=== PATIENT | male | born 1960 | race Caucasian/White ===

== ENCOUNTER → 2017-07-01 08:16 | Outpatient (CLI) | payer OTHER, SELFPAY ==
[2017-07-01 12:50] LABS: Anion Gap 8 (5-15); BUN 18 mg/dL (7-18); BUN/Creat Ratio 21.7 RATIO (10-20); Calcium,Total 8.6 mg/dL (8.5-10.1); Chloride 104 mmol/L (98-107); Cholesterol 192 mg/dL (200); Creatinine, Serum 0.83 mg/dL (0.70-1.30); EST Glomerular Filtration Rate 101 mL/min (>60); Est Glom Filt Rate - Afr Amer 123 mL/min (>60); Glucose 93 mg/dL (74-106); High Density Lipoprotein 46 mg/dL; Potassium 3.6 mmol/L (3.5-5.1); Sodium Level 139 mmol/L (136-145); Triglycerides 222 mg/dL; Very Low Density Lipoprotein 44 mg/dL (5-40)
== END ==
PROVIDERS: Family Provider Family Medicine; PCP Family Medicine; Visit Provider Family Medicine
DX: I10 Essential (primary) hypertension (principal); E78.5 Hyperlipidemia, unspecified
CPT/HCPCS: 36415; 80048; 80061

== ENCOUNTER 2017-08-02 15:15 | Observation (INO) | payer OTHER, SELFPAY ==
[2017-08-02] VITALS (11 sets, daily range): BP systolic 137–159; BP diastolic 85–104; PULSE 53–80; RESP 12–18; TEMP 36.7–36.9; O2SAT 94–98; BMI 31.8; BMI 30.9; BMI 31.0
--- NOTE | 2017-08-02 15:26 | EKG12_ITS ---
Test Reason : CP Blood Pressure : / mmHG Vent. Rate : 072 BPM Atrial Rate : 072 BPM P-R Int : 162 ms QRS Dur : 104 ms QT Int : 404 ms P-R-T Axes : 044 -23 021 degrees QTc Int : 442 ms Normal sinus rhythm Normal ECG Confirmed by ALLY WHITESIDE MD ([id number]), editor newspaper TIAGO CHANG ([id number]) on 08/04/2017 3:16:04 PM Referred By: ZAIRA Confirmed By:ALLY WHITESIDE MD
--- NOTE | 2017-08-02 15:27 | RAD_ITS ---
STUDY: X-RAY CHEST REASON FOR EXAM: Male, 57 years old. Left chest pain intermittent for one week with numbness and tingling in the left arm. TECHNIQUE: AP upright portable view. COMPARISON: None. FINDINGS: The lungs are clear and expanded. There is no demonstrated pleural abnormality. Normal size heart. Normal mediastinum and luma. Normal visualized pulmonary arteries. Normal visualized aortic arch and descending thoracic aorta. Normal visualized thoracic spine. Normal visualized ribs, clavicles, and shoulders. There is no demonstrated abnormality of the visualized soft tissue structures of the upper abdomen. RAD/Chest 1 View (Portable) IMPRESSION: Normal x-ray examination of the chest. Electronically Signed: Amos Chin MD at 15:45 EDT , Service support ,
--- NOTE | 2017-08-02 15:29 | ED.VISSUMM ---
- ER Visit Summary Date of Service: 08/02/17 Chief Complaint: Chest pain History of Present Illness: The patient is a 57 M presenting with intermittent chest pain. He states this began a week ago and has become more frequent. He has midsternal chest pain. He states yesterday it radiated to the left side of his neck. He also notes left-sided facial tingling. No weakness. No change in vision or speech. Last night he had an episode of diaphoresis. He denies nausea or vomiting. Denies shortness of breath. He is on chemotherapy for rheumatoid arthritis. Denies any recent travel or surgery. He has a history of hypertension, hypercholesterolemia. Physical Examination: Vitals are stable. Patient is afebrile. Alert no acute distress. HEENT exam is unremarkable. Neck is supple. Lungs are clear and equal bilaterally. Heart is regular rate and rhythm. Abdomen is soft nontender nondistended. Extremities are unremarkable. Skin is warm and dry. Paresthesia left lower face, remainder of neuro exam is normal Remainder of exam is unremarkable. Emergency Department Course and Treatment: Patient was given aspirin on arrival. EKG is sinus rhythm rate of 72 with no acute ischemic changes. CBC is normal except for platelets 125. Chemistries unremarkable. Troponin is negative. Chest x-ray shows no acute process. D-dimer was elevated. CTA chest shows no PE or dissection. CT head shows no acute process. Due to his intermittent chest pain and diaphoresis discussed with the hospitalist for observation. Disposition: Observation Impression: Chest pain This note was generated with [employer] dictation software. It may contain incorrect words, spelling, and punctuation that were not noted in review of the chart prior to signing ED Disposition - Plan for ED Patient: Disposition: Acute Care Hospital [facility] Chief Complaint: Chest Pain
[2017-08-02] MEDS: Aspirin 81 MG TAB.CHEW 324 MG PO (15:36)
[2017-08-02 15:49] LABS: Absolute Lymphocyte Count 1.27 X10^3/ul (0.83-4.51); Basophil# 0.03 X10^3/uL; Basophil% 0.6 % (0-1); Hematocrit 43.6 % (40-54); Lymphocyte # 1.27 X10^3/ul (4.0); Lymphocyte % 25.2 % (19-41); Mean Corp Hgb Conc 34.4 g/gl (32-36); Mean Corpuscular Hgb 30.1 pg (27.0-32.0); Mean Corpuscular Volume 87.4 fL (80-94); Mean Platelet Vol. 10.1 fl (6.2-12.0); Monocyte% 11.9 % (0-10); Neutrophil # 3.02 X10^3/uL (2.7-7.7); Neutrophil % 60.1 % (47-70); Platelet Count 125 K/mm3 (150-450); RBC Distribution Width CV 12.4 % (11.6-14.6); RBC Distribution Width SD 39.8 fl (35.1-43.9); Red Blood Count 4.99 M/mm3 (4.6-6.2)
[2017-08-02 15:50] LABS: POSITIVE COUNT NO; POSITIVE DIFFERENTIAL NO; POSITIVE MORPHOLOGY NO
[2017-08-02 15:59] LABS: Anion Gap 10 (5-15); BUN 14 mg/dL (7-18); BUN/Creat Ratio 16.3 RATIO (10-20); Calcium,Total 8.5 mg/dL (8.5-10.1); Chloride 104 mmol/L (98-107); Creatinine, Serum 0.86 mg/dL (0.70-1.30); EST Glomerular Filtration Rate 98 mL/min (>60); Est Glom Filt Rate - Afr Amer 118 mL/min (>60); Glucose 101 mg/dL (74-106); Potassium 3.6 mmol/L (3.5-5.1); Sodium Level 140 mmol/L (136-145)
[2017-08-02 16:20] LABS: D-Dimer Quantitative (DVT/PE) 2.61 FEU/ug/m (0.27-0.49)
--- NOTE | 2017-08-02 16:22 | CT_ITS ---
STUDY: CT BRAIN WITHOUT CONTRAST REASON FOR EXAM: Male, 57 years old. Left arm numbness and tingling RADIATION DOSAGE (If Supplied By Facility): CTDIvol = ( 44.99 ) mGy, DLP = ( 779.24 ) mGycm TECHNIQUE: Transaxial CT imaging of the brain was performed without administration of intravenous contrast material. Sagittal and coronal images are reformatted. Individualized dose optimization techniques were used for this CT. COMPARISON: None. FINDINGS: Normal soft tissue structures. Normal calvarium. Normal size ventricles and extra-axial spaces for the patient's age. Normal white matter tracts of the cerebral hemispheres. Normal basal ganglia and thalami. Normal brainstem. Normal cerebellum. There is no intracranial hemorrhage. There are no findings of an acute ischemic infarction. Normal visualized paranasal sinuses. CT/Brain/Head without Contrast IMPRESSION: No acute intracranial process. Electronically Signed: Scout Valdovinos DO at 17:10 EDT , Service support ,
--- NOTE | 2017-08-02 16:22 | CT_ITS ---
STUDY: CTA CHEST REASON FOR EXAM: Male, 57 years old. Left arm numbness/tingling. Elevated d-dimer. RADIATION DOSAGE (If Supplied By Facility): CTDIvol = ( 16.30 ) mGy, DLP = ( 744.63 ) mGycm TECHNIQUE: The examination was performed with the intravenous administration of 100mL ml of Isovue 370 contrast material. Post-processing of the angiographic images was performed, with multiplanar reformation and 3D reconstruction. Individualized dose optimization techniques were used for this CT. COMPARISON: None. FINDINGS: Normal enhancement of the main pulmonary artery and right and left pulmonary arteries. Normal enhancement of the bilateral peripheral pulmonary arteries. There is no demonstrated pulmonary embolism. Normal thoracic aorta and visualized great vessels. There is no demonstrated aortic dissection. Normal heart and pericardium. Normal mediastinum. Normal hilar regions. Normal visualized trachea and bronchi. There is minimal dependent atelectasis within the lower lobes. Normal chest wall structures. Normal osseous structures. The limited images of the upper abdomen demonstrate a well-circumscribed low-attenuation focus with a thin calcified septation within the spleen. CT/CTA Chest W/WO Contrast IMPRESSION: No pulmonary embolism or arterial dissection. Minimal dependent atelectasis within the lower lobes. Splenic cyst. Electronically Signed: Yolanda Thompson MD at 17:17 EDT Tel , Service support ,
--- NOTE | 2017-08-02 18:18 | NURSING ---
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
--- NOTE | 2017-08-02 18:21 | PCM.HP.STD ---
Problem List (1) Chest pain Status: Acute Qualifiers: Chest pain type: precordial pain Qualified Code(s): R07.2 - Precordial pain (2) Essential hypertension, benign Status: Chronic (3) Hyperlipidemia, mixed Status: Chronic (4) Rheumatoid arthritis Status: Chronic Qualifiers: Rheumatoid arthritis location: multiple sites Rheumatoid factor presence: unspecified presence Qualified Code(s): M06.9 - Rheumatoid arthritis, unspecified History of Present Illness Date of Admission: 08/02/17 Chief Complaint: Chest pain. Patient is a 57 years old male who presents with chest pain. He is having intermittent left mid lower chest pain that lasts for 10 to 20 seconds with sharp sensation for about 10 days. The pain is associated with some exertion, but not always. The pain is somewhat reproducible with pressure to mid lower chest that induces similar pain. He had some left sided radiation and tingling of fingers with chest pain. He also had an episode of diaphoresis during the night, but not sure if he had chest pain. He has some worsening of dyspnea with mild exertion, which is new. He has no previous cardiac problems, and has no family history of cardiac disease. He had quit smoking 15 years ago. He has hypertension and hyperlipidemia. He is on biologic DMARD infusion for rheumatoid arthritis. Past Medical History Past Medical History (Chronic Problems): Chronic Problems Essential hypertension, benign (Chronic) Hyperlipidemia, mixed (Chronic) Rheumatoid arthritis (Chronic) Allergies leflunomide [From Arava] Allergy (Verified 08/02/17 15:17) Rash Home Medications: Ambulatory Orders Medication Instructions Recorded Aspirin [Aspirin EC] 325 mg PO DAILY 08/02/17 Atorvastatin Calcium [Lipitor] 10 mg PO QHS 08/02/17 Lisinopril [Zestril] 10 mg PO DAILY 08/02/17 Ranitidine [Zantac] 150 mg PO BID 08/02/17 Surgical History: no surgical history Psychiatric History: No pertinent psych hx Lives: Spouse/ Significant Other Smoking Status: Never smoker - *Family History Maternal History Items: Cancer - Mother had pancreatic cancer. Paternal History Items: - - His father had aneurysm of brain. Review of Systems Comment: ROS: In general: Patient has been in good health, denied of any constitutional symptoms, such as weight loss, or gain, fever, chills, or night sweats. Patient denied of any profound fatigue. HEENT: Unremarkable. Patient denied of any dizziness, chronic headache, blurred vision, double vision, dry mouth, or nasal congestion. CV/respiratory: See HPI. GI: Patient denied any abdominal pain, nausea, vomiting, diarrhea, constipation, melena, or hematochezia. : Patient denied any significant urinary symptoms. Neurology: He is having some numbness of left face / angle of jaw area. There is no history of seizure as an adult. Psychological: Unremarkable. ?. Endocrine: Unremarkable. Musculoskeletal: Unremarkable. VTE Information - Inpt Only VTE Present on Admission: No VTE Mechan Device Prophylaxis: Knee High JERILYN Hose VTE Pharm Prophylaxis ordered?: Yes Patient Problems: Active and Suspected Problems Chest pain (Acute) Objective: In general, patient is a well-nourished and developed adult. HEENT: Head is atraumatic, and normocephalic. Pupils are equal, round, and reactive to light and accommodations. Neck is supple. There is no lymphadenopathy, or thyromegaly. Oral mucosa is pink, and moist. There are no lesions. TM clear. Nasal mucosa congested. Heart: Auscultation is normal with regular rhythm and rate. There is no extra heart sounds, or murmurs. S1 and S2 are present. Point of maximal impulse is not displaced. Lungs: Lungs are clear to auscultation bilaterally. There is no wheezing, or crackles. Abdomen: Abdominal wall is non-tender, and non-distended. There is no palpable mass or organomegaly. Normoactive bowel sounds are present. Extremities: There is no cyanosis or clubbing. Peripheral pulses are palpable. There is no edema. Skin: There are no any skin discoloration or lesions. Neurological: CN II - XII are intact. Sensory and motor functions are grossly normal with no obvious deficit. Cerebellar functions are within normal range. Gait was not tested - Physical Exam Vital Signs Temp Pulse Resp BP Pulse Ox 98.0 F 61 18 153/103 H 94 08/02/17 15:15 18 18:09 18 18:09 08/02/17 18:09 08/02/17 18:09 Oxygen Delivery Method Room Air Weight: 241 lb 2.971 oz Body Mass Index (BMI) 31.8 Laboratory Tests Past 24 Hrs 03/18/18 0308/02/17 15:26 15:26 15:26 WBC 5.0 RBC 4.99 Hgb 15.0 Hct 43.6 MCV 87.4 MCH 30.1 MCHC 34.4 RDW 12.4 RDW Differential 39.8 Plt Count 125 L MPV 10.1 Immature Gran % (Auto) 0.200 Neut % (Auto) 60.1 Lymph % (Auto) 25.2 Clinch % (Auto) 11.9 H Eos % (Auto) 2.0 Baso % (Auto) 0.6 Absolute Neuts (auto) 3.0 Absolute Lymphs (auto) 1.27 Total Counted Not Reportable D-Dimer Quant (PE/DVT) 2.61 H* Sodium 140 Potassium 3.6 Chloride 104 Carbon Dioxide 26.0 Anion Gap 10 BUN 14 Creatinine 0.86 Estim Creat Clear Calc 107.10 Est GFR (MDRD) Af Amer 118 Est GFR (MDRD) Non-Af 98 BUN/Creatinine Ratio 16.3 Glucose 101 Calcium 8.5 Troponin I < 0.02 Diagnostic Data Chest X-Ray 08/02/17 15:27 IMPRESSION: Normal x-ray examination of the chest. Electronically Signed: Amos Chin MD at 15:45 EDT , Service support , Brain CT 08/02/17 16:22 IMPRESSION: No acute intracranial process. Electronically Signed: Scout Valdovinos DO at 17:10 EDT , Service support , Chest CTA 08/02/17 16:22 IMPRESSION: No pulmonary embolism or arterial dissection. Minimal dependent atelectasis within the lower lobes. Splenic cyst. Electronically Signed: Yolanda Thompson MD at 17:17 EDT Tel , Service support , EKG: NSR rate 72. Normal EKG. Assessment/Plan Active and Suspected Problems Chest pain (Acute) Patient is a 57 years old male who presents with chest pain. He is having intermittent left mid lower chest pain that lasts for 10 to 20 seconds with sharp sensation for about 10 days. The pain is associated with some exertion, but not always. The pain is somewhat reproducible with pressure to mid lower chest. He had some left sided radiation and tingling of fingers with chest pain. He also had an episode of diaphoresis during the night, but not sure if he had chest pain. He has some worsening of dyspnea with mild exertion, which is new. He has no previous cardiac problems, and has no family history of cardiac disease. He had quit smoking 15 years ago. He has hypertension and hyperlipidemia. He is on biologic DMARD infusion for rheumatoid arthritis. #1 Chest pain. Somewhat atypical, however, he has enough risk factors. Trend troponin to rule out myocardial infarction. Set up stress nuclear myocardial perfusion scan for tomorrow. Continue aspirin daily along with statin. #2 Persisting left facial numbness. He has numbness at angle of jaw that is intermittent. Each symptoms probably lasts for few minutes at time. Etiology is not clear. CT of head is negative. Not consistent with TIA, however, continue neuro-check. #3 Essential hypertension. Blood pressure is elevated initially. Continue to monitor. Continue lisinopril. #4 Hyperlipidemia. Continue statin. #5 rheumatoid arthritis. He receives biologic DMARD infusion every 4 weeks, which is not due for next 2 weeks. VTE prophylaxis: Lovenox SQ. GI prophylaxis: PPI po. Patient is full code. Disposition: home in 1 to 2 days. Code Visit OBSV E&M: 56977 Initial observation care L3
--- NOTE | 2017-08-02 18:31 | HP.PCM_ITS ---
Problem List (1) Chest pain Status: Acute Qualifiers: Chest pain type: precordial pain Qualified Code(s): R07.2 - Precordial pain (2) Essential hypertension, benign Status: Chronic (3) Hyperlipidemia, mixed Status: Chronic (4) Rheumatoid arthritis Status: Chronic Qualifiers: Rheumatoid arthritis location: multiple sites Rheumatoid factor presence: unspecified presence Qualified Code(s): M06.9 - Rheumatoid arthritis, unspecified History of Present Illness Date of Admission: 08/02/17 Chief Complaint: Chest pain. Patient is a 57 years old male who presents with chest pain. He is having intermittent left mid lower chest pain that lasts for 10 to 20 seconds with sharp sensation for about 10 days. The pain is associated with some exertion, but not always. The pain is somewhat reproducible with pressure to mid lower chest that induces similar pain. He had some left sided radiation and tingling of fingers with chest pain. He also had an episode of diaphoresis during the night, but not sure if he had chest pain. He has some worsening of dyspnea with mild exertion, which is new. He has no previous cardiac problems, and has no family history of cardiac disease. He had quit smoking 15 years ago. He has hypertension and hyperlipidemia. He is on biologic DMARD infusion for rheumatoid arthritis. Past Medical History Past Medical History (Chronic Problems): Chronic Problems Essential hypertension, benign (Chronic) Hyperlipidemia, mixed (Chronic) Rheumatoid arthritis (Chronic) Allergies leflunomide [From Arava] Allergy (Verified 08/02/17 15:17) Rash Home Medications: Ambulatory Orders Medication Instructions Recorded Aspirin [Aspirin EC] 325 mg PO DAILY 08/02/17 Atorvastatin Calcium [Lipitor] 10 mg PO QHS 08/02/17 Lisinopril [Zestril] 10 mg PO DAILY 08/02/17 Ranitidine [Zantac] 150 mg PO BID 08/02/17 Surgical History: no surgical history Psychiatric History: No pertinent psych hx Lives: Spouse/ Significant Other Smoking Status: Never smoker - *Family History Maternal History Items: Cancer - Mother had pancreatic cancer. Paternal History Items: - - His father had aneurysm of brain. Review of Systems Comment: ROS: In general: Patient has been in good health, denied of any constitutional symptoms, such as weight loss, or gain, fever, chills, or night sweats. Patient denied of any profound fatigue. HEENT: Unremarkable. Patient denied of any dizziness, chronic headache, blurred vision, double vision, dry mouth, or nasal congestion. CV/respiratory: See HPI. GI: Patient denied any abdominal pain, nausea, vomiting, diarrhea, constipation, melena, or hematochezia. : Patient denied any significant urinary symptoms. Neurology: He is having some numbness of left face / angle of jaw area. There is no history of seizure as an adult. Psychological: Unremarkable. ?. Endocrine: Unremarkable. Musculoskeletal: Unremarkable. VTE Information - Inpt Only VTE Present on Admission: No VTE Mechan Device Prophylaxis: Knee High JERILYN Hose VTE Pharm Prophylaxis ordered?: Yes Patient Problems: Active and Suspected Problems Chest pain (Acute) Objective: In general, patient is a well-nourished and developed adult. HEENT: Head is atraumatic, and normocephalic. Pupils are equal, round, and reactive to light and accommodations. Neck is supple. There is no lymphadenopathy, or thyromegaly. Oral mucosa is pink, and moist. There are no lesions. TM clear. Nasal mucosa congested. Heart: Auscultation is normal with regular rhythm and rate. There is no extra heart sounds, or murmurs. S1 and S2 are present. Point of maximal impulse is not displaced. Lungs: Lungs are clear to auscultation bilaterally. There is no wheezing, or crackles. Abdomen: Abdominal wall is non-tender, and non-distended. There is no palpable mass or organomegaly. Normoactive bowel sounds are present. Extremities: There is no cyanosis or clubbing. Peripheral pulses are palpable. There is no edema. Skin: There are no any skin discoloration or lesions. Neurological: CN II - XII are intact. Sensory and motor functions are grossly normal with no obvious deficit. Cerebellar functions are within normal range. Gait was not tested - Physical Exam Vital Signs Temp Pulse Resp BP Pulse Ox 98.0 F 61 18 153/103 H 94 08/02/17 15:15 18 18:09 18 18:09 08/02/17 18:09 08/02/17 18:09 Oxygen Delivery Method Room Air Weight: 241 lb 2.971 oz Body Mass Index (BMI) 31.8 Laboratory Tests Past 24 Hrs 03/18/18 0308/02/17 15:26 15:26 15:26 WBC 5.0 RBC 4.99 Hgb 15.0 Hct 43.6 MCV 87.4 MCH 30.1 MCHC 34.4 RDW 12.4 RDW Differential 39.8 Plt Count 125 L MPV 10.1 Immature Gran % (Auto) 0.200 Neut % (Auto) 60.1 Lymph % (Auto) 25.2 Stark % (Auto) 11.9 H Eos % (Auto) 2.0 Baso % (Auto) 0.6 Absolute Neuts (auto) 3.0 Absolute Lymphs (auto) 1.27 Total Counted Not Reportable D-Dimer Quant (PE/DVT) 2.61 H* Sodium 140 Potassium 3.6 Chloride 104 Carbon Dioxide 26.0 Anion Gap 10 BUN 14 Creatinine 0.86 Estim Creat Clear Calc 107.10 Est GFR (MDRD) Af Amer 118 Est GFR (MDRD) Non-Af 98 BUN/Creatinine Ratio 16.3 Glucose 101 Calcium 8.5 Troponin I < 0.02 Diagnostic Data Chest X-Ray 08/02/17 15:27 IMPRESSION: Normal x-ray examination of the chest. Electronically Signed: Amos Chin MD at 15:45 EDT , Service support , Brain CT 08/02/17 16:22 IMPRESSION: No acute intracranial process. Electronically Signed: Scout Valdovinos DO at 17:10 EDT , Service support , Chest CTA 08/02/17 16:22 IMPRESSION: No pulmonary embolism or arterial dissection. Minimal dependent atelectasis within the lower lobes. Splenic cyst. Electronically Signed: Yolanda Thompson MD at 17:17 EDT Tel , Service support , EKG: NSR rate 72. Normal EKG. Assessment/Plan Active and Suspected Problems Chest pain (Acute) Patient is a 57 years old male who presents with chest pain. He is having intermittent left mid lower chest pain that lasts for 10 to 20 seconds with sharp sensation for about 10 days. The pain is associated with some exertion, but not always. The pain is somewhat reproducible with pressure to mid lower chest. He had some left sided radiation and tingling of fingers with chest pain. He also had an episode of diaphoresis during the night, but not sure if he had chest pain. He has some worsening of dyspnea with mild exertion , which is new. He has no previous cardiac problems, and has no family history of cardiac disease. He had quit smoking 15 years ago. He has hypertension and hyperlipidemia. He is on biologic DMARD infusion for rheumatoid arthritis. #1 Chest pain. Somewhat atypical, however, he has enough risk factors. Trend troponin to rule out myocardial infarction. Set up stress nuclear myocardial perfusion scan for tomorrow. Continue aspirin daily along with statin. #2 Persisting left facial numbness. He has numbness at angle of jaw that is intermittent. Each symptoms probably lasts for few minutes at time. Etiology is not clear. CT of head is negative. Not consistent with TIA, however, continue neuro-check. #3 Essential hypertension. Blood pressure is elevated initially. Continue to monitor. Continue lisinopril. #4 Hyperlipidemia. Continue statin. #5 rheumatoid arthritis. He receives biologic DMARD infusion every 4 weeks, which is not due for next 2 weeks. VTE prophylaxis: Lovenox SQ. GI prophylaxis: PPI po. Patient is full code. Disposition: home in 1 to 2 days. Code Visit OBSV E&M: 69090 Initial observation care L3
[2017-08-02] MEDS: Atorvastatin Calcium 10 MG Tablet PO (22:25)
[2017-08-03 03:17] VITALS: PULSE 59
[2017-08-03 03:57] VITALS: BP 134/85; PULSE 59; RESP 16; TEMP 37.3; O2SAT 96
--- NOTE | 2017-08-03 04:00 | EKG12_ITS ---
Test Reason : AM EKG Blood Pressure : / mmHG Vent. Rate : 056 BPM Atrial Rate : 056 BPM P-R Int : 166 ms QRS Dur : 100 ms QT Int : 438 ms P-R-T Axes : 048 -18 003 degrees QTc Int : 422 ms Sinus bradycardia Otherwise normal ECG When compared with ECG of 02-AUG-2017 15:21, MANUAL COMPARISON REQUIRED, DATA IS UNCONFIRMED Confirmed by JANIS JACKSON ([id number]), photography editor TIAGO CHANG ([id number]) on 08/06/2017 3:08:13 PM Referred By: DARIAN Confirmed By:JANIS JACKSON
[2017-08-03 05:18] LABS: Hematocrit 43.1 % (40-54); Hemoglobin 15.3 g/dl (13.0-16.5); Mean Corp Hgb Conc 35.5 g/gl (32-36); Mean Corpuscular Hgb 30.5 pg (27.0-32.0); Mean Platelet Vol. 9.4 fl (6.2-12.0); Platelet Count 121 K/mm3 (150-450); RBC Distribution Width CV 12.2 % (11.6-14.6); RBC Distribution Width SD 38.3 fl (35.1-43.9); Red Blood Count 5.01 M/mm3 (4.6-6.2); White Blood Count 5.8 K/mm3 (4.4-11.0)
[2017-08-03] MEDS: Lisinopril 10 MG Tablet PO (05:25)
[2017-08-03] MEDS: Aspirin E.C. 325 MG Tablet PO (05:25)
[2017-08-03 05:26] LABS: International Normalized Ratio 1.1; Prothrombin Time (Protime)PT. 13.7 SECONDS (11.7-14.9)
[2017-08-03 05:27] LABS: Partial Thromboplast Time 25.1 Seconds (24.1-36.2)
[2017-08-03 05:31] LABS: Scan Indicated on CBC? Y/N NO
[2017-08-03 05:34] LABS: Anion Gap 9 (5-15); BUN 12 mg/dL (7-18); BUN/Creat Ratio 14.5 RATIO (10-20); Calcium,Total 8.7 mg/dL (8.5-10.1); Chloride 103 mmol/L (98-107); Creatinine, Serum 0.83 mg/dL (0.70-1.30); EST Glomerular Filtration Rate 102 mL/min (>60); Est Glom Filt Rate - Afr Amer 123 mL/min (>60); Estimated Creatinine Clearance 110.97 ml/min; Glucose 111 mg/dL (74-106); Potassium 3.8 mmol/L (3.5-5.1); Sodium Level 139 mmol/L (136-145)
[2017-08-03 06:47] VITALS: PULSE 74
[2017-08-03 08:30] VITALS: O2SAT 97
[2017-08-03 09:55] VITALS: BP 141/84; PULSE 61; RESP 16; TEMP 36.9; O2SAT 95
--- NOTE | 2017-08-03 09:57 | STRESSREP_ITS ---
Stress Test Report Exercise myocardial perfusion stress test. 57-year-old man with a history of chest pain. Stress protocol: Resting EKG demonstrates sinus rhythm with rate of 55 bpm normal intervals and noted. The patient exercised according to regular Tavon protocol for total duration of 9 minutes completing stage III of the Tavon protocol. The maximum heart rate attained was 164 bpm which was 100% maximum predicted heart rate the maximum workload attained was 10.1 metabolic equivalents. At rest there were no ST or T-wave changes noted to suggest ischemia and at peak exercise no ST or T-wave changes were noted suggest ischemia. The resting blood pressure was 140/ 82 with a peak blood pressure 182/92. No clinical angina was noted. No arrhythmias were noted. The rate pressure product was 27,500. Myocardial perfusion protocol. 14.1 mCi of technetium 99m sestamibi was injected at rest. The patient exercised according to the regular Tavon protocol for total duration of 9 minutes attaining 10.1 metabolic equivalents. At peak exercise 45.0 mCi of technetium 99m sestamibi was injected stress images were obtained stress and rest images were reconstructed and compared in the short axis vertical long and horizontal long axis. Gated images were also obtained. Perfusion SPECT analysis: Review of the stress images demonstrate normal uptake of tracer noted in all areas of the myocardium. The resting images similarly demonstrate normal uptake of tracer noted in all areas of the myocardium no areas of reversibility are noted suggest ischemia no previous infarct is noted. Gated SPECT analysis. The gated ejection fraction is noted to be 60%. Conclusion: Exercise myocardial perfusion stress test with no evidence of ischemia at a high workload. Preserved ejection fraction. Good functional capacity.
[2017-08-03] MEDS: Pantoprazole Sodium 20 MG Tablet PO (09:58)
--- NOTE | 2017-08-03 10:44 | PCM.DC ---
- Discharge Diagnoses Current Active Problems: Current Active and Chronic Problems Chest pain (Acute) Essential hypertension, benign (Chronic) Hyperlipidemia, mixed (Chronic) Rheumatoid arthritis (Chronic) You will use the following diet at home:: No restrictions Discharge Activity: Return to Normal Activity Call your doctor if you observe: Shortness of breath, Dizziness, Fainting spells, Chest pain, Increased palpitations (irregular heartbeat) Allergies/Adverse Reactions: Allergies leflunomide [From Arava] Allergy (Verified 08/02/17 15:17) Rash Methotrexate Analogues Adverse Reaction (Verified 08/02/17 18:39) Unknown ENLARGED LIVER Medications to take at Discharge Atorvastatin Calcium [Lipitor] 10 mg PO QHS 08/02/17 Lisinopril [Zestril] 10 mg PO DAILY 08/02/17 Ranitidine [Zantac] 150 mg PO BID 08/02/17 Amox/Clavulanate Tablet [Augmentin Tablet] 875 mg PO Q12H #14 tab 08/03/17 The following prescriptions were given: Amox/Clavulanate Tablet [Augmentin Tablet] 875 mg PO Q12H #14 tab Primary Care Physician: Juan Harris MD [Primary Care Provider] - Please follow up with your Primary Care Physician in: 1 Week Proposed Discharge Date: 08/03/17
--- NOTE | 2017-08-03 10:48 | DCINST_ITS ---
- Discharge Diagnoses Current Active Problems: Current Active and Chronic Problems Chest pain (Acute) Essential hypertension, benign (Chronic) Hyperlipidemia, mixed (Chronic) Rheumatoid arthritis (Chronic) You will use the following diet at home:: No restrictions Discharge Activity: Return to Normal Activity Call your doctor if you observe: Shortness of breath, Dizziness, Fainting spells , Chest pain, Increased palpitations (irregular heartbeat) Allergies/Adverse Reactions: Allergies leflunomide [From Arava] Allergy (Verified 08/02/17 15:17) Rash Methotrexate Analogues Adverse Reaction (Verified 08/02/17 18:39) Unknown ENLARGED LIVER Medications to take at Discharge Atorvastatin Calcium [Lipitor] 10 mg PO QHS 08/02/17 Lisinopril [Zestril] 10 mg PO DAILY 08/02/17 Ranitidine [Zantac] 150 mg PO BID 08/02/17 Amox/Clavulanate Tablet [Augmentin Tablet] 875 mg PO Q12H #14 tab 08/03/17 The following prescriptions were given: Amox/Clavulanate Tablet [Augmentin Tablet] 875 mg PO Q12H #14 tab Primary Care Physician: Juan Harris MD [Primary Care Provider] - Please follow up with your Primary Care Physician in: 1 Week Proposed Discharge Date: 08/03/17
--- NOTE | 2017-08-03 10:50 | PCM.DC.SUM ---
Discharge Date and Diagnosis Date of Admission: 08/02/17 Date of Discharge: 08/03/17 - Primary Discharge Diagnosis Active and Suspected Problems 1. Chest pain- ACS ruled out. 2. Acute tonsillitis 3. Hypertension 4. Hyperlipidemia 5. Rheumatoid arthritis - Secondary Discharge Diagnosis Chronic Problems Essential hypertension, benign (Chronic) Hyperlipidemia, mixed (Chronic) Rheumatoid arthritis (Chronic) Hospital Course and Treatment Imaging Results: Diagnostic Data Chest X-Ray 08/02/17 15:27 IMPRESSION: Normal x-ray examination of the chest. Electronically Signed: Amos Chin MD at 15:45 EDT , Service support , Brain CT 08/02/17 16:22 IMPRESSION: No acute intracranial process. Electronically Signed: Scout Valdovinos DO at 17:10 EDT , Service support , Chest CTA 08/02/17 16:22 IMPRESSION: No pulmonary embolism or arterial dissection. Minimal dependent atelectasis within the lower lobes. Splenic cyst. Electronically Signed: Yolanda Thompson MD at 17:17 EDT Tel , Service support , Operations: None Procedures: Stress test Summary of Care Provided: The patient is a 57 year old M admitted 08/02/2017 due to chest pain. He has a past medical history of hypertension, hyperlipidemia, rheumatoid arthritis. His acid reflux medication was recently changed due to a lower cost medication. He denied shortness of breath, diaphoresis, pain radiation or other associated symptoms with chest pain. He did complain of left shoulder pain which she states was not associated with chest pain. D-dimer on admission 2.61. CTA of chest showed no pulmonary embolism or arterial dissection. Brain CT unremarkable. EKG without evidence of ischemia. Troponin negative ?4. Chest x-ray without acute process. Patient underwent nuclear stress test which was negative for ischemia. He complains of left neck tenderness and painful swallowing due to left throat pain. He was discharged on Augmentin for acute tonsillitis. He will follow-up with primary care physician within 1 week. Discussed with patient if neck/throat pain does not improve in 2 days, see PCP sooner. Patient seen and examined prior to discharge. Heart rate regular rate and rhythm. Lungs clear. Abdomen soft, nontender. Neuro grossly intact. Patient denies further chest pain. He is stable for discharge home, to follow-up with primary care physician. This patient was seen by FRANSISCO Ward under the supervision of Dr. Sadler. Discharge Diet: No Restrictions Discharge Activity: Return to Normal Activity Call your doctor if you observe: Shortness of breath, Dizziness, Fainting spells, Chest pain, Increased palpitations (irregular heartbeat) Home Medications: Medications to take at Discharge Atorvastatin Calcium [Lipitor] 10 mg PO QHS 08/02/17 Lisinopril [Zestril] 10 mg PO DAILY 08/02/17 Ranitidine [Zantac] 150 mg PO BID 08/02/17 Amox/Clavulanate Tablet [Augmentin Tablet] 875 mg PO Q12H #14 tab 08/03/17 Following Prescrptions Were Given to Patient: Amox/Clavulanate Tablet [Augmentin Tablet] 875 mg PO Q12H #14 tab Primary Care Physician: Juan Harris MD [Primary Care Provider] - Please follow up with your Primary Care Physician in: 1 Week Disposition: Home Minutes spent on discharge:: 35 Patient Condition:: Stable Medical Necessity - Tobacco Use Smoking Status: Never smoker Meaningful Use Info Meaningful Use Diagnoses (Choose all that apply): None applicable
--- NOTE | 2017-08-03 11:02 | DS.PCM_ITS ---
Discharge Date and Diagnosis Date of Admission: 08/02/17 Date of Discharge: 08/03/17 - Primary Discharge Diagnosis Active and Suspected Problems 1. Chest pain- ACS ruled out. 2. Acute tonsillitis 3. Hypertension 4. Hyperlipidemia 5. Rheumatoid arthritis - Secondary Discharge Diagnosis Chronic Problems Essential hypertension, benign (Chronic) Hyperlipidemia, mixed (Chronic) Rheumatoid arthritis (Chronic) Hospital Course and Treatment Imaging Results: Diagnostic Data Chest X-Ray 08/02/17 15:27 IMPRESSION: Normal x-ray examination of the chest. Electronically Signed: Amos Chin MD at 15:45 EDT , Service support , Brain CT 08/02/17 16:22 IMPRESSION: No acute intracranial process. Electronically Signed: Scout Valdovinos DO at 17:10 EDT , Service support , Chest CTA 08/02/17 16:22 IMPRESSION: No pulmonary embolism or arterial dissection. Minimal dependent atelectasis within the lower lobes. Splenic cyst. Electronically Signed: Yolanda Thompson MD at 17:17 EDT Tel , Service support , Operations: None Procedures: Stress test Summary of Care Provided: The patient is a 57 year old M admitted 08/02/2017 due to chest pain. He has a past medical history of hypertension, hyperlipidemia, rheumatoid arthritis. His acid reflux medication was recently changed due to a lower cost medication. He denied shortness of breath, diaphoresis, pain radiation or other associated symptoms with chest pain. He did complain of left shoulder pain which she states was not associated with chest pain. D-dimer on admission 2.61. CTA of chest showed no pulmonary embolism or arterial dissection. Brain CT unremarkable. EKG without evidence of ischemia. Troponin negative ?4. Chest x-ray without acute process. Patient underwent nuclear stress test which was negative for ischemia. He complains of left neck tenderness and painful swallowing due to left throat pain. He was discharged on Augmentin for acute tonsillitis. He will follow-up with primary care physician within 1 week. Discussed with patient if neck/throat pain does not improve in 2 days, see PCP sooner. Patient seen and examined prior to discharge. Heart rate regular rate and rhythm. Lungs clear. Abdomen soft, nontender. Neuro grossly intact. Patient denies further chest pain. He is stable for discharge home, to follow-up with primary care physician. This patient was seen by FRANSISCO Ward under the supervision of Dr. Sadler. Discharge Diet: No Restrictions Discharge Activity: Return to Normal Activity Call your doctor if you observe: Shortness of breath, Dizziness, Fainting spells , Chest pain, Increased palpitations (irregular heartbeat) Home Medications: Medications to take at Discharge Atorvastatin Calcium [Lipitor] 10 mg PO QHS 08/02/17 Lisinopril [Zestril] 10 mg PO DAILY 08/02/17 Ranitidine [Zantac] 150 mg PO BID 08/02/17 Amox/Clavulanate Tablet [Augmentin Tablet] 875 mg PO Q12H #14 tab 08/03/17 Following Prescrptions Were Given to Patient: Amox/Clavulanate Tablet [Augmentin Tablet] 875 mg PO Q12H #14 tab Primary Care Physician: Juan Harris MD [Primary Care Provider] - Please follow up with your Primary Care Physician in: 1 Week Disposition: Home Minutes spent on discharge:: 35 Patient Condition:: Stable Medical Necessity - Tobacco Use Smoking Status: Never smoker Meaningful Use Info Meaningful Use Diagnoses (Choose all that apply): None applicable
[2017-08-03 11:06] VITALS: PULSE 65
== END 2017-08-03 10:47 | disposition home or self-care (01) ==
LOC: ED 17:12 → PCU 18:20
PROVIDERS: Admitting Provider Hospitalist; Emergency Provider Emergency Medicine; Family Provider Family Medicine; PCP Family Medicine; Visit Provider Internal Medicine
DX: R07.89 Other chest pain (principal); I10 Essential (primary) hypertension; M06.9 Rheumatoid arthritis, unspecified; E78.2 Mixed hyperlipidemia; R20.0 Anesthesia of skin; J03.90 Acute tonsillitis, unspecified; Z79.82 Long term (current) use of aspirin; Z79.899 Other long term (current) drug therapy; Z87.891 Personal history of nicotine dependence
CPT/HCPCS: 36415; 70450; 71045; 71275; 78452; 80048; 84484; 85025; 85027; 85379; 85610; 85730; 93005; 93017; 99218; 99283; A9500; Q9967; A4216; G0378

== ENCOUNTER → 2017-09-08 12:57 | Outpatient (CLI) | payer OTHER, SELFPAY ==
[2017-09-08 13:33] LABS: Erythrocyte Sedimentation Rate 2 mm/hr (0-20)
[2017-09-08 14:07] LABS: CRP < 2.90 mg/L (0.0-3.0); Creatinine, Serum 0.83 mg/dL (0.70-1.30); EST Glomerular Filtration Rate 102 mL/min (>60); Est Glom Filt Rate - Afr Amer 123 mL/min (>60)
== END ==
PROVIDERS: Visit Provider Internal Medicine Rheumatology
DX: M05.79 Rheumatoid arthritis with rheumatoid factor of multiple sites without organ or systems involvement (principal)
CPT/HCPCS: 82565; 85652; 86140

== ENCOUNTER → 2018-01-07 11:07 | Outpatient (CLI) | payer OTHER, SELFPAY ==
[2018-01-07 11:20] LABS: Erythrocyte Sedimentation Rate 7 mm/hr (0-20)
[2018-01-07 11:36] LABS: CRP < 2.90 mg/L (0.0-3.0); Creatinine, Serum 0.95 mg/dL (0.70-1.30); EST Glomerular Filtration Rate 87 mL/min (>60); Est Glom Filt Rate - Afr Amer 105 mL/min (>60)
== END ==
PROVIDERS: Visit Provider Internal Medicine Rheumatology
DX: M05.79 Rheumatoid arthritis with rheumatoid factor of multiple sites without organ or systems involvement (principal); Z79.899 Other long term (current) drug therapy
CPT/HCPCS: 82565; 85652; 86140

== ENCOUNTER → 2018-04-07 14:57 | Outpatient (CLI) | payer OTHER, SELFPAY ==
[2018-04-07 15:32] LABS: Erythrocyte Sedimentation Rate 6 mm/hr (0-20)
[2018-04-07 15:36] LABS: Absolute Lymphocyte Count 0.77 X10^3/ul (0.83-4.51); Absolute Neutrophil Count 2.7 X10^3/uL (2.0-7.7); Basophil# 0.02 X10^3/uL; Basophil% 0.5 % (0-1); Eosinophil# 0.08 X10^3/uL; Hematocrit 45.6 % (40-54); Hemoglobin 15.4 g/dl (13.0-16.5); Lymphocyte # 0.77 X10^3/ul (4.0); Lymphocyte % 19.1 % (19-41); Mean Corp Hgb Conc 33.8 g/gl (32-36); Mean Corpuscular Volume 88.9 fL (80-94); Mean Platelet Vol. 10.5 fl (6.2-12.0); Monocyte# 0.48 X10^3/uL; Monocyte% 11.9 % (0-10); Neutrophil # 2.69 X10^3/uL (2.7-7.7); Neutrophil % 66.5 % (47-70); Platelet Count 118 K/mm3 (150-450); RBC Distribution Width CV 12.7 % (11.6-14.6); RBC Distribution Width SD 40.8 fl (35.1-43.9); Red Blood Count 5.13 M/mm3 (4.6-6.2)
[2018-04-07 15:43] LABS: POSITIVE COUNT NO; POSITIVE DIFFERENTIAL NO; POSITIVE MORPHOLOGY NO
[2018-04-07 15:52] LABS: AST(SGOT) 32 U/L (15-37); Alanine Aminotransfer ALT/SGPT 71 U/L (16-61); Albumin, Serum 4.1 g/dL (3.2-5.0); Alkaline Phosphatase 79 U/L (45-117); CRP < 2.90 mg/L (0.0-3.0); Creatinine, Serum 0.83 mg/dL (0.70-1.30); EST Glomerular Filtration Rate 101 mL/min (>60); Est Glom Filt Rate - Afr Amer 122 mL/min (>60); Globulin 3.4 g/dL (2.2-4.2); Protein, Total 7.5 g/dL (6.4-8.2)
== END ==
PROVIDERS: Visit Provider Internal Medicine Rheumatology
DX: M05.79 Rheumatoid arthritis with rheumatoid factor of multiple sites without organ or systems involvement (principal); Z79.899 Other long term (current) drug therapy
CPT/HCPCS: 80076; 82565; 85025; 85652; 86140

== ENCOUNTER → 2018-06-23 11:17 | Outpatient (CLI) | payer OTHER, SELFPAY ==
[2018-06-23 13:29] LABS: Erythrocyte Sedimentation Rate 5 mm/hr (0-20)
[2018-06-23 13:43] LABS: CRP < 2.90 mg/L (0.0-3.0)
== END ==
DX: M05.79 Rheumatoid arthritis with rheumatoid factor of multiple sites without organ or systems involvement (principal); Z79.899 Other long term (current) drug therapy
CPT/HCPCS: 85652; 86140

== ENCOUNTER 2023-04-15 10:22 | Emergency (ER) | payer OTHER, SELFPAY ==
[2023-04-15 10:24] VITALS: BP 151/95; PULSE 64; RESP 18; TEMP 36.1; O2SAT 98; BMI 33.0
--- NOTE | 2023-04-15 11:01 | CT_ITS ---
STUDY: CT BRAIN WITHOUT CONTRAST REASON FOR EXAM: Male, 62 years old. Vertigo RADIATION DOSAGE (If Supplied By Facility): CTDIvol = ( 44.99 ) mGy, DLP = ( 812.98 ) mGycm TECHNIQUE: Transaxial CT imaging of the brain was performed without administration of intravenous contrast material. Individualized dose optimization techniques were used for this CT. COMPARISON: Comparison is made with prior study dated August 02, 2017. FINDINGS: Normal soft tissue structures. Normal calvarium. There is mild cerebral atrophy with widening of the extra-axial spaces and ventricular dilatation. Normal white matter tracts of the cerebral hemispheres. Normal basal ganglia and thalami. Normal brainstem. Normal cerebellum. There is no intracranial hemorrhage. There are no findings of an acute ischemic infarction. Normal visualized paranasal sinuses. CT/Brain/Head without Contrast IMPRESSION: Chronic involutional changes of the brain. Electronically Signed: Ethan Saucedo MD at 11:29 EST ,
--- NOTE | 2023-04-15 11:02 | EDS_ITS ---
HPI History of Present Illness Chief Complaint: Dizziness Informant: patient Narrative Narrative: Present intermittent vertigo symptoms starting 2 days ago. He was at the store bending looking up and down at [employer] when he started having dizziness. He made at home was unsteady nausea and vomiting that evening. Yesterday was doing better with mild symptoms however awakened today return of symptoms. Denies headache. He wears hearing aids. No sinus infections. Denies ear pain. Symptoms improved with laying still. Currently during evaluation symptoms have subsided. No previous similar symptoms in the past. Prior similar symptoms: No PFSH PFSH Home Medications Ranitidine [Zantac] 150 mg PO BID 08/02/17 [History Last Taken Unknown] atorvastatin 10 mg tablet 10 mg PO QHS 08/02/17 [History Last Taken Unknown] lisinopril 10 mg tablet (Zestril) 10 mg PO DAILY 08/02/17 [History Last Taken Unknown] amoxicillin 875 mg-potassium clavulanate 125 mg tablet 875 mg (0.875 x 875-125 mg) PO Q12H #14 tabs 08/03/17 [Rx Last Taken Unknown] meclizine 25 mg tablet 25 mg PO 4X/DAY PRN PRN Dizziness #20 tabs 04/15/23 [Rx Last Taken Unknown] Allergy/AdvReac Type Severity Reaction Status Date / Time leflunomide [From Arava] Allergy Rash Verified 04/15/23 10:23 Methotrexate Analogues AdvReac Unknown Verified 04/15/23 10:23 Social History Smoking Status: Never smoker [facility] ED Constitutional Constitutional ED: Denies chills, fever(s) or sweats Eyes Eyes: Denies change in vision ENT ENT ED: Denies dysphagia or sore throat Cardiovascular Cardiovascular: Denies chest pain, leg edema, palpitations or racing heartbeat Respiratory/Chest Respiratory/Chest: Denies cough, dyspnea or dyspnea on exertion Gastrointestinal Gastrointestinal: Denies abdominal pain, diarrhea, nausea or vomiting Genitourinary Genitourinary ED: Denies dysuria, hematuria or urinary frequency Musculoskeletal Musculoskeletal: Denies back pain, extremity pain or neck pain Integumentary Denies rash or wounds Neurologic Neurologic: Reports other Details: Dizziness ; Denies headache(s), paresthesias or weakness EXAM Physical Exam Const Vital Signs: 04/15/23 10:24 04/15/23 11:23 Temperature 96.9 F L Temperature Source Temporal Pulse Rate 64 Respiratory Rate 18 Respiratory Pattern Normal Blood Pressure 151/95 H Blood Pressure Mean 113 Pulse Ox 98 Oxygen Delivery Method Room Air Positive well nourished and well developed General Appearance ED: well developed and NAD HEENT Reports TM's clear and moist mucous membranes HEENT Narrative: TMs bilaterally. No obstructions. normocephalic and atraumatic Tympanic Membrane ED: Yes TM's clear Eyes PERRL, EOMs intact bilaterally and conjunctivae normal Eyes Narrative: No nystagmus noted. General Eye ED: Yes normal appearance of both eyes Neck no lymphadenopathy and supple General: Negative for tenderness Chest Wall Chest: Negative for tenderness Resp normal respiratory effort and normal air movement Effort and Inspection: symmetric chest movement; Negative for respiratory distress Cardio regular rate, regular rhythm and no murmurs Peripheral Pulses: pulses 2+ throughout GI normal to inspection, nondistended, normoactive bowel sounds and non-tender Palpation: Negative for guarding or rebound tenderness present Back/Spine no CVA tenderness and no thoracic nor lumbar tenderness Extremity normal to inspection General Extremety ED: Negative for edema or tenderness General Extremity: Negative for edema Neuro oriented x3, CN's II-XII intact bilaterally and no sensory deficits noted Neuro Narrative: Emmie-Hallpike negative bilaterally. Sensorium / Orientation: awake and alert Skin no rashes or lesions noted and no wounds MDM MDM MDM Narrative Medical decision making narrative: Interventions / MDM: Differential diagnosis: Vertigo Diagnosis considered but do not suspect: Posterior circulation stroke My EKG interpretation: N/A Imaging independently reviewed and interpreted by myself: CT brain: No acute process also read by radiology External documents reviewed: N/A Test considered but not ordered:N/A ED course: Patient presented vertigo symptoms causing nausea and vomiting. No current nausea. No nystagmus. NIH of 0. Howland-Hallpike's with negative. Secondary negative Emmie-Hallpike, CT brain was ordered he is ordered for meclizine. On reevaluation symptoms are improving ambulate with no return of symptoms. Discussed patient use meclizine as prescribed. Return precaution discussed at length outpatient follow-up with PCP and neurology given. All questions were answered. Re-evaluation: stable Disposition discussed with patient/family/significant other: Patient Case discussed with consulting clinician: N/A This note was generated with Dragon dictation software. It may contain incorrect words, spelling, and punctuation that were not noted in checking the note before signing. Radiography Diagnostic Testing: Clinical Impression(s) from Imaging Studies Brain CT 04/15/23 11:01 IMPRESSION: Chronic involutional changes of the brain. Electronically Signed: Ethan Saucedo MD at 11:29 EST , Discharge Plan Triage Chief Complaint: Dizziness ED Provider: Marino Edgar Dx/Rx/DC Orders Clinical Impression: Dizziness, Vertigo Instructions: ED Vertigo, Unspecified Prescriptions: New meclizine [meclizine] 25 mg tablet 25 mg PO 4X/DAY PRN PRN (Reason: Dizziness) Qty: 20 0RF No Action atorvastatin 10 MG tablet 10 mg PO QHS lisinopril [Zestril] 10 MG tablet 10 mg PO DAILY Ranitidine [Zantac] 150 MG tablet 150 mg PO BID amoxicillin-pot clavulanate 875 MG tablet 875 mg PO Q12H Qty: 14 0RF Stand Alone Forms: ED Work / School Excuse Primary Care Provider: Sylvester Andrade Referrals: Sylvester Andrade MD [Primary Care Provider] - 1 Week Alex Martinez MD [Non-Staff -Ordering Privileges] - 1 Week Activity Restrictions/Additional Instructions: Your CT brain negative. Symptoms improving with medications. Continue medication as prescribed. Monitor symptoms. If any worsening symptoms not controlled medications follow-up for reevaluation. Otherwise follow-up with your doctor or neurology as given to you. Disposition Disposition: Home, Self Care Discharge Date/Time: 04/15/23 12:47
[2023-04-15] MEDS: Meclizine HCl 25 MG Tablet PO (11:34)
== END 2023-04-15 12:47 | disposition home or self-care (01) ==
PROVIDERS: Emergency Provider Emergency Medicine; PCP Family Medicine; Visit Provider Emergency Medicine
DX: R42 Dizziness and giddiness (principal)
CPT/HCPCS: 70450; 99282

== ENCOUNTER → 2024-01-06 | Outpatient (CLI) | payer OTHER, SELFPAY ==
--- NOTE | 2024-01-06 07:28 | US_ITS ---
STUDY: ABDOMINAL ULTRASOUND - RIGHT UPPER QUADRANT REASON FOR VISIT: Male, 63 years old Nonalcoholic steatohepatitis (RAMIREZ) TECHNIQUE: Ultrasound evaluation of the right upper quadrant was performed with real-time and static keller-scale imaging. TECHNICAL QUALITY: Adequate. COMPARISON: None. FINDINGS: Liver: The liver is enlarged and measures 19.8 cm. There is increased echogenicity consistent with fatty infiltration. The bile ducts are within normal limits. There is hepatic color flow. The direction of portal flow is hepatopetal. There is no demonstrated mass lesion. Gallbladder: Normal distended gallbladder. The gallbladder wall measures 1.5 mm. There is a negative sonographic Marie''s sign. There is no pericholecystic fluid. There are no gallstones. Common Bile Duct (C.B.D.): The common bile duct measures 4. mm. Pancreas: Normal size of the head, body and tail of the pancreas. There is normal echogenicity of the pancreas. There is no demonstrated pancreatic mass or cyst. Right Kidney: Normal size of the right kidney. The right kidney measures 12.5 cm x 2.3 cm x 5.8 cm. Normal renal cortex. The right cortex measures 1.7 cm. There is a 4.3 cm x 3.6 cm x 4 cm lateral renal cyst. There is no right hydronephrosis. US/ABD Limited w/ Elastography IMPRESSION: Hepatomegaly and diffuse fatty infiltration of the liver. Right renal cyst. Electronically Signed: Ethan Saucedo MD at 14:44 EDT ,
== END | disposition home or self-care (01) ==
PROVIDERS: PCP Family Medicine; Referring Provider Family Medicine; Visit Provider Family Medicine
DX: K75.81 Nonalcoholic steatohepatitis (NASH) (principal)
CPT/HCPCS: 76705; 76981

== ENCOUNTER → 2025-01-10 | Outpatient (CLI) | payer OTHER, SELFPAY ==
--- NOTE | 2025-01-10 07:10 | US_ITS ---
PROCEDURE: ABD LIMITED W/ ELASTOGRAPHY REASON FOR EXAM: RAMIREZ COMPARISON: January 06, 2024. TECHNIQUE: Right upper quadrant abdominal ultrasound. [facility] ElastQ Imaging shear wave elastography for non-invasive assessment of liver tissue stiffness. [facility] EPIQ Elite. FINDINGS: LIVER: Size: Enlarged (hepatomegaly) Length: 20.3 cm Echotexture: Diffusely echogenic suggesting fatty infiltration Contour: Normal Lesions: None identified Elastography: EQI Med: 5.2 kPa EQI Med Ricardo: 1.3 m/s IQR/Med: 11.4 %* GALLBLADDER: Normal COMMON BILE DUCT: Normal measuring 6.6 mm . PANCREAS: Normal Visualized portions of the right kidney are unremarkable. There is a 3.3 cm 3.6 cm 3.8 cm cyst in the superior pole of the right kidney. No right upper quadrant ascites. US/ABD Limited w/ Elastography IMPRESSION: NO TO MILD HEPATIC FIBROSIS Hepatomegaly. Fatty infiltration of the liver. Simple cyst in the upper pole of the right kidney. Reference Values: SRU <1.37 m/s (5.7kPa): No to mild fibrosis 1.37 m/s - 2.2 m/s: Moderate to severe fibrosis >2.2 m/s (15kPa): Significant fibrosis / cirrhosis METAVIR Score F2 or higher: 1.34 m/s (5.7kPa) F3 or higher: 1.55 m/s (7.3kPa) F4: 1.80 m/s (10kPa) * If the IQR/Med is >30%, the variance in the measurements is a large and the a ccuracy of the measurement may be in question. Reading Location: [id number]
--- OUTSIDE RECORDS SUMMARY | 2025-01-10 07:10 | XMS RPT_ITS | CCD ---
Author Organization [facility] Care Team Providers Care Decator Operator Name Role Phone Sylvester Damian MD Primary Care Provider Sylvester Damian MD Primary Care Provider Jodi STATION WORKER.SHAN, Rossana Unavailable Chanelle Talbot PA-C Unavailable KELTON GARCÍA Attending Unavail able JEAN CARLOS LAKHANI Referring Unavailable RICKIE, SYLVESTER A Primary Care Unavailable Knaron STATION WORKER.ENGINEER FIRST ASSISTANTRossana Unavailable Jodi STATION WORKER.ENGINEER FIRST ASSISTANT, Rossana Unavailable Chanelle Talbot PA-C Unavailable CHANELLE TALBOT Referring Unavailable RICKIE, SYLVESTER A Primary Care Unavailable RICKIE, SYLVESTER A Primary Care Unavailable JEAN CARLOS LAKHANI Referring Unavailable CHANELLE TALBOT Attending Unavailable RICKIE, SYLVESTER A Primary Care Unavailable RICKIE, SYLVESTER A Primary Care Unavailable JEAN CARLOS LAKHANI Referring Unavailable RICKIE, SYLVESTER A Primary Care Unavailable JEAN CARLOS LAKHANI Attending Unavailable CHANELLE TALBOT Referring Unavailable RICKIE, SYLVESTER A Primary Care Unavailable RICKIE, SYLVESTER A Primary Care Unavailable RICKIE, SYLVESTER A Referring Unavailable WINSTON FITCH Attending Unavailable RICKIE, SYLVESTER A Primary Care Unavailable RICKIE, SYLVESTER A Referring Unavailable RICKIE, SYLVESTER A Primary Care Unavailable RICKIE, SYLVESTER A Referring Unavailable RICKIE, SYLVESTER A Referring Unavailable RICKIE, SYLVESTER A Primary Care Unavailable CHANELLE TALBOT Attending Unavailable RICKIE, SYLVESTER A Primary Care Unavailable RICKIE, SYLVESTER A Primary Care Unavailable JAZMINE BARRIENTOS Attending Unavailable RICKIE, SYLVESTER A Referring Unavailable RICKIE, SYLVESTER A Primary Care Unavailable RICKIE, SYLVESTER A Attending Unavailable Sylvester Damian Referring Unavailable Sylvester Damian Attending Unavailable Sylvester Damian Primary Care Unavailable Allergies Allergy Classification Reported Allergen(s) Allergy Type Date of Onset Reaction(s) Facility (20 sources) Methotrexate; Translations: [METHOTREXATE] Drug Allergy 8 Other: See Comments [facility] Work Phone: (20 sources) leflunomide; Translations: [LEFLUNOMIDE] Drug Allergy 8 Other: See Comments [facility] (1 source) leflunomide Drug Allergy 3 [facility] (1 source) Methotrexate Drug Allergy 3 [facility] Medications Current Medications Medication Drug Class(es) Dates Sig (Normalized) Sig (Original) 24 hr alfuzosin hydrochloride 10 mg extended release oral tablet (20 sources) alpha-Adrenergic Octavia Start: 08-13-2022 End: 06-08-2024 take 1 tablet by mouth once daily at bedtime alfuzosin SR (UROXATRAL) 10 mg 24 hr tablet TAKE 1 TABLET BY MOUTH EVERYDAY AT BEDTIME 90 tablet 3 06/08/2024 Active Start: 09-24-2021 take 1 tablet by marie th once daily at bedtime alfuzosin SR (UROXATRAL) 10 mg 24 hr tablet Take 1 tablet by mouth daily at bedtime. 90 tablet 3 09/24/2021 Active Comment on above: Take 1 tablet by marie th daily at bedtime. TAKE 1 TABLET BY MARIE TH EVERYDAY AT BEDTIME amoxicillin 875 mg / clavulanate 125 mg oral tablet (2 sources) Penicillin-class Antibacterial Start: 018 take 875 mg by mouth every twelve hours Amoxicillin-Pot Clavulanate Active 875 MG PO Q12H August 02, 2017 11:00pm aspirin 81 mg delayed release oral tablet (20 sources) Platelet Aggregation Inhibitor, Nonsteroidal Anti-inflammatory Drug Start: 021 take 1 tablet by mouth once daily aspirin, enteric coated (ASPIRIN, ENTERIC COATED) 81 mg EC tablet Take 1 tablet by mouth once daily. 11/09/2020 Active Comment on above: Take 1 tablet by marie th once daily. atorvastatin 40 mg oral tablet (20 sources) HMG-CoA Reductase Inhibitor Start: End: take 1 tablet by mouth once daily at bedtime for hyperlipidemia atorvastatin (LIPITOR) 40 mg tablet Take 1 tablet by mouth daily at bedtime. For cholesterol. 90 tablet 1 11/01/2024 Active Start: 02-10-2023 take 1 tablet by marie th once daily at bedtime for hyperlipidemia atorvastatin (LIPITOR) 40 mg tablet Take 1 tablet by mouth daily at bedtime. For cholesterol. 90 tablet 1 02/10/2023 Active Start: 06-02-2022 take 1 tablet by marie th once daily at bedtime for hyperlipidemia atorvastatin (LIPITOR) 40 mg tablet Take 1 tablet by mouth daily at bedtime. For cholesterol. 0 06/02/2022 Active Start: 03-13-2021 End: 06-02-2022 take 1 tablet by mouth once daily at bedtime for hyperlipidemia atorvastatin (LIPITOR) 20 mg tablet Take 1 tablet by mouth daily at bedtime. For cholesterol. 90 tablet 1 05/29/2022 06/02/2022 Discontinued Start: 08-02-2017 take 10 mg by mouth at bedtime Atorvastatin Active 10 MG PO AT BEDTIME August 01, 2017 11:00pm Comment on above: Take 1 tablet by marie th daily at bedtime. For cholesterol. cephalexin 500 mg oral capsule (3 sources) Cephalosporin Antibacterial Start: 08-16-2024 End: 08-19-2024 cephALEXin (KEFLEX) 500 mg capsule Take 1 capsule by mouth three times a day for 3 days. Start one day prior to biopsy 9 capsule 08/16/2024 08/19/2024 Active Start: 08-30-2021 End: 09-06-2021 take 1 capsule by mouth three times daily cephALEXin (KEFLEX) 500 mg capsule Indications: Urgency of urination Take 1 capsule by mouth three times daily for 7 days. 21 capsule 0 08/30/2021 09/06/2021 Active Comment on above: Take 1 capsule by mo uth three times daily for 7 days. cyclobenzaprine hydrochloride 10 mg oral tablet (20 sources) Muscle Relaxant Start: 2020 take 1 tablet by mouth every eight hours as needed cyclobenzaprine (FLEXERIL) 10 mg tablet Take 1 tablet by mouth three times daily as needed for muscle spasm. 15 tablet 12/24/2020 Active Comment on above: Take 1 tablet by marie three times daily as needed for muscle spasm. esomeprazole 40 mg delayed release oral capsule (20 sources) Proton Pump Inhibitor Start: 2019 take 1 capsule by mouth once daily esomeprazole (NEXIUM) 40 mg capsule Take 1 capsule by mouth once daily. 90 capsule 1 11/10/2019 Active Comment on above: Take 1 capsule by [facility] once daily. hydroCHLOROthiazide 25 mg oral tablet (20 sources) Thiazide Diuretic Start: 2023 End: 2024 take 1 tablet by mouth once daily hydroCHLOROthiazide 25 mg tablet Take 1 tablet by mouth once daily. 90 tablet 1 11/01/2024 Active Start: 06-11-2023 End: 12-14-2023 take 1 capsule by mouth once daily hydroCHLOROthiazide 12.5 mg capsule Take 1 capsule by mouth once daily. 90 capsule 1 06/11/2023 12/14/2023 Discontinued (Changing Therapy/Dosage Form) Start: 12-03-2022 take 1 capsule by [facility] once daily hydroCHLOROthiazide 12.5 mg capsule Take 1 capsule by mouth once daily. 90 capsule 1 12/03/2022 Active Comment on above: Take 1 capsule by [facility] once daily. levoFLOXacin 500 mg oral tablet (1 source) Quinolone Antimicrobial Start: 09-14-19 End: 09-24-19 take 1 tablet by mouth once daily levoFLOXacin (LEVAQUIN) 500 mg tablet Indications: Epididymitis Take 1 tablet by mouth once daily for 10 days. 10 tablet 0 09/13/2021 09/23/2021 Active Comment on above: Take 1 tablet by [facility] once daily for 10 days. lisinopril 40 mg oral tablet (20 sources) Angiotensin Converting Enzyme Inhibitor Start: 08-10-19 End: 09-08-19 take 1 tablet by mouth once daily lisinopril (ZESTRIL) 40 mg tablet Take 1 tablet by mouth once daily. 90 tablet 1 09/07/2024 Active Start: 04-24-2021 End: 08-08-2023 take 1 tablet by mouth once daily lisinopril (ZESTRIL) 40 mg tablet Take 1 tablet by mouth once daily. 90 tablet 1 12/03/2022 08/08/2023 Discontinued Start: 08-02-2017 take 1 tablet by marie once daily Lisinopril (Zestril) 10 MG tablet Active 10 MG PO DAILY August 01, 2017 11:00pm Comment on above: Take 1 tablet by marie once daily. meclizine hydrochloride 25 mg oral tablet (20 sources) Antiemetic Start: take 1 tablet by mouth twice daily as needed meclizine (ANTIVERT) 25 mg tab Indications: Vertigo Take 1 tablet by mouth two times a day as needed. 30 tablet 1 05/13/2023 Active Start: 04-15-2023 take 25 mg by mouth four times daily as needed Meclizine Active 25 MG PO 4 TIMES DAILY NEEDED April 15, 2023 12:00am Comment on above: Take 1 tablet by marie two times a day as needed. multivitamins(MULTIPL E VITAMIN TAB) (20 sources) Start: 07-08-19 take 1 tablet by mouth once daily multivitamins(MULTIPL E VITAMIN TAB) Take 1 tablet by mouth once daily. 0 07/08/2019 Active Comment on above: Take 1 tablet by marie once daily. mupirocin 0.02 mg/mg topical ointment (1 source) RNA Synthetase Inhibitor Antibacterial Start: 11-26-19 End: 12-01-19 mupirocin (BACTROBAN) 2 % ointment Apply to affected area three times daily for 5 days. 30 g 0 11/25/2022 11/30/2022 Active Comment on above: Apply to affected ar ea three times daily for 5 days. nitrofurantoin, macrocrystals 25 mg / nitrofurantoin, monohydrate 75 mg oral capsule (1 source) Nitrofuran Antibacterial Start: 07-03-19 End: 07-10-19 take 1 capsule by mouth twice daily nitrofurantoin monohydrate and macrocrystal (MACROBID) 100 mg capsule Take 1 capsule by mouth twice daily for 7 days. 14 capsule 0 2022 07/10/2022 Active Comment on above: Take 1 capsule by mo [facility] twice daily for 7 days. oxyCODONE hydrochloride 5 mg oral tablet (2 sources) Opioid Agonist Start: 12-26-19 End: 08-13-20 22 take 1 tablet by mouth every six hours as needed for pain oxyCODONE IR (ROXICODONE) 5 mg immediate release tablet Indications: S/P inguinal hernia repair Take 1 tablet by mouth every 6 hours as needed for pain for up to 3 days. 12 tablet 0 12/25/2021 12/28/2021 Active Comment on above: Take 1 tablet by marie th every 6 hours as needed for pain for up to 3 days. raNITIdine 150 mg oral tablet (2 sources) Histamine-2 Receptor Antagonist Start: 08-03-19 18 take 1 tablet by mouth twice daily Ranitidine (Zantac) 150 MG tablet Active 150 MG PO TWICE A DAY August 01, 2017 11:00pm sertraline 50 mg oral tablet (20 sources) Serotonin Reuptake Inhibitor Start: 06-10-19 End: 07-27-19 sertraline (ZOLOFT) 50 mg tablet Take one tablet daily 90 tablet 1 07/26/2024 Active Start: 12-03-2022 sertraline (ZO LOFT) 50 mg tablet 1/2 a tablet by mouth once a day for 14 days then go to one tablet daily 90 tablet 1 12/03/2022 Active Comment on above: 1/2 a tablet by mout h once a day for 14 days then go to one tablet daily tadalafil 20 mg oral tablet (20 sources) Phosphodiesterase 5 Inhibitor Start: 3 End: 4 take 1 tablet by mouth once daily as needed Tadalafil (CIALIS) 20 mg tablet Indications: ED (erectile dysfunction) of organic origin Take 1 tablet by mouth once daily. As needed 30 tablet 3 05/12/2024 Active Start: 12-03-2022 take 1 tablet by marie th once daily as needed Tadalafil (CIALIS) 20 mg tab(s) Take 1 tablet by mouth once daily. As needed 30 tablet 3 12/03/2022 Active Comment on above: Take 1 tablet by marie th once daily. As needed 20 ml tocilizumab 20 mg/ml injection (20 sources) Interleukin-6 Receptor Antagonist Start: 020 inject 20 mL intravenously once tocilizumab (ACTEMRA) 400 mg/20 mL (20 mg/mL) soln Inject 20 mL intravenously once every month. Per Rheu 07/22/2019 Active Comment on above: Inject 20 mL intrave nously once every month. Per Rheu Completed/Discontinued Medications Medication Drug Class(es) Dates Sig (Normalized) Sig (Original) tamsulosin hydrochloride 0.4 mg oral capsule (2 sources) alpha-Adrenergic Octavia Start: 09-13-2021 End: 12-12-2021 take 1 capsule by mouth once daily at bedtime tamsulosin (FLOMAX) 0.4 mg Take 1 capsule by mouth daily at bedtime. 30 capsule 2 09/13/2021 09/24/2021 Discontinued Comment on above: Take 1 capsule by mo [facility] daily at bedtime. Problems Active Problems Problem Classification Problem Date Documented Date Episodic/Chronic Coagulation and hemorrhagic disorders (20 sources) Thrombocytopenic disorder; Translations: [Thrombocytopenia, unspecified] Onset: 12-03-2022 12-03-2022 Chronic Diseases of white blood cells (20 sources) Leukocytosis; Translations: [Elevated white blood cell count, unspecified] Onset: 12-03-2022 12-03-2022 Chronic Disorders of lipid metabolism (20 sources) Dyslipidemia; Translations: [Hyperlipidemia, unspecified] Onset: 07-25-2019 07-25-2019 Chronic Esophageal disorders (20 sources) Gastroesophageal reflux disease without esophagitis; Translations: [Gastro-esophageal reflux disease without esophagitis] Onset: 07-07-2006 07-22-2019 Chronic Essential hypertension (20 sources) Essential hypertension; Translations: [Essential (primary) hypertension] Onset: 07-22-2019 07-22-2019 Chronic Genitourinary symptoms and ill-defined conditions (7 sources) Urgent desire to urinate; Translations: [Urgency of urination] Onset: 09-24-2021 Episodic Hepatitis (20 sources) Nonalcoholic steatohepatitis; Translations: [Nonalcoholic steatohepatitis (RAMIREZ)] Onset: 12-17-2021 Chronic Hyperplasia of prostate (1 source) Straining on urination due to benign prostatic hypertrophy; Translations: [Benign prostatic hyperplasia with lower urinary tract symptoms] Chronic Immunizations and screening for infectious disease (1 source) Vaccination needed; Translations: [Encounter for immunization] Episodic Inflammatory conditions of male genital organs (1 source) Epididymitis; Translations: [Epididymitis] Episodic Mood disorders (20 sources) Mild major depression, single episode; Translations: [Major depressive disorder, single episode, mild] Onset: 12-03-2022 12-03-2022 Chronic Nonspecific chest pain (2 sources) Chest pain; Translations: [Chest pain, unspecified] 08-03-2017 Episodic Other aftercare (20 sources) Patient encounter status; Translations: [Other nursing home (current) drug therapy] Onset: 11-09-2020 11-09-2020 Episodic Other and unspecified benign neoplasm (2 sources) History of polyp of colon; Translations: [History of colonic polyps] 01-02-2025 Episodic Other male genital disorders (20 sources) Secondary erectile dysfunction; Translations: [Male erectile dysfunction, unspecified] Onset: 12-03-2022 12-03-2022 Chronic Other male genital disorders (1 source) Hemospermia; Translations: [Hematospermia] Episodic Other screening for suspected conditions (not mental disorders or infectious disease) (20 sources) Raised prostate specific antigen; Translations: [Elevated prostate specific antigen [PSA]] Onset: 11-09-2020 08-25-2021 Episodic Residual codes; unclassified (20 sources) Family history of cancer of colon; Translations: [Family history of malignant neoplasm of digestive organs] Onset: 11-10-2019 11-10-2019 Episodic Rheumatoid arthritis and related disease (20 sources) Rheumatoid arthritis of multiple joints; Translations: [Rheumatoid arthritis with rheumatoid factor of multiple sites without organ or systems involvement] Onset: 07-22-2019 07-22-2019 Chronic Screening and history of mental health and substance abuse codes (20 sources) Ex-smoker; Translations: [Personal history of nicotine dependence] Onset: 07-22-2019 07-22-2019 Episodic Skin and subcutaneous tissue infections (1 source) Cellulitis of skin; Translations: [Cellulitis, unspecified] 11-25-2022 Episodic Unclassified (2 sources) Patient encounter status 12-14-2024 Unclassified (1 source) History of colonic polyps; Translations: [History of colonic polyps] Onset: 01-02-2025 Past or Other Problems Problem Classification Problem Date Documented Da te Episodic/Chronic Abdominal hernia (20 sources) Right inguinal hernia ; Translations: [Unilateral inguinal hernia, without obstruction or gangrene, not specified as recurrent] Onset: 11-26-2021 Resolved: 12-25-2021 Episodic Acquired foot deformities (20 sources) Bunion; Translations: [Bunion of right foot] Onset: 11-10-2019 11-10-2019 Episodic Aortic; peripheral; and visceral artery aneurysms (20 sources) Abdominal aortic aneurysm without rupture; Translations: [Abdominal aortic aneurysm (AAA) without rupture] Onset: 11-10-2019 Resolved: 11-28-2020 11-28-2020 Chronic Conditions associated with dizziness or vertigo (20 sources) Dizziness; Translations: [Dizziness and giddiness] Onset: 06-02-2023 Resolved: 12-14-2024 04-15-2023 Episodic Other aftercare (1 source) Other nursing home (current) drug therapy; Translations: [Medication management] Onset: 11-09-2020 Episodic Other diseases of kidney and ureters (20 sources) Cyst of kidney; Translations: [Cyst of kidney, acquired] Onset: 12-14-2023 12-14-2023 Episodic Other hematologic conditions (20 sources) Splenic cyst; Translations: [Cyst of spleen] Onset: 12-14-2023 12-14-2023 Episodic Other infections; including parasitic (20 sources) Personal history of other infectious and parasitic diseases; Translations: [History of COVID-19] Onset: 05-22-2020 11-09-2020 Episodic Other nervous system disorders (20 sources) Paresthesia of hand ; Translations: [Anesthesia of skin] Onset: 05-29-2022 Episodic Other non-traumatic joint disorders (20 sources) Shoulder pain; Translations: [Pain in right shoulder] Onset: 05-29-2022 Episodic Other skin disorders (20 sources) Actinic keratosis; Translations: [Actinic keratosis] Onset: 12-03-2022 12-03-2022 Episodic Residual codes; unclassified (20 sources) Family history of malignant neoplasm of pancreas; Translations: [Family history of malignant neoplasm of digestive organs] Onset: 11-10-2019 11-10-2019 Episodic Residual codes; unclassified (1 source) Family history of malignant neoplasm of digestive organs; Translations: [Family history of colon cancer] Onset: 11-10-2019 Episodic Results Test Name Value Interpretation Reference Range Facility [facility] 01-02-2025 CNOV Office Visit (GENSWS ) GRAY FERNANDEZ ([id number]) 1960 M Date Time Provider Department 01/02/25 1:00 PM ILIANATHALIA KUMARHARMEET LEVY During your visit today, we recorded the following information about you: Temperature Pulse Blood pressure Weight 98.1 degrees 84/minute 158/84 116.4 kg Iliana APRN. JazmineENGINEER FIRST ASSISTANT 01/02/2025 1:16 PM Signed HISTORY AND PHYSICAL Gray Fernandez : 1960 REFERRING PHYSICIAN: Sylvester Damian [address] [place] [id number] CHIEF COMPLAINT: Patient presents with: Consult: colonoscopy HPI: Gray Hernández is a 64 year old male referred for endoscopy. Gray Hernández notes due for screening colonoscopy- family hx of colon cancer in sister. Gray Hernández denies abdominal pain. Gray Hernández denies diarrhea. Gray Hernández denies constipation. Gray Hernández denies a change in bowel habits. Gray Hernández denies melena. Gray Hernández denies bright red blood per rectum. Gray Hernández denies hemorrhoids. Gray Hernández denies heartburn. Gray Hernández denies dysphagia. Gray Hernández denies a history of ulcers/ peptic ulcer disease. Roman's medical history is significant for HTN, RAMIREZ, RA and obesity. He denies CP, SOB, dizziness, palpitations, syncope, edema, recent hospitalizations Gray Hernández has undergone prior endoscopy. Last colonoscopy was 10/[address] Joshi at [facility]. Sedation: Fentanyl 100 micrograms IV, Midazolam 8 mg IV Impression: - Preparation of the colon was fair. - The entire examined colon is normal. - No specimens collected. Current Outpatient Medications Medication Sig atorvastatin (LIPITOR) 40 mg tablet Take 1 tablet by mouth daily at bedtime. For cholesterol. hydroCHLOROthiazide 25 mg tablet Take 1 tablet by mouth once daily. lisinopril (ZESTRIL) 40 mg tablet Take 1 tablet by mouth once daily. sertraline (ZOLOFT) 50 mg tablet Take one tablet daily alfuzosin SR (UROXATRAL) 10 mg 24 hr tablet TAKE 1 TABLET BY MOUTH EVERYDAY AT BEDTIME Tadalafil (CIALIS) 20 mg tablet Take 1 tablet by mouth once daily. As needed cyclobenzaprine (FLEXERIL) 10 mg tablet Take 1 tablet by mouth three times daily as needed for muscle spasm. aspirin, enteric coated (ASPIRIN, ENTERIC COATED) 81 mg EC tablet Take 1 tablet by mouth once daily. esomeprazole (NEXIUM) 40 mg capsule Take 1 capsule by mouth once daily. tocilizumab (ACTEMRA) 400 mg/20 mL (20 mg/mL) soln Inject 20 mL intravenously once every month. Per Rheu multivitamins(MULTIPLE VITAMIN TAB) Take 1 tablet by mouth once daily. meclizine (ANTIVERT) 25 mg tab Take 1 tablet by mouth two times a day as needed. No current facility-administered medications for this visit. ALLERGIES: Leflunomide and Methotrexate PAST MEDICAL HISTORY Diagnosis Date Abdominal aortic aneurysm (AAA) without rupture 11/10/2019 CT 06/2019: proximal abdominal aorta, 3.4 x 3.8 cm, CT 11/2020 no aneurysm Acute pain of both shoulders 05/29/2022 AK (actinic keratosis) 12/03/2022 Right side face near ear Tx 11/2022 Bunion of great toe of right foot 11/10/2019 Current mild episode of major depressive disorder without prior episode 12/03/2022 Cyst of spleen 12/14/2023 CT 2019 and stable over 2 yrs. Dyslipidemia 07/25/2019 Ectatic thoracic aorta 11/09/2020 CTA 06/2019, CTA: 11/2020 was normal. ED (erectile dysfunction) of organic origin 12/03/2022 Elevated PSA 11/12/2020 Seeing Jean Carlos Lakhani Essential hypertension 07/22/2019 Ex-smoker 07/22/2019 Started age 16 up 1 PPD and quit at age 30. Family history of colon cancer 11/10/2019 Sister Family history of pancreatic cancer 11/10/2019 Mother Gastroesophageal reflux disease without esophagitis 07/07/2006 History of COVID-19 05/22/202005/2020 Leukocytosis 12/03/2022 RAMIREZ (nonalcoholic steatohepatitis) 12/17/2021 Numbness and tingling in right hand 05/29/2022 4th and 5th digits (as of 11/2022 pretty much resolved) Renal cyst, right 12/14/2023 CT 2019 and stable over 2 yrs Rheumatoid arthritis involving multiple sites with positive rheumatoid factor (HCC) 07/22/2019 Seeing [facility]: Dr. Quispe Thrombocytopenia 12/03/2022 Stable since 12/2020 around 130 Well adult exam 11/10/2019 Last done: 11/10/2019 PAST SURGICAL HISTORY Procedure Laterality Date COLONOSCOPY 2012 COLONOSCOPY GEN ANES 10/22/2020 Repeat in 3 years due to poor bowel preparation KNEE ARTHROSCOPY REPAIR RECURR INGUIN ZACHARIAH,REDUCIBL Left 12/25/2021 FAMILY HISTORY Problem Relation Age of Onset Pancreatic Cancer Mother Heart Father valve replaced Colon Cancer Sister Hyperlipidemia Brother Alzheimer's Disease No Family History Breast Cancer No Family History Ovarian cancer No Family History Prostate Cancer No Family History Coronary Artery Disease No Family History Diabetes No Family History Hypertension No Family History Kidney Disease No Family H (more content not included)... Normal [facility] CNOVon 12-14-2024 CNOV Office Visit (FAMPWS ) GRAY FERNANDEZ ([id number]) 1960 M Date Time Provider Department 12/14/24 7:00 AM SYLVESTER DAMIANWS During your visit today, we recorded the following information about you: Pulse Respiration Blood pressure Weight 96/minute 16/minute 126/82 116 kg Height 1.822 m Sylvester Damian MD 12/14/2024 8:07 AM Signed Chief Complaint Patient presents with: Well Adult HPI Gray Fernandez is a 64 year old male who presents here today for a Physical and routine f/u. Patient with Hx of HTN, HLP, GERD, RA, elevated PSA as well as those reviewed and addressed below in ROS. HM - Anxiety screening completed, negative. Due for repeat Colonoscopy screening, 3 year schedule, last completed in 2020. Roman reports a 10 lb weight loss since May without intentional dietary changes, attributing the loss to increased activity levels. He denies recent fevers, frequent cephalalgia, sudden changes in hearing or vision, or issues with his nose or throat. He also denies lumps or swelling in his neck, wheezing, dyspnea, hemoptysis, or cough. He denies chest pain, palpitations, or lower extremity swelling. Roman has a history of GERD, for which he takes Nexium, effectively managing his symptoms. He denies hematochezia, hematuria, dysuria, or changes in urinary frequency. He also denies unusual skin lesions, rashes, or sores, as well as easy bruising or bleeding. He reports no changes in heat or cold tolerance or sudden increases in thirst. He denies syncope, seizures, or tremors. Roman reports a sensation of tightness in the posterior aspect of his knee, exacerbated by climbing and making it increasingly difficult to get up and down from the floor. He describes the tightness as intermittent and denies any swelling or significant joint pain. He attributes these symptoms to aging and possible arthritis. Roman also reports occasional pain at the site of a previous hernia repair, performed approximately [address] Ascencio, which he describes as a little pain that occurs intermittently. He denies any recent surgeries and is aware that he is due for a colonoscopy, which he plans to schedule. Roman is currently taking sertraline and reports doing well on the medication. 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 He denies any new major conditions diagnosed in his family members and reports that his father is still living. He has not received the COVID-19 vaccine. Past medical history, appointments, medications, allergies reviewed. Previous Medical History PAST MEDICAL HISTORY Diagnosis Date Abdominal aortic aneurysm (AAA) without rupture 11/10/2019 CT 06/2019: proximal abdominal aorta, 3.4 x 3.8 cm, CT 11/2020 no aneurysm Acute pain of both shoulders 05/29/2022 AK (actinic keratosis) 12/03/2022 Right side face near ear Tx 11/2022 Bunion of great toe of right foot 11/10/2019 Current mild episode of major depressive disorder without prior episode 12/03/2022 Cyst of spleen 12/14/2023 CT 2019 and stable over 2 yrs. Dyslipidemia 07/25/2019 Ectatic thoracic aorta 11/09/2020 CTA 06/2019, CTA: 11/2020 was normal. ED (erectile dysfunction) of organic origin 12/03/2022 Elevated PSA 11/12/2020 Seeing Jean Carlos Lakhani Essential hypertension 07/22/2019 Ex-smoker 07/22/2019 Started age 16 up 1 PPD and quit at age 30. Family history of colon cancer 11/10/2019 Sister Family history of pancreatic cancer 11/10/2019 Mother Gastroesophageal reflux disease without esophagitis 07/07/2006 History of COVID-19 05/22/202005/2020 Leukocytosis 12/03/2022 RAMIREZ (nonalcoholic steatohepatitis) 12/17/2021 Numbness and tingling in right hand 05/29/2022 4th and 5th digits (as of 11/2022 pretty much resolved) Renal cyst, right 12/14/2023 CT 2019 and stable over 2 yrs Rheumatoid arthritis involving multiple sites with positive rheumatoid factor (HCC) 07/22/2019 Seeing [facility]: Dr. Quispe Thrombocytopenia 12/03/2022 Stable since 12/2020 around 130 Well adult exam 11/10/2019 Last done: 11/10/2019 Previous Surgical History PAST SURGICAL HISTORY Procedure Laterality Date COLONOSCOPY 2013 COLONOSCOPY GEN ANES 10/22/2020 Repeat in 3 years due to poor bowel preparation KNEE ARTHROSCOPY REPAIR RECURR INGUIN ZACHARIAH,REDUCIBL Left 12/25/2021 Family History FAMILY HISTORY Problem Relation Age of Onset Pancreatic Cancer Mother Heart Father valve replaced Colon Cancer Sister Hyperlipidemia Brother Alzheimer's Disease No Family History Breast Cancer No Family History Ovarian cancer No Family History Prostate Cancer No Family History Coronary Artery Disease No Family History Diabetes No Family History Hypertension No Family History Kidney Disease No Family History Seizures No Family History Stroke No Family History (more content not included)... Normal [facility] CBC W Auto Differential pane l (Bld)on 12-13-2024 Basophils (Bld) [#/Vol] 0.04 10*3/uL Normal <0.11 [facility] Comment on above: Order Comment: Speci men Type: BLOOD SPECIMENOrdering Facility: [facility] Address: [address] [place] [address] Performed By: #### 5 7021-8 ####[facility] LABCLIA [id number] [place] [address] [place] Basophils/100 WBC (Bld) 1.1 % Normal [facility] Comment on above: Order Comment: Speci men Type: BLOOD SPECIMENOrdering Facility: [facility] Address: [address] [place] [address] Performed By: #### 5 7021-8 ####[facility] LABCLIA [id number] [place] [address] [place] Differential cell count method Nom (Bld) Auto Normal [facility] Comment on above: Order Comment: Speci men Type: BLOOD SPECIMENOrdering Facility: [facility] Address: [address] [place] [address] Performed By: #### 5 7021-8 ####[facility] LABCLIA [id number] [place] [address] [place] Eosinophils (Bld) [#/Vol] 0.17 10*3/uL Normal <0.46 [facility] Comment on above: Order Comment: Speci men Type: BLOOD SPECIMENOrdering Facility: [facility] Address: [address] [place] [address] Performed By: #### 5 7021-8 ####[facility] LABCLIA [id number] [place] [address] [place] Eosinophils/100 WBC (Bld) 4.8 % Normal [facility] Comment on above: Order Comment: Speci men Type: BLOOD SPECIMENOrdering Facility: [facility] Address: [address] [place] [address] Performed By: #### 5 7021-8 ####[facility] LABCLIA [id number] [place] [address] [place] Erythrocyte distribution width (RBC) [Ratio] 12.4 % Normal 11.5-15.0 [facility] Comment on above: Order Comment: Speci men Type: BLOOD SPECIMENOrdering Facility: [facility] Address: [address] [place] [address] Performed By: #### 5 7021-8 ####[facility] LABCLIA [id number] [place] [address] [place] Hematocrit (Bld) [Volume fraction] 44.2 % Normal 39.0-51.0 [facility] Comment on above: Order Comment: Speci men Type: BLOOD SPECIMENOrdering Facility: [facility] Address: [address] [place] [address] Performed By: #### 5 7021-8 ####[facility] LABIA [id number] [place] [address] [place] Hemoglobin (Bld) [Mass/Vol] 15.2 g/dL Normal 13.0-17.0 [facility] Comment on above: Order Comment: Speci men Type: BLOOD SPECIMENOrdering Facility: [facility] Address: [address] [place] [address] Performed By: #### 5 7021-8 ####[facility] LABCLIA [id number] [place] [address] [place] Immature granulocytes (Bld) [#/Vol] 10*3/uL Normal <0.10 [facility] Comment on above: Order Comment: Speci men Type: BLOOD SPECIMENOrdering Facility: [facility] Address: [address] [place] [address] Performed By: #### 5 7021-8 ####[facility] LABCLIA [id number] [place] [id number] [place] Immature granulocytes/100 WBC (Bld) 0.6 % Normal [facility] Comment on above: Order Comment: Speci men Type: BLOOD SPECIMENOrdering Facility: [facility] Address: [address] [place] [address] Performed By: #### 5 7021-8 ####[facility] LABIA [id number] [place] [id number] [place] Lymphocytes (Bld) [#/Vol] 1.01 10*3/uL Normal 1.00-4.00 [facility] Comment on above: Order Comment: Speci men Type: BLOOD SPECIMENOrdering Facility: [facility] Address: [address] [place] [address] Performed By: #### 5 7021-8 ####[facility] LABIA [id number] [place] [address] [place] Lymphocytes/100 WBC (Bld) 28.3 % Normal [facility] Comment on above: Order Comment: Speci men Type: BLOOD SPECIMENOrdering Facility: [facility] Address: [address] [place] [address] Performed By: #### 5 7021-8 ####[facility] LABIA [id number] [place] [address] [place] MCH (RBC) [Entitic mass] 30.6 pg Normal 26.0-34.0 [facility] Comment on above: Order Comment: Speci men Type: BLOOD SPECIMENOrdering Facility: [facility] Address: [address] [place] [address] Performed By: #### 5 7021-8 ####[facility] LABIA [id number] [address] [place] MCHC (RBC) [Mass/Vol] 34.4 g/dL Normal 30.5-36.0 [facility] Comment on above: Order Comment: Speci men Type: BLOOD SPECIMENOrdering Facility: [facility] Address: [address] [place] [address] Performed By: #### 5 7021-8 ####[facility] LABIA [id number] [place] [address] [place] MCV (RBC) [Entitic vol] 89.1 fL Normal 80.0-100.0 [facility] Comment on above: Order Comment: Speci men Type: BLOOD SPECIMENOrdering Facility: [facility] Address: [address] [place] [address] Performed By: #### 5 7021-8 ####[facility] LABCLIA [id number] [place] [address] [place] Monocytes (Bld) [#/Vol] 0.47 10*3/uL Normal <0.87 [facility] Comment on above: Order Comment: Speci men Type: BLOOD SPECIMENOrdering Facility: [facility] Address: [address] [place] [address] Performed By: #### 5 7021-8 ####[facility] LABCLIA [id number] [place] [address] [place] Monocytes/100 WBC (Bld) 13.2 % Normal [facility] Comment on above: Order Comment: Speci men Type: BLOOD SPECIMENOrdering Facility: [facility] Address: [address] [place] [address] Performed By: #### 5 7021-8 ####[facility] LABCLIA [id number] [place] [address] [place] Neutrophils (Bld) [#/Vol] 1.86 10*3/uL Normal 1.45-7.50 [facility] Comment on above: Order Comment: Speci men Type: BLOOD SPECIMENOrdering Facility: [facility] Address: [address] [place] [address] Performed By: #### 5 7021-8 ####[facility] LABCLIA [id number] [place] [id number] [place] Neutrophils/100 WBC (Bld) 52.0 % Normal [facility] Comment on above: Order Comment: Speci men Type: BLOOD SPECIMENOrdering Facility: [facility] Address: [address] [place] [address] Performed By: #### 5 7021-8 ####[facility] LABCLIA [id number] [place] [address] [place] Nucleated RBC (Bld) [#/Vol] 10*3/uL Normal <0.01 [facility] Comment on above: Order Comment: Speci men Type: BLOOD SPECIMENOrdering Facility: [facility] Address: [address] [place] [address] Performed By: #### 5 7021-8 ####[facility] LABCLIA [id number] [place] [address] [place] Nucleated RBC/100 WBC (Bld) [Ratio] 0.0 /100 WBC Normal [facility] Comment on above: Order Comment: Speci men Type: BLOOD SPECIMENOrdering Facility: [facility] Address: [address] [place] [address] Performed By: #### 5 7021-8 ####[facility] LABIA [id number] [place] [address] [place] Platelet mean volume (Bld) [Entitic vol] 11.1 fL Normal 9.0-12.7 [facility] Comment on above: Order Comment: Speci men Type: BLOOD SPECIMENOrdering Facility: [facility] Address: [address] [place] [address] Performed By: #### 5 7021-8 ####[facility] LABIA [id number] [place] [address] [place] Platelets (Bld) [#/Vol] 94 10*3/uL Low 150-400 [facility] Comment on above: Order Comment: Speci men Type: BLOOD SPECIMENOrdering Facility: [facility] Address: [address] [place] [address] Result Comment: No c lot detected. Performed By: #### 5 7021-8 ####[facility] LABCLIA [id number] [place] [address] [place] RBC (Bld) [#/Vol] 4.96 10*6/uL Normal 4.20-6.00 [facility] Comment on above: Order Comment: Speci men Type: BLOOD SPECIMENOrdering Facility: [facility] Address: [address] [place] [address] Performed By: #### 5 7021-8 ####[facility] LABCLIA [id number] [place] [id number] [place] WBC (Bld) [#/Vol] 3.57 10*3/uL Low 3.70-11.00 [facility] Comment on above: Order Comment: Speci men Type: BLOOD SPECIMENOrdering Facility: [facility] Address: [address] [place] [address] Performed By: #### 5 7021-8 ####[facility] LABCLIA [id number] [place] [address] [place] Comprehensive metabolic 2000 panelon 12-13-2024 Albumin [Mass/Vol] 4.6 g/dL Normal 3.9-4.9 [facility] Comment on above: Order Comment: Speci men Type: BLOOD SPECIMENOrdering Facility: [facility] Address: [address] [place] [address] Performed By: #### 2 4323-8, LIPNF ####[facility] LABCLIA [id number] [place] [address] [place] ALP [Catalytic activity/Vol] 57 U/L Normal 38-113 [facility] Comment on above: Order Comment: Speci men Type: BLOOD SPECIMENOrdering Facility: [facility] Address: [address] [place] [address] Performed By: #### 2 4323-8, LIPNF ####[facility] LABCLIA [id number] [place] [id number] [place] ALT [Catalytic activity/Vol] 54 U/L Normal 10-54 [facility] Comment on above: Order Comment: Speci men Type: BLOOD SPECIMENOrdering Facility: [facility] Address: [address] [place] [address] Performed By: #### 2 4323-8, LIPNF ####[facility] LABCLIA [id number] [address] [place] [address] [place] Anion gap [Moles/Vol] 12 mmol/L Normal 8-15 [facility] Comment on above: Order Comment: Speci men Type: BLOOD SPECIMENOrdering Facility: [facility] Address: [address] [place], [place] [address] Performed By: #### 2 4323-8, LIPNF ####[facility] LABCLIA [id number] [address], [facility]95 [place] AST [Catalytic activity/Vol] 35 U/L Normal 14-40 [facility] Comment on above: Order Comment: Speci men Type: BLOOD SPECIMENOrdering Facility: [facility] Address: [address] [place] [address] Performed By: #### 2 4323-8, LIPNF ####[facility] LABCLIA [id number] [address] [place] [address] [place] Bilirubin [Mass/Vol] 1.1 mg/dL Normal 0.2-1.3 [facility] Comment on above: Order Comment: Speci men Type: BLOOD SPECIMENOrdering Facility: [facility] Address: [address] [place], [place] [address] Performed By: #### 2 4323-8, LIPNF ####[facility] LABCLIA [id number] [address] [place] [address] [place] Calcium [Mass/Vol] 9.8 mg/dL Normal 8.5-10.2 [facility] Comment on above: Order Comment: Speci men Type: BLOOD SPECIMENOrdering Facility: [facility] Address: [address] [place], [place] [address] Performed By: #### 2 4323-8, LIPNF ####[facility] LABCLIA [id number] [address] [place] [address] [place] Chloride [Moles/Vol] 100 mmol/L Normal 98-107 [facility] Comment on above: Order Comment: Speci men Type: BLOOD SPECIMENOrdering Facility: [facility] Address: [address] [place] [address] Performed By: #### 2 4323-8, LIPNF ####[facility] LABCLIA [id number] [place] [id number] [place] CO2 [Moles/Vol] 25 mmol/L Normal 22-30 [facility] Comment on above: Order Comment: Speci men Type: BLOOD SPECIMENOrdering Facility: [facility] Address: [address] [place] [address] Performed By: #### 2 4323-8, LIPNF ####[facility] LABCLIA [id number] [place] [address] [place] Creatinine [Mass/Vol] 0.75 mg/dL Normal 0.73-1.22 [facility] Comment on above: Order Comment: Speci men Type: BLOOD SPECIMENOrdering Facility: [facility] Address: [address] [place] [address] Performed By: #### 2 4323-8, LIPNF ####[facility] LABCLIA [id number] [place] [id number] [place] eGFRcr SerPlBld CKD-EPI 2020 101 mL/min/1.73m??? Normal >=60 [facility] Comment on above: Order Comment: Speci men Type: BLOOD SPECIMENOrdering Facility: [facility] Address: [address] [place] [address] Result Comment: Kassidy mated Glomerular Filtration Rate (eGFR) is calculated using the 2020 CKD-EPI creatinine equation. This equation utilizes serum creatinine, sex, and age as parameters. The creatinine assay has traceable calibration to isotope dilution-mass spectrometry. Refer to KDIGO guidelines for clinical interpretation. In patients with unstable renal function, e.g. those with acute kidney injury, the eGFR may not accurately reflect actual GFR. Performed By: #### 2 4323-8, LIPNF ####[facility] LABCLIA [id number] [place] [address] [place] Glucose [Mass/Vol] 96 mg/dL Normal 74-99 [facility] Comment on above: Order Comment: Speci men Type: BLOOD SPECIMENOrdering Facility: [facility] Address: [address] [place] [address] Result Comment: The [place] Diabetes Association (ADA) provides guidance for cutoff values for fasting glucose and random glucose. The ADA defines fasting as no caloric intake for at least 8 hours. Fasting plasma glucose results between 100 to 125 mg/dL indicate increased risk for diabetes (prediabetes). Fasting plasma glucose results greater than or equal to 126 mg/dL meet the criteria for diagnosis of diabetes. In the absence of unequivocal hyperglycemia, results should be confirmed by repeat testing. In a patient with classic symptoms of hyperglycemia or hyperglycemic crisis, random plasma glucose results greater than or equal to 200 mg/dL meet the criteria for diagnosis of diabetes. Reference: Standards of Medical Care in Diabetes 2016, [place] [employer] Association. Diabetes Care. 2016.39(Suppl 1). Performed By: #### 2 4323-8, LIPNF ####[facility] LABIA [id number] [place] [address] [place] Potassium [Moles/Vol] 3.9 mmol/L Normal 3.7-5.1 [facility] Comment on above: Order Comment: Speci men Type: BLOOD SPECIMENOrdering Facility: [facility] Address: [address] [place] [address] Performed By: #### 2 4323-8, LIPNF ####[facility] LABIA [id number] [place] [id number] [place] Protein [Mass/Vol] 6.8 g/dL Normal 6.3-8.0 [facility] Comment on above: Order Comment: Speci men Type: BLOOD SPECIMENOrdering Facility: [facility] Address: [address] [place] [address] Performed By: #### 2 4323-8, LIPNF ####[facility] LABCLIA [id number] [address] [address] [place] Sodium [Moles/Vol] 137 mmol/L Normal 136-144 [facility] Comment on above: Order Comment: Speci men Type: BLOOD SPECIMENOrdering Facility: [facility] Address: [address] [place] [address] Performed By: #### 2 4323-8, LIPNF ####[facility] LABCLIA [id number] [place] [address] [place] Urea nitrogen [Mass/Vol] 21 mg/dL Normal 9-24 [facility] Comment on above: Order Comment: Speci men Type: BLOOD SPECIMENOrdering Facility: [facility] Address: [address] [place] [address] Performed By: #### 2 4323-8, LIPNF ####[facility] LABIA [id number] [place] [address] [place] HbA1c (Bld)on 12-13-2024 Average glucose Estimated from glycated hemoglobin (Bld) [Mass/Vol] 100 mg/dL Normal [facility] Comment on above: Order Comment: Speci men Type: BLOOD SPECIMENOrdering Facility: [facility] Address: [address] [place] [address] Result Comment: eAG: (Estimated average glucose) is a calculated value from HgbA1c and is credit and collections representative of the average blood glucose level in the last 2-3 month period. Performed By: #### 5 5454-3 ####[facility] LABIA [id number] [place] [address] [place] HbA1c (Bld) [Mass fraction] 5.1 % Normal 4.3-5.6 [facility] Comment on above: Order Comment: Speci men Type: BLOOD SPECIMENOrdering Facility: [facility] Address: [address] [place] [address] Result Comment: [place] Diabetes Association guidelines indicate that patients with HgbA1c in the range 5.7-6.4% are at increased risk for development of diabetes, and intervention by lifestyle modification may be beneficial. HgbA1c greater or equal to 6.5% is considered diagnostic of diabetes. Performed By: #### 5 5454-3 ####[facility] LABCLIA [id number] [address] [place] LIPID PANEL, NONFASTINGon Cholesterol [Mass/Vol] 211 mg/dL High <200 [facility] Comment on above: Order Comment: Cee men Type: BLOOD SPECIMENOrdering Facility: [facility] Address: [address] [place] [address] Result Comment: <200 mg/dL, Desirable 200-239 mg/dL, Borderline high >239 mg/dL, High Performed By: #### 2 4323-8, LIPNF ####[facility] LABIA [id number] [address] STATES OF [facility] HDL CHOLESTEROL, NF 39 mg/dL Low >39 [facility] Comment on above: Order Comment: Cee gutierrez Type: BLOOD SPECIMENOrdering Facility: [facility] Address: [address] [place] [address] Result Comment: 40-5 9 mg/dL, Acceptable >59 mg/dL, High: Negative risk factor for coronary heart disease <40 mg/dL, Low: Positive risk factor for coronary heart disease Performed By: #### 2 4323-8, LIPNF ####[facility] LABCLIA [id number] [place] [id number] [facility] [place] LDL CHOLESTEROL CALCULATED, NF 100 mg/dL High <100 [facility] Comment on above: Order Comment: Cee gutierrez Type: BLOOD SPECIMENOrdering Facility: [facility] Address: [address] [place] [address] Result Comment: <100 mg/dL, Optimal 100-129 mg/dL, Near optimal/above optimal 130-159 mg/dL, Borderline high 160-189 mg/dL, High >189 mg/dL, Very high Secondary prevention optimal LDL Cholesterol levels are recommended to be <70 mg/dL LDL cholesterol is calculated using the Branham-NIH equation. Performed By: #### 2 4323-8, LIPNF ####[facility] LABIA [id number] [address] STATES OF [facility] LDL/HDL RATIO, NF 2.56 mg/dL High <2.54 [facility] Comment on above: Order Comment: Speci men Type: BLOOD SPECIMENOrdering Facility: [facility] Address: [address] [place] [address] Result Comment: Refe rence: 1. National Cholesterol Education Program ATP III Guideline At-A-Glance Quick Desk Reference: National Heart, Lung, and Blood Grant. National Institutes of Health. 2001: NIH Publication No. 01-3305. 2. An International Atherosclerosis Society position paper: global recommendations for the management of dyslipidemia: executive summary, Atherosclerosis. 2014: 232(2):410-413. Performed By: #### 2 4323-8, LIPNF ####[facility] [id number] [address] [place] NON HDL CHOL, NF 172 mg/dL High <130 [facility] Comment on above: Order Comment: Cee gutierrez Type: BLOOD SPECIMENOrdering Facility: [facility] Address: [address] [place] [address] Result Comment: <130 mg/dL, Optimal 130-159 mg/dL, Near optimal/above optimal 160-189 mg/dL, Borderline high 190-219 mg/dL, High >219 mg/dL, Very high Secondary prevention optimal non HDL Cholesterol levels are recommended to be <100 mg/dL Performed By: #### 2 4323-8, LIPNF ####[facility] LABIA [id number] [address] OF [facility] T CHOL/HDL RATIO NF 5.41 mg/dL High <5.10 [facility] Comment on above: Order Comment: Speci men Type: BLOOD SPECIMENOrdering Facility: [facility] Address: [address] [place] [address] Performed By: #### 2 4323-8, LIPNF ####[facility] LABIA [id number] [place] [address] [place] TRIGLYCERIDES, NF 425 mg/dL High <150 [facility] Comment on above: Order Comment: Speci men Type: BLOOD SPECIMENOrdering Facility: [facility] Address: [address] [place] [address] Result Comment: <150 mg/dL, Normal 150-199 mg/dL, Borderline high 200-499 mg/dL, High >499 mg/dL, Very high Performed By: #### 2 4323-8, LIPNF ####[facility] LABIA [id number] [place] [address] [place] VLDL CHOLESTEROL, NF 71 mg/dL High <30 [facility] Comment on above: Order Comment: Speci men Type: BLOOD SPECIMENOrdering Facility: [facility] Address: [address] [place] [address] Performed By: #### 2 4323-8, LIPNF ####[facility] [id number] [place] [address] [place] [facility] Prostate specific Ag [Mass/Vol] 7.64 ng/mL High <2.60 [facility] Comment on above: Order Comment: Speci men Type: BLOOD SPECIMENOrdering Facility: [facility] Address: [address] [place] [address] Result Comment: Tota l PSA test methodology used is the Electrochemiluminescence Immunoassay by [employer]. Total PSA values by differing methodologies cannot be interchanged. For an individual patient, the significance of a PSA level should be interpreted in a broad clinical context, including age, race, family history, digital rectal exam, prostate size, results of prior testing (prostate biopsy, free PSA, PCA3), and use of 5-alpha reductase inhibitors. Considering the high incidence of asymptomatic cancer in the general population that may not pose an ultimate risk to a patient, the decision to recommend urological evaluation or prostate biopsy should be individualized after consideration of all these factors. REFERENCE: Say Kruger M.D., M.P.H., Tarun Coleman M.D., Ph.D., Arnold Strickland M.D., Kat Barker M.P.H., Bre Da Silva Sc.D. Effect of Verification Bias on Screening for Prostate Cancer by Measurement of Prostatic Specific Antigen. N Engl J Med 2003,349:335-42. Performed By: #### 2 857-1 ####[facility] LABCLIA [id number] [address] [place] [address] [place] Urinalysis complete panel (U )on 12-13-2024 Bacteria LM.HPF (Urine sed) [#/Area] Negative Normal Negative [facility] Comment on above: Order Comment: Speci men Type: URINE SPECIMENOrdering Facility: [facility] Address: [address] [place] [address] Performed By: #### 2 4356-8 ####[facility] LABCLIA [id number] [address] [place] [address] [place] Bilirubin Ql (U) Negative Normal Negative [facility] Comment on above: Order Comment: Speci men Type: URINE SPECIMENOrdering Facility: [facility] Address: [address] [place] [address] Performed By: #### 2 4356-8 ####[facility] LABCLIA [id number] [facility] [address] [place] [address] [place] Clarity (Unsp spec) Clear Normal Clear [facility] Comment on above: Order Comment: Speci men Type: URINE SPECIMENOrdering Facility: [facility] Address: [address] [place] [address] Performed By: #### 2 4356-8 ####[facility] LABCLIA [id number] [address] [place] [address] [place] Color (U) Yellow Normal Yellow [facility] Comment on above: Order Comment: Speci men Type: URINE SPECIMENOrdering Facility: [facility] Address: [address] [place] [address] Performed By: #### 2 4356-8 ####[facility] LABCLIA [id number] [place] [address] [place] Epithelial cells LM.HPF (Urine sed) [#/Area] None Seen Normal [facility] Comment on above: Order Comment: Speci men Type: URINE SPECIMENOrdering Facility: [facility] Address: [address] [place] [address] Performed By: #### 2 4356-8 ####[facility] LABCLIA [id number] [address] [place] Glucose Test strip (U) [Mass/Vol] Negative Normal Negative [facility] Comment on above: Order Comment: Speci men Type: URINE SPECIMENOrdering Facility: [facility] Address: [address] [place] [address] Performed By: #### 2 4356-8 ####[facility] LABCLIA [id number] [place] [address] [place] Hemoglobin Ql (U) Negative Normal Negative [facility] Comment on above: Order Comment: Speci men Type: URINE SPECIMENOrdering Facility: [facility] Address: [address] [place] [address] Performed By: #### 2 4356-8 ####[facility] LABCLIA [id number] [place] [id number] [place] Hyaline casts (Urine sed) [#/Area] 1-3 /LPF Abnormal 0 /LPF [facility] Comment on above: Order Comment: Speci men Type: URINE SPECIMENOrdering Facility: [facility] Address: [address] [place] [address] Performed By: #### 2 4356-8 ####[facility] LABCLIA [id number] [address] [place] [address] [place] Ketones Ql (U) Negative Normal Negative [facility] Comment on above: Order Comment: Speci men Type: URINE SPECIMENOrdering Facility: [facility] Address: [address] [place] [address] Performed By: #### 2 4356-8 ####[facility] LABCLIA [id number] [address], [place] [address] [place] Leukocyte esterase Test strip Ql (U) 1+ Abnormal Negative [facility] Comment on above: Order Comment: Speci men Type: URINE SPECIMENOrdering Facility: [facility] Address: [address] [place] [address] Performed By: #### 2 4356-8 ####[facility] LABCLIA [id number] [place] [address] [place] Nitrite Ql (U) Negative Normal Negative [facility] Comment on above: Order Comment: Speci men Type: URINE SPECIMENOrdering Facility: [facility] Address: [address] [place] [address] Performed By: #### 2 4356-8 ####[facility] LABCLIA [id number] [place] [address] [place] pH (U) 5.5 [pH] Normal 5.0-8.0 [facility] Comment on above: Order Comment: Speci men Type: URINE SPECIMENOrdering Facility: [facility] Address: [address] [place] [address] Performed By: #### 2 4356-8 ####[facility] LABCLIA [id number] [place] [address] [place] Protein (U) [Mass/Vol] Negative Normal Negative [facility] Comment on above: Order Comment: Speci men Type: URINE SPECIMENOrdering Facility: [facility] Address: [address] [place] [address] Performed By: #### 2 4356-8 ####[facility] LABIA [id number] [place] [address] [place] RBC LM.HPF (Urine sed) [#/Area] 0-2 /HPF Normal 0-2 /HPF [facility] Comment on above: Order Comment: Speci men Type: URINE SPECIMENOrdering Facility: [facility] Address: [address] [place] [address] Performed By: #### 2 4356-8 ####[facility] LABIA [id number] [place] [address] [place] Specific gravity (U) [Rel density] 1.020 Normal 1.005-1.030 [facility] Comment on above: Order Comment: Speci men Type: URINE SPECIMENOrdering Facility: [facility] Address: [address] [place] [address] Performed By: #### 2 4356-8 ####[facility] [id number] [place] [address] [place] Urobilinogen Ql (U) 0.2 EU/dL Normal 0.2-1.0 EU/dL [facility] Comment on above: Order Comment: Speci men Type: URINE SPECIMENOrdering Facility: [facility] Address: [address] [place] [address] Performed By: #### 2 4356-8 ####[facility] LABIA [id number] [place] [address] [place] WBC LM.HPF (Urine sed) [#/Area] 0-5 /HPF Normal 0-5 /HPF [facility] Comment on above: Order Comment: Speci men Type: URINE SPECIMENOrdering Facility: [facility] Address: [address] [place] [address] Performed By: #### 2 4356-8 ####[facility] LABIA [id number] [address] [place] [address] [place] Bacteria Ur Culton 5 Bacteria identified Cx Nom (U) CULTURE, URINE: No growth (<1,000 CFU/ml) Normal [facility] Comment on above: Performed By: #### 6 30-4 #### [facility] CLIA [id number] [address] [place] [address] [place] CNOVon 09-12-2024 CNOV Office Visit (AKURFL ) GRAY FERNANDEZ ([id number]) 1960 M Date Time Provider Department 09/12/24 8:30 AM KELTON GARCÍA During your visit today, we recorded the following information about you: Pulse Blood pressure Height 78/minute 151/92 1.829 m Kelton García MD 09/12/2024 9:56 AM Signed PROSTATE BIOPSY WITH ULTRASOUND GUIDANCE Gray Fernandez a 64 year old. History and Physical reviewed and is unchanged. . Informed Consent Discussed: Yes. Risks, benefits, alternatives and personnel discussed with patient who consents to proceed. Discussed RBAPC. Is the patient having any pain? No 0 on a scale of 0 to 10 Antibiotics given pre-operatively: Yes UNIVERSAL PROTOCOL / SAFETY CHECKLIST Procedure to be Performed: Transrectal ultrasound-guided prostate biopsy Sign In: A Moment of CARE was completed. Appropriate PPE (Personal Protective Equipment) worn by all providers involved with the procedure. Special equipment not required. Patient/Surrogate Stated/Verified: Patient name, Date of , Relevant allergies, and The intended procedure Time Out: Relevant labs, photos, and/or imaging studies have been reviewed. Intended patient and procedure match the source document(s) (e.g. consent, HANDP, associated studies [imaging, pathology]) match the intended patient and procedure. Consent obtained and matches the intended procedure. Yes. Correct side/site is not applicable. Medications required for this procedure are verified. Fire risk assessed and is not applicable. Implants: are not applicable. Sign Out: Specimens are all correctly labeled and sent. All instruments, equipment, possible retained foreign bodies are accounted for. Yes. The post-procedure plan of care has been communicated to the patient or surrogate. Fire Safety Check List Reviewed: Yes PSA (ng/mL) Date Value 06/14/2024 7.21 03/28/2021 5.3 PSA. (ng/mL) Date Value 08/19/2021 4.9 PALPABLE NODULE: No Prostate biopsies taken from the site below using ultrasound guidance 1.) RIGHT BASE: 2 2.) RIGHT MID: 2 3.) RIGHT APEX: 2 4.) LEFT BASE: 2 5.) LEFT MID: 2 6.) LEFT APEX: 2 ALLERGIES Allergen Reactions Leflunomide Other: See Comments Methotrexate Other: See Comments Elevated liver enzymes MEDICATIONS: 10 ml 1% Plain Xylocaine riccardo prostatic nerve block given: Yes PROSTATE ULTRASOUND The prostate sonogram was obtained via transrectal approach. The gland is severely enlarged, measuring 175cc. There is a homogeneous echo pattern throughout the prostate gland. Echogenic foci within the gland consistant with clacifications were noted. There is no focal lesion within the pereferal zone of the prostate gland. Patient not really sexually active, prostate markedly enlarged, call patient with result but we will also make a follow-up appointment in a few weeks to discuss long-term BPH plan Patient nauseous after procedure, was observed Kelton García MD Please note: This note has been produced using speech recognition software and may contain errors related to that system including grammar, punctuation, spelling, gender and words and phrases that may be inappropriate. Referring Provider: JEAN CARLOS LAKHANI [[id number]] Allergies As of Date: 09/12/2024 Noted Allergy Reaction LEFLUNOMIDE 08/02/2017 14 - Other: See Comments METHOTREXATE 07/08/2019 14 - Other: See Comments Comments: Elevated liver enzymes Date Reviewed: 09/12/2024 Reviewed by: Haydee Munoz MA - Fully Assessed Reason for Visit: Prostate Biopsy [371] Primary Visit Diagnosis:Elevated prostate specific antigen (PSA) [R97.20] Order(s):ECHO GUIDE FOR BIOPSY [[id number]] Order #: [id number] TRUS ONLY [[id number]] Order #: [id number] NEEDLE BX - PROSTATE [[id number]] Order #: [id number] SURGICAL PATHOLOGY [XQS5867] Order #: [id number]. #:[id number] [] lidocaine 20 mg/mL (2 %) 200 mg injection (XYLOCAINE)Disp: Rfl: [] gentamicin 40 mg/mL 160 mg injectionDisp: Rfl: UA DIP B/O [] Order #: [id number] UA DIP, URINE (POC) [] Order #: [id number]. #:[id number] BACTERIAL CULTURE, URINE [[id number]] Order #: [id number]. #:[id number] Prescriptions as of 09/12/2024 - hydroCHLOROthiazide 25 mg tablet Take 1 tablet by mouth once daily. - lisinopril (ZESTRIL) 40 mg tablet Take 1 tablet by mouth once daily. - sertraline (ZOLOFT) 50 mg tablet Take one tablet daily - atorvastatin (LIPITOR) 40 mg tablet Take 1 tablet by mouth daily at bedtime. For cholesterol. - alfuzosin SR (UROXATRAL) 10 mg 24 hr tablet TAKE 1 TABLET BY MOUTH EVERYDAY AT BEDTIME - Tadalafil (CIALIS) 20 mg tablet Take 1 tablet by mouth once daily. As needed - meclizine (ANTIVERT) 25 mg tab Take 1 tablet by mouth two times a day as needed. - (more content not included)... Normal [facility] Pathology biopsy report Jose Manuel (Tiss)on 09-12-2024 AP DISCLAIMER Normal [facility] Comment on above: Order Comment: Speci men Type: TISSUE SPECIMEN [facility] Address: [address] [place] [address] Result Comment: Lisbeth gerard Developed Test (LDT) Disclaimer: Performance characteristics of immunohistochemical, immunofluorescent, and chromogenic in-situ hybridization tests have been determined by the performing laboratory within [facility]'s [facility] Alfredo Amado Pathology and Laboratory Medicine Department ([facility], [facility][1], [facility], [facility], [facility], [facility], or [facility]) in a manner consistent with CLIA requirements. One or more of these tests may not have been cleared or approved by the FDA. [facility] is regulated under CLIA as qualified to perform high-complexity testing. These tests are used for clinical purposes. These should not be regarded as investigational or for research. Positive and negative controls stain appropriately. Performed By: #### 6 6121-5 #### [facility] CLIA [id number] [address] CASE REPORT Normal [facility] Comment on above: Order Comment: Speci men Type: TISSUE SPECIMEN [facility] Address: [address] [place] [address] Result Comment: Surg [facility] Pathology Report Case: [id number] Authorizing Provider: Kelton García, Collected: 09/12/2024 09:09 AM Ordering Location: [facility] Received: 09/13/2024 08:58 AM Pathologist: Suleman Rock MD Specimens: A) - Prostate, Right, Base, Biopsy B) - Prostate, Right, Mid, Biopsy C) - Prostate, Right, Flora, Biopsy D) - Prostate, Right, Lateral Base, Biopsy E) - Prostate, Right, Lateral Mid, Biopsy F) - Prostate, Right, Lateral [place], Biopsy G) - Prostate, Left, Base, Biopsy H) - Prostate, Left, Mid, Biopsy I) - Prostate, Left, Fl[place], Biopsy J) - Prostate, Left, Lateral Base, Biopsy K) - Prostate, Left, Lateral Mid, Biopsy L) - Prostate, Left, Lateral Flora , Biopsy Performed By: #### 6 6121-5 #### [facility] CLIA [id number] [address] CLINICAL HISTORY Elevated PSA Normal [facility] Comment on above: Order Comment: Speci men Type: TISSUE SPECIMEN [facility] Address: [address] [place] [address] Performed By: #### 6 6121-5 #### [facility] CLIA [id number] [address] DIAGNOSIS COMMENT Many of the biopsies show atrophic changes. There or areas of mild acute prostatitis present in several of the biopsies. Normal [facility] Comment on above: Order Comment: Speci men Type: TISSUE SPECIMEN [facility] Address: [address] [place] [address] Performed By: #### 6 6121-5 #### [facility] CLIA [id number] [address] FINAL DIAGNOSIS Normal [facility] Comment on above: Order Comment: Speci men Type: TISSUE SPECIMEN [facility]: [facility] Address: [address] [place] [address] Result Comment: A. P rostate, right base, core biopsy: - Benign prostatic tissues. B. Prostate, right mid, core biopsy: - Benign prostatic tissues. C. Prostate, right apex, core biopsy: - Benign prostatic tissues. D. Prostate, right lateral base, core biopsy: - Benign prostatic tissues. E. Prostate, right lateral mid, core biopsy: - Benign prostatic tissues. F. Prostate, right lateral apex, core biopsy: - Benign prostatic tissues. G. Prostate, left base, core biopsy: - Benign prostatic tissues. H. Prostate, left mid, core biopsy: - Benign prostatic tissues. I. Prostate, left apex, core biopsy: - Benign prostatic tissues. J. Prostate, left lateral base, core biopsy: - Benign prostatic tissues. K. Prostate, left lateral mid, core biopsy: - Benign prostatic tissues. L. Prostate, left lateral apex, core biopsy: - Benign prostatic tissues. See comment. at 0956 EDT Performed By: #### 6 6121-5 #### [facility] CLIA [id number] [address] OF [facility] FINAL PERFORMING LAB Normal [facility] Comment on above: Order Comment: Speci men Type: TISSUE SPECIMEN [facility] Facility: [facility] Address: [address] [place] [address] Result Comment: Diag nostic interpretation performed at: [facility][1] Laboratory, [address] [place] [address] CLIA# [id number] [employer] Attendant: Suleman Rock MD Performed By: #### 6 6121-5 #### [facility] CLIA [id number] [address] [place] [address] [place] GROSS DESCRIPTION Normal [facility] Comment on above: Order Comment: Speci men Type: TISSUE SPECIMEN [facility] Facility: [facility] Address: [address], [place] [address] Result Comment: A. P rostate, Right, Base, Biopsy Received in formalin labeled right base is a cylindrical jennings segment of tissue measuring 1.5 cm in length and 0.1 cm in greatest width. The specimen is totally submitted in formalin in 1 cassette. B. Prostate, Right, Mid, Biopsy Received in formalin labeled right mid is a cylindrical jennings segment of tissue measuring 1.8 cm in length and 0.1 cm in greatest width. The specimen is totally submitted in formalin in 1 cassette. C. Prostate, Right, Flora, Biopsy Received in formalin labeled right apex is a cylindrical jennings segment of tissue measuring 1.5 cm in length and 0.1 cm in greatest width. The specimen is totally submitted in formalin in 1 cassette. D. Prostate, Right, Lateral Base, Biopsy Received in formalin labeled right lateral base is a jennings cylindrical segment of tissue measuring 1.3 cm in length and 0.1 cm in greatest width. The specimen is totally submitted in formalin in 1 cassette. E. Prostate, Right, Lateral Mid, Biopsy Received in formalin labeled right lateral mid is a cylindrical jennings segment of tissue measuring 1.1 cm in length and 0.1 cm in greatest width. The specimen is totally submitted in formalin in 1 cassette. F. Prostate, Right, Lateral Flora, Biopsy Received in formalin labeled right lateral apex are multiple jennings fragmented cylindrical segments of tissue aggregating to 1.2 cm in length and 0.1 cm in greatest width. The specimens are totally submitted in formalin in one cassette. G. Prostate, Left, Base, Biopsy Received in formalin labeled left base is a cylindrical jennings segment of tissue measuring 1.7 cm in length and 0.1 cm in greatest width. The specimen is totally submitted in formalin in 1 cassette. H. Prostate, Left, Mid, Biopsy Received in formalin labeled left mid is a cylindrical jennings segment of tissue measuring 1.7 cm in length and 0.1 cm in greatest width. The specimen is totally submitted in formalin in 1 cassette. I. Prostate, Left, Flora, Biopsy Received in formalin labeled left apex is a cylindrical jennings segment of tissue measuring 1.6 cm in length and 0.1 cm in greatest width. The specimen is totally submitted in formalin in 1 cassette. J. Prostate, Left, Lateral Base, Biopsy Received in formalin labeled left lateral base is a cylindrical jennings segment of tissue measuring 1.7 cm in length and 0.1 cm in greatest width. The specimen is totally submitted in formalin in 1 cassette. K. Prostate, Left, Lateral Mid, Biopsy Received in formalin labeled left lateral mid is a cylindrical jennings segment of tissue measuring 1.8 cm in length and 0.1 cm in greatest width. The specimen is totally submitted in formalin in 1 cassette. L. Prostate, Left, Lateral Flora , Biopsy Received in formalin labeled left lateral apex is a cylindrical jennings segment of tissue measuring 1.3 cm in length and 0.1 cm in greatest width. The specimen is totally submitted in formalin in 1 cassette. Gross examination performed at [facility], [address] [place] [address] KVB September 13, 2024 12:08 PM Performed By: #### 6 6121-5 #### [facility] CLIA [id number] [address] [place] [address] CNPLanny 08-16-2024 CNPN Telephone ([employer]) GRAY FERNANDEZ ([id number]) 1960 M Date Time Provider Department 08/16/24 KELTON GARCÍA [facility] During your visit today, we recorded the following information about you: Monica Garay 08/16/2024 10:25 AM Signed Pt confirmed prostate bx with Dr. García in [place] 09/12/24 @ 10:30 am.He will check his doctor regarding aspirin. Instructions in mychart. No allergies AND pharm [facility] [place]. Ref by Eduarda Lakhani. Brittany Allergies As of Date: 08/16/2024 Noted Allergy Reaction LEFLUNOMIDE 08/02/2017 14 - Other: See Comments METHOTREXATE 07/08/2019 14 - Other: See Comments Comments: Elevated liver enzymes Date Reviewed: 06/16/2024 Reviewed by: Dunia Navas LPN - Fully Assessed Reason for Visit: Appointment [186] Prescriptions as of 08/16/2024 - sertraline (ZOLOFT) 50 mg tablet Take one tablet daily - atorvastatin (LIPITOR) 40 mg tablet Take 1 tablet by mouth daily at bedtime. For cholesterol. - alfuzosin SR (UROXATRAL) 10 mg 24 hr tablet TAKE 1 TABLET BY MOUTH EVERYDAY AT BEDTIME - Tadalafil (CIALIS) 20 mg tablet Take 1 tablet by mouth once daily. As needed - lisinopril (ZESTRIL) 40 mg tablet Take 1 tablet by mouth once daily. - hydroCHLOROthiazide 25 mg tablet Take 1 tablet by mouth once daily. - meclizine (ANTIVERT) 25 mg tab Take 1 tablet by mouth two times a day as needed. - cyclobenzaprine (FLEXERIL) 10 mg tablet Take 1 tablet by mouth three times daily as needed for muscle spasm. - aspirin, enteric coated (ASPIRIN, ENTERIC COATED) 81 mg EC tablet Take 1 tablet by mouth once daily. - esomeprazole (NEXIUM) 40 mg capsule Take 1 capsule by mouth once daily. - tocilizumab (ACTEMRA) 400 mg/20 mL (20 mg/mL) soln Inject 20 mL intravenously once every month. Per Rheu - multivitamins(MULTIPLE VITAMIN TAB) Take 1 tablet by mouth once daily. Problem List As Of Date 08/16/2024 Noted Resolved Gastroesophageal reflux disease without esophag*07/07/2006 Rheumatoid arthritis involving multiple sites w*07/22/2019 Essential hypertension [I10] 07/22/2019 Ex-smoker [Z87.891] 07/22/2019 Dyslipidemia [E78.5] 07/25/2019 Family history of pancreatic cancer [Z80.0] 11/10/2019 Family history of colon cancer [Z80.0] 11/10/2019 Well adult exam [Z00.00] 11/10/2019 Bunion of great toe of right foot [M21.611] 11/10/2019 Abdominal aortic aneurysm (AAA) without rupture*11/10/2019 11/28/2020 History of COVID-19 [Z86.16] 05/22/2020 Medication management [Z79.899] 11/09/2020 Encounter for screening for diabetes mellitus [*11/09/2020 Screening for prostate cancer [Z12.5] 11/09/2020 Ectatic thoracic aorta (HCC) [I77.810] 11/09/2020 11/28/2020 Elevated PSA [R97.20] 11/12/2020 RAMIREZ (nonalcoholic steatohepatitis) [K75.81] 12/17/2021 Left inguinal hernia [K40.90] 12/25/2021 12/25/2021 Acute pain of both shoulders [M25.511, M25.512] 05/29/2022 Numbness and tingling in right hand [R20.0, R20*05/29/2022 Thrombocytopenia (HCC) [D69.6] 12/03/2022 Leukopenia [D72.819] 12/03/2022 Current mild episode of major depressive disord*12/03/2022 AK (actinic keratosis) [L57.0] 12/03/2022 ED (erectile dysfunction) of organic origin [N5*12/03/2022 Vertigo [R42] 06/02/2023 Screening for colon cancer [Z12.11] 12/14/2023 Cyst of spleen [D73.4] 12/14/2023 Renal cyst, right [N28.1] 12/14/2023 Encounter Status:Closed by MONICA GAARY on 08/16/24 Normal [facility] ISOPSA ASSAY FOR UROLOGY USE ONLYon 07-29-2024 INTERPRETATION View results in Scan gayathri Documents link when available. Normal [facility] Comment on above: Order Comment: Speci men Type: BLOOD SPECIMENOrdering Facility: [facility] Address: [address] [place] [id number] Performed By: #### I SOPSA ####[employer]CLIA [id number] [place] [address] ISOPSA INDEX 12.0 Normal [facility] Comment on above: Order Comment: Speci men Type: BLOOD SPECIMENOrdering Facility: [facility] Address: [address] [place], [place] [id number] Performed By: #### I SOPSA ####[facility]CLIA [id number] [facility] [address] [place] [address] TPSA RESULTS 8.2 Normal [facility] Comment on above: Order Comment: Speci men Type: BLOOD SPECIMENOrdering Facility: [facility] Address: [address] [place] [address] Performed By: #### I SOPSA ####[facility]CLIA [id number] [facility] [address] [place] [id number] CNPNon 06-22-2024 CNPN Telephone (UROLST) GRAY FERNANDEZ ([id number]) 1960 M Date Time Provider Department 06/22/24 JEAN CARLOS LAKHANI During your visit today, we recorded the following information about you: Jean Carlos Lakhani PA-C 06/22/2024 6:39 PM Signed Given PSA at 7.21, recommending an IsoPSA to determine if prostate biopsy is indicated. Orders placed. Jean Carlos Lakhani [place], [place], Kat Joyce LPN 06/23/2024 11:02 AM Signed Called patient. Verified name and date of . Informed of results/orders. Verbalizes understanding. Kat Rosen LPN Allergies As of Date: 06/22/2024 Noted Allergy Reaction LEFLUNOMIDE 08/02/2017 14 - Other: See Comments METHOTREXATE 07/08/2019 14 - Other: See Comments Comments: Elevated liver enzymes Date Reviewed: 06/16/2024 Reviewed by: Dunia Navas LPN - Fully Assessed Reason for Visit: Results [95] Orders [681] Primary Visit Diagnosis:Elevated prostate specific antigen (PSA) [R97.20] Order(s):ISOPSA ASSAY FOR UROLOGY USE ONLY [[facility]] Order #: [id number] FUTURE Prescriptions as of 06/23/2024 - atorvastatin (LIPITOR) 40 mg tablet Take 1 tablet by mouth daily at bedtime. For cholesterol. - alfuzosin SR (UROXATRAL) 10 mg 24 hr tablet TAKE 1 TABLET BY MOUTH EVERYDAY AT BEDTIME - Tadalafil (CIALIS) 20 mg tablet Take 1 tablet by mouth once daily. As needed - lisinopril (ZESTRIL) 40 mg tablet Take 1 tablet by mouth once daily. - sertraline (ZOLOFT) 50 mg tablet 1/2 a tablet by mouth once a day for 14 days then go to one tablet daily - hydroCHLOROthiazide 25 mg tablet Take 1 tablet by mouth once daily. - meclizine (ANTIVERT) 25 mg tab Take 1 tablet by mouth two times a day as needed. - cyclobenzaprine (FLEXERIL) 10 mg tablet Take 1 tablet by mouth three times daily as needed for muscle spasm. - aspirin, enteric coated (ASPIRIN, ENTERIC COATED) 81 mg EC tablet Take 1 tablet by mouth once daily. - esomeprazole (NEXIUM) 40 mg capsule Take 1 capsule by mouth once daily. - tocilizumab (ACTEMRA) 400 mg/20 mL (20 mg/mL) soln Inject 20 mL intravenously once every month. Per Rheu - multivitamins(MULTIPLE VITAMIN TAB) Take 1 tablet by mouth once daily. Problem List As Of Date 06/22/2024 Noted Resolved Gastroesophageal reflux disease without esophag*07/07/2006 Rheumatoid arthritis involving multiple sites w*07/22/2019 Essential hypertension [I10] 07/22/2019 Ex-smoker [Z87.891] 07/22/2019 Dyslipidemia [E78.5] 07/25/2019 Family history of pancreatic cancer [Z80.0] 11/10/2019 Family history of colon cancer [Z80.0] 11/10/2019 Well adult exam [Z00.00] 11/10/2019 Bunion of great toe of right foot [M21.611] 11/10/2019 Abdominal aortic aneurysm (AAA) without rupture*11/10/2019 11/28/2020 History of COVID-19 [Z86.16] 05/22/2020 Medication management [Z79.899] 11/09/2020 Encounter for screening for diabetes mellitus [*11/09/2020 Screening for prostate cancer [Z12.5] 11/09/2020 Ectatic thoracic aorta (HCC) [I77.810] 11/09/2020 11/28/2020 Elevated PSA [R97.20] 11/12/2020 RAMIREZ (nonalcoholic steatohepatitis) [K75.81] 12/17/2021 Left inguinal hernia [K40.90] 12/25/2021 12/25/2021 Acute pain of both shoulders [M25.511, M25.512] 05/29/2022 Numbness and tingling in right hand [R20.0, R20*05/29/2022 Thrombocytopenia (HCC) [D69.6] 12/03/2022 Leukopenia [D72.819] 12/03/2022 Current mild episode of major depressive disord*12/03/2022 AK (actinic keratosis) [L57.0] 12/03/2022 ED (erectile dysfunction) of organic origin [N5*12/03/2022 Vertigo [R42] 06/02/2023 Screening for colon cancer [Z12.11] 12/14/2023 Cyst of spleen [D73.4] 12/14/2023 Renal cyst, right [N28.1] 12/14/2023 Encounter Status:Closed by KAT ROSEN on 06/23/24 [facility] CNOVon 06-16-2024 CNOV Office Visit (FAMPWS ) GRAY FERNANDEZ ([id number]) 1960 Date Time Provider Department 06/16/24 7:00 AM CHANELLE TALBOTPWS During your visit today, we recorded the following information about you: Temperature Pulse Respiration Blood pressure 97 degrees 73/minute 18/minute 118/78 Weight 117.9 kg Chanelle Talbot PA-C 06/16/2024 8:14 AM Signed Chief Complaint Patient presents with: 6 Month Exam HPI Gray Fernandez is a 63 year old male who presents here today for Chronic Medical Conditions.. Patient with hx of HTN, RAMIREZ, RA, thrombocytopenia, hyperlipidemia, Depression, elevated PSA and those as below. Patient denies concerns today. No hospitalization or ER visits. Past medical history, appointments, medications, allergies reviewed. Previous Medical History PAST MEDICAL HISTORY Diagnosis Date Abdominal aortic aneurysm (AAA) without rupture (HCC) 11/10/2019 CT 06/2019: proximal abdominal aorta, 3.4 x 3.8 cm, CT 11/2020 no aneurysm AK (actinic keratosis) 12/03/2022 Right side face near ear Tx 11/2022 Bunion of great toe of right foot 11/10/2019 Current mild episode of major depressive disorder without prior episode (HCC) 12/03/2022 Cyst of spleen 12/14/2023 CT 2019 and stable over 2 yrs. Dyslipidemia 07/25/2019 Ectatic thoracic aorta (HCC) 11/09/2020 CTA 06/2019, CTA: 11/2020 was normal. ED (erectile dysfunction) of organic origin 12/03/2022 Elevated PSA 11/12/2020 Seeing Jean Carlos Lakhani Essential hypertension 07/22/2019 Ex-smoker 07/22/2019 Started age 16 up 1 PPD and quit at age 30. Family history of colon cancer 11/10/2019 Sister Family history of pancreatic cancer 11/10/2019 Mother Gastroesophageal reflux disease without esophagitis 07/07/2006 History of COVID-19 05/22/202005/2020 Leukocytosis 12/03/2022 RAMIREZ (nonalcoholic steatohepatitis) 12/17/2021 Renal cyst, right 12/14/2023 CT 2019 and stable over 2 yrs Rheumatoid arthritis involving multiple sites with positive rheumatoid factor (HCC) 07/22/2019 Seeing [facility]: Dr. Quispe Thrombocytopenia (HCC) 12/03/2022 Stable since 12/2020 around 130 Well adult exam 11/10/2019 Last done: 11/10/2019 Previous Surgical History PAST SURGICAL HISTORY Procedure Laterality Date COLONOSCOPY 2013 COLONOSCOPY GEN ANES 10/22/2020 Repeat in 3 years due to poor bowel preparation KNEE ARTHROSCOPY REPAIR RECURR INGUIN ZACHARIAH,REDUCIBL Left 12/25/2021 Family History FAMILY HISTORY Problem Relation Age of Onset Pancreatic Cancer Mother Heart Father valve replaced Colon Cancer Sister Hyperlipidemia Brother Alzheimer's Disease No Family History Breast Cancer No Family History Ovarian cancer No Family History Prostate Cancer No Family History Coronary Artery Disease No Family History Diabetes No Family History Hypertension No Family History Kidney Disease No Family History Seizures No Family History Stroke No Family History Thyroid No Family History Patient Allergies ALLERGIES Allergen Reactions Leflunomide Other: See Comments Methotrexate Other: See Comments Elevated liver enzymes Current Medications Current Outpatient Medications on File Prior to Visit Medication Sig alfuzosin SR (UROXATRAL) 10 mg 24 hr tablet TAKE 1 TABLET BY MOUTH EVERYDAY AT BEDTIME Tadalafil (CIALIS) 20 mg tablet Take 1 tablet by mouth once daily. As needed lisinopril (ZESTRIL) 40 mg tablet Take 1 tablet by mouth once daily. atorvastatin (LIPITOR) 40 mg tablet Take 1 tablet by mouth daily at bedtime. For cholesterol. sertraline (ZOLOFT) 50 mg tablet 1/2 a tablet by mouth once a day for 14 days then go to one tablet daily hydroCHLOROthiazide 25 mg tablet Take 1 tablet by mouth once daily. meclizine (ANTIVERT) 25 mg tab Take 1 tablet by mouth two times a day as needed. cyclobenzaprine (FLEXERIL) 10 mg tablet Take 1 tablet by mouth three times daily as needed for muscle spasm. aspirin, enteric coated (ASPIRIN, ENTERIC COATED) 81 mg EC tablet Take 1 tablet by mouth once daily. esomeprazole (NEXIUM) 40 mg capsule Take 1 capsule by mouth once daily. tocilizumab (ACTEMRA) 400 mg/20 mL (20 mg/mL) soln Inject 20 mL intravenously once every month. Per Rheu multivitamins(MULTIPLE VITAMIN TAB) Take 1 tablet by mouth once daily. No current facility-administered medications on file prior to visit. Social History Social History Tobacco Use Smoking status: Former Current packs/day: 0.00 Average packs/day: 1 pack/day for 15.0 years (15.0 ttl pk-yrs) Types: Cigarettes Start date: 07/08/1974 Quit date: 07/08/1989 Years since quittin.9 Smokeless tobacco: Never Vaping Use Vaping status: Never Used Substance Use Topics Alcohol use: Yes Comment: whisky daily- 1-2 glasses per day Drug use: No Review of Symptoms REVIEW OF SYSTEMS GENERAL: No weight loss, malais (more content not included)... Normal [facility] CBC W Auto Differential pane l (Bld)on 06-14-2024 Basophils (Bld) [#/Vol] 0.03 10*3/uL Normal <0.11 [facility] Comment on above: Order Comment: Speci men Type: BLOOD SPECIMENOrdering Facility: [facility] Address: [address] [place] [address] Performed By: #### 5 7021-8 ####[facility] LABCLIA [id number] [place] [address] [place] Basophils/100 WBC (Bld) 0.9 % Normal [facility] Comment on above: Order Comment: Speci men Type: BLOOD SPECIMENOrdering Facility: [facility] Address: [address] [place] [address] Performed By: #### 5 7021-8 ####[facility] LABCLIA [id number] [place] [address] [place] Differential cell count method Nom (Bld) Auto Normal [facility] Comment on above: Order Comment: Speci men Type: BLOOD SPECIMENOrdering Facility: [facility] Address: [address] [place] [address] Performed By: #### 5 7021-8 ####[facility] LABCLIA [id number] [place] [address] [place] Eosinophils (Bld) [#/Vol] 0.09 10*3/uL Normal <0.46 [facility] Comment on above: Order Comment: Speci men Type: BLOOD SPECIMENOrdering Facility: [facility] Address: [address] [place] [address] Performed By: #### 5 7021-8 ####[facility] LABCLIA [id number] [place] [address] [place] Eosinophils/100 WBC (Bld) 2.7 % Normal [facility] Comment on above: Order Comment: Speci men Type: BLOOD SPECIMENOrdering Facility: [facility] Address: [address] [place] [address] Performed By: #### 5 7021-8 ####[facility] LABCLIA [id number] [place] [address] [place] Erythrocyte distribution width (RBC) [Ratio] 11.9 % Normal 11.5-15.0 [facility] Comment on above: Order Comment: Speci men Type: BLOOD SPECIMENOrdering Facility: [facility] Address: [address] [place] [address] Performed By: #### 5 7021-8 ####[facility] LABCLIA [id number] [place] [address] [place] Hematocrit (Bld) [Volume fraction] 40.9 % Normal 39.0-51.0 [facility] Comment on above: Order Comment: Speci men Type: BLOOD SPECIMENOrdering Facility: [facility] Address: [address] [place] [address] Performed By: #### 5 7021-8 ####[facility] LABIA [id number] [place] [address] [place] Hemoglobin (Bld) [Mass/Vol] 14.2 g/dL Normal 13.0-17.0 [facility] Comment on above: Order Comment: Speci men Type: BLOOD SPECIMENOrdering Facility: [facility] Address: [address] [place] [address] Performed By: #### 5 7021-8 ####[facility] LABCLIA [id number] [place] [address] [place] Immature granulocytes (Bld) [#/Vol] 10*3/uL Normal <0.10 [facility] Comment on above: Order Comment: Speci men Type: BLOOD SPECIMENOrdering Facility: [facility] Address: [address] [place] [address] Performed By: #### 5 7021-8 ####[facility] LABCLIA [id number] [place] [address] [place] Immature granulocytes/100 WBC (Bld) 0.6 % Normal [facility] Comment on above: Order Comment: Speci men Type: BLOOD SPECIMENOrdering Facility: [facility] Address: [address] [place] [address] Performed By: #### 5 7021-8 ####[facility] LABCLIA [id number] [place] [address] [place] Lymphocytes (Bld) [#/Vol] 0.92 10*3/uL Low 1.00-4.00 [facility] Comment on above: Order Comment: Speci men Type: BLOOD SPECIMENOrdering Facility: [facility] Address: [address] [place] [address] Performed By: #### 5 7021-8 ####[facility] LABIA [id number] [place] [address] [place] Lymphocytes/100 WBC (Bld) 27.1 % Normal [facility] Comment on above: Order Comment: Speci men Type: BLOOD SPECIMENOrdering Facility: [facility] Address: [address] [place] [address] Performed By: #### 5 7021-8 ####[facility] LABCLIA [id number] [place] [address] [place] MCH (RBC) [Entitic mass] 30.6 pg Normal 26.0-34.0 [facility] Comment on above: Order Comment: Speci men Type: BLOOD SPECIMENOrdering Facility: [facility] Address: [address] [place] [address] Performed By: #### 5 7021-8 ####[facility] LABCLIA [id number] [place] [address] [place] MCHC (RBC) [Mass/Vol] 34.7 g/dL Normal 30.5-36.0 [facility] Comment on above: Order Comment: Speci men Type: BLOOD SPECIMENOrdering Facility: [facility] Address: [address] [place] [address] Performed By: #### 5 7021-8 ####[facility] LABCLIA [id number] [place] [address] [place] MCV (RBC) [Entitic vol] 88.1 fL Normal 80.0-100.0 [facility] Comment on above: Order Comment: Speci men Type: BLOOD SPECIMENOrdering Facility: [facility] Address: [address] [place] [address] Performed By: #### 5 7021-8 ####[facility] LABCLIA [id number] [place] [address] [place] Monocytes (Bld) [#/Vol] 0.48 10*3/uL Normal <0.87 [facility] Comment on above: Order Comment: Speci men Type: BLOOD SPECIMENOrdering Facility: [facility] Address: [address] [place] [address] Performed By: #### 5 7021-8 ####[facility] LABIA [id number] [place] [address] [place] Monocytes/100 WBC (Bld) 14.2 % Normal [facility] Comment on above: Order Comment: Speci men Type: BLOOD SPECIMENOrdering Facility: [facility] Address: [address] [place] [address] Performed By: #### 5 7021-8 ####[facility] LABCLIA [id number] [place] [address] [place] Neutrophils (Bld) [#/Vol] 1.85 10*3/uL Normal 1.45-7.50 [facility] Comment on above: Order Comment: Speci men Type: BLOOD SPECIMENOrdering Facility: [facility] Address: [address] [place] [address] Performed By: #### 5 7021-8 ####[facility] LABCLIA [id number] [place] [address] [place] Neutrophils/100 WBC (Bld) 54.5 % Normal [facility] Comment on above: Order Comment: Speci men Type: BLOOD SPECIMENOrdering Facility: [facility] Address: [address] [place] [address] Performed By: #### 5 7021-8 ####[facility] LABIA [id number] [place] [address] [place] Nucleated RBC (Bld) [#/Vol] 10*3/uL Normal <0.01 [facility] Comment on above: Order Comment: Speci men Type: BLOOD SPECIMENOrdering Facility: [facility] Address: [address] [place] [address] Performed By: #### 5 7021-8 ####[facility] LABIA [id number] [place] [address] [place] Nucleated RBC/100 WBC (Bld) [Ratio] 0.0 /100 WBC Normal [facility] Comment on above: Order Comment: Speci men Type: BLOOD SPECIMENOrdering Facility: [facility] Address: [address] [place] [address] Performed By: #### 5 7021-8 ####[facility] LABIA [id number] [place] [address] [place] Platelet mean volume (Bld) [Entitic vol] 10.4 fL Normal 9.0-12.7 [facility] Comment on above: Order Comment: Speci men Type: BLOOD SPECIMENOrdering Facility: [facility] Address: [address] [place] [address] Performed By: #### 5 7021-8 ####[facility] LABCLIA [id number] [place] [address] [place] Platelets (Bld) [#/Vol] 113 10*3/uL Low 150-400 [facility] Comment on above: Order Comment: Speci men Type: BLOOD SPECIMENOrdering Facility: [facility] Address: [address] [place] [address] Performed By: #### 5 7021-8 ####[facility] LABIA [id number] [place] [address] [place] RBC (Bld) [#/Vol] 4.64 10*6/uL Normal 4.20-6.00 [facility] Comment on above: Order Comment: Speci men Type: BLOOD SPECIMENOrdering Facility: [facility] Address: [address] [place] [address] Performed By: #### 5 7021-8 ####[facility] [id number] [place] [address] [place] WBC (Bld) [#/Vol] 3.39 10*3/uL Low 3.70-11.00 [facility] Comment on above: Order Comment: Speci men Type: BLOOD SPECIMENOrdering Facility: [facility] Address: [address] [place] [address] Performed By: #### 5 7021-8 ####[facility] [id number] [place] [address] [place] CNOVon 06-14-2024 CNOV Office Visit (UROLWS ) GRAY FERNANDEZ ([id number]) 1960 M Date Time Provider Department 1/28/25 2:00 PM JEAN CARLOS LAKHANI During your visit today, we recorded the following information about you: Pulse Blood pressure Weight 81/minute 140/78 120.2 kg Jean Carlos Lakhani PA-C 06/14/2024 3:00 PM Signed [facility] EST PATIENT CLINIC NOTE (M) Some elements copied from his previous note, which have been updated where appropriate, and all reflect current medical decision making from date of this visit. SERVICE DATE: June 14, 2024 NAME: Gray Fernandez GENDER: male CHIEF COMPLAINT: Annual Follow-up HISTORY OF PRESENT ILLNESS: Gray Fernandez is a 63 year old male patient here following up for PSA, refills and annual Prostate Visit The patient reports no new LUTS and UA was negative with PSA last drawn 2021 and will up[date today at lab Orders placed Refills on Uroxatral given 06/08/2024 > PSA 5.13 - 2021 > PVR - 2 ml LUTS: No New LUTS Other symptoms: ED - yes Previous ED medications: yes Cialis 20 mg LABS: PSA (ng/mL) Date Value 12/24/2021 5.13 09/13/2021 12.25 03/28/2021 5.3 11/09/2020 7.50 04/07/2019 3.5 PSA. (ng/mL) Date Value 08/19/2021 4.9 Creatinine Date Value Ref Range Status 12/08/2023 0.73 0.73 - 1.22 mg/dL Final 11/25/2022 0.73 0.73 - 1.22 mg/dL Final 12/05/2021 0.70 (L) 0.73 - 1.22 mg/dL Final No results found for: TESTOST Hematocrit (%) Date Value 04/02/2024 42.0 01/12/2024 43.9 12/08/2023 43.6 07/08/2019 44.4 HCT (%) Date Value 04/16/2021 41.5 04/07/2019 47.8 01/06/2019 47.4 PSA (ng/mL) Date Value 12/24/2021 5.13 09/13/2021 12.25 03/28/2021 5.3 11/09/2020 7.50 04/07/2019 3.5 PSA. (ng/mL) Date Value 08/19/2021 4.9 MEDICATIONS: alfuzosin SR (UROXATRAL) 10 mg 24 hr tablet TAKE 1 TABLET BY MOUTH EVERYDAY AT BEDTIME Tadalafil (CIALIS) 20 mg tablet Take 1 tablet by mouth once daily. As needed lisinopril (ZESTRIL) 40 mg tablet Take 1 tablet by mouth once daily. atorvastatin (LIPITOR) 40 mg tablet Take 1 tablet by mouth daily at bedtime. For cholesterol. sertraline (ZOLOFT) 50 mg tablet 1/2 a tablet by mouth once a day for 14 days then go to one tablet daily hydroCHLOROthiazide 25 mg tablet Take 1 tablet by mouth once daily. meclizine (ANTIVERT) 25 mg tab Take 1 tablet by mouth two times a day as needed. cyclobenzaprine (FLEXERIL) 10 mg tablet Take 1 tablet by mouth three times daily as needed for muscle spasm. aspirin, enteric coated (ASPIRIN, ENTERIC COATED) 81 mg EC tablet Take 1 tablet by mouth once daily. esomeprazole (NEXIUM) 40 mg capsule Take 1 capsule by mouth once daily. tocilizumab (ACTEMRA) 400 mg/20 mL (20 mg/mL) soln Inject 20 mL intravenously once every month. Per Rheu multivitamins(MULTIPLE VITAMIN TAB) Take 1 tablet by mouth once daily. PAST MEDICAL HISTORY: PAST MEDICAL HISTORY Diagnosis Date Abdominal aortic aneurysm (AAA) without rupture (HCC) 11/10/2019 CT 06/2019: proximal abdominal aorta, 3.4 x 3.8 cm, CT 11/2020 no aneurysm AK (actinic keratosis) 12/03/2022 Right side face near ear Tx 11/2022 Bunion of great toe of right foot 11/10/2019 Current mild episode of major depressive disorder without prior episode (HCC) 12/03/2022 Cyst of spleen 12/14/2023 CT 2019 and stable over 2 yrs. Dyslipidemia 07/25/2019 Ectatic thoracic aorta (HCC) 11/09/2020 CTA 06/2019, CTA: 11/2020 was normal. ED (erectile dysfunction) of organic origin 12/03/2022 Elevated PSA 11/12/2020 Seeing Jean Carlos Lakhani Essential hypertension 07/22/2019 Ex-smoker 07/22/2019 Started age 16 up 1 PPD and quit at age 30. Family history of colon cancer 11/10/2019 Sister Family history of pancreatic cancer 11/10/2019 Mother Gastroesophageal reflux disease without esophagitis 07/07/2006 History of COVID-19 05/22/202005/2020 Leukocytosis 12/03/2022 RAMIREZ (nonalcoholic steatohepatitis) 12/17/2021 Renal cyst, right 12/14/2023 CT 2019 and stable over 2 yrs Rheumatoid arthritis involving multiple sites with positive rheumatoid factor (HCC) 07/22/2019 Seeing [facility]: Dr. Quispe Thrombocytopenia (HCC) 12/03/2022 Stable since 12/2020 around 130 Well adult exam 11/10/2019 Last done: 11/10/2019 REVIEW OF SYSTEMS: GENERAL: No fever, chills, weight loss, or fatigue. PHYSICAL EXAMINATION: Blood pressure 140/78, pulse 81, weight 120.2 kg (265 lb). GENERAL: WNL nutrition, no deformities, healthy appearing PROBLEM LIST REVIEW: Yes LABS: Results for orders placed or performed in visit on 06/14/24 UA DIP, URINE (POC) Result Value Ref Range GLUCOSE UA (POCT) Negative Negative mg/dL BILIRUBIN UA (POCT) Negative Negative KETONE UA (POCT) Negative Negative mg/dL SPECIFIC GRAVITY UA (POCT) 1.020 (more content not included)... Normal [facility]14[facility]2024 [facility] GRAY FERNANDEZN ([id number]) 1960 M Date Time Provider Department 06/14/24 CHANELLE TALBOT During your visit today, we recorded the following information about you: Chanelle Talbot PA-C 06/14/2024 9:07 AM Signed Let patient know that I have to put in a new CBC order. They were unable to run it on the one submitted yesterday. He can do it today while in town for urology appt. No fasting needed. DEMETRI Santana Sherill A, LPN 06/14/2024 9:25 AM Signed Pt notified of Chanelle's message and instructions. Pt verbalizes understanding. Dunia Navas LPN Allergies As of Date: 06/14/2024 Noted Allergy Reaction LEFLUNOMIDE 08/02/2017 14 - Other: See Comments METHOTREXATE 07/08/2019 14 - Other: See Comments Comments: Elevated liver enzymes Date Reviewed: 04/20/2024 Reviewed by: Radha Nielsen LPN - Fully Assessed Reason for Visit: Results [95] Primary Visit Diagnosis:Thrombocytopenia (HCC) [D69.6] Order(s):COMPLETE BLOOD COUNT AND DIFFERENTIAL [SQCBCDIF] Order #: [id number] FUTURE Prescriptions as of 06/14/2024 - alfuzosin SR (UROXATRAL) 10 mg 24 hr tablet TAKE 1 TABLET BY MOUTH EVERYDAY AT BEDTIME - Tadalafil (CIALIS) 20 mg tablet Take 1 tablet by mouth once daily. As needed - lisinopril (ZESTRIL) 40 mg tablet Take 1 tablet by mouth once daily. - atorvastatin (LIPITOR) 40 mg tablet Take 1 tablet by mouth daily at bedtime. For cholesterol. - sertraline (ZOLOFT) 50 mg tablet 1/2 a tablet by mouth once a day for 14 days then go to one tablet daily - hydroCHLOROthiazide 25 mg tablet Take 1 tablet by mouth once daily. - meclizine (ANTIVERT) 25 mg tab Take 1 tablet by mouth two times a day as needed. - cyclobenzaprine (FLEXERIL) 10 mg tablet Take 1 tablet by mouth three times daily as needed for muscle spasm. - aspirin, enteric coated (ASPIRIN, ENTERIC COATED) 81 mg EC tablet Take 1 tablet by mouth once daily. - esomeprazole (NEXIUM) 40 mg capsule Take 1 capsule by mouth once daily. - tocilizumab (ACTEMRA) 400 mg/20 mL (20 mg/mL) soln Inject 20 mL intravenously once every month. Per Rheu - multivitamins(MULTIPLE VITAMIN TAB) Take 1 tablet by mouth once daily. Problem List As Of Date 06/14/2024 Noted Resolved Gastroesophageal reflux disease without esophag*07/07/2006 Rheumatoid arthritis involving multiple sites w*07/22/2019 Essential hypertension [I10] 07/22/2019 Ex-smoker [Z87.891] 07/22/2019 Dyslipidemia [E78.5] 07/25/2019 Family history of pancreatic cancer [Z80.0] 11/10/2019 Family history of colon cancer [Z80.0] 11/10/2019 Well adult exam [Z00.00] 11/10/2019 Bunion of great toe of right foot [M21.611] 11/10/2019 Abdominal aortic aneurysm (AAA) without rupture*11/10/2019 11/28/2020 History of COVID-19 [Z86.16] 05/22/2020 Medication management [Z79.899] 11/09/2020 Encounter for screening for diabetes mellitus [*11/09/2020 Screening for prostate cancer [Z12.5] 11/09/2020 Ectatic thoracic aorta (HCC) [I77.810] 11/09/2020 11/28/2020 Elevated PSA [R97.20] 11/12/2020 RAMIREZ (nonalcoholic steatohepatitis) [K75.81] 12/17/2021 Left inguinal hernia [K40.90] 12/25/2021 12/25/2021 Acute pain of both shoulders [M25.511, M25.512] 05/29/2022 Numbness and tingling in right hand [R20.0, R20*05/29/2022 Thrombocytopenia (HCC) [D69.6] 12/03/2022 Leukopenia [D72.819] 12/03/2022 Current mild episode of major depressive disord*12/03/2022 AK (actinic keratosis) [L57.0] 12/03/2022 ED (erectile dysfunction) of organic origin [N5*12/03/2022 Vertigo [R42] 06/02/2023 Screening for colon cancer [Z12.11] 12/14/2023 Cyst of spleen [D73.4] 12/14/2023 Renal cyst, right [N28.1] 12/14/2023 Encounter Status:Closed by DUNIA NAVAS on 06/14/24 Normal [facility] PSA SerPl-mCncon 06-14-2024 Prostate specific Ag [Mass/Vol] 7.21 ng/mL High <2.60 [facility] Comment on above: Order Comment: Speci men Type: BLOOD SPECIMENOrdering Facility: [facility] Address: [address] [place] [address] Result Comment: Joanne samano PSA test methodology used is the Electrochemiluminescence Immunoassay by [employer]. Total PSA values by differing methodologies cannot be interchanged. For an individual patient, the significance of a PSA level should be interpreted in a broad clinical context, including age, race, family history, digital rectal exam, prostate size, results of prior testing (prostate biopsy, free PSA, PCA3), and use of 5-alpha reductase inhibitors. Considering the high incidence of asymptomatic cancer in the general population that may not pose an ultimate risk to a patient, the decision to recommend urological evaluation or prostate biopsy should be individualized after consideration of all these factors. REFERENCE: Say Kruger M.D., M.P.H., Tarun Coleman M.D., Ph.D., Arnold Strickland M.D., Kat Barker, M.P.H., Bre Da Silav, Sc.Neelima. Effect of Verification Bias on Screening for Prostate Cancer by Measurement of Prostatic Specific Antigen. N Engl J Med 2003,349:335-42. Performed By: #### 2 857-1 ####[facility] LABCLIA [id number] [place] [address] [place] UA DIP, URINE (POC)on 2024 BILIRUBIN UA (POCT) Negative Negative [facility] CLARITY UA (POCT) Clear [facility] COLOR UA (POCT) Yellow [facility] GLUCOSE UA (POCT) Negative Negative mg/dL [facility] Hemoglobin Ql (U) Negative [facility] Interpretation and review of laboratory results Abnormal [facility] KETONE UA (POCT) Negative Negative mg/dL [facility] LEUKOCYTES UA (POCT) Small Abnormal Negative [facility] NITRITE UA (POCT) Negative Negative [facility] PH UA (POCT) 5.5 4.5 - 8.0 [facility] Protein Ql (U) Negative Negative mg/dL [facility] SPECIFIC GRAVITY UA (POCT) 1.020 1.005 - 1.030 [facility] UROBILINOGEN UA (POCT) 0.2 Normal E.U./dL [facility] Location:[facility], [address] [facility] [place], [place], [place], [id number] [place] [address] POINT OF CARE [facility] Hepatic function 2000 panelo n 06-13-2024 Albumin [Mass/Vol] 4.6 g/dL Normal 3.9-4.9 [facility] Comment on above: Order Comment: Speci men Type: BLOOD SPECIMENOrdering Facility: [facility] Address: [address] [place] [address] Performed By: #### 2 4325-3, LIPNF, , 2132-01 ####[facility] LABIA [id number] [place] [address] [place] ALP [Catalytic activity/Vol] 64 U/L Normal 38-113 [facility] Comment on above: Order Comment: Speci men Type: BLOOD SPECIMENOrdering Facility: [facility] Address: [address] [place] [address] Performed By: #### 2 4325-3, LIPNF, , 2132-01 ####[facility] LABIA [id number] [place] [address] [place] ALT [Catalytic activity/Vol] 65 U/L High 10-54 [facility] Comment on above: Order Comment: Speci men Type: BLOOD SPECIMENOrdering Facility: [facility] Address: [address] [place] [address] Performed By: #### 2 4325-3, LIPNF, , 2132-01 ####[facility] LABCLIA [id number] [place] [address] [place] AST [Catalytic activity/Vol] 46 U/L High 14-40 [facility] Comment on above: Order Comment: Speci men Type: BLOOD SPECIMENOrdering Facility: [facility] Address: [address] [place] [address] Performed By: #### 2 4325-3, LIPNF, , 2132-01 ####[facility] LABCLIA [id number] [address] [address] [place] Bilirubin [Mass/Vol] 0.8 mg/dL Normal 0.2-1.3 [facility] Comment on above: Order Comment: Speci men Type: BLOOD SPECIMENOrdering Facility: [facility] Address: [address] [place] [address] Performed By: #### 2 4325-3, LIPNF, , 2132-01 ####[facility] LABCLIA [id number] [place] [address] [place] Bilirubin.conjugat ed [Mass/Vol] 0.3 mg/dL High <0.3 [facility] Comment on above: Order Comment: Speci men Type: BLOOD SPECIMENOrdering Facility: [facility] Address: [address] [place] [address] Performed By: #### 2 4325-3, LIPNF, , 2132-01 ####[facility] LABCLIA [id number] [place] [address] [place] Protein [Mass/Vol] 6.8 g/dL Normal 6.3-8.0 [facility] Comment on above: Order Comment: Speci men Type: BLOOD SPECIMENOrdering Facility: [facility] Address: [address] [place], [place] [address] Performed By: #### 2 4325-3, LIPNF, , 2132-01 ####[facility] LABCLIA [id number] [address] [address] [place] LIPID PANEL, NONFASTINGon Cholesterol [Mass/Vol] 145 mg/dL Normal <200 [facility] Comment on above: Order Comment: Speci men Type: BLOOD SPECIMENOrdering Facility: [facility] Address: [address] [place] [address] Result Comment: <200 mg/dL, Desirable 200-239 mg/dL, Borderline high >239 mg/dL, High Performed By: #### 2 4325-3, LIPNF, , 2132-01 ####[facility] LABCLIA [id number] [place] [address] [place] HDL CHOLESTEROL, NF 57 mg/dL Normal >39 [facility] Comment on above: Order Comment: Speci men Type: BLOOD SPECIMENOrdering Facility: [facility] Address: [address] [place] [address] Result Comment: 40-5 9 mg/dL, Acceptable >59 mg/dL, High: Negative risk factor for coronary heart disease <40 mg/dL, Low: Positive risk factor for coronary heart disease Performed By: #### 2 4325-3, LIPNF, , 2132-01 ####[facility] LABCLIA [id number] [place] [address] [place] LDL CHOLESTEROL, NF 54 mg/dL Normal <100 [facility] Comment on above: Order Comment: Speci men Type: BLOOD SPECIMENOrdering Facility: [facility] Address: [address] [place] [address] Result Comment: <100 mg/dL, Optimal 100-129 mg/dL, Near optimal/above optimal 130-159 mg/dL, Borderline high 160-189 mg/dL, High >189 mg/dL, Very high Secondary prevention optimal LDL Cholesterol levels are recommended to be < 70 mg/dL Performed By: #### 2 4325-3, LIPNF, , 2132-01 ####[facility] LABCLIA [id number] [place] [address] [place] LDL/HDL RATIO, NF 0.95 mg/dL Normal <2.54 [facility] Comment on above: Order Comment: Speci men Type: BLOOD SPECIMENOrdering Facility: [facility] Address: [address] [place] [address] Result Comment: Feliz narvaez: 1. National Cholesterol Education Program ATP III Guideline At-A-Glance Quick Desk Reference: National Heart, Lung, and Blood Grant. National Institutes of Health. 2001: NIH Publication No. 01-3305. 2. An International Atherosclerosis Society position paper: global recommendations for the management of dyslipidemia: executive summary, Atherosclerosis. 2014: 232(2):410-413. Performed By: #### 2 4325-3, LIPNF, , 2132-01 ####[facility] LABCLIA [id number] [place] [address] [place] NON HDL CHOL, NF 88 mg/dL Normal <130 [facility] Comment on above: Order Comment: Speci men Type: BLOOD SPECIMENOrdering Facility: [facility] Address: [address] [place] [address] Result Comment: <130 mg/dL, Optimal 130-159 mg/dL, Near optimal/above optimal 160-189 mg/dL, Borderline high 190-219 mg/dL, High >219 mg/dL, Very high Secondary prevention optimal non HDL Cholesterol levels are recommended to be <100 mg/dL Performed By: #### 2 4325-3, LIPNF, , 2132-01 ####[facility] LABCLIA [id number] [place] [address] [place] T CHOL/HDL RATIO NF 2.54 mg/dL Normal <5.10 [facility] Comment on above: Order Comment: Speci men Type: BLOOD SPECIMENOrdering Facility: [facility] Address: [address] [place] [address] Performed By: #### 2 4325-3, LIPNF, , 2132-01 ####[facility] LABCLIA [id number] [place] [address] [place] TRIGLYCERIDES, NF 172 mg/dL High <150 [facility] Comment on above: Order Comment: Speci men Type: BLOOD SPECIMENOrdering Facility: [facility] Address: [address] [place] [address] Result Comment: <150 mg/dL, Normal 150-199 mg/dL, Borderline high 200-499 mg/dL, High >499 mg/dL, Very high Performed By: #### 2 4325-3, LIPNF, , 2132-01 ####[facility] LABCLIA [id number] [place] [address] [place] VLDL CHOLESTEROL, NF 34 mg/dL High <30 [facility] Comment on above: Order Comment: Speci men Type: BLOOD SPECIMENOrdering Facility: [facility] Address: [address] [place] [address] Performed By: #### 2 4325-3, LIPNF, , 2132-01 ####[facility] LABCLIA [id number] [place] [address] [place] Magnesium SerPl-mCncon 06-13 Magnesium [Mass/Vol] 1.9 mg/dL Normal 1.7-2.3 [facility] Comment on above: Order Comment: Speci men Type: BLOOD SPECIMENOrdering Facility: [facility] Address: [address] [place] [address] Performed By: #### 2 4325-3, LIPNF, , 2132-01 ####[facility] LABCLIA [id number] [place] [address] [place] Vit B12 SerPl-mCncon 025 Cobalamin (Vitamin B12) [Mass/Vol] 454 pg/mL Normal 232-1245 [facility] Comment on above: Order Comment: Speci men Type: BLOOD SPECIMENOrdering Facility: [facility] Address: [address] [place] [address] Performed By: #### 2 4325-3, LIPNF, , 2132-01 ####[facility] LABCLIA [id number] [place] [id number] [place] CNOVSPon 04-20-2024 CNOVSP Visit (SP) Office (H EMAWS) GRAY FERNANDEZ ([id number]) 1960 M Date Time Provider Department 04/20/24 11:00 AM WINSTON FITCH During your visit today, we recorded the following information about you: Temperature Pulse Blood pressure Height 97.1 degrees 62/minute 149/85 1.82 m Winston Fitch MD 04/20/2024 12:51 PM Signed HISTORY OF PRESENT ILLNESS: Gray Fernandez is a 63 year old male referred for evaluation of thrombocytopenia. Labs, chart reviewed, he is on actemra for RA since 2019. We also note history of fatty liver documented on US. He's had no unusual bleeding, notes he can scratch his arm and it will bleed, but nothing more than that. He is also on baby asa and zoloft. CLINICAL IMPRESSION: Mild thrombocytopenia, suspect relates to fatty liver, though actemra can also cause. RECOMMENDATION/PLAN: 1. Observe cbc, no intervention unless platelets fall below 80, first move might be to switch RA treatment. Written and verbal health teaching given to patient, patient verbalizes understanding and agrees with treatment plan. PAST MEDICAL HISTORY Diagnosis Date Abdominal aortic aneurysm (AAA) without rupture (HCC) 11/10/2019 CT 06/2019: proximal abdominal aorta, 3.4 x 3.8 cm, CT 11/2020 no aneurysm AK (actinic keratosis) 12/03/2022 Right side face near ear Tx 11/2022 Bunion of great toe of right foot 11/10/2019 Current mild episode of major depressive disorder without prior episode (HCC) 12/03/2022 Cyst of spleen 12/14/2023 CT 2019 and stable over 2 yrs. Dyslipidemia 07/25/2019 Ectatic thoracic aorta (HCC) 11/09/2020 CTA 06/2019, CTA: 11/2020 was normal. ED (erectile dysfunction) of organic origin 12/03/2022 Elevated PSA 11/12/2020 Seeing Jean Carlos Lakhani Essential hypertension 07/22/2019 Ex-smoker 07/22/2019 Started age 16 up 1 PPD and quit at age 30. Family history of colon cancer 11/10/2019 Sister Family history of pancreatic cancer 11/10/2019 Mother Gastroesophageal reflux disease without esophagitis 07/07/2006 History of COVID-19 05/22/202005/2020 Leukocytosis 12/03/2022 RAMIREZ (nonalcoholic steatohepatitis) 12/17/2021 Renal cyst, right 12/14/2023 CT 2019 and stable over 2 yrs Rheumatoid arthritis involving multiple sites with positive rheumatoid factor (HCC) 07/22/2019 Seeing [facility]: Dr. Quispe Thrombocytopenia (HCC) 12/03/2022 Stable since 12/2020 around 130 Well adult exam 11/10/2019 Last done: 11/10/2019 PAST SURGICAL HISTORY Procedure Laterality Date COLONOSCOPY 2013 COLONOSCOPY GEN ANES 10/22/2020 Repeat in 3 years due to poor bowel preparation KNEE ARTHROSCOPY REPAIR RECURR INGUIN ZACHARIAH,REDUCIBL Left 12/25/2021 FAMILY HISTORY Problem Relation Age of Onset Pancreatic Cancer Mother Heart Father valve replaced Colon Cancer Sister Hyperlipidemia Brother Alzheimer's Disease No Family History Breast Cancer No Family History Ovarian cancer No Family History Prostate Cancer No Family History Coronary Artery Disease No Family History Diabetes No Family History Hypertension No Family History Kidney Disease No Family History Seizures No Family History Stroke No Family History Thyroid No Family History Social History Tobacco Use Smoking status: Former Current packs/day: 0.00 Average packs/day: 1 pack/day for 15.0 years (15.0 ttl pk-yrs) Types: Cigarettes Start date: 07/08/1974 Quit date: 07/08/1989 Years since quittin.8 Smokeless tobacco: Never Vaping Use Vaping status: Never Used Substance Use Topics Alcohol use: Yes Comment: whisky daily- 1-2 glasses per day Drug use: No ALLERGIES: ALLERGIES Allergen Reactions Leflunomide Other: See Comments Methotrexate Other: See Comments Elevated liver enzymes CURRENT OUTPATIENT MEDICATIONS: atorvastatin (LIPITOR) 40 mg tablet Take 1 tablet by mouth daily at bedtime. For cholesterol. sertraline (ZOLOFT) 50 mg tablet 1/2 a tablet by mouth once a day for 14 days then go to one tablet daily hydroCHLOROthiazide 25 mg tablet Take 1 tablet by mouth once daily. alfuzosin SR (UROXATRAL) 10 mg 24 hr tablet take 1 tablet by mouth everyday at bedtime lisinopril (ZESTRIL) 40 mg tablet Take 1 tablet by mouth once daily. meclizine (ANTIVERT) 25 mg tab Take 1 tablet by mouth two times a day as needed. Tadalafil (CIALIS) 20 mg tablet Take 1 tablet by mouth once daily. As needed cyclobenzaprine (FLEXERIL) 10 mg tablet Take 1 tablet by mouth three times daily as needed for muscle spasm. aspirin, enteric coated (ASPIRIN, ENTERIC COATED) 81 mg EC tablet Take 1 tablet by mouth once daily. esomeprazole (NEXIUM) 40 mg capsule Take 1 capsule by mouth once daily. tocilizumab (ACTEMRA) 400 mg/20 mL (20 mg/mL) soln Inject 20 mL intravenously once every month. Per Rheu multivitamins(MULTIPLE VITAMIN TAB) Take 1 tablet by mouth once daily (more content not included)... Normal [facility] 04-05-[address] [facility] GRAY FERNANDEZ ([id number]) 1960 M Date Time Provider Department 04/05/24 SYLVESTER DAMIAN [facility] During your visit today, we recorded the following information about you: Sylvester Damian MD 04/05/2024 8:53 PM Signed Let patient know his platelets are lower then last time. I would like for him to see hematology. Order placed. Zulma Sue MA 04/06/2024 9:18 AM Signed Patient notified and voiced understanding. Please assist patient with scheduling. JOSE ALBERTO Beckham Melanie, LPN 04/06/2024 9:48 AM Signed Please schedule with Dr. Fitch. KAMRYN Hancockjulia Jordan, Alyce 04/06/2024 10:02 AM Signed 1st attempt. Message left for patient to schedule New Patient Consult with Dr. Fitch. APPLICATIONS PROJECT MANAGER/THROMBOCYTOPENIA/REF PROV DR DAMIAN* Hanyjulia Jordan, Alyce 04/07/2024 10:38 AM Signed Scheduled with patient Allergies As of Date: 04/05/2024 Noted Allergy Reaction LEFLUNOMIDE 08/02/2017 14 - Other: See Comments METHOTREXATE 07/08/2019 14 - Other: See Comments Comments: Elevated liver enzymes Date Reviewed: 01/12/2024 Reviewed by: Dunia Navas LPN - Fully Assessed Reason for Visit: Results [95] Primary Visit Diagnosis:Thrombocytopenia (HCC) [D69.6] Order(s):CONSULT TO HEMATOLOGY [9014] Order #: [id number]: 1 FUTURE Prescriptions as of 04/07/2024 - atorvastatin (LIPITOR) 40 mg tablet Take 1 tablet by mouth daily at bedtime. For cholesterol. - sertraline (ZOLOFT) 50 mg tablet 1/2 a tablet by mouth once a day for 14 days then go to one tablet daily - hydroCHLOROthiazide 25 mg tablet Take 1 tablet by mouth once daily. - alfuzosin SR (UROXATRAL) 10 mg 24 hr tablet take 1 tablet by mouth everyday at bedtime - lisinopril (ZESTRIL) 40 mg tablet Take 1 tablet by mouth once daily. - meclizine (ANTIVERT) 25 mg tab Take 1 tablet by mouth two times a day as needed. - Tadalafil (CIALIS) 20 mg tablet Take 1 tablet by mouth once daily. As needed - cyclobenzaprine (FLEXERIL) 10 mg tablet Take 1 tablet by mouth three times daily as needed for muscle spasm. - aspirin, enteric coated (ASPIRIN, ENTERIC COATED) 81 mg EC tablet Take 1 tablet by mouth once daily. - esomeprazole (NEXIUM) 40 mg capsule Take 1 capsule by mouth once daily. - tocilizumab (ACTEMRA) 400 mg/20 mL (20 mg/mL) soln Inject 20 mL intravenously once every month. Per Rheu - multivitamins(MULTIPLE VITAMIN TAB) Take 1 tablet by mouth once daily. Problem List As Of Date 04/05/2024 Noted Resolved Gastroesophageal reflux disease without esophag*07/07/2006 Rheumatoid arthritis involving multiple sites w*07/22/2019 Essential hypertension [I10] 07/22/2019 Ex-smoker [Z87.891] 07/22/2019 Dyslipidemia [E78.5] 07/25/2019 Family history of pancreatic cancer [Z80.0] 11/10/2019 Family history of colon cancer [Z80.0] 11/10/2019 Well adult exam [Z00.00] 11/10/2019 Bunion of great toe of right foot [M21.611] 11/10/2019 Abdominal aortic aneurysm (AAA) without rupture*11/10/2019 11/28/2020 History of COVID-19 [Z86.16] 05/22/2020 Medication management [Z79.899] 11/09/2020 Encounter for screening for diabetes mellitus [*11/09/2020 Screening for prostate cancer [Z12.5] 11/09/2020 Ectatic thoracic aorta (HCC) [I77.810] 11/09/2020 11/28/2020 Elevated PSA [R97.20] 11/12/2020 RAMIREZ (nonalcoholic steatohepatitis) [K75.81] 12/17/2021 Left inguinal hernia [K40.90] 12/25/2021 12/25/2021 Acute pain of both shoulders [M25.511, M25.512] 05/29/2022 Numbness and tingling in right hand [R20.0, R20*05/29/2022 Thrombocytopenia (HCC) [D69.6] 12/03/2022 Leukopenia [D72.819] 12/03/2022 Current mild episode of major depressive disord*12/03/2022 AK (actinic keratosis) [L57.0] 12/03/2022 ED (erectile dysfunction) of organic origin [N5*12/03/2022 Vertigo [R42] 06/02/2023 Screening for colon cancer [Z12.11] 12/14/2023 Cyst of spleen [D73.4] 12/14/2023 Renal cyst, right [N28.1] 12/14/2023 Encounter Status:Closed by DOUP, CATERINA on 04/07/24 Normal [facility] CBC W Auto Differential pane l (Bld)on 04-02-2024 Basophils (Bld) [#/Vol] 10*3/uL Normal <0.11 [facility] Comment on above: Order Comment: Speci men Type: BLOOD SPECIMENOrdering Facility: [facility] Address: [address] [place] [address] Performed By: #### 5 7021-8 ####[facility] LABCLIA [id number] [place] [address] [place] Basophils/100 WBC (Bld) 0.6 % Normal [facility] Comment on above: Order Comment: Speci men Type: BLOOD SPECIMENOrdering Facility: [facility] Address: [address] [place] [address] Performed By: #### 5 7021-8 ####[facility] LABCLIA [id number] [place] [address] [place] Differential cell count method Nom (Bld) Auto Normal [facility] Comment on above: Order Comment: Speci men Type: BLOOD SPECIMENOrdering Facility: [facility] Address: [address] [place] [address] Performed By: #### 5 7021-8 ####[facility] LABCLIA [id number] [place] [address] [place] Eosinophils (Bld) [#/Vol] 0.09 10*3/uL Normal <0.46 [facility] Comment on above: Order Comment: Speci men Type: BLOOD SPECIMENOrdering Facility: [facility] Address: [address] [place] [address] Performed By: #### 5 7021-8 ####[facility] LABCLIA [id number] [place] [address] [place] Eosinophils/100 WBC (Bld) 2.5 % Normal [facility] Comment on above: Order Comment: Speci men Type: BLOOD SPECIMENOrdering Facility: [facility] Address: [address] [place] [address] Performed By: #### 5 7021-8 ####[facility] LABCLIA [id number] [place] [address] [place] Erythrocyte distribution width (RBC) [Ratio] 12.0 % Normal 11.5-15.0 [facility] Comment on above: Order Comment: Speci men Type: BLOOD SPECIMENOrdering Facility: [facility] Address: [address] [place] [address] Performed By: #### 5 7021-8 ####[facility] LABCLIA [id number] [place] [address] [place] Hematocrit (Bld) [Volume fraction] 42.0 % Normal 39.0-51.0 [facility] Comment on above: Order Comment: Speci men Type: BLOOD SPECIMENOrdering Facility: [facility] Address: [address] [place] [address] Performed By: #### 5 7021-8 ####[facility] LABIA [id number] [place] [address] [place] Hemoglobin (Bld) [Mass/Vol] 14.7 g/dL Normal 13.0-17.0 [facility] Comment on above: Order Comment: Speci men Type: BLOOD SPECIMENOrdering Facility: [facility] Address: [address] [place] [address] Performed By: #### 5 7021-8 ####[facility] LABCLIA [id number] [place] [address] [place] Immature granulocytes (Bld) [#/Vol] 10*3/uL Normal <0.10 [facility] Comment on above: Order Comment: Speci men Type: BLOOD SPECIMENOrdering Facility: [facility] Address: [address] [place] [address] Performed By: #### 5 7021-8 ####[facility] LABCLIA [id number] [place] [address] [place] Immature granulocytes/100 WBC (Bld) 0.3 % Normal [facility] Comment on above: Order Comment: Speci men Type: BLOOD SPECIMENOrdering Facility: [facility] Address: [address] [place] [address] Performed By: #### 5 7021-8 ####[facility] LABCLIA [id number] [place] [address] [place] Lymphocytes (Bld) [#/Vol] 1.06 10*3/uL Normal 1.00-4.00 [facility] Comment on above: Order Comment: Speci men Type: BLOOD SPECIMENOrdering Facility: [facility] Address: [address] [place] [address] Performed By: #### 5 7021-8 ####[facility] LABCLIA [id number] [place] [address] [place] Lymphocytes/100 WBC (Bld) 29.9 % Normal [facility] Comment on above: Order Comment: Speci men Type: BLOOD SPECIMENOrdering Facility: [facility] Address: [address] [place] [address] Performed By: #### 5 7021-8 ####[facility] LABCLIA [id number] [place] [address] [place] MCH (RBC) [Entitic mass] 30.6 pg Normal 26.0-34.0 [facility] Comment on above: Order Comment: Speci men Type: BLOOD SPECIMENOrdering Facility: [facility] Address: [address] [place] [address] Performed By: #### 5 7021-8 ####[facility] LABCLIA [id number] [place] [address] [place] MCHC (RBC) [Mass/Vol] 35.0 g/dL Normal 30.5-36.0 [facility] Comment on above: Order Comment: Speci men Type: BLOOD SPECIMENOrdering Facility: [facility] Address: [address] [place] [address] Performed By: #### 5 7021-8 ####[facility] LABCLIA [id number] [place] [address] [place] MCV (RBC) [Entitic vol] 87.3 fL Normal 80.0-100.0 [facility] Comment on above: Order Comment: Speci men Type: BLOOD SPECIMENOrdering Facility: [facility] Address: [address] [place] [address] Performed By: #### 5 7021-8 ####[facility] LABCLIA [id number] [place] [address] [place] Monocytes (Bld) [#/Vol] 0.41 10*3/uL Normal <0.87 [facility] Comment on above: Order Comment: Speci men Type: BLOOD SPECIMENOrdering Facility: [facility] Address: [address] [place] [address] Performed By: #### 5 7021-8 ####[facility] LABCLIA [id number] [place] [address] [place] Monocytes/100 WBC (Bld) 11.6 % Normal [facility] Comment on above: Order Comment: Speci men Type: BLOOD SPECIMENOrdering Facility: [facility] Address: [address] [place] [address] Performed By: #### 5 7021-8 ####[facility] LABCLIA [id number] [place] [address] [place] Neutrophils (Bld) [#/Vol] 1.95 10*3/uL Normal 1.45-7.50 [facility] Comment on above: Order Comment: Speci men Type: BLOOD SPECIMENOrdering Facility: [facility] Address: [address] [place] [address] Performed By: #### 5 7021-8 ####[facility] LABCLIA [id number] [place] [address] [place] Neutrophils/100 WBC (Bld) 55.1 % Normal [facility] Comment on above: Order Comment: Speci men Type: BLOOD SPECIMENOrdering Facility: [facility] Address: [address] [place] [address] Performed By: #### 5 7021-8 ####[facility] LABCLIA [id number] [place] [address] [place] Nucleated RBC (Bld) [#/Vol] 10*3/uL Normal <0.01 [facility] Comment on above: Order Comment: Speci men Type: BLOOD SPECIMENOrdering Facility: [facility] Address: [address] [place] [address] Performed By: #### 5 7021-8 ####[facility] LABCLIA [id number] [place] [address] [place] Nucleated RBC/100 WBC (Bld) [Ratio] 0.0 /100 WBC Normal [facility] Comment on above: Order Comment: Speci men Type: BLOOD SPECIMENOrdering Facility: [facility] Address: [address] [place] [address] Performed By: #### 5 7021-8 ####[facility] LABCLIA [id number] [place] [address] [place] Platelet mean volume (Bld) [Entitic vol] 10.1 fL Normal 9.0-12.7 [facility] Comment on above: Order Comment: Speci men Type: BLOOD SPECIMENOrdering Facility: [facility] Address: [address] [place] [address] Performed By: #### 5 7021-8 ####[facility] LABCLIA [id number] [place] [address] [place] Platelets (Bld) [#/Vol] 103 10*3/uL Low 150-400 [facility] Comment on above: Order Comment: Speci men Type: BLOOD SPECIMENOrdering Facility: [facility] Address: [address] [place] [address] Performed By: #### 5 7021-8 ####[facility] LABIA [id number] [place] [address] [place] RBC (Bld) [#/Vol] 4.81 10*6/uL Normal 4.20-6.00 [facility] Comment on above: Order Comment: Speci men Type: BLOOD SPECIMENOrdering Facility: [facility] Address: [address] [place] [address] Performed By: #### 5 7021-8 ####[facility] LABIA [id number] [place] [address] [place] WBC (Bld) [#/Vol] 3.54 10*3/uL Low 3.70-11.00 [facility] Comment on above: Order Comment: Speci men Type: BLOOD SPECIMENOrdering Facility: [facility] Address: [address] [place] [address] Performed By: #### 5 7021-8 ####[facility] LABIA [id number] [place] [address] [place] CNPLanny 01-18-2024 [facility] GRAY FERNANDEZ ([id number]) 1960 M Date Time Provider Department 01/18/24 SYLVESTER DAMIAN [facility] During your visit today, we recorded the following information about you: Sylvester Damian MD 01/18/2024 4:03 PM Signed Let patient know his CBC shows that the low white blood cell count is resolved. His platelets are higher at 115 but typically runs around 130. Want to repeat in a month to make sure they continue to improve. Order placed. Dunia Navas LPN 01/19/2024 8:56 AM Signed Patient notified of results and provider's instructions. Patient verbalizes understanding. Dunia Navas LPN Allergies As of Date: 01/18/2024 Noted Allergy Reaction LEFLUNOMIDE 08/02/2017 14 - Other: See Comments METHOTREXATE 07/08/2019 14 - Other: See Comments Comments: Elevated liver enzymes Date Reviewed: 01/12/2024 Reviewed by: Dunia Navas LPN - Fully Assessed Reason for Visit: Results [95] Primary Visit Diagnosis:Thrombocytopenia (HCC) [D69.6] Order(s):COMPLETE BLOOD COUNT AND DIFFERENTIAL [SQCBCDIF] Order #: [id number] FUTURE Prescriptions as of 01/19/2024 - atorvastatin (LIPITOR) 40 mg tablet Take 1 tablet by mouth daily at bedtime. For cholesterol. - sertraline (ZOLOFT) 50 mg tablet 1/2 a tablet by mouth once a day for 14 days then go to one tablet daily - hydroCHLOROthiazide 25 mg tablet Take 1 tablet by mouth once daily. - alfuzosin SR (UROXATRAL) 10 mg 24 hr tablet take 1 tablet by mouth everyday at bedtime - lisinopril (ZESTRIL) 40 mg tablet Take 1 tablet by mouth once daily. - meclizine (ANTIVERT) 25 mg tab Take 1 tablet by mouth two times a day as needed. - Tadalafil (CIALIS) 20 mg tablet Take 1 tablet by mouth once daily. As needed - cyclobenzaprine (FLEXERIL) 10 mg tablet Take 1 tablet by mouth three times daily as needed for muscle spasm. - aspirin, enteric coated (ASPIRIN, ENTERIC COATED) 81 mg EC tablet Take 1 tablet by mouth once daily. - esomeprazole (NEXIUM) 40 mg capsule Take 1 capsule by mouth once daily. - tocilizumab (ACTEMRA) 400 mg/20 mL (20 mg/mL) soln Inject 20 mL intravenously once every month. Per Rheu - multivitamins(MULTIPLE VITAMIN TAB) Take 1 tablet by mouth once daily. Problem List As Of Date 01/18/2024 Noted Resolved Gastroesophageal reflux disease without esophag*07/07/2006 Rheumatoid arthritis involving multiple sites w*07/22/2019 Essential hypertension [I10] 07/22/2019 Ex-smoker [Z87.891] 07/22/2019 Dyslipidemia [E78.5] 07/25/2019 Family history of pancreatic cancer [Z80.0] 11/10/2019 Family history of colon cancer [Z80.0] 11/10/2019 Well adult exam [Z00.00] 11/10/2019 Bunion of great toe of right foot [M21.611] 11/10/2019 Abdominal aortic aneurysm (AAA) without rupture*11/10/2019 11/28/2020 History of COVID-19 [Z86.16] 05/22/2020 Medication management [Z79.899] 11/09/2020 Encounter for screening for diabetes mellitus [*11/09/2020 Screening for prostate cancer [Z12.5] 11/09/2020 Ectatic thoracic aorta (HCC) [I77.810] 11/09/2020 11/28/2020 Elevated PSA [R97.20] 11/12/2020 RAMIREZ (nonalcoholic steatohepatitis) [K75.81] 12/17/2021 Left inguinal hernia [K40.90] 12/25/2021 12/25/2021 Acute pain of both shoulders [M25.511, M25.512] 05/29/2022 Numbness and tingling in right hand [R20.0, R20*05/29/2022 Thrombocytopenia (HCC) [D69.6] 12/03/2022 Leukopenia [D72.819] 12/03/2022 Current mild episode of major depressive disord*12/03/2022 AK (actinic keratosis) [L57.0] 12/03/2022 ED (erectile dysfunction) of organic origin [N5*12/03/2022 Vertigo [R42] 06/02/2023 Screening for colon cancer [Z12.11] 12/14/2023 Cyst of spleen [D73.4] 12/14/2023 Renal cyst, right [N28.1] 12/14/2023 Encounter Status:Closed by DUNIA NAVAS on 01/19/24 Normal [facility] CBC W Auto Differential pane l (Bld)on 01-12-2024 Basophils (Bld) [#/Vol] 0.04 10*3/uL Normal <0.11 [facility] Comment on above: Order Comment: Speci men Type: BLOOD SPECIMENOrdering Facility: [facility] Address: [address] [place] [address] Performed By: #### 5 7021-8 ####[facility] LABCLIA [id number] [place] [address] [place] Basophils/100 WBC (Bld) 1.0 % Normal [facility] Comment on above: Order Comment: Speci men Type: BLOOD SPECIMENOrdering Facility: [facility] Address: [address] [place] [address] Performed By: #### 5 7021-8 ####[facility] LABCLIA [id number] [place] [address] [place] Differential cell count method Nom (Bld) Auto Normal [facility] Comment on above: Order Comment: Speci men Type: BLOOD SPECIMENOrdering Facility: [facility] Address: [address] [place] [address] Performed By: #### 5 7021-8 ####[facility] LABCLIA [id number] [place] [address] [place] Eosinophils (Bld) [#/Vol] 0.10 10*3/uL Normal <0.46 [facility] Comment on above: Order Comment: Speci men Type: BLOOD SPECIMENOrdering Facility: [facility] Address: [address] [place] [address] Performed By: #### 5 7021-8 ####[facility] LABCLIA [id number] [place] [address] [place] Eosinophils/100 WBC (Bld) 2.5 % Normal [facility] Comment on above: Order Comment: Speci men Type: BLOOD SPECIMENOrdering Facility: [facility] Address: [address] [place] [address] Performed By: #### 5 7021-8 ####[facility] LABCLIA [id number] [place] [address] [place] Erythrocyte distribution width (RBC) [Ratio] 11.8 % Normal 11.5-15.0 [facility] Comment on above: Order Comment: Speci men Type: BLOOD SPECIMENOrdering Facility: [facility] Address: [address] [place] [address] Performed By: #### 5 7021-8 ####[facility] LABCLIA [id number] [place] [address] [place] Hematocrit (Bld) [Volume fraction] 43.9 % Normal 39.0-51.0 [facility] Comment on above: Order Comment: Speci men Type: BLOOD SPECIMENOrdering Facility: [facility] Address: [address] [place] [address] Performed By: #### 5 7021-8 ####[facility] LABCLIA [id number] [place] [address] [place] Hemoglobin (Bld) [Mass/Vol] 15.2 g/dL Normal 13.0-17.0 [facility] Comment on above: Order Comment: Speci men Type: BLOOD SPECIMENOrdering Facility: [facility] Address: [address] [place] [address] Performed By: #### 5 7021-8 ####[facility] LABCLIA [id number] [place] [address] [place] Immature granulocytes (Bld) [#/Vol] 10*3/uL Normal <0.10 [facility] Comment on above: Order Comment: Speci men Type: BLOOD SPECIMENOrdering Facility: [facility] Address: [address] [place] [address] Performed By: #### 5 7021-8 ####[facility] LABCLIA [id number] [place] [address] [place] Immature granulocytes/100 WBC (Bld) 0.5 % Normal [facility] Comment on above: Order Comment: Speci men Type: BLOOD SPECIMENOrdering Facility: [facility] Address: [address] [place] [address] Performed By: #### 5 7021-8 ####[facility] LABCLIA [id number] [place] [address] [place] Lymphocytes (Bld) [#/Vol] 1.12 10*3/uL Normal 1.00-4.00 [facility] Comment on above: Order Comment: Speci men Type: BLOOD SPECIMENOrdering Facility: [facility] Address: [address] [place] [address] Performed By: #### 5 7021-8 ####[facility] LABIA [id number] [place] [address] [place] Lymphocytes/100 WBC (Bld) 28.2 % Normal [facility] Comment on above: Order Comment: Speci men Type: BLOOD SPECIMENOrdering Facility: [facility] Address: [address] [place] [address] Performed By: #### 5 7021-8 ####[facility] LABIA [id number] [place] [address] [place] MCH (RBC) [Entitic mass] 30.7 pg Normal 26.0-34.0 [facility] Comment on above: Order Comment: Speci men Type: BLOOD SPECIMENOrdering Facility: [facility] Address: [address] [place] [address] Performed By: #### 5 7021-8 ####[facility] LABCLIA [id number] [place] [address] [place] MCHC (RBC) [Mass/Vol] 34.6 g/dL Normal 30.5-36.0 [facility] Comment on above: Order Comment: Speci men Type: BLOOD SPECIMENOrdering Facility: [facility] Address: [address] [place] [address] Performed By: #### 5 7021-8 ####[facility] LABIA [id number] [place] [address] [place] MCV (RBC) [Entitic vol] 88.7 fL Normal 80.0-100.0 [facility] Comment on above: Order Comment: Speci men Type: BLOOD SPECIMENOrdering Facility: [facility] Address: [address] [place] [address] Performed By: #### 5 7021-8 ####[facility] LABIA [id number] [place] [address] [place] Monocytes (Bld) [#/Vol] 0.54 10*3/uL Normal <0.87 [facility] Comment on above: Order Comment: Speci men Type: BLOOD SPECIMENOrdering Facility: [facility] Address: [address] [place] [address] Performed By: #### 5 7021-8 ####[facility] LABIA [id number] [place] [address] [place] Monocytes/100 WBC (Bld) 13.6 % Normal [facility] Comment on above: Order Comment: Speci men Type: BLOOD SPECIMENOrdering Facility: [facility] Address: [address] [place] [address] Performed By: #### 5 7021-8 ####[facility] LABIA [id number] [place] [address] [place] Neutrophils (Bld) [#/Vol] 2.15 10*3/uL Normal 1.45-7.50 [facility] Comment on above: Order Comment: Speci men Type: BLOOD SPECIMENOrdering Facility: [facility] Address: [address] [place] [address] Performed By: #### 5 7021-8 ####[facility] LABCLIA [id number] [place] [address] [place] Neutrophils/100 WBC (Bld) 54.2 % Normal [facility] Comment on above: Order Comment: Speci men Type: BLOOD SPECIMENOrdering Facility: [facility] Address: [address] [place] [address] Performed By: #### 5 7021-8 ####[facility] LABCLIA [id number] [place] [address] [place] Nucleated RBC (Bld) [#/Vol] 10*3/uL Normal <0.01 [facility] Comment on above: Order Comment: Speci men Type: BLOOD SPECIMENOrdering Facility: [facility] Address: [address] [place] [address] Performed By: #### 5 7021-8 ####[facility] LABCLIA [id number] [place] [address] [place] Nucleated RBC/100 WBC (Bld) [Ratio] 0.0 /100 WBC Normal [facility] Comment on above: Order Comment: Speci men Type: BLOOD SPECIMENOrdering Facility: [facility] Address: [address] [place] [address] Performed By: #### 5 7021-8 ####[facility] LABCLIA [id number] [place] [address] [place] Platelet mean volume (Bld) [Entitic vol] 10.4 fL Normal 9.0-12.7 [facility] Comment on above: Order Comment: Speci men Type: BLOOD SPECIMENOrdering Facility: [facility] Address: [address] [place] [address] Performed By: #### 5 7021-8 ####[facility] LABCLIA [id number] [place] [address] [place] Platelets (Bld) [#/Vol] 115 10*3/uL Low 150-400 [facility] Comment on above: Order Comment: Speci men Type: BLOOD SPECIMENOrdering Facility: [facility] Address: [address] [place] [address] Performed By: #### 5 7021-8 ####[facility] LABCLIA [id number] [place] [address] [place] RBC (Bld) [#/Vol] 4.95 10*6/uL Normal 4.20-6.00 [facility] Comment on above: Order Comment: Speci men Type: BLOOD SPECIMENOrdering Facility: [facility] Address: [address] [place] [address] Performed By: #### 5 7021-8 ####[facility] LABCLIA [id number] [place] [address] [place] WBC (Bld) [#/Vol] 3.97 10*3/uL Normal 3.70-11.00 [facility] Comment on above: Order Comment: Speci men Type: BLOOD SPECIMENOrdering Facility: [facility] Address: [address] [place] [address] Performed By: #### 5 7021-8 ####[facility] LABCLIA [id number] [place] [address] [place] CNOVon 01-12-2024 CNOV Office Visit (FAMWS ) GRAY FERNANDEZ ([id number]) 1960 M Date Time Provider Department 01/12/24 2:00 PM [facility] During your visit today, we recorded the following information about you: Temperature Pulse Respiration Blood pressure 97.8 degrees 69/minute 18/minute 133/84 Weight 113.1 kg Chanelle Talbot PA-C 01/12/2024 2:45 PM Signed Chief Complaint Patient presents with: Recheck: Blood pressure HPI Gray Fernandez is a 63 year old male who presents here today for recheck. Patient was seen last month by PCP. HCTZ was increased to 25mg. Patient has tolerated change well. Last 6 Encounter BP Readings: Date: BP: 01/12/2024 133/84[bp average with machine[ 12/14/2023 134/92 06/15/2023 136/80 05/13/2023 130/80 01/06/2023 124/76 12/03/2022 140/90 Last 6 Encounter Wt Readings: Date: Wt: 01/12/2024 113.1 kg (249 lb 5.4 oz) 06/15/2023 117 kg (258 lb) 05/13/2023 116.1 kg (256 lb) 01/06/2023 113.9 kg (251 lb) 12/03/2022 110.2 kg (243 lb) 11/25/2022 111.7 kg (246 lb 3.2 oz) Past medical history, appointments, medications, allergies reviewed. Previous Medical History PAST MEDICAL HISTORY 11/10/2019: Abdominal aortic aneurysm (AAA) without rupture (HCC) Comment: CT 06/2019: proximal abdominal aorta, 3.4 x 3.8 cm, CT 11/2020 no aneurysm 12/03/2022: AK (actinic keratosis) Comment: Right side face near ear Tx 11/202211/10/2019: Bunion of great toe of right foot 12/03/2022: Current mild episode of major depressive disorder without prior episode (HCC) 12/14/2023: Cyst of spleen Comment: CT 2019 and stable over 2 yrs. 07/25/2019: Dyslipidemia 11/09/2020: Ectatic thoracic aorta (HCC) Comment: CTA 06/2019, CTA: 11/2020 was normal. 12/03/2022: ED (erectile dysfunction) of organic origin 11/12/2020: Elevated PSA Comment: Seeing Jean Carlos Lakhani 07/22/2019: Essential hypertension 07/22/2019: Ex-smoker Comment: Started age 16 up 1 PPD and quit at age 30. 11/10/2019: Family history of colon cancer Comment: Sister 11/10/2019: Family history of pancreatic cancer Comment: Mother 07/07/2006: Gastroesophageal reflux disease without esophagitis 05/22/2020: History of COVID-19 Comment: 05/202012/03/2022: Leukocytosis 12/17/2021: RAMIREZ (nonalcoholic steatohepatitis) 12/14/2023: Renal cyst, right Comment: CT 2019 and stable over 2 yrs 07/22/2019: Rheumatoid arthritis involving multiple sites with positive rheumatoid factor (HCC) Comment: Seeing [facility]: Dr. Quispe 12/03/2022: Thrombocytopenia (HCC) Comment: Stable since 12/2020 around 130 11/10/2019: Well adult exam Comment: Last done: 11/10/2019 Previous Surgical History PAST SURGICAL HISTORY 2013: COLONOSCOPY 10/22/2020: COLONOSCOPY GEN ANES Comment: Repeat in 3 years due to poor bowel preparation No date: KNEE ARTHROSCOPY 12/25/2021: REPAIR RECURR INGUIN ZACHARIAH,REDUCIBL; Left Family History FAMILY HISTORY Problem Relation Age of Onset Pancreatic Cancer Mother Heart Father valve replaced Colon Cancer Sister Hyperlipidemia Brother Alzheimer's Disease No Family History Breast Cancer No Family History Ovarian cancer No Family History Prostate Cancer No Family History Coronary Artery Disease No Family History Diabetes No Family History Hypertension No Family History Kidney Disease No Family History Seizures No Family History Stroke No Family History Thyroid No Family History Patient Allergies ALLERGIES Allergen Reactions Leflunomide Other: See Comments Methotrexate Other: See Comments Elevated liver enzymes Current Medications Current Outpatient Medications on File Prior to Visit Medication Sig atorvastatin (LIPITOR) 40 mg tablet Take 1 tablet by mouth daily at bedtime. For cholesterol. sertraline (ZOLOFT) 50 mg tablet 1/2 a tablet by mouth once a day for 14 days then go to one tablet daily hydroCHLOROthiazide 25 mg tablet Take 1 tablet by mouth once daily. alfuzosin SR (UROXATRAL) 10 mg 24 hr tablet take 1 tablet by mouth everyday at bedtime lisinopril (ZESTRIL) 40 mg tablet Take 1 tablet by mouth once daily. meclizine (ANTIVERT) 25 mg tab Take 1 tablet by mouth two times a day as needed. Tadalafil (CIALIS) 20 mg tablet Take 1 tablet by mouth once daily. As needed cyclobenzaprine (FLEXERIL) 10 mg tablet Take 1 tablet by mouth three times daily as needed for muscle spasm. aspirin, enteric coated (ASPIRIN, ENTERIC COATED) 81 mg EC tablet Take 1 tablet by mouth once daily. esomeprazole (NEXIUM) 40 mg capsule Take 1 capsule by mouth once daily. tocilizumab (ACTEMRA) 400 mg/20 mL (20 mg/mL) soln Inject 20 mL intravenously once every month. Per Rheu multivitamins(MULTIPLE VITAMIN TAB) Take 1 tablet by mouth once daily. No current facility-administered medications on file prior to visit. Social History Social History Tobacco Use (more content not included)... Normal [facility] 01-12-2024 [employer] Tele[facility] (FAMWS) GRAY FERNANDEZ ([id number]) 1960 M Date Time Provider Department 01/12/24 [facility] During your visit today, we recorded the following information about you: Dunia Navas LPN 01/12/2024 2:29 PM Signed Pt stops by office to drop off Preventative form for his employment. Pt had WAE 12/14/23 with pcp and advised office had told him he could drop off form. Form placed on pcp's desk for review. Please fax form to ATTN: Keyla Baptiste RN [phone] Sylvester Damian MD 01/21/2024 9:47 PM Signed Form completed and ready to be faxed. Remind patient he was asked by urology back in [facility] to make a f/u appt with Jean Carlos for his yearly f/u and medication management. Zulma Sue MA 01/22/2024 9:52 AM Signed Form has been completed and faxed. Sent my chart message. Zulma Sue MA' Allergies As of Date: 01/12/2024 Noted Allergy Reaction LEFLUNOMIDE 08/02/2017 14 - Other: See Comments METHOTREXATE 07/08/2019 14 - Other: See Comments Comments: Elevated liver enzymes Date Reviewed: 01/12/2024 Reviewed by: Dunia Navas LPN - Fully Assessed Reason for Visit: Preventative Form [Other] Prescriptions as of 01/22/2024 - atorvastatin (LIPITOR) 40 mg tablet Take 1 tablet by mouth daily at bedtime. For cholesterol. - sertraline (ZOLOFT) 50 mg tablet 1/2 a tablet by mouth once a day for 14 days then go to one tablet daily - hydroCHLOROthiazide 25 mg tablet Take 1 tablet by mouth once daily. - alfuzosin SR (UROXATRAL) 10 mg 24 hr tablet take 1 tablet by mouth everyday at bedtime - lisinopril (ZESTRIL) 40 mg tablet Take 1 tablet by mouth once daily. - meclizine (ANTIVERT) 25 mg tab Take 1 tablet by mouth two times a day as needed. - Tadalafil (CIALIS) 20 mg tablet Take 1 tablet by mouth once daily. As needed - cyclobenzaprine (FLEXERIL) 10 mg tablet Take 1 tablet by mouth three times daily as needed for muscle spasm. - aspirin, enteric coated (ASPIRIN, ENTERIC COATED) 81 mg EC tablet Take 1 tablet by mouth once daily. - esomeprazole (NEXIUM) 40 mg capsule Take 1 capsule by mouth once daily. - tocilizumab (ACTEMRA) 400 mg/20 mL (20 mg/mL) soln Inject 20 mL intravenously once every month. Per Rheu - multivitamins(MULTIPLE VITAMIN TAB) Take 1 tablet by mouth once daily. Problem List As Of Date 01/12/2024 Noted Resolved Gastroesophageal reflux disease without esophag*07/07/2006 Rheumatoid arthritis involving multiple sites w*07/22/2019 Essential hypertension [I10] 07/22/2019 Ex-smoker [Z87.891] 07/22/2019 Dyslipidemia [E78.5] 07/25/2019 Family history of pancreatic cancer [Z80.0] 11/10/2019 Family history of colon cancer [Z80.0] 11/10/2019 Well adult exam [Z00.00] 11/10/2019 Bunion of great toe of right foot [M21.611] 11/10/2019 Abdominal aortic aneurysm (AAA) without rupture*11/10/2019 11/28/2020 History of COVID-19 [Z86.16] 05/22/2020 Medication management [Z79.899] 11/09/2020 Encounter for screening for diabetes mellitus [*11/09/2020 Screening for prostate cancer [Z12.5] 11/09/2020 Ectatic thoracic aorta (HCC) [I77.810] 11/09/2020 11/28/2020 Elevated PSA [R97.20] 11/12/2020 RAMIREZ (nonalcoholic steatohepatitis) [K75.81] 12/17/2021 Left inguinal hernia [K40.90] 12/25/2021 12/25/2021 Acute pain of both shoulders [M25.511, M25.512] 05/29/2022 Numbness and tingling in right hand [R20.0, R20*05/29/2022 Thrombocytopenia (HCC) [D69.6] 12/03/2022 Leukopenia [D72.819] 12/03/2022 Current mild episode of major depressive disord*12/03/2022 AK (actinic keratosis) [L57.0] 12/03/2022 ED (erectile dysfunction) of organic origin [N5*12/03/2022 Vertigo [R42] 06/02/2023 Screening for colon cancer [Z12.11] 12/14/2023 Cyst of spleen [D73.4] 12/14/2023 Renal cyst, right [N28.1] 12/14/2023 Encounter Status:Closed by ZULMA SUE on 01/22/24 [facility] 01-08-2024 [employer] [employer] [facility] [employer] Tele[facility] (FAMPWS) GRAY FERNANDEZ ([id number]) 1960 Date Time Provider Department 01/08/24 ZULMA SUE [facility] During your visit today, we recorded the following information about you: Zulma Sue MA 01/08/2024 4:27 PM Signed Updated addendum Scan on 01/07/2024 3:55 PM by Provider, External, DEMETRI: Ultrasound JOSE ALBERTO Beckham Jeffrey A, MD 01/08/2024 4:53 PM Signed Let patient know the special US of his live shows no to very little fibrosis. Will will continue to monitor. Continuing to work on diet and weight loss to lesson the fatty liver will prevent progression. Zulma Sue MA 01/08/2024 5:01 PM Signed Patient notified and voiced understanding. Zulma Sue MA Allergies As of Date: 01/08/2024 Noted Allergy Reaction LEFLUNOMIDE 08/02/2017 14 - Other: See Comments METHOTREXATE 07/08/2019 14 - Other: See Comments Comments: Elevated liver enzymes Date Reviewed: 12/14/2023 Reviewed by: Sylvester Damian MD - Fully Assessed Reason for Visit: Results [95] Primary Visit Diagnosis:RAMIREZ (nonalcoholic steatohepatitis) [K75.81] Prescriptions as of 01/08/2024 - atorvastatin (LIPITOR) 40 mg tablet Take 1 tablet by mouth daily at bedtime. For cholesterol. - sertraline (ZOLOFT) 50 mg tablet 1/2 a tablet by mouth once a day for 14 days then go to one tablet daily - hydroCHLOROthiazide 25 mg tablet Take 1 tablet by mouth once daily. - alfuzosin SR (UROXATRAL) 10 mg 24 hr tablet take 1 tablet by mouth everyday at bedtime - lisinopril (ZESTRIL) 40 mg tablet Take 1 tablet by mouth once daily. - meclizine (ANTIVERT) 25 mg tab Take 1 tablet by mouth two times a day as needed. - Tadalafil (CIALIS) 20 mg tablet Take 1 tablet by mouth once daily. As needed - cyclobenzaprine (FLEXERIL) 10 mg tablet Take 1 tablet by mouth three times daily as needed for muscle spasm. - aspirin, enteric coated (ASPIRIN, ENTERIC COATED) 81 mg EC tablet Take 1 tablet by mouth once daily. - esomeprazole (NEXIUM) 40 mg capsule Take 1 capsule by mouth once daily. - tocilizumab (ACTEMRA) 400 mg/20 mL (20 mg/mL) soln Inject 20 mL intravenously once every month. Per Rheu - multivitamins(MULTIPLE VITAMIN TAB) Take 1 tablet by mouth once daily. Problem List As Of Date 01/08/2024 Noted Resolved Gastroesophageal reflux disease without esophag*07/07/2006 Rheumatoid arthritis involving multiple sites w*07/22/2019 Essential hypertension [I10] 07/22/2019 Ex-smoker [Z87.891] 07/22/2019 Dyslipidemia [E78.5] 07/25/2019 Family history of pancreatic cancer [Z80.0] 11/10/2019 Family history of colon cancer [Z80.0] 11/10/2019 Well adult exam [Z00.00] 11/10/2019 Bunion of great toe of right foot [M21.611] 11/10/2019 Abdominal aortic aneurysm (AAA) without rupture*11/10/2019 11/28/2020 History of COVID-19 [Z86.16] 05/22/2020 Medication management [Z79.899] 11/09/2020 Encounter for screening for diabetes mellitus [*11/09/2020 Screening for prostate cancer [Z12.5] 11/09/2020 Ectatic thoracic aorta (HCC) [I77.810] 11/09/2020 11/28/2020 Elevated PSA [R97.20] 11/12/2020 RAMIREZ (nonalcoholic steatohepatitis) [K75.81] 12/17/2021 Left inguinal hernia [K40.90] 12/25/2021 12/25/2021 Acute pain of both shoulders [M25.511, M25.512] 05/29/2022 Numbness and tingling in right hand [R20.0, R20*05/29/2022 Thrombocytopenia (HCC) [D69.6] 12/03/2022 Leukopenia [D72.819] 12/03/2022 Current mild episode of major depressive disord*12/03/2022 AK (actinic keratosis) [L57.0] 12/03/2022 ED (erectile dysfunction) of organic origin [N5*12/03/2022 Vertigo [R42] 06/02/2023 Screening for colon cancer [Z12.11] 12/14/2023 Cyst of spleen [D73.4] 12/14/2023 Renal cyst, right [N28.1] 12/14/2023 Encounter Status:Closed by ZULMA SUE on 01/08/24 Normal [facility] 01-06-2024 [facility] Telephone (FAMPWS) GRAY FERNANDEZ ([id number]) 1960 M Date Time Provider Department 01/06/24 ZULMA SUE [facility] During your visit today, we recorded the following information about you: Zulma Sue MA 01/06/2024 6:49 PM Signed Scan on 01/06/2024 2:51 PM by Provider, ExternalDEMETRI: Ultrasound Please review results. Zulma Sue MA' Sylvester Damian MD 01/06/2024 8:46 PM Signed Find out from [facility] radiology if there an additional report for the elastography since this one has not score on it. Maria Guadalupe Espinosa LPN 01/07/2024 10:41 AM Signed Phoned Jessy with US in radiology and she noted no score either and will have them addend the results. KAMRYN Wade Roxanne, MA 01/08/2024 10:22 AM Signed Received addendum. Given to PCP. Zulma Sue MA Allergies As of Date: 01/06/2024 Noted Allergy Reaction LEFLUNOMIDE 08/02/2017 14 - Other: See Comments METHOTREXATE 07/08/2019 14 - Other: See Comments Comments: Elevated liver enzymes Date Reviewed: 12/14/2023 Reviewed by: Sylvester Damian MD - Fully Assessed Reason for Visit: Results [95] Prescriptions as of 01/08/2024 - atorvastatin (LIPITOR) 40 mg tablet Take 1 tablet by mouth daily at bedtime. For cholesterol. - sertraline (ZOLOFT) 50 mg tablet 1/2 a tablet by mouth once a day for 14 days then go to one tablet daily - hydroCHLOROthiazide 25 mg tablet Take 1 tablet by mouth once daily. - alfuzosin SR (UROXATRAL) 10 mg 24 hr tablet take 1 tablet by mouth everyday at bedtime - lisinopril (ZESTRIL) 40 mg tablet Take 1 tablet by mouth once daily. - meclizine (ANTIVERT) 25 mg tab Take 1 tablet by mouth two times a day as needed. - Tadalafil (CIALIS) 20 mg tablet Take 1 tablet by mouth once daily. As needed - cyclobenzaprine (FLEXERIL) 10 mg tablet Take 1 tablet by mouth three times daily as needed for muscle spasm. - aspirin, enteric coated (ASPIRIN, ENTERIC COATED) 81 mg EC tablet Take 1 tablet by mouth once daily. - esomeprazole (NEXIUM) 40 mg capsule Take 1 capsule by mouth once daily. - tocilizumab (ACTEMRA) 400 mg/20 mL (20 mg/mL) soln Inject 20 mL intravenously once every month. Per Rheu - multivitamins(MULTIPLE VITAMIN TAB) Take 1 tablet by mouth once daily. Problem List As Of Date 01/06/2024 Noted Resolved Gastroesophageal reflux disease without esophag*07/07/2006 Rheumatoid arthritis involving multiple sites w*07/22/2019 Essential hypertension [I10] 07/22/2019 Ex-smoker [Z87.891] 07/22/2019 Dyslipidemia [E78.5] 07/25/2019 Family history of pancreatic cancer [Z80.0] 11/10/2019 Family history of colon cancer [Z80.0] 11/10/2019 Well adult exam [Z00.00] 11/10/2019 Bunion of great toe of right foot [M21.611] 11/10/2019 Abdominal aortic aneurysm (AAA) without rupture*11/10/2019 11/28/2020 History of COVID-19 [Z86.16] 05/22/2020 Medication management [Z79.899] 11/09/2020 Encounter for screening for diabetes mellitus [*11/09/2020 Screening for prostate cancer [Z12.5] 11/09/2020 Ectatic thoracic aorta (HCC) [I77.810] 11/09/2020 11/28/2020 Elevated PSA [R97.20] 11/12/2020 RAMIREZ (nonalcoholic steatohepatitis) [K75.81] 12/17/2021 Left inguinal hernia [K40.90] 12/25/2021 12/25/2021 Acute pain of both shoulders [M25.511, M25.512] 05/29/2022 Numbness and tingling in right hand [R20.0, R20*05/29/2022 Thrombocytopenia (HCC) [D69.6] 12/03/2022 Leukopenia [D72.819] 12/03/2022 Current mild episode of major depressive disord*12/03/2022 AK (actinic keratosis) [L57.0] 12/03/2022 ED (erectile dysfunction) of organic origin [N5*12/03/2022 Vertigo [R42] 06/02/2023 Screening for colon cancer [Z12.11] 12/14/2023 Cyst of spleen [D73.4] 12/14/2023 Renal cyst, right [N28.1] 12/14/2023 Encounter Status:Closed by ZULMA SUE on 01/08/24 Normal [facility] UA DIP, URINE (POC)on 2022 BILIRUBIN UA (POCT) Negative Negative [facility] CLARITY UA (POCT) Clear [facility] COLOR UA (POCT) Yellow [facility] GLUCOSE UA (POCT) Negative Negative mg/dL [facility] HEMOGLOBIN/BLOOD UA (POCT) Negative Negative [facility] KETONE UA (POCT) Negative Negative mg/dL [facility] LEUKOCYTES UA (POCT) Trace Abnormal Negative [facility] NITRITE UA (POCT) Negative Negative [facility] PH UA (POCT) 7.0 4.5 - 8.0 [facility] Protein Ql (U) Negative Negative mg/dL [facility] SPECIFIC GRAVITY UA (POCT) 1.015 1.005 - 1.030 [facility] UROBILINOGEN UA (POCT) 0.2 E.U./dL Normal E.U./dL [facility] UA DIP, URINE (POC)on 2022 BILIRUBIN UA (POCT) Negative Negative [facility] CLARITY UA (POCT) Clear [facility] COLOR UA (POCT) [facility] GLUCOSE UA (POCT) Negative Negative mg/dL [facility] HEMOGLOBIN/BLOOD UA (POCT) Negative Negative [facility] KETONE UA (POCT) Negative Negative mg/dL [facility] LEUKOCYTES UA (POCT) Small Abnormal Negative [facility] NITRITE UA (POCT) Negative Negative [facility] PH UA (POCT) 6.0 4.5 - 8.0 [facility] Protein Ql (U) 30 mg/dL Abnormal Negative mg/dL [facility] SPECIFIC GRAVITY UA (POCT) 1.020 1.005 - 1.030 [facility] UROBILINOGEN UA (POCT) 0.2 E.U./dL Normal E.U./dL [facility] ANES POSTPROC EVALon 022 ANES POSTPROC EVAL HNO ID: [id number] Author: Ernst Seymour MD Service: Anesthesiology Author Type: Anesthesiologist Type: Anesthesia Postprocedure Evaluation Filed: 12/25/2021 12:10 PM Note Text: POST ANESTHESIA EVALUATION NOTE : 1960 Procedure Summary Date: 12/25/21 Room / Location: [place] [address] / [place] Anesthesia Start: 916 Anesthesia Stop: 1100 Procedure: REPAIR INITIAL INGUINAL HERNIA = OR > AGE 5 REDUCIBLE W/ PRE PERITONEAL MESH (Left: Groin) Diagnosis: Left inguinal hernia Surgeons: Romain Ambriz MD Responsible Provider: Ernst Seymour MD Anesthesia Type: MAC ASA Status: 2 Anesthesia Type: MAC Last Vitals Vitals Value Taken Time BP 130/85 12/25/21 1200 Temp 36.3 ?C (97.3 ?F) 12/25/21 1100 Pulse 52 12/25/21 1209 Resp 17 12/25/21 1209 SpO2 96 % 12/25/21 1209 Vitals shown include unvalidated device data. Post Anesthesia Patient Status Patient Evaluation: bedside. Anticipated Disposition: phase 2 then home. Neurological Status: aware and responsive. Pulmonary Status: breathing comfortably on room air Airway Control: returned to baseline unsupported. Cardiovascular Status: stable. Pain Management: clinically adequate Postoperative Hydration: acceptable. Intraoperative Events: no significant anesthesia events Post Operative Nausea/Vomiting Status: no significant post operative nausea or vomiting Anesthetic Observations: Recommendation: continue current plan of care. Anesthesia Observations No Documentation SIGNATURE: Ernst Seymour MD PATIENT NAME: Gray Fernandez DATE: December 25, 2021 TIME: 12:10 PM CSN: [id number] [facility] ANES PRE-OPon 12-25-2021 ANES PRE-OP HNO ID: [id number] Author: Ernst Seymour MD Service: Anesthesiology Author Type: Anesthesiologist Type: Anesthesia Preprocedure Evaluation Filed: 12/25/2021 7:33 AM Note Text: ANESTHESIOLOGY DAY OF SURGERY NOTE : 1960 Procedure Information Date/Time: 12/25/21845 Procedure: REPAIR INITIAL INGUINAL HERNIA = OR > AGE 5 REDUCIBLE W/ PRE PERITONEAL MESH (Left) [place] Surgeons: Romain Ambriz MD Estimated body mass index is 33.36 kg/m? as calculated from the following: Height as of 12/05/21: 182.9 cm (6'). Weight as of 12/05/21: 111.6 kg (246 lb). Most recent hematocrit and potassium results: Hematocrit 44.9 10/25/2021 Potassium 3.9 12/05/2021 Relevant Problems CARDIO (+) Essential hypertension GI (+) Gastroesophageal reflux disease without esophagitis -RENAL (+) RAMIREZ (nonalcoholic steatohepatitis) NEURO-PSYCH (+) History of COVID-19 PULMONARY (+) History of COVID-19 Other (+) Rheumatoid arthritis involving multiple sites with positive rheumatoid factor (HCC) I - PHYSICAL EVALUATION AIRWAY Patient intubated: No. Tracheostomy tube not present Mallampati: III. TM distance: >3 FB. Neck ROM: full ROM without neurological symptoms. Mouth opening: adequate. Short neck: no. Thick neck: no DENTAL Normal dental observations. Dental findings: teeth intact. Additional exam findings: no II - ANESTHESIA PLAN ASA Score: 2 Anesthetic Plan: MAC The patient is not a current smoker. NPO Status: adequate Monitoring plan: standard ASA. Postoperative analgesic plan: parenteral or oral opioids and multimodal analgesia. Patient / Surrogate agrees to blood products: blood products not planned DNR status not reviewed with patient and/or family prior to surgery. Significant changes in the patient condition since the History and Physical, not otherwise documented in primary service progress note: no. Potential Anesthesia issues that may suggest increased risk of complications or contraindication to planned procedure: none. Vitals Value Taken Time BP 178/105 12/25/21726 Pulse Resp 16 12/25/21726 Temp 36.4 ?C (97.5 ?F) 12/25/21726 SpO2 98 % 12/25/21726 Facility-Administered Medications as of 12/25/2021 Medication Dose Route Frequency - lactated ringers iv infusion 5-30 mL/hr INTRAVENOUS CONTINUOUS - ceFAZolin iv piggyback 2 g in D5W (iso-osmotic) 100 mL (ANCEF) 2 g INTRAVENOUS Pre-Op Once Outpatient Medications as of 12/25/2021 Medication Sig - lisinopril (ZESTRIL, PRINIVIL) 40 mg tablet Take 1 tablet by mouth once daily. - atorvastatin (LIPITOR) 20 mg tablet Take 1 tablet by mouth daily at bedtime. For cholesterol. - alfuzosin SR (UROXATRAL) 10 mg 24 hr tablet Take 1 tablet by mouth daily at bedtime. - cyclobenzaprine (FLEXERIL) 10 mg tablet Take 1 tablet by mouth three times daily as needed for muscle spasm. - aspirin, enteric coated (ASPIRIN, ENTERIC COATED) 81 mg EC tablet Take 1 tablet by mouth once daily. - esomeprazole (NEXIUM) 40 mg capsule Take 1 capsule by mouth once daily. - tocilizumab (ACTEMRA) 400 mg/20 mL (20 mg/mL) soln Inject 20 mL intravenously once every month. Per Rheu - multivitamins(MULTIPLE VITAMIN TAB) Take 1 tablet by mouth once daily. I have interviewed and examined the patient. I have reviewed the medical record and/or the pre-anesthesia evaluation, pertinent labs, and test results. This contains updated information obtained within 48 hours of Surgery/Procedure. SIGNATURE: Ernst Seymour MD PATIENT NAME: Gray Fernandez DATE: December 25, 2021 TIME: 7:33 AM CSN: [id number] [facility] BRIEF OP NOTon 12-25-2021 BRIEF OP NOT HNO ID: [id number] Author: Isaiah Bruce MD Service: General Surgery Author Type: Resident Type: Brief Op Note Filed: 12/25/2021 10:58 AM Note Text: Patient Name: Gray Fernandez Log ID: [id number] Surgery Date: 12/25/2021 Incision/Procedure Start Time: 9:35 AM Incision Close/Procedure End Time: 10:49 AM Surgeon(s) and Burrito Maker(s): Surgeon(s) and Role: * Romain Ambriz MD - Primary * Isaiah Bruce MD - Resident - Assisting Anesthesia: MAC Procedures: 1. Open LEFT inguinal hernia repair with mesh Findings: large, fat-containing direct inguinal hernia Complications: no immediate complications Fluids IVF: 500 mL EBL: 5 mL UOP: Not monitored Wound Classification: Clean Counts: Correct Specimens: NONE Drains/Devices/Prosthetics: Covidien Surgipro Mesh - onlay portion only REF [id number] EXP 01/15/2026 Preoperative Diagnosis: LEFT inguinal hernia Postop Diagnosis: LEFT direct inguinal hernia Postop Plan of Care: - PACU then home Isaiah Bruce MD General Surgery, PGY-4 December 25, 2021 10:54 AM [phone] [facility] HISTORY PHYSICALon 2 HISTORY PHYSICAL HNO ID: [id number] Author: Romain Ambriz MD Service: General Surgery Author Type: Physician Type: HANDP Filed: 12/25/2021 8:58 AM Note Text: HISTORY AND PHYSICAL Gray Fernandez 1960 REFERRING PHYSICIAN: Sylvester Damian MD CHIEF COMPLAINT: Consult (hernia) HPI: Gray Hernández is a 61 year old male with a complaint of discomfort in his left inguinal region. The patient notes discomfort in this area with lifting, straining, coughing and moving. The symptoms have increased, over the past few weeks. The patient notes no symptoms of bowel obstruction and denies nausea or vomiting. The patient was seen by his primary care physician who felt the patient has a hernia. Gray Hernández was referred for evaluation and treatment. The patient is being seen by me today at the request of Dr. Sylvester Damian MD for my opinion and advice regarding a left inguinal hernia. PAST MEDICAL HISTORY PAST MEDICAL HISTORY Diagnosis Date Abdominal aortic aneurysm (AAA) without rupture (HCC) 11/10/2019 CT 06/2019: proximal abdominal aorta, 3.4 x 3.8 cm, CT 11/2020 no aneurysm Bunion of great toe of right foot 11/10/2019 Dyslipidemia 07/25/2019 Ectatic thoracic aorta (HCC) 11/09/2020 CTA 06/2019, CTA: 11/2020 was normal. Elevated PSA 11/12/2020 Seeing Jean Carlos Lakhani Essential hypertension 07/22/2019 Ex-smoker 07/22/2019 Started age 16 up 1 PPD and quit at age 30. Family history of colon cancer 11/10/2019 Sister Family history of pancreatic cancer 11/10/2019 Mother Gastroesophageal reflux disease without esophagitis 07/07/2006 Generalized osteoarthrosis, unspecified site right knee History of COVID-19 05/22/202005/2020 Rheumatoid arthritis involving multiple sites with positive rheumatoid factor (HCC) 07/22/2019 Seeing [facility]: Dr. Quispe Well adult exam 11/10/2019 Last done: 11/10/2019 PAST SURGICAL HISTORY PAST SURGICAL HISTORY Procedure Laterality Date COLONOSCOPY 2013 COLONOSCOPY GEN ANES 10/22/2020 Repeat in 3 years due to poor bowel preparation KNEE ARTHROSCOPY CURRENT MEDICATIONS Current Outpatient Medications Medication Sig lisinopril (ZESTRIL, PRINIVIL) 40 mg tablet Take 1 tablet by mouth once daily. atorvastatin (LIPITOR) 20 mg tablet Take 1 tablet by mouth daily at bedtime. For cholesterol. alfuzosin SR (UROXATRAL) 10 mg 24 hr tablet Take 1 tablet by mouth daily at bedtime. cyclobenzaprine (FLEXERIL) 10 mg tablet Take 1 tablet by mouth three times daily as needed for muscle spasm. aspirin, enteric coated (ASPIRIN, ENTERIC COATED) 81 mg EC tablet Take 1 tablet by mouth once daily. esomeprazole (NEXIUM) 40 mg capsule Take 1 capsule by mouth once daily. tocilizumab (ACTEMRA) 400 mg/20 mL (20 mg/mL) soln Inject 20 mL intravenously once every month. Per Rheu multivitamins(MULTIPLE VITAMIN TAB) Take 1 tablet by mouth once daily. No current facility-administered medications for this visit. ALLERGIES: Methotrexate PERSONAL HISTORY: SOCIAL HISTORY Social History Tobacco Use Smoking status: Former Smoker Packs/day: 1.00 Years: 15.00 Pack years: 15.00 Types: Cigarettes Quit date: 07/08/1989 Years since quittin.4 Smokeless tobacco: Never Used Vaping Use Vaping Use: Never used Substance Use Topics Alcohol use: Yes Comment: whisky daily- 1-2 glasses per day Drug use: No FAMILY HISTORY: FAMILY HISTORY FAMILY HISTORY Problem Relation Age of Onset Pancreatic Cancer Mother Heart Father valve replaced Colon Cancer Sister Hyperlipidemia Brother Alzheimer's Disease No Family History Breast Cancer No Family History Ovarian cancer No Family History Prostate Cancer No Family History Coronary Artery Disease No Family History Diabetes No Family History Hypertension No Family History Kidney Disease No Family History Seizures No Family History Stroke No Family History Thyroid No Family History REVIEW OF SYMPTOMS: The review of systems data was entered by the nurse and reviewed by mt Nursing Notes: Michelle Liu RN 12/05/2021 9:25 AM Signed REVIEW OF SYSTEMS: General: The patient denies fatigue, denies weight loss, denies weight gain, denies feeling hot, and denies feelings of cold. Eyes: The patient denies glaucoma, denies eye injury/surgery, does not wear glasses or contacts. Ear/Nose/Throat: The patient denies allergies, denies hayfever, denies ear infections, and denies bloody noses. Cardiovascular: The patient denies chest pain, denies heart disease, NOTES high blood pressure,denies cardiac stent, denies prior heart attack, denies irregular heart beat, NOTES high cholesterol, denies poor circulation, denies heart failure, other cardiac issues, denies claudication, denies cold feet, denies peripheral arterial stent. Respiratory: The patient denies tuberculosis, denies pneumonia, denies frequent cough, denies pulmonary embolism, denies shortness of breath, and denie (more content not included)... [facility] OPERATIVE NOon 12-25-2021 OPERATIVE NO HNO ID: [id number] Author: Romain Ambriz MD Service: General Surgery Author Type: Physician Type: Operative Report Filed: 12/25/2021 5:17 PM Note Text: OPERATIVE/PROCEDURE REPORT LOG ID: [id number] SURGERY/PROCEDURE DATE: 12/25/2021 INCISION/PROCEDURE START TIME: 9:35 AM INCISION CLOSE/PROCEDURE END TIME: 10:49 AM SURGEON(S)/PROCEDURALIST(S) AND DETAIL MANAGER(S): Surgeon(s) and Role: * Romain Ambriz MD - Primary * Isaiah Bruce MD - Resident - Assisting Registered Nurse Health And Wellness Sales Consultant: Joelle Haumesser, CREATIVE SERVICES DESIGNER/PROCEDURE(S): Open LEFT inguinal hernia repair with mesh ANESTHESIA: Monitored Anesthesia Care SURGERY/PROCEDURE DETAILS: Sign-in was performed verifying patient, site, procedure, position, critical nursing information, VTE, and antibiotic prophylaxis. Patient received 2 g of Ancef and had sequential compression devices placed. Following IV sedation, the LEFT inguinal area was prepped and draped in usual fashion. Time-out was performed verifying the patient, site, procedure, position. Local anesthetic was injected into the anterosuperior iliac spine deep to this area and along the planned course of the skin incision. A skin incision was made. Dissection was carried down through subcutaneous fat. Traversing veins ligated with a 2-0 Vicryl tie and divided. Dissection was carried down to the external oblique aponeurosis. Local anesthetic was injected in the canal. The fibers were opened in the direction of the external oblique and taken medially to the external inguinal ring. The patient was noted to have a direct hernia containing fat. No indirect component or hernia sac was visualized. The spermatic cord was surrounded with a Bon Wier drain and brought up to the operative field. The herniated fat was gently held within the abdominal cavity while the abdominal floor was re-approximated with 2-0 vicryl. The Surgipro onlay mesh was placed in the preperitoneal space and secured with an 0 Prolene sutures into Herb's ligament and the pubic tubercle then ran laterally along the inguinal ligament. Next, the onlay mesh was secured to the pubic tubercle with a second 0 Prolene suture running along the transverse arch superiorly. The mesh was notched slightly medially as it allowed the spermatic cord to pass through the mesh in its anatomic position. The 2 tails closed with a running 0 Prolene suture. Following this, spermatic cord was returned to its anatomic position. The external oblique was closed with a running 0-Vicryl suture. Ashleigh's fascia was approximated with a 3-0 Vicryl suture and the skin was closed with a running 4-0 Monocryl subcuticular stitch. Steri-Strips and a sterile dressing were applied. The patient tolerated the procedure well and was transferred to PACU in stable condition. PRE-OP/PRE-PROCEDURE DIAGNOSIS: LEFT inguinal hernia POST-OP/POST-PROCEDURE DIAGNOSIS: LEFT direct inguinal hernia ESTIMATED BLOOD LOSS: 5 mls SPECIMENS: None IMPLANTABLE DEVICES: [employer] - onlay portion only REF [id number] EXP 01/15/2026 DRAINS: None COMPLICATIONS: None PARTICIPATION IN SURGERY/PROCEDURE: Resident performed part of the procedure under direct supervision and the remainder of the procedure was performed by the primary surgeon with assistance. SIGNATURE: Isaiah Bruce MD PATIENT NAME: Gray Fernandez DATE: December 25, 2021 TIME: 11:06 AM [facility] UA DIP, URINE (POC)on 2021 BILIRUBIN UA (POCT) Negative Negative [facility] CLARITY UA (POCT) Clear [facility] COLOR UA (POCT) Yellow [facility] GLUCOSE UA (POCT) Negative Negative mg/dL [facility] HEMOGLOBIN/BLOOD UA (POCT) Negative Negative [facility] KETONE UA (POCT) Negative Negative mg/dL [facility] LEUKOCYTES UA (POCT) Small Abnormal Negative [facility] NITRITE UA (POCT) Negative Negative [facility] PH UA (POCT) 7.0 4.5 - 8.0 [facility] Protein Ql (U) Negative Negative mg/dL [facility] SPECIFIC GRAVITY UA (POCT) 1.025 1.005 - 1.030 [facility] UROBILINOGEN UA (POCT) 0.2 E.U./dL Normal E.U./dL [facility] URINE CULTUREon 09-14-2021 Bacteria identified Cx Nom (U) No growth (<1,000 CFU/ml) [facility] Urinalysis complete panel (U )on 09-14-2021 Bilirubin Ql (U) Negative Negative [facility] Clarity (Unsp spec) Slightly Cloudy Abnormal Clear [facility] Color (U) Yellow Yellow [facility] Epithelial cells LM.HPF (Urine sed) [#/Area] Few [facility] Glucose Test strip (U) [Mass/Vol] Negative Negative [facility] Hemoglobin Ql (U) Negative Negative [facility] Ketones Ql (U) Negative Negative [facility] Leukocyte esterase Test strip Ql (U) Trace Abnormal Negative [facility] Nitrite Ql (U) Negative Negative [facility] pH (U) 6.0 [pH] 5.0 - 8.0 [facility] Protein (U) [Mass/Vol] Negative Negative [facility] RBC LM.HPF (Urine sed) [#/Area] 0-3 /HPF 0-3 /HPF [facility] Specific gravity (U) [Rel density] 1.019 1.005 - 1.030 [facility] Urobilinogen Ql (U) Negative Negative [facility] WBC LM.HPF (Urine sed) [#/Area] 11-25 /HPF Abnormal 0-5 /HPF [facility] UA DIP, URINE (POC)on 2021 BILIRUBIN UA (POCT) Negative Negative [facility] CLARITY UA (POCT) Clear [facility] COLOR UA (POCT) Yellow [facility] GLUCOSE UA (POCT) Negative Negative mg/dL [facility] HEMOGLOBIN/BLOOD UA (POCT) Large Abnormal Negative [facility] KETONE UA (POCT) Negative Negative mg/dL [facility] LEUKOCYTES UA (POCT) Moderate Abnormal Negative [facility] NITRITE UA (POCT) Negative Negative [facility] PH UA (POCT) 6.0 4.5 - 8.0 [facility] Protein Ql (U) 30 mg/dL Abnormal Negative mg/dL [facility] SPECIFIC GRAVITY UA (POCT) 1.010 1.005 - 1.030 [facility] UROBILINOGEN UA (POCT) 0.2 E.U./dL Normal E.U./dL [facility] Vital Signs Date Time Vital Sign Value Performing Clinician Facility 01-02-2025 12:57-0400 Body mass index (BMI) [Ratio] 35.04 kg/m2 Jazmine Barrientos APRN.CNP Work Phone: [facility] 01-02-2025 12:57-0400 Body temperature 98.1 [degF] Jazmine Barrientos APRN.CNP Work Phone: [facility] 01-02-2025 12:57-0400 Body weight 116.39 kg Jazmine Barrientos APRN.CNP Work Phone: [facility] 01-02-2025 12:57-0400 Diastolic blood pressure 84 mm[Hg] Jazmine Barrientos APRN.CNP Work Phone: [facility] 01-02-2025 12:57-0400 Heart rate 84 /min Jazmine Barrientos APRN.CNP Work Phone: [facility] 01-02-2025 12:57-0400 SaO2% (BldA) [Mass fraction] 95 % Jazmine Barrientos STATION WORKER.ENGINEER FIRST ASSISTANT Work Phone: [facility] 01-02-2025 12:57-0400 Systolic blood pressure 158 mm[Hg] Jazminelindsey Barrientos STATION WORKER.ENGINEER FIRST ASSISTANT Work Phone: [facility] 12-14-2024 07:04-0400 Body height 182.2 cm Sylvester Damian MD Work Phone: [facility] 12-14-2024 07:04-0400 Body mass index (BMI) [Ratio] 34.93 kg/m2 Sylvester Damian MD Work Phone: [facility] 12-14-2024 07:04-0400 Body weight 116.03 kg Sylvester Damian MD Work Phone: [facility] 12-14-2024 07:04-0400 Diastolic blood pressure 82 mm[Hg] Sylvester Damian MD Work Phone: [facility] 12-14-2024 07:04-0400 Heart rate 96 /min Sylvester Damian MD Work Phone: [facility] 12-14-2024 07:04-0400 Respiratory rate 16 /min Sylvester Damian MD Work Phone: [facility] 12-14-2024 07:04-0400 Systolic blood pressure 126 mm[Hg] Sylvester Damian MD Work Phone: [facility] 06-16-2024 06:59-0500 Body mass index (BMI) [Ratio] 35.6 kg/m2 Chanelle Talbot PA-C Work Phone: [facility] 06-16-2024 06:59-0500 Body temperature 97 [degF] Chanelle Talbot PA-C Work Phone: [facility] 06-16-2024 06:59-0500 Body weight 117.94 kg Chanelle Talbot PA-C Work Phone: [facility] 06-16-2024 06:59-0500 Diastolic blood pressure 78 mm[Hg] Chanelle Talbot PA-C Work Phone: [facility] 06-16-2024 06:59-0500 Heart rate 73 /min Chanelle Talbot PA-C Work Phone: [facility] 06-16-2024 06:59-0500 Respiratory rate 18 /min Chanellegonzalez Talbot PA-C Work Phone: [facility] 06-16-2024 06:59-0500 SaO2% (BldA) [Mass fraction] 93 % Chanelle Talbot PA-C Work Phone: [facility] 06-16-2024 06:59-0500 Systolic blood pressure 118 mm[Hg] Chanelle Talbot PA-C Work Phone: [facility] 06-14-2024 14:08-0500 Body mass index (BMI) [Ratio] 36.29 kg/m2 Jean Carlos Lakhani PA-C Work Phone: [facility] 06-14-2024 14:08-0500 Body weight 120.2 kg Jean Carlos Lakhani PA-C Work Phone: [facility] 06-14-2024 14:08-0500 Diastolic blood pressure 78 mm[Hg] Jean Carlos Lakhani PA-C Work Phone: [facility] 06-14-2024 14:08-0500 Heart rate 81 /min Jean Carlos Lakhani PA-C Work Phone: [facility] 06-14-2024 14:08-0500 Systolic blood pressure 140 mm[Hg] Jean Carlos Lakhani PA-C Work Phone: [facility] 04-20-2024 10:59-0500 Body height 182 cm Winston Fitch MD Work Phone: [facility] 04-20-2024 10:59-0500 Body temperature 97.11 [degF] Winston Fitch MD Work Phone: [facility] 04-20-2024 10:59-0500 Diastolic blood pressure 85 mm[Hg] Winston Fitch MD Work Phone: [facility] 04-20-2024 10:59-0500 Heart rate 62 /min Winston Fitch MD Work Phone: [facility] 04-20-2024 10:59-0500 SaO2% (BldA) [Mass fraction] 98 % Winston Fitch MD Work Phone: [facility] 04-20-2024 10:59-0500 Systolic blood pressure 149 mm[Hg] Winston Fitch MD Work Phone: [facility] 01-12-2024 14:09-0400 Diastolic blood pressure 84 mm[Hg] Chanelle Talbot PA-C Work Phone: [facility] Comment on above: bp average with machine 01-12-2024 14:09-0400 Heart rate 69 /min Chanelle Talbot PA-C Work Phone: [facility] 01-12-2024 14:09-0400 Systolic blood pressure 133 mm[Hg] Chanelle Talbot PA-C Work Phone: [facility] Comment on above: bp average with machine 01-12-2024 13:52-0400 Body mass index (BMI) [Ratio] 34.29 kg/m2 Chanelle Talbot PA-C Work Phone: [facility] 01-12-2024 13:52-0400 Body temperature 97.81 [degF] Chanelle Talbot PA-C Work Phone: [facility] 01-12-2024 13:52-0400 Body weight 113.1 kg Chanelle Talbot PA-C Work Phone: [facility] 01-12-2024 13:52-0400 Respiratory rate 18 /min Chanelle Talbot PA-C Work Phone: [facility] 01-12-2024 13:52-0400 SaO2% (BldA) [Mass fraction] 96 % Chanelle Talbot PA-C Work Phone: [facility] 12-14-2023 15:10-0400 Diastolic blood pressure 92 mm[Hg] Sylvester Damian MD Work Phone: [facility] 12-14-2023 15:10-0400 Systolic blood pressure 134 mm[Hg] Sylvester Damian MD Work Phone: [facility] 12-14-2023 14:49-0400 Body height 181.6 cm Sylvester Damian MD Work Phone: [facility] 12-14-2023 14:49-0400 Respiratory rate 16 /min Sylvester Damian MD Work Phone: [facility] 04-15-2023 10:24-0500 Body height 185.42 cm [facility] 04-15-2023 10:24-0500 Body mass index (BMI) [Ratio] 33 kg/m2 [facility] 04-15-2023 10:24-0500 Body temperature 96.9 [degF] [facility] 04-15-2023 10:24-0500 Body weight 113.39 kg [facility] 04-15-2023 10:24-0500 Diastolic blood pressure 95 mm[Hg] [facility] 04-15-2023 10:24-0500 Heart rate 64 /min [facility] 04-15-2023 10:24-0500 Respiratory rate 18 /min [facility] 04-15-2023 10:24-0500 SaO2% (BldA) [Mass fraction] 98 % [facility] 04-15-2023 10:24-0500 Systolic blood pressure 151 mm[Hg] [facility] 01-06-2023 08:28-0400 Body weight 113.85 kg Sylvester Damian MD Work Phone: [facility] 01-06-2023 08:28-0400 Diastolic blood pressure 76 mm[Hg] Sylvester Damian MD Work Phone: [facility] 01-06-2023 08:28-0400 Heart rate 76 /min Sylvester Damian MD Work Phone: [facility] 01-06-2023 08:28-0400 Respiratory rate 18 /min Sylvester Damian MD Work Phone: [facility] 01-06-2023 08:28-0400 Systolic blood pressure 124 mm[Hg] Sylvester Damian MD Work Phone: [facility] 12-03-2022 08:29-0400 Diastolic blood pressure 90 mm[Hg] Sylvester Damian MD Work Phone: [facility] 12-03-2022 08:29-0400 Systolic blood pressure 140 mm[Hg] Sylvester Damian MD Work Phone: [facility] 12-03-2022 07:59-0400 Body height 182.9 cm Sylvester Damian MD Work Phone: [facility] 12-03-2022 07:59-0400 Body weight 110.22 kg Sylvester Damian MD Work Phone: [facility] 12-03-2022 07:59-0400 Heart rate 80 /min Sylvester Damian MD Work Phone: [facility] 12-03-2022 07:59-0400 Respiratory rate 14 /min Sylvester Damian MD Work Phone: [facility] 11-25-2022 10:30-0400 Body temperature 98.1 [degF] Sylvester Pendlebury STATION WORKER.ENGINEER FIRST ASSISTANT Work Phone: [facility] 11-25-2022 10:30-0400 Body weight 111.68 kg Sylvester Pendcha STATION WORKER.ENGINEER FIRST ASSISTANT Work Phone: [facility] 11-25-2022 10:30-0400 Diastolic blood pressure 86 mm[Hg] Sylvester Pendlebury STATION WORKER.ENGINEER FIRST ASSISTANT Work Phone: [facility] 11-25-2022 10:30-0400 Heart rate 68 /min Sylvester Pendlebury STATION WORKER.ENGINEER FIRST ASSISTANT Work Phone: [facility] 11-25-2022 10:30-0400 Respiratory rate 16 /min Sylvester Pendlebury STATION WORKER.ENGINEER FIRST ASSISTANT Work Phone: [facility] 11-25-2022 10:30-0400 SaO2% (BldA) [Mass fraction] 96 % Sylvester Gargtammi STATION WORKER.ENGINEER FIRST ASSISTANT Work Phone: [facility] 11-25-2022 10:30-0400 Systolic blood pressure 152 mm[Hg] Sylvester Daniellejanuarytammi STATION WORKER.ENGINEER FIRST ASSISTANT Work Phone: [facility] 07-25-2022 09:05-0500 Body height 182.9 cm Jean Carlos Lakhani PA-C Work Phone: [facility] 07-25-2022 09:05-0500 Body weight 114.31 kg Jean Carlos Lakhani PA-C Work Phone: [facility] 07-25-2022 09:05-0500 Diastolic blood pressure 88 mm[Hg] Jean Carlos Lakhani PA-C Work Phone: [facility] 07-25-2022 09:05-0500 Heart rate 75 /min Jean Carlos Lakhani PA-C Work Phone: [facility] 07-25-2022 09:05-0500 SaO2% (BldA) [Mass fraction] 97 % Jean Carlos Lakhani PA-C Work Phone: [facility] 07-25-2022 09:05-0500 Systolic blood pressure 152 mm[Hg] Jean Carlos Lakhani PA-C Work Phone: [facility] 2022 13:49-0500 Body temperature 98.29 [degF] Mercy Athy PA-C Work Phone: [facility] 2022 13:49-0500 Body weight 113.67 kg Mercy Athy PA-C Work Phone: [facility] 2022 13:49-0500 Diastolic blood pressure 78 mm[Hg] Mercy Athy PA-C Work Phone: [facility] 2022 13:49-0500 Heart rate 81 /min Mercy Athy PA-C Work Phone: [facility] 02-16-2023 13:49-0500 Respiratory rate 16 /min Mercy Athy PA-C Work Phone: [facility] 2022 13:49-0500 SaO2% (BldA) [Mass fraction] 96 % Mercy Athy PA-C Work Phone: [facility] 2022 13:49-0500 Systolic blood pressure 142 mm[Hg] Mercy Athy PA-C Work Phone: [facility] 05-29-2022 09:19-0500 Diastolic blood pressure 84 mm[Hg] Sylvester Damian MD Work Phone: [facility] 05-29-2022 09:19-0500 Systolic blood pressure 126 mm[Hg] Sylvester Damian MD Work Phone: [facility] 05-29-2022 08:45-0500 Body weight 113.58 kg Sylvester Damian MD Work Phone: [facility] 05-29-2022 08:45-0500 Heart rate 77 /min Sylvester Damian MD Work Phone: [facility] 05-29-2022 08:45-0500 Respiratory rate 16 /min Sylvester Damian MD Work Phone: [facility] 05-29-2022 08:45-0500 SaO2% (BldA) [Mass fraction] 96 % Sylvester Damian MD Work Phone: [facility] 01-09-2022 13:52-0400 Body temperature 96.8 [degF] Romain Ambriz MD Work Phone: [facility] 01-09-2022 13:52-0400 Diastolic blood pressure 90 mm[Hg] Romain Ambriz MD Work Phone: [facility] 01-09-2022 13:52-0400 Heart rate 92 /min Romain Ambriz MD Work Phone: [facility] 01-09-2022 13:52-0400 SaO2% (BldA) [Mass fraction] 95 % Romain Ambriz MD Work Phone: [facility] 01-09-2022 13:52-0400 Systolic blood pressure 138 mm[Hg] Romain Ambriz MD Work Phone: [facility] 12-05-2021 08:03-0400 Body height 182.9 cm Romain Ambriz MD Work Phone: [facility] 12-05-2021 08:03-0400 Body temperature 98.1 [degF] Romain Ambriz MD Work Phone: [facility] 12-05-2021 08:03-0400 Body weight 111.58 kg Romain Ambriz MD Work Phone: [facility] 12-05-2021 08:03-0400 Diastolic blood pressure 84 mm[Hg] Romain Ambriz MD Work Phone: [facility] 12-05-2021 08:03-0400 Heart rate 76 /min Romain Ambriz MD Work Phone: [facility] 12-05-2021 08:03-0400 Respiratory rate 14 /min Romain Ambriz MD Work Phone: [facility] 12-05-2021 08:03-0400 SaO2% (BldA) [Mass fraction] 96 % Romain Ambriz MD Work Phone: [facility] 12-05-2021 08:03-0400 Systolic blood pressure 134 mm[Hg] Romain Ambriz MD Work Phone: [facility] 11-26-2021 08:23-0400 Diastolic blood pressure 92 mm[Hg] Sylvester Damian MD Work Phone: [facility] 11-26-2021 08:23-0400 Systolic blood pressure 158 mm[Hg] Sylvester Damian MD Work Phone: [facility] 11-26-2021 08:00-0400 Body height 182 cm Sylvester Damian MD Work Phone: [facility] 11-26-2021 08:00-0400 Body temperature 97.5 [degF] Sylvester Damian MD Work Phone: [facility] 11-26-2021 08:00-0400 Body weight 109.77 kg Sylvester Damian MD Work Phone: [facility] 11-26-2021 08:00-0400 Heart rate 56 /min Sylvester Damian MD Work Phone: [facility] 11-26-2021 08:00-0400 Respiratory rate 18 /min Sylvester Damian MD Work Phone: [facility] 09-24-2021 15:18-0400 Body weight 111.58 kg Jean Carlos Lakhani PA-C Work Phone: [facility] 09-24-2021 15:18-0400 Diastolic blood pressure 86 mm[Hg] Jean Carlos Lakhani PA-C Work Phone: [facility] 09-24-2021 15:18-0400 Heart rate 99 /min Jean Carlos Lakhani PA-C Work Phone: [facility] 09-24-2021 15:18-0400 SaO2% (BldA) [Mass fraction] 96 % Jean Carlos Lakhani PA-C Work Phone: [facility] 09-24-2021 15:18-0400 Systolic blood pressure 144 mm[Hg] Ejan Carlos Lakhani PA-C Work Phone: [facility] 09-13-2021 14:27-0400 Body weight 112.86 kg Jamin Abdi MD Work Phone: [facility] 09-13-2021 14:27-0400 Diastolic blood pressure 86 mm[Hg] Jamin Abdi MD Work Phone: [facility] 09-13-2021 14:27-0400 Heart rate 86 /min Jamin Abdi MD Work Phone: [facility] 09-13-2021 14:27-0400 Respiratory rate 16 /min Jamin Abdi MD Work Phone: [facility] 09-13-2021 14:27-0400 SaO2% (BldA) [Mass fraction] 97 % Jamin Abdi MD Work Phone: [facility] 09-13-2021 14:27-0400 Systolic blood pressure 136 mm[Hg] Jamin Abdi MD Work Phone: [facility] 08-30-2021 16:05-0400 Body temperature 98.01 [degF] Preston Brian MD Work Phone: [facility] 08-30-2021 16:05-0400 Body weight 114.22 kg Preston Brian MD Work Phone: [facility] 08-30-2021 16:05-0400 Diastolic blood pressure 88 mm[Hg] Preston Brian MD Work Phone: [facility] 08-30-2021 16:05-0400 Heart rate 71 /min Preston Brian MD Work Phone: [facility] 08-30-2021 16:05-0400 Respiratory rate 16 /min Preston Brain MD Work Phone: [facility] 08-30-2021 16:05-0400 SaO2% (BldA) [Mass fraction] 97 % Preston Brian MD Work Phone: [facility] 08-30-2021 16:05-0400 Systolic blood pressure 150 mm[Hg] Preston Brian MD Work Phone: [facility] Encounters Encounter Date Encounter Type Care Provider Facility Start: 01-10-2025 ambulatory Sylvester Damian Facility :[facility] Start: 01-02-2025 End: 01-02-2025 Patient encounter procedure Jazmine Barrientos APRN.ENGINEER FIRST ASSISTANT Work Phone: General Surgery Comment on above: History of colonic p olyps (Primary Dx); Screening for colon cancer; Family history of colon cancer Start: 01-02-2025 End: 01-02-2025 ambulatory SYLVESTER DAMIAN Facility:[facility] Start: 12-14-2024 Encounter for genera l adult medical examination without abnormal findings SYLVESTER DAMIAN [facility] Start: 12-14-2024 End: 12-14-2024 Patient encounter procedure Sylvester Damian MD Work Phone: [facility] Comment on above: Well adult exam (Mary addy Dx); Essential hypertension; Dyslipidemia; Gastroesophageal reflux disease without esophagitis; Current mild episode of major depressive disorder without prior episode; Rheumatoid arthritis involving multiple sites with positive rheumatoid factor (HCC); Thrombocytopenia; Leukopenia, unspecified type; RAMIREZ (nonalcoholic steatohepatitis); Screening for colon cancer; Family history of colon cancer; Encounter for screening examination for other mental health and behavioral disorders; Medication management Start: 12-14-2024 End: 12-14-2024 Patient encounter status Sylvester Damian MD Work Phone: [facility] Start: 12-14-2024 End: 12-14-2024 ambulatory SYLVESTER DAMIAN Facility:[facility] Start: 12-13-2024 End: 12-13-2024 ambulatory CHANELLE TALBOT Facility:[facility] Start: 11-01-2024 End: 11-01-2024 Refill Chanelle Talbot PA-C Work Phone: [facility] Comment on above: Refill Request Start: 09-14-2024 End: 09-14-2024 Orders Only Kelton García MD Work Phone: [facility] Comment on above: Elevated prostate sp ecific antigen (PSA) (Primary Dx) Start: 09-12-2024 End: 09-12-2024 ambulatory KELTON GARCÍA Facility:[facility] Start: 09-06-2024 End: 09-07-2024 Refill Chanelle Talbot PA-C [facility] Comment on above: Refill Request Start: 08-16-2024 End: 08-16-2024 Telephone encounter Kelton García MD Work Phone: [facility] Comment on above: Appointment Start: 08-12-2024 End: 10-12-2024 Follow-up encounter Jean Carlos Lakhani PA-C Work Phone: Urology Comment on above: Results; Orders Start: 07-29-2024 End: 07-29-2024 ambulatory SYLVESTER DAMIAN Facility:[facility] Start: 07-26-2024 End: 07-26-2024 Refill Sylvester Damian MD Work Phone: [facility] [facility] Comment on above: Refill Request Start: 06-22-2024 End: 06-23-2024 Telephone encounter Jean Carlos Lakhani PA-C Work Phone: Urology Comment on above: Results; Orders Start: 06-16-2024 End: 06-16-2024 ambulatory CHANELLE GROVER Facility:[facility] Start: 06-16-2024 End: 06-16-2024 Patient encounter procedure Chanelle Antione MOSQUERA Work Phone: [facility] Comment on above: Essential hypertensi on (Primary Dx); Dyslipidemia; RAMIREZ (nonalcoholic steatohepatitis); Gastroesophageal reflux disease without esophagitis; Rheumatoid arthritis involving multiple sites with positive rheumatoid factor (HCC); Encounter for screening for diabetes mellitus Start: 06-14-2024 End: 06-14-2024 ambulatory SYLVESTER DAMIAN Facility:[facility] Start: 06-14-2024 End: 06-14-2024 Patient encounter procedure Jean Carlos Lakhani PA-C Work Phone: Urology Comment on above: Elevated prostate sp ecific antigen (PSA) (Primary Dx); Screening for genitourinary condition Start: 06-14-2024 End: 06-14-2024 [facility] CHANELLE TALBOT Facility:[facility] Start: 06-13-2024 End: 06-13-2024 ambulatory SYLVESTER DAMIAN Facility:[facility] Start: 06-08-2024 End: 06-08-2024 Refill Jean Carlos Lakhani PA-C Work Phone: Urology Comment on above: Refill Request Start: 05-12-2024 End: 05-12-2024 Refill Sylvester Damian MD Work Phone: [facility] Comment on above: Refill Request Start: 04-27-2024 End: 04-28-2024 Refill Sylvester Damian MD Work Phone: [facility] Comment on above: Refill Request Start: 04-20-2024 End: 04-20-2024 ambulatory Winston Fitch MD Work Phone: Hematology/Oncology Comment on above: Thrombocytopenia (HC C) Start: 04-20-2024 End: 04-20-2024 Patient encounter procedure Winston Fitch MD Work Phone: Hematology/Oncology Start: 04-05-2024 End: 04-07-2024 Telephone encounter Sylvester Damian MD Work Phone: [facility] [place] Comment on above: Results Start: 04-02-2024 End: 04-02-2024 ambulatory SYLVESTER DAMIAN Facility:[facility] Start: 01-18-2024 End: 01-19-2024 Telephone encounter Sylvester Damian MD Work Phone: [facility] Comment on above: Results Start: 01-12-2024 End: 01-12-2024 ambulatory SYLVESTER DAMIAN Facility:[facility] Start: 01-12-2024 End: 01-12-2024 Patient encounter procedure Chanelle Talbot PA-C Work Phone: [facility] Comment on above: Essential hypertensi on (Primary Dx) Start: 01-12-2024 End: 01-22-2024 Telephone encounter Sylvester Damian MD Work Phone: [facility] Comment on above: Preventative Form Start: 01-08-2024 End: 01-08-2024 Telephone encounter Zulma Sue MA Family [facility] [place] Comment on above: Results Start: 01-06-2024 End: 01-08-2024 Telephone encounter Zulma Sue MA Family [facility] [place] Comment on above: Results Start: 12-16-2023 Telephone encounter Zulma Sue MA [facility] Comment on above: Appointment Start: 12-14-2023 End: 12-14-2023 Patient encounter procedure Sylvester Damian MD Work Phone: [facility] Comment on above: Well adult exam (Mary addy Dx); Essential hypertension; Dyslipidemia; Gastroesophageal reflux disease without esophagitis; Current mild episode of major depressive disorder without prior episode (HCC); Rheumatoid arthritis involving multiple sites with positive rheumatoid factor (HCC); Leukopenia, unspecified type; Thrombocytopenia (HCC); RAMIREZ (nonalcoholic steatohepatitis); Family history of colon cancer; Screening for colon cancer; Medication management Start: 12-14-2023 End: 12-14-2023 Patient encounter status Sylvester Damian MD Work Phone: [facility] Work Phone: Start: 08-10-2023 Patient Msdana Sue JOSE ALBERTO [facility] [place] Comment on above: Refills Start: 08-08-2023 Refill Sylvester faye MD Work Phone: [facility] Comment on above: Refill Request Start: 08-08-2023 Refill Jean Carlos Lakhani PA-C Work Phone: Urology Comment on above: Refill Request Start: 07-23-2023 Chart abstracting Sylvester cartagena MD Work Phone: [facility] Comment on above: outside arthritis Start: 04-16-2023 Chart abstracting Sylvester cartagena MD Work Phone: [facility] Comment on above: Outside imaging Start: 04-15-2023 End: 04-15-2023 Emergency department patient visit [facility] Work Phone: Start: 01-06-2023 End: 01-06-2023 Patient encounter procedure Sylvester Damian MD Work Phone: [facility] Comment on above: Essential hypertensi on (Primary Dx); Current mild episode of major depressive disorder without prior episode (HCC); ED (erectile dysfunction) of organic origin Start: 12-03-2022 End: 12-03-2022 Patient encounter procedure Sylvester Damian MD Work Phone: [facility] Comment on above: Well adult exam (Mary addy Dx); Essential hypertension; Dyslipidemia; Gastroesophageal reflux disease without esophagitis; Rheumatoid arthritis involving multiple sites with positive rheumatoid factor (HCC); RAMIREZ (nonalcoholic steatohepatitis); Numbness and tingling in right hand; Thrombocytopenia (HCC); Leukocytosis, unspecified type; Current mild episode of major depressive disorder without prior episode (HCC); AK (actinic keratosis); ED (erectile dysfunction) of organic origin Start: 12-03-2022 End: 12-03-2022 Patient encounter status Sylvester Damian MD Work Phone: [facility] Work Phone: Start: 11-25-2022 End: 11-25-2022 Office outpatient visit 15 minutes Sylvester Atkins APRN.CNP Work Phone: [facility] Comment on above: Cellulitis of skin ( Primary Dx) Start: 09-18-2022 Chart abstracting Sylvester cartagena MD Work Phone: [facility] [place] Comment on above: Consult (Ortho /) Start: 07-25-2022 End: 07-25-2022 Patient encounter procedure Jean Carlos Lakhani PA-C Work Phone: Urology Comment on above: Dysuria (Primary Dx) ; Elevated prostate specific antigen (PSA) Start: 2022 End: 2022 Patient encounter procedure Mercy Schulte PA-C Work Phone: [facility] Comment on above: Burning with urinati on (Primary Dx) Start: 06-01-2022 Telephone encounter Sylvester Damian MD Work Phone: [facility] Comment on above: Results Start: 05-29-2022 End: 05-29-2022 Patient encounter procedure Sylvester Damian MD Work Phone: [facility] Comment on above: Essential hypertensi on (Primary Dx); Dyslipidemia; Rheumatoid arthritis involving multiple sites with positive rheumatoid factor (HCC); Gastroesophageal reflux disease without esophagitis; RAMIREZ (nonalcoholic steatohepatitis); Acute pain of both shoulders; Medication management; Encounter for screening for diabetes mellitus; Numbness and tingling in right hand Start: 01-09-2022 End: 01-09-2022 Patient encounter procedure Romain Ambriz MD Work Phone: General Surgery Comment on above: Left inguinal hernia (Primary Dx) Start: 12-25-2021 Telephone encounter Jean Carlos benitez PA-C Work Phone: Urology Comment on above: Results Start: 12-17-2021 Telephone encounter Sylvester Damian MD Work Phone: [facility] Comment on above: Results Start: 12-05-2021 Telephone encounter Romain Ambriz MD Work Phone: General Surgery Comment on above: 12/11 hernia repair l eft orr Start: 12-05-2021 End: 12-05-2021 Patient encounter procedure Romain Ambriz MD Work Phone: General Surgery Comment on above: Left inguinal hernia (Primary Dx) Start: 12-03-2021 Telephone encounter Sylvester Damian MD Work Phone: [facility] [place] Comment on above: Orders Start: 11-26-2021 End: 11-26-2021 Patient encounter procedure Sylvester Damian MD Work Phone: [facility] [place] Comment on above: Well adult exam (Mary addy Dx); Essential hypertension; Dyslipidemia; Gastroesophageal reflux disease without esophagitis; Rheumatoid arthritis involving multiple sites with positive rheumatoid factor (HCC); Medication management; Encounter for screening for diabetes mellitus; Encounter for immunization; Right inguinal hernia Start: 11-26-2021 End: 11-26-2021 Patient encounter status Sylvester Damian MD Work Phone: [facility] [place] Start: 10-22-2021 Refill Chanelle Lunsford on PA-C Work Phone: [facility] Comment on above: Refill Request Start: 09-24-2021 End: 09-24-2021 Patient encounter procedure Jean Carlos UMAÑA-C Work Phone: Urology Comment on above: Elevated PSA (Primar y Dx); Dysuria Start: 09-13-2021 End: 09-13-2021 Patient encounter procedure Jamin Abdi MD Work Phone: [facility] Comment on above: Epididymitis (Primar y Dx); Hematospermia; Microscopic hematuria; Benign prostatic hyperplasia (BPH) with straining on urination Start: 09-01-2021 Telephone encounter [facility] Ami STATION WORKER.ENGINEER FIRST ASSISTANT Work Phone: [facility] Comment on above: Results Start: 08-30-2021 End: 08-30-2021 Patient encounter procedure Preston Brian MD Work Phone: [facility] Comment on above: Urgency of urination (Primary Dx) Start: 08-30-2021 Telephone encounter Sylvester Damian MD Work Phone: [facility] Comment on above: Patient Update; Orde rs Start: 08-21-2021 Telephone encounter Sylvester Damian MD Work Phone: [facility] Comment on above: Results Start: 11-09-2020 Patient encounter status Héctor Damian MD Work Phone: [facility] Work Phone: Procedures Date Procedure Procedure Detail Performing Clinician Start: 12-13-2024 Lipid 1995 panel - S jurgen or Plasma Sylvester Damian MD Work Phone: Start: 06-14-2024 Urnls dip stick/tabl et rgnt auto w/o microscopy Jean Carlos Lakhani PA-C Work Phone: Start: 06-13-2024 Lipid 1996 panel - S jurgen or Plasma Jean Carlos UMAÑA-C Work Phone: Start: 12-08-2023 Lipid 1995 panel - S jurgen or Plasma Sylvester Damian MD Work Phone: Start: 06-15-2023 Lipid 1995 panel - S jurgen or Plasma Sylvester Damian MD Work Phone: Start: 04-15-2023 CT of head without contrast Start: 11-25-2022 Cul bact xcpt urine blood/stool aerobic isol Sylvester Atkins APRN.ENGINEER FIRST ASSISTANT Work Phone: Start: 11-25-2022 Lipid 1995 panel - S jurgen or Plasma Sylvester Damian MD Work Phone: Start: 07-25-2022 Urnls dip stick/tabl et rgnt auto w/o microscopy Jean Carlos Lakhani PA-C Work Phone: Start: 2022 Urnls dip stick/tabl et rgnt auto w/o microscopy Carlos A King SOCORRO Work Phone: Start: 11-26-2021 Adult depression scr eening assessment Sylvester Damian MD Work Phone: Start: 09-24-2021 Urnls dip stick/tabl et rgnt auto w/o microscopy Jean Carlos Lakhani PA-C Work Phone: Start: 08-30-2021 Urnls dip stick/tabl et rgnt auto w/o microscopy Preston Brian MD Work Phone: Start: 11-09-2020 Adult depression scr eening assessment Sylvester Damian MD Work Phone: Start: 10-22-2020 Colonoscopy Sylvester cartagena MD Work Phone: Plan of Treatment Date Care Activity Detail Author Start: 12-14-2029 Prostate specific antigen measurement Prostate Cancer Screening Discussion [facility] Start: 12-13-2029 Lipid panel Lipid Screening [facility] Start: 11-09-2029 Urine microalbumin profile [facility] Start: 06-14-2029 Prostate specific antigen measurement Prostate Cancer Screening Discussion [facility] Start: 06-13-2029 Lipid panel Lipid Screening [facility] Start: 12-07-2028 Lipid panel Lipid Screening [facility] Start: 06-15-2028 Lipid panel Lipid Screening [facility] Start: 12-14-2027 Diabetes Screening Diabetes Screenin g [facility] Start: 11-26-2027 Lipid 1996 panel - Serum or Plasma Lipid Screening [facility] Start: 11-26-2027 LIPID SCREEN LIPID SCREEN [facility] Start: 05-30-2027 LIPID SCREEN LIPID SCREEN [facility] Start: 12-24-2026 LIPID SCREEN LIPID SCREEN [facility] Start: 12-24-2026 PROSTATE CANCER SCREENING DISCUSSION PROSTATE CANCER SCREENING DISCUSSION [facility] Start: 12-24-2026 Prostate specific antigen measurement Prostate Cancer Screening Discussion [facility] Start: 12-07-2026 Diabetes Screening Diabetes Screenin g [facility] Start: 12-05-2026 LIPID SCREEN LIPID SCREEN [facility] Start: 09-13-2026 PROSTATE CANCER SCREENING DISCUSSION PROSTATE CANCER SCREENING DISCUSSION [facility] Start: 08-19-2026 LIPID SCREEN LIPID SCREEN [facility] Start: 08-19-2026 PROSTATE CANCER SCREENING DISCUSSION PROSTATE CANCER SCREENING DISCUSSION [facility] Start: 12-14-2025 Annual PCP Team Analytical Engineer bull Disease Visit Annual PCP Team Chronic Disease Visit [facility] Start: 12-14-2025 Anxiety Screening Anxiety Screening [facility] Start: 12-14-2025 RSV Vaccine (1 - Ris k 60-74 years 1-dose series) RSV Vaccine (1 - Risk 60-74 years 1-dose series) [facility] Comment on above: Postponed from 07/03 (Not Currently Available) Start: 11-25-2025 DIABETES SCREEN DIABETES SCREEN [facility] Start: 11-25-2025 Diabetes Screening Diabetes Screenin g [facility] Start: 06-20-2025 End: 06-20-2025 Patient encounter procedure 06/20/2025 1:00 PM EST Office Visit Urology [address] [place], [place] [phone] Jean Carlos Lakhani PA-C [address] [place] [address] Return in about 1 year (around 06/14/2025). Urology Comment on above: Return in about 1 ye ar (around 06/14/2025). Start: 06-19-2025 End: 06-19-2025 Patient encounter procedure 06/19/2025 7:40 AM EST Office Visit Family [address] [id number] Rossana Zapata APRN.ENGINEER FIRST ASSISTANT [address] [place], [place] [phone] 6 mo f/u [facility] [place] Comment on above: 6 mo f/u Start: 06-16-2025 Annual PCP Team Analytical Engineer bull Disease Visit Annual PCP Team Chronic Disease Visit [facility] Start: 06-16-2025 BP Controlled (<130/80) BP Controlle d (<130/80) [facility] Start: 06-14-2025 End: 09-13-2025 Prostate specific Ag [Mass/volume] in Serum or Plasma PROSTATE-SPECIFIC ANTIGEN DIAGNOSTIC Lab Routine Elevated prostate specific antigen (PSA) Expected: 06/14/2025 (Approximate), Expires: 09/13/2025 [facility] Comment on above: Expected: 06/14/2025 (Approximate), Expires: 09/13/2025 Start: 06-02-2025 End: 09-01-2025 Cobalamin (Vitamin B12) [Mass/volume] in Serum or Plasma VITAMIN B12 Lab Routine Gastroesophageal reflux disease without esophagitis Medication management Expected: 06/02/2025, Expires: 09/01/2025 [facility] Comment on above: Expected: 06/02/2025 , Expires: 09/01/2025 Start: 06-02-2025 End: 09-01-2025 Hepatic function 2000 panel - Serum or Plasma HEPATIC FUNCTION PNL Lab Routine Essential hypertension Dyslipidemia RAMIREZ (nonalcoholic steatohepatitis) Expected: 06/02/2025, Expires: 09/01/2025 [facility] Work Phone: Comment on above: Expected: 06/02/2025 , Expires: 09/01/2025 Start: 06-02-2025 End: 09-01-2025 LIPID PANEL, NONFASTING LIPID PANEL, NONFASTING Lab Routine Essential hypertension Dyslipidemia Expected: 06/02/2025, Expires: 09/01/2025 [facility] Comment on above: Expected: 06/02/2025 , Expires: 09/01/2025 Start: 06-02-2025 End: 09-01-2025 Magnesium [Mass/volume] in Serum or Plasma MAGNESIUM Lab Routine Gastroesophageal reflux disease without esophagitis Medication management Expected: 06/02/2025, Expires: 09/01/2025 [facility] Comment on above: Expected: 06/02/2025 , Expires: 09/01/2025 Start: 04-10-2025 End: 04-10-2025 Patient encounter procedure 04/10/2025 8:45 AM EST Office Visit [facility] [address] [place] [id number] Kelton García MD [address] [place] [address] 6 month follow up PSA prior [facility] Comment on above: 6 month follow up PS A prior Start: 01-31-2025 End: 01-31-2025 Patient encounter procedure 01/31/2025 9:45 AM EDT Appointment Ambulatory Surgery [address] [place], [place] [phone] Monica Golden MD [address] [place] [id number] Screening for colon cancer [Z12.11]; Family history of colon cancer [Z80.0]; History of colonic polyps [Z86.0100] Ambulatory Surgery Comment on above: Screening for colon cancer [Z12.11]; Family history of colon cancer [Z80.0]; History of colonic polyps [Z86.0100] Start: 01-16-2025 Influenza vaccination Influenza Vacc ine (#1) [facility] Start: 01-11-2025 Annual PCP Team Analytical Engineer bull Disease Visit Annual PCP Team Chronic Disease Visit [facility] Start: 01-02-2025 End: 01-02-2025 Patient encounter procedure 01/02/2025 8:00 AM EDT Office Visit General Surgery [address] [place], [place] [phone] Jazmine Barrientos APRN.ENGINEER FIRST ASSISTANT [address] [place] [address] Dx: Screening for colon cancer [Z12.11]; Family history of colon cancer [Z80.0] General Surgery Comment on above: Dx: Screening for co christian cancer [Z12.11]; Family history of colon cancer [Z80.0] Start: 12-14-2024 End: 03-15-2025 CBC W Auto Differential panel - Blood COMPLETE BLOOD COUNT AND DIFFERENTIAL Lab Routine Essential hypertension RAMIERZ (nonalcoholic steatohepatitis) Rheumatoid arthritis involving multiple sites with positive rheumatoid factor (HCC) Expected: 12/14/2024, Expires: 03/15/2025 [facility] Comment on above: Expected: 12/14/2024 , Expires: 03/15/2025 Start: 12-14-2024 End: 03-15-2025 Comprehensive metabolic 2000 panel - Serum or Plasma COMPREHENSIVE METABOLIC PANEL Lab Routine Essential hypertension RAMIREZ (nonalcoholic steatohepatitis) Gastroesophageal reflux disease without esophagitis Expected: 12/14/2024, Expires: 03/15/2025 [facility] Comment on above: Expected: 12/14/2024 , Expires: 03/15/2025 Start: 12-14-2024 End: 03-15-2025 Hemoglobin A1c in Blood HEMOGLOBIN A1C Lab Routine Encounter for screening for diabetes mellitus Expected: 12/14/2024, Expires: 03/15/2025 [facility] Work Phone: Comment on above: Expected: 12/14/2024 , Expires: 03/15/2025 Start: 12-14-2024 End: 03-15-2025 LIPID PANEL, NONFASTING LIPID PANEL, NONFASTING Lab Routine Essential hypertension Dyslipidemia Expected: 12/14/2024, Expires: 03/15/2025 [facility] Comment on above: Expected: 12/14/2024 , Expires: 03/15/2025 Start: 12-14-2024 End: 03-15-2025 Urinalysis complete panel - Urine URINALYSIS, WITH MICROSCOPIC Lab Routine Essential hypertension Expected: 12/14/2024, Expires: 03/15/2025 [facility] Comment on above: Expected: 12/14/2024 , Expires: 03/15/2025 Start: 12-14-2024 End: 12-14-2024 Patient encounter procedure [facility] Comment on above: physical Start: 12-13-2024 Annual PCP Team Analytical Engineer bull Disease Visit Annual PCP Team Chronic Disease Visit [facility] Start: 12-13-2024 Anxiety Screening Anxiety Screening [facility] Comment on above: Postponed from 07/03 (Declined at this time) Start: 12-13-2024 RSV Vaccine (1 - 1-d ose 60+ series) RSV Vaccine (1 - 1-dose 60+ series) [facility] Comment on above: Postponed from 07/03 (Insurance Coverage) Start: 12-13-2024 RSV Vaccine (1 - Ris k 60-74 years 1-dose series) RSV Vaccine (1 - Risk 60-74 years 1-dose series) [facility] Comment on above: Postponed from 07/03 (Insurance Coverage) Start: 12-05-2024 DIABETES SCREEN DIABETES SCREEN [facility] Start: 09-14-2024 End: 09-14-2025 Prostate specific Ag [Mass/volume] in Serum or Plasma PROSTATE-SPECIFIC ANTIGEN DIAGNOSTIC Lab Routine Elevated prostate specific antigen (PSA) Expected: 09/14/2024, Expires: 09/14/2025 [facility] Work Phone: Comment on above: Expected: 09/14/2024 , Expires: 09/14/2025 Start: 09-12-2024 End: 09-12-2024 Patient encounter procedure 09/12/2024 8:30 AM EDT Office Visit [facility] [address] [place] [address] Kelton García MD [address] [place] [address] prostate bx/elev PSA/ref by Eduarda Lakhani/pt will check re: going off aspirin [facility] Comment on above: prostate bx/elev PSA /ref by Eduarda Lakhani/pt will check re: going off aspirin Start: 08-19-2024 DIABETES SCREEN DIABETES SCREEN [facility] Start: 06-22-2024 End: 09-21-2024 ISOPSA ASSAY FOR UROLOGY USE ONLY ISOPSA ASSAY FOR UROLOGY USE ONLY Lab Routine Elevated prostate specific antigen (PSA) Expected: 06/22/2024 (Approximate), Expires: 09/21/2024 [facility] Work Phone: Comment on above: Expected: 06/22/2024 (Approximate), Expires: 09/21/2024 Start: 06-16-2024 End: 06-16-2024 Patient encounter procedure 06/16/2024 7:00 AM EST Office Visit [facility] [address] [place], [place] [phone] Chanelle Talbot PA-C [address] [place], [place] [phone] 6 month follow up [facility] Comment on above: 6 month follow up Start: 06-15-2024 Annual PCP Team Analytical Engineer bull Disease Visit Annual PCP Team Chronic Disease Visit [facility] Start: 06-15-2024 BP Controlled (<130/80) BP Controlle d (<130/80) [facility] Start: 06-14-2024 End: 06-14-2024 Patient encounter procedure 06/14/2024 2:00 PM EST Office Visit Urology [address] [place] [address] Jean Carlos Lakhani PA-C [address] [place] [address] Follow up-Refills Urology Comment on above: Follow up-Refills Start: 06-14-2024 End: 09-13-2024 Prostate specific Ag [Mass/volume] in Serum or Plasma [facility] Work Phone: Comment on above: Expected: 06/14/2024 (Approximate), Expires: 09/13/2024 Start: 06-03-2024 End: 09-02-2024 CBC W Auto Differential panel - Blood COMPLETE BLOOD COUNT AND DIFFERENTIAL Lab Routine Leukopenia, unspecified type Thrombocytopenia (HCC) RAMIREZ (nonalcoholic steatohepatitis) Expected: 06/03/2024, Expires: 09/02/2024 [facility] Comment on above: Expected: 06/03/2024 , Expires: 09/02/2024 Start: 06-03-2024 End: 09-02-2024 Cobalamin (Vitamin B12) [Mass/volume] in Serum or Plasma VITAMIN B12 Lab Routine Gastroesophageal reflux disease without esophagitis Medication management Expected: 06/03/2024, Expires: 09/02/2024 [facility] Comment on above: Expected: 06/03/2024 , Expires: 09/02/2024 Start: 06-03-2024 End: 09-02-2024 Hepatic function 2000 panel - Serum or Plasma HEPATIC FUNCTION PNL Lab Routine Essential hypertension Dyslipidemia RAMIREZ (nonalcoholic steatohepatitis) Expected: 06/03/2024, Expires: 09/02/2024 [facility] Comment on above: Expected: 06/03/2024 , Expires: 09/02/2024 Start: 06-03-2024 End: 09-02-2024 LIPID PANEL, NONFASTING LIPID PANEL, NONFASTING Lab Routine Essential hypertension Dyslipidemia RAMIREZ (nonalcoholic steatohepatitis) Expected: 06/03/2024, Expires: 09/02/2024 [facility] Comment on above: Expected: 06/03/2024 , Expires: 09/02/2024 Start: 06-03-2024 End: 09-02-2024 Magnesium [Mass/volume] in Serum or Plasma MAGNESIUM Lab Routine Gastroesophageal reflux disease without esophagitis Medication management Expected: 06/03/2024, Expires: 09/02/2024 [facility] Comment on above: Expected: 06/03/2024 , Expires: 09/02/2024 Start: 04-20-2024 End: 04-20-2024 ambulatory 04/20/2024 11:00 AM EST Visit (SP) Office Hematology/Oncology [address] [place], [place] [phone] [place] [address] [place] [address] APPLICATIONS PROJECT MANAGER/THROMBOCYTOPENIA/REF PROV DR DAMIAN* 1st avail Hematology/Oncology Comment on above: APPLICATIONS PROJECT MANAGER/THROMBOCYTOPENIA/ REF PROV DR DAMIAN* 1st avail Start: 02-17-2024 End: 05-18-2024 CBC W Auto Differential panel - Blood COMPLETE BLOOD COUNT AND DIFFERENTIAL Lab Routine Thrombocytopenia (HCC) Expected: 02/17/2024, Expires: 05/18/2024 [facility] Work Phone: Comment on above: Expected: 02/17/2024 , Expires: 05/18/2024 Start: 01-17-2024 Influenza vaccination Influenza Vacc ine (#1) [facility] Start: 01-14-2024 End: 04-14-2024 CBC W Auto Differential panel - Blood COMPLETE BLOOD COUNT AND DIFFERENTIAL Lab Routine Leukopenia, unspecified type Thrombocytopenia (HCC) Expected: 01/14/2024, Expires: 04/14/2024 [facility] Work Phone: Comment on above: Expected: 01/14/2024 , Expires: 04/14/2024 Start: 01-12-2024 End: 01-12-2024 Patient encounter procedure 01/12/2024 2:00 PM EDT Office Visit Family [facility] [address] [place] [address] Chanelle Talbot PA-C [address] [place], [place] [id number] 4 week follow up on HTN [facility] Comment on above: 4 week follow up on HTN Start: 01-11-2024 End: 01-11-2024 Patient encounter procedure 01/11/2024 7:40 AM EDT Office Visit Family Medicine [facility] [address] [place], [place] [id number] Chanelle Talbot PA-C [address] [place], [place] [id number] 4 week follow up on HTN [facility] Comment on above: 4 week follow up on HTN Start: 01-07-2024 ANNUAL PCP TEAM EXTRACTION OPERATOR BULL DISEASE VISIT ANNUAL PCP TEAM CHRONIC DISEASE VISIT [facility] Start: 01-07-2024 BP CONTROLLED (<130/80) BP CONTROLLE D (<130/80) [facility] Start: 12-04-2023 ANNUAL PCP TEAM EXTRACTION OPERATOR BULL DISEASE VISIT ANNUAL PCP TEAM CHRONIC DISEASE VISIT [facility] Start: 12-04-2023 COVID-19 VACCINE (#1) COVID-19 VACCI NE (#1) [facility] Comment on above: Postponed from 12/31 (Declined at this time) Postponed from 07/03 (Declined at this time) Start: 10-23-2023 Colonoscopy COLONOSCOPY [facility] Start: 10-23-2023 COLORECTAL CANCER SCREENING COLORECTAL CANCER SCREENING [facility] Start: 10-23-2023 Screening for malign ant neoplasm of colon [facility] Start: 05-29-2023 ANNUAL PCP TEAM EXTRACTION OPERATOR BULL DISEASE VISIT ANNUAL PCP TEAM CHRONIC DISEASE VISIT [facility] Start: 05-22-2023 End: 07-22-2023 Hepatic function 2000 panel - Serum or Plasma HEPATIC FUNCTION PNL Lab Routine Essential hypertension Dyslipidemia RAMIREZ (nonalcoholic steatohepatitis) Expected: 05/22/2023, Expires: 07/22/2023 [facility] Work Phone: Comment on above: Expected: 05/22/2023 , Expires: 07/22/2023 Start: 05-22-2023 End: 07-22-2023 LIPID PANEL, NONFASTING LIPID PANEL, NONFASTING Lab Routine Essential hypertension Dyslipidemia RAMIREZ (nonalcoholic steatohepatitis) Expected: 05/22/2023, Expires: 07/22/2023 [facility] Work Phone: Comment on above: Expected: 05/22/2023 , Expires: 07/22/2023 Start: 04-15-2023 [facility] Start: 01-16-2023 Influenza vaccination C [facility] Start: 11-26-2022 Adult depression screening assessment DEPRESSION SCREENING [facility] Start: 11-26-2022 ANNUAL PCP TEAM EXTRACTION OPERATOR BULL DISEASE VISIT ANNUAL PCP TEAM CHRONIC DISEASE VISIT [facility] Start: 11-26-2022 COVID-19 VACCINE (#1) COVID-19 VACCI NE (#1) [facility] Comment on above: Postponed from 07/03 (Declined at this time) Postponed from 12/31 (Declined at this time) Start: 11-26-2022 SHINGRIX VACCINE (1 of 2) SHINGRIX VACCINE (1 of 2) [facility] Comment on above: Postponed from 07/03 (Insurance Coverage) Start: 11-14-2022 End: 01-14-2023 CBC W Auto Differential panel - Blood CBC + DIFF Lab Routine Medication management Expected: 11/14/2022, Expires: 01/14/2023 [facility] Work Phone: Comment on above: Expected: 11/14/2022 , Expires: 01/14/2023 Start: 11-14-2022 End: 01-14-2023 Cobalamin (Vitamin B12) [Mass/volume] in Serum or Plasma VITAMIN B12 BLOOD Lab Routine Gastroesophageal reflux disease without esophagitis Medication management Expected: 11/14/2022, Expires: 01/14/2023 [facility] Work Phone: Comment on above: Expected: 11/14/2022 , Expires: 01/14/2023 Start: 11-14-2022 End: 01-14-2023 Comprehensive metabolic 2000 panel - Serum or Plasma COMP METABOLIC PANEL Lab Routine Essential hypertension Dyslipidemia Expected: 11/14/2022, Expires: 01/14/2023 [facility] Work Phone: Comment on above: Expected: 11/14/2022 , Expires: 01/14/2023 Start: 11-14-2022 End: 01-14-2023 Hemoglobin A1c in Blood HGB A1C Lab Routine Encounter for screening for diabetes mellitus Expected: 11/14/2022, Expires: 01/14/2023 [facility] Work Phone: Comment on above: Expected: 11/14/2022 , Expires: 01/14/2023 Start: 11-14-2022 End: 01-14-2023 LIPID PANEL, NONFASTING LIPID PANEL, NONFASTING Lab Routine Essential hypertension Dyslipidemia Expected: 11/14/2022, Expires: 01/14/2023 [facility] Work Phone: Comment on above: Expected: 11/14/2022 , Expires: 01/14/2023 Start: 11-14-2022 End: 01-14-2023 Magnesium [Mass/volume] in Serum or Plasma MAGNESIUM BLD Lab Routine Gastroesophageal reflux disease without esophagitis Medication management Expected: 11/14/2022, Expires: 01/14/2023 [facility] Work Phone: Comment on above: Expected: 11/14/2022 , Expires: 01/14/2023 Start: 11-14-2022 End: 01-14-2023 Urinalysis complete panel - Urine URINALYSIS, WITH MICROSCOPIC Lab Routine Essential hypertension Dyslipidemia Expected: 11/14/2022, Expires: 01/14/2023 [facility] Work Phone: Comment on above: Expected: 11/14/2022 , Expires: 01/14/2023 Start: 09-13-2022 ANNUAL PCP TEAM EXTRACTION OPERATOR BULL DISEASE VISIT ANNUAL PCP TEAM CHRONIC DISEASE VISIT [facility] Start: 05-29-2022 End: 07-29-2022 Hepatic function 2000 panel - Serum or Plasma HEPATIC FUNCTION PNL Lab Routine Essential hypertension Dyslipidemia Expected: 05/29/2022, Expires: 07/29/2022 [facility] Work Phone: Comment on above: Expected: 05/29/2022 , Expires: 07/29/2022 Start: 05-29-2022 End: 07-29-2022 LIPID PANEL, NONFASTING LIPID PANEL, NONFASTING Lab Routine Essential hypertension Dyslipidemia Expected: 05/29/2022, Expires: 07/29/2022 [facility] Work Phone: Comment on above: Expected: 05/29/2022 , Expires: 07/29/2022 Start: 05-16-2022 ANNUAL PCP TEAM EXTRACTION OPERATOR BULL DISEASE VISIT ANNUAL PCP TEAM CHRONIC DISEASE VISIT [facility] Start: 02-01-2022 Hzv zoster vacc recombinant adjuvanted im njx ZOSTER VACC RECOMBINANT,IM Immunization/Injection Routine Need for vaccination Expected: 02/01/2022 (Approximate) [facility] Work Phone: Comment on above: Expected: 02/01/2022 (Approximate) Start: 01-17-2022 End: 03-19-2022 LIPID PANEL, NONFASTING LIPID PANEL, NONFASTING Lab Routine RAMIREZ (nonalcoholic steatohepatitis) Expected: 01/17/2022, Expires: 03/19/2022 [facility] Work Phone: Comment on above: Expected: 01/17/2022 , Expires: 03/19/2022 Start: 01-16-2022 Influenza vaccination INFLUENZA (#1) [facility] Start: 12-25-2021 End: 02-24-2022 Prostate specific Ag [Mass/volume] in Serum or Plasma PSA/PROSTSPECAG DIAG Lab Routine Elevated PSA Expected: 12/25/2021 (Approximate), Expires: 02/24/2022 [facility] Work Phone: Comment on above: Expected: 12/25/2021 (Approximate), Expires: 02/24/2022 Start: 11-26-2021 End: 01-26-2022 Cobalamin (Vitamin B12) [Mass/volume] in Serum or Plasma VITAMIN B12 BLOOD Lab Routine Gastroesophageal reflux disease without esophagitis Medication management Expected: 11/26/2021, Expires: 01/26/2022 [facility] Work Phone: Comment on above: Expected: 11/26/2021 , Expires: 01/26/2022 Start: 11-26-2021 End: 01-26-2022 Comprehensive metabolic 2000 panel - Serum or Plasma COMP METABOLIC PANEL Lab Routine Essential hypertension Dyslipidemia Expected: 11/26/2021, Expires: 01/26/2022 [facility] Work Phone: Comment on above: Expected: 11/26/2021 , Expires: 01/26/2022 Start: 11-26-2021 End: 01-26-2022 Hemoglobin A1c in Blood HGB A1C Lab Routine Encounter for screening for diabetes mellitus Well adult exam Expected: 11/26/2021, Expires: 01/26/2022 [facility] Work Phone: Comment on above: Expected: 11/26/2021 , Expires: 01/26/2022 Start: 11-26-2021 End: 01-26-2022 LIPID PANEL, NONFASTING LIPID PANEL, NONFASTING Lab Routine Essential hypertension Dyslipidemia Expected: 11/26/2021, Expires: 01/26/2022 [facility] Work Phone: Comment on above: Expected: 11/26/2021 , Expires: 01/26/2022 Start: 11-26-2021 End: 01-26-2022 Magnesium [Mass/volume] in Serum or Plasma MAGNESIUM BLD Lab Routine Gastroesophageal reflux disease without esophagitis Medication management Expected: 11/26/2021, Expires: 01/26/2022 [facility] Work Phone: Comment on above: Expected: 11/26/2021 , Expires: 01/26/2022 Start: 11-26-2021 End: 01-26-2022 Urinalysis complete panel - Urine URINALYSIS, WITH MICROSCOPIC Lab Routine Essential hypertension Dyslipidemia Expected: 11/26/2021, Expires: 01/26/2022 [facility] Work Phone: Comment on above: Expected: 11/26/2021 , Expires: 01/26/2022 Start: 11-09-2021 Adult depression screening assessment DEPRESSION SCREENING [facility] Start: 11-09-2021 BP CONTROLLED (<130/80) BP CONTROLLE D (<130/80) [facility] Start: 11-09-2021 COVID-19 VACCINE (#1) COVID-19 VACCI NE (#1) [facility] Comment on above: Postponed from 07/03 (Declined at this time) Start: 11-09-2021 COVID-19 VACCINE (1) COVID-19 VACCIN E (1) [facility] Comment on above: Postponed from 07/03 (Declined at this time) Start: 11-09-2021 SHINGRIX VACCINE (1 of 2) SHINGRIX VACCINE (1 of 2) [facility] Comment on above: Postponed from 07/03 (Insurance Coverage) Postponed from 07/03 (Insurance Coverage) Start: 2020 RSV Vaccine (1 - 1-d ose 60+ series) RSV Vaccine (1 - 1-dose 60+ series) [facility] Start: 06-19-2015 PNEUMOCOCCAL (2 - PCV) PNEUMOCOCCAL (2 - PCV) [facility] Start: 2005 COLOGUARD (FIT-DNA) COLOGUARD (FIT-D NA) [facility] Start: [address] COLONOGRAPHY [facility] Start: 2005 FECAL OCCULT BLOOD FECAL OCCULT BLOO D [facility] Start: 2005 Screening for malign ant neoplasm of colon [facility] Start: 2005 SIGMOIDOSCOPY SIGMOIDOSCOPY [facility] Start: 1979 SHINGRIX VACCINE (1 of 2) SHINGRIX VACCINE (1 of 2) [facility] Bacteria identified in Urine by Culture URINE CULTURE Microbiology Routine Urgency of urination Ordered: 08/30/2021 [facility] Work Phone: Comment on above: Ordered: 08/30/2021 Bacteria identified in Urine by Culture URINE CULTURE Microbiology Routine Burning with urination 2022 2:16 PM EST [facility] Work Phone: Bacteria identified in Wound by Culture ABSCESS AND WOUND CULTURE WITH GRAM STAIN Microbiology Routine Cellulitis of skin 11/25/2022 10:49 AM EDT [facility] Work Phone: Micheal post-voiding residual urine&/bladder cap US MSR POST-VOID RESID URINE Procedures Routine Elevated PSA Ordered: 09/24/2021 [facility] Work Phone: Comment on above: Ordered: 09/24/2021 Micheal post-voiding residual urine&/bladder cap US MSR POST-VOID RESID URINE Procedures Routine Ordered: 07/25/2022 [facility] Work Phone: Comment on above: Ordered: 07/25/2022 Patient Education ED Vertigo, Unspecified [facility] Work Phone: Patient referral [facility] Work Phone: PROSTATE BIOPSY GUKI PROSTATE BI OPSY GUKI Procedures Routine Elevated prostate specific antigen (PSA) Ordered: 08/12/2024 [facility] Work Phone: Comment on above: Ordered: 08/12/2024 End: 01-02-2026 Screening colonoscopy COLONOSCOPY SCREENING Endoscopy Routine Screening for colon cancer Family history of colon cancer History of colonic polyps 1 Occurrences starting 01/02/2025 until 01/02/2026 [facility] Work Phone: Comment on above: 1 Occurrences starti ng 01/02/2025 until 01/02/2026 [facility] Immunizations Immunization Date Immunization Notes Care Provider Fa cili 03-07-2024 influenza, seasonal, injectable Chanelle Talbot PA-C Work Phone: [facility] 03-07-2024 influenza virus vacc ine, unspecified formulation Sylvester Damian MD Work Phone: [facility] 02-15-2023 influenza, seasonal, injectable Sylvester Damian MD Work Phone: [facility] Work Phone: 02-15-2023 influenza virus vacc ine, unspecified formulation Sylvester Damian MD Work Phone: [facility] 05-21-2022 zoster vaccine recombinant Sylvester Damian MD Work Phone: [facility] 03-18-2022 zoster vaccine recombinant Sylvester Damian MD Work Phone: [facility] 02-21-2022 influenza, seasonal, injectable Sylevster Damian MD Work Phone: [facility] Work Phone: 02-21-2022 influenza virus vacc ine, unspecified formulation Sylvester Damian MD Work Phone: [facility] 11-26-2021 pneumococcal (PCV20) vaccine, 20 valent (PREVNAR 20) Sylvester Damian MD Work Phone: [facility] 11-26-2021 pneumococcal Conjuga te, unspecified formulation Sylvester Damian MD Work Phone: [facility] Work Phone: 04-01-2021 influenza virus vacc ine, unspecified formulation Sylvester Damian MD Work Phone: [facility] 11-10-2019 tetanus toxoid, redu evelin diphtheria toxoid, and acellular pertussis vaccine, adsorbed Sylvester Damian MD Work Phone: [facility] 03-18-2017 Influenza virus vaccine [facility] 06-19-2014 pneumococcal polysaccharide vaccine, 23 valent Sylvester Damian MD Work Phone: [facility] Payers Date Payer Category Payer Self-pay [id number] 2023 Private Health Insurance [id number] 2017 Private Health Insurance [employer] A ETNA CHOICE POS II [id number] 2017-Present [phone] [address] [place] [address] POS [id number] 2017 Private Health Insurance [id number] Private Health Insurance [id number] [id number] Unknown [id number] Social History Date Type Detail Facility Start: 07-08-2019 End: 04-20-2024 Tobacco smoking status NHIS Ex-smoker [facility] Start: 07-08-1974 End: 07-08-1989 History of tobacco use Current smoker [facility] Start: 07-08-1974 End: 07-08-1989 History of tobacco use Cigarette Smoker [facility] Start: 05-16-2021 End: 01-02-2025 Alcohol intake Current drinker of alcohol (finding) [facility] Start: 05-16-2021 History SDOH Alcohol Comment whisky daily- 1-2 glasses per day [facility] Start: 1960 Sex Assigned At Male C [facility] Start: 08-20-2021 End: 01-09-2022 Exposure to SARS-CoV-2 (event) Not sure [facility] Start: 07-08-2019 End: 01-06-2023 Cigarettes smoked current (pack per day) - Reported 1 [facility] Work Phone: Start: 07-08-2019 End: 04-20-2024 Tobacco use and exposure Smokeless tobacco non-user [facility] Start: 11-25-2022 End: 01-06-2023 Tobacco use panel [facility] Work Phone: Start: 04-18-2012 Adult Depression Screening Assessment 0 [facility] Work Phone: Start: 12-25-2020 Gender identity Identifies as male gender (finding) [facility] Start: 12-25-2020 Sexual orientation Heterosexual (hiral hayes) [facility] Start: 04-15-2023 Tobacco smoking stat us WVIS Unknown if ever smoked [facility] Start: 08-02-2017 Spouse/ Signif icant Other [facility] Has the electric, ga s, [employer], or water company threatened to shut off services in your home in past 12Mo No [facility] Are you now , , , , never or living with a partner? [facility] How often to you hav e a drink containing alcohol? 4 or more times a week [facility] How many standard drinks containing alcohol do you have on a typical day? 1 or 2 [facility] How often do you hav e 6 or more drinks on 1 occasion? Never [facility] Do you feel stress - tense, restless, nervous, or anxious, or unable to sleep at night because your mind is troubled all the time - these days [OSQ] Only a little [facility] (I/We) worried [facility] (my/our) food would run out before (I/we) got money to buy more. Never true [facility] Medical Equipment Procedure Code Equipment Code Equipment Origin al Text Equipment Identifier Dates Mesh Surgipro Me dium Clear Polypropylene 2cm Surgical Nonabsorbable Plug - [id number] Start: 12-25-2021 Mental Status Date Assessment Result Facility 04-15-2023 Cognitive function Level Of Cons ciousness Awake;Alert;Appropriate;Follow s Commands [facility] Work Phone: Clinical Notes 11-09-2020 to 01-02-2025 Jazmine Barrientos APRN.[facility] - 01/02/2025 1:00 PM EDTPatient Sylvester Burton MD - 12/14/2024 6:56 AM EDTTelephone Encounter - Sylvester Damian MD - 11/01/2024 3:47 PM EDT Note Date & Type Note Facility 01-02-2025 History of Present illness Narrative HISTORY AND PHYSICAL Gray Fernandez : 1960 REFERRING PHYSICIAN: Sylvester Damian [address] [place] [id number] CHIEF COMPLAINT: Patient presents with: Consult: colonoscopy HPI: Gray Hernández is a 64 year old male referred for endoscopy. Gray Hernández notes due for screening colonoscopy- family hx of colon cancer in sister. Gray Hernández denies abdominal pain. Gray Hernández denies diarrhea. Gray Hernández denies constipation. Gray Hernández denies a change in bowel habits. Gray Hernández denies melena. Gray Hernández denies bright red blood per rectum. Gray Hernández denies hemorrhoids. Gray Hernández denies heartburn. Gray Hernández denies dysphagia. Gray Hernández denies a history of ulcers/ peptic ulcer disease. Roman's medical history is significant for HTN, RAMIREZ, RA and obesity. He denies CP, SOB, dizziness, palpitations, syncope, edema, recent hospitalizations Gray Hernández has undergone prior endoscopy. Last colonoscopy was 10/[address] Joshi at [facility]. Sedation: Fentanyl 100 micrograms IV, Midazolam 8 mg IV Impression: - Preparation of the colon was fair. - The entire examined colon is normal. - No specimens collected. Current Outpatient Medications Medication Sig atorvastatin (LIPITOR) 40 mg tablet Take 1 tablet by mouth daily at bedtime. For cholesterol. hydroCHLOROthiazide 25 mg tablet Take 1 tablet by mouth once daily. lisinopril (ZESTRIL) 40 mg tablet Take 1 tablet by mouth once daily. sertraline (ZOLOFT) 50 mg tablet Take one tablet daily alfuzosin SR (UROXATRAL) 10 mg 24 hr tablet TAKE 1 TABLET BY MOUTH EVERYDAY AT BEDTIME Tadalafil (CIALIS) 20 mg tablet Take 1 tablet by mouth once daily. As needed cyclobenzaprine (FLEXERIL) 10 mg tablet Take 1 tablet by mouth three times daily as needed for muscle spasm. aspirin, enteric coated (ASPIRIN, ENTERIC COATED) 81 mg EC tablet Take 1 tablet by mouth once daily. esomeprazole (NEXIUM) 40 mg capsule Take 1 capsule by mouth once daily. tocilizumab (ACTEMRA) 400 mg/20 mL (20 mg/mL) soln Inject 20 mL intravenously once every month. Per Rheu multivitamins(MULTIPLE VITAMIN TAB) Take 1 tablet by mouth once daily. meclizine (ANTIVERT) 25 mg tab Take 1 tablet by mouth two times a day as needed. No current facility-administered medications for this visit. ALLERGIES: Leflunomide and Methotrexate PAST MEDICAL HISTORY Diagnosis Date Abdominal aortic aneurysm (AAA) without rupture 11/10/2019 CT 06/2019: proximal abdominal aorta, 3.4 x 3.8 cm, CT 11/2020 no aneurysm Acute pain of both shoulders 05/29/2022 AK (actinic keratosis) 12/03/2022 Right side face near ear Tx 11/2022 Bunion of great toe of right foot 11/10/2019 Current mild episode of major depressive disorder without prior episode 12/03/2022 Cyst of spleen 12/14/2023 CT 2019 and stable over 2 yrs. Dyslipidemia 07/25/2019 Ectatic thoracic aorta 11/09/2020 CTA 06/2019, CTA: 11/2020 was normal. ED (erectile dysfunction) of organic origin 12/03/2022 Elevated PSA 11/12/2020 Seeing Jean Carlos Lakhani Essential hypertension 07/22/2019 Ex-smoker 07/22/2019 Started age 16 up 1 PPD and quit at age 30. Family history of colon cancer 11/10/2019 Sister Family history of pancreatic cancer 11/10/2019 Mother Gastroesophageal reflux disease without esophagitis 07/07/2006 History of COVID-19 05/22/202005/2020 Leukocytosis 12/03/2022 RAMIREZ (nonalcoholic steatohepatitis) 12/17/2021 Numbness and tingling in right hand 05/29/2022 4th and 5th digits (as of 11/2022 pretty much resolved) Renal cyst, right 12/14/2023 CT 2019 and stable over 2 yrs Rheumatoid arthritis involving multiple sites with positive rheumatoid factor (HCC) 07/22/2019 Seeing [facility]: Dr. Quispe Thrombocytopenia 12/03/2022 Stable since 12/2020 around 130 Well adult exam 11/10/2019 Last done: 11/10/2019 PAST SURGICAL HISTORY Procedure Laterality Date COLONOSCOPY 2012 COLONOSCOPY GEN ANES 10/22/2020 Repeat in 3 years due to poor bowel preparation KNEE ARTHROSCOPY REPAIR RECURR INGUIN ZACHARIAH,REDUCIBL Left 12/25/2021 FAMILY HISTORY Problem Relation Age of Onset Pancreatic Cancer Mother Heart Father valve replaced Colon Cancer Sister Hyperlipidemia Brother Alzheimer's Disease No Family History Breast Cancer No Family History Ovarian cancer No Family History Prostate Cancer No Family History Coronary Artery Disease No Family History Diabetes No Family History Hypertension No Family History Kidney Disease No Family History Seizures No Family History Stroke No Family History Thyroid No Family History SOCIAL HISTORY[1] REVIEW OF SYMPTOMS: The review of systems data was entered by the nurse and reviewed by me PHYSICAL EXAMINATION: General: The patient is 64 year old, male well nourished, well hydrated in no acute distress. The patient is oriented to time, place, and person. VITALS: Blood pressure 158/84, pulse 84, temperature 36.7 C (98.1 F), weight 116.4 kg (256 lb 9.6 oz), SpO2 95%. Body mass index is 35.04 kg/m . HEENT: Normal cephalic, ataumatic, pupils are equally round, sclera are anicteric, mucous membranes are moist, oropharynx is clear. Neck has no masses or asymmetry . Respiratory: Clear to auscultation. Cardiac: Regular rate and rhythm. Abdominal exam: Soft, nontender, with no palpable masses. No hepatosplenomegaly. No palpable hernias. Extremities: no clubbing or cyanosis LABORATORY VALUES: As Noted RADIOLOGIC STUDIES: As Noted Assessment IMPRESSION: screen for colon cancer, history of colon polyps, family history of colon cancer PLAN: I have reviewed my findings with the surgeon. Will plan for lower endoscopy. We discussed the risks and benefits of the planned endoscopy in terms understandable to the patient. I have informed the patient that complications can occur including failure to complete the endoscopy and perforation. Gray Hernández had the opportunity to ask questions concerning the planned endoscopy. Gray Suarezn freely consents to surgery. I plan to use miraLAX bowel preparation I have explained to the patient the difference between IV conscious sedation and MAC anesthesia - and I have offered either, according to the patient's wishes. I have explained that with IV conscious sedation there is no anesthesia provider available and therefore there is a limitation of the amount of IV medications that can be given and that the patient may wake up in the middle of the procedure and/or experience pain/discomfort during the procedure. Further discussion was done and the patient was given the opportunity to ask questions and all questions were answered. Gray Suarezn chooses IV conscious sedation. Gray Roman was counseled that if there are changes in his/her medical condition, to let the office know if surgery should proceed. If there are changes in patient's medical condition from time of this encounter to the day of the procedure that preclude anesthesia, patient may have procedure cancelled for patient's safety. Diagnoses: (Z86.0100) History of colonic polyps (primary encounter diagnosis) (Z12.11) Screening for colon cancer (Z80.0) Family history of colon cancer Consultation requested by Dr. Damian for an opinion regarding colon cancer screening & family hx of colon cancer. My final recommendations will be communicated back to the requesting physician by way of shared Medical record or letter to requesting physician via US mail. Portions of this documentation were copied and pasted from previous office visit notes in order to provide a cohesive continuity of the history. The note has been reviewed and edited and updated as necessary. Jazmine Barrientos APRN.SHAN [1] Social History Tobacco Use Smoking status: Former Current packs/day: 0.00 Average packs/day: 1 pack/day for 15.0 years (15.0 ttl pk-yrs) Types: Cigarettes Start date: 07/08/1974 Quit date: 07/08/1989 Years since quittin.5 Smokeless tobacco: Never Vaping Use Vaping status: Never Used Substance Use Topics Alcohol use: Yes Comment: whisky daily- 1-2 glasses per day Drug use: No documented in this encounter [facility] 01-02-2025 Note HNO ID: [id number] Author: JAZMINE BARRIENTOS APRN.SHAN Service: ? Author Type: Nurse Practitioner Type: Progress Notes Filed: 01/02/2025 13:16 Note Text: HISTORY AND PHYSICAL Gray Fernandez : 1960 REFERRING PHYSICIAN: Sylvester Damian [address] [place] [id number] CHIEF COMPLAINT: Patient presents with: Consult: colonoscopy HPI: Gray Hernández is a 64 year old male referred for endoscopy. Gray Hernández notes due for screening colonoscopy- family hx of colon cancer in sister. Gray Hernández denies abdominal pain. Gray Suarezn denies diarrhea. Gray Suarezn denies constipation. Gray Suarezn denies a change in bowel habits. Gray Hernández denies melena. Gray Hernández denies bright red blood per rectum. Gray Hernández denies hemorrhoids. Gray Roman denies heartburn. Graycolby Hernández denies dysphagia. Gray Suarezn denies a history of ulcers/ peptic ulcer disease. Roman's medical history is significant for HTN, RAMIREZ, RA and obesity. He denies CP, SOB, dizziness, palpitations, syncope, edema, recent hospitalizations Gray Hernández has undergone prior endoscopy. Last colonoscopy was 10/[address] Joshi at [facility]. Sedation: Fentanyl 100 micrograms IV, Midazolam 8 mg IV Impression: - Preparation of the colon was fair. - The entire examined colon is normal. - No specimens collected. Current Outpatient Medications Medication Sig atorvastatin (LIPITOR) 40 mg tablet Take 1 tablet by mouth daily at bedtime. For cholesterol. hydroCHLOROthiazide 25 mg tablet Take 1 tablet by mouth once daily. lisinopril (ZESTRIL) 40 mg tablet Take 1 tablet by mouth once daily. sertraline (ZOLOFT) 50 mg tablet Take one tablet daily alfuzosin SR (UROXATRAL) 10 mg 24 hr tablet TAKE 1 TABLET BY MOUTH EVERYDAY AT BEDTIME Tadalafil (CIALIS) 20 mg tablet Take 1 tablet by mouth once daily. As needed cyclobenzaprine (FLEXERIL) 10 mg tablet Take 1 tablet by mouth three times daily as needed for muscle spasm. aspirin, enteric coated (ASPIRIN, ENTERIC COATED) 81 mg EC tablet Take 1 tablet by mouth once daily. esomeprazole (NEXIUM) 40 mg capsule Take 1 capsule by mouth once daily. tocilizumab (ACTEMRA) 400 mg/20 mL (20 mg/mL) soln Inject 20 mL intravenously once every month. Per Rheu multivitamins(MULTIPLE VITAMIN TAB) Take 1 tablet by mouth once daily. meclizine (ANTIVERT) 25 mg tab Take 1 tablet by mouth two times a day as needed. No current facility-administered medications for this visit. ALLERGIES: Leflunomide and Methotrexate PAST MEDICAL HISTORY Diagnosis Date Abdominal aortic aneurysm (AAA) without rupture 11/10/2019 CT 06/2019: proximal abdominal aorta, 3.4 x 3.8 cm, CT 11/2020 no aneurysm Acute pain of both shoulders 05/29/2022 AK (actinic keratosis) 12/03/2022 Right side face near ear Tx 11/2022 Bunion of great toe of right foot 11/10/2019 Current mild episode of major depressive disorder without prior episode 12/03/2022 Cyst of spleen 12/14/2023 CT 2019 and stable over 2 yrs. Dyslipidemia 07/25/2019 Ectatic thoracic aorta 11/09/2020 CTA 06/2019, CTA: 11/2020 was normal. ED (erectile dysfunction) of organic origin 12/03/2022 Elevated PSA 11/12/2020 Seeing [facility] Essential hypertension 07/22/2019 Ex-smoker 07/22/2019 Started age 16 up 1 PPD and quit at age 30. Family history of colon cancer 11/10/2019 Sister Family history of pancreatic cancer 11/10/2019 Mother Gastroesophageal reflux disease without esophagitis 07/07/2006 History of COVID-19 05/22/202005/2020 Leukocytosis 12/03/2022 RAMIREZ (nonalcoholic steatohepatitis) 12/17/2021 Numbness and tingling in right hand 05/29/2022 4th and 5th digits (as of 11/2022 pretty much resolved) Renal cyst, right 12/14/2023 CT 2019 and stable over 2 yrs Rheumatoid arthritis involving multiple sites with positive rheumatoid factor (HCC) 07/22/2019 Seeing [facility]: Dr. Quispe Thrombocytopenia 12/03/2022 Stable since 12/2020 around 130 Well adult exam 11/10/2019 Last done: 11/10/2019 PAST SURGICAL HISTORY Procedure Laterality Date COLONOSCOPY 2012 COLONOSCOPY GEN ANES 10/22/2020 Repeat in 3 years due to poor bowel preparation KNEE ARTHROSCOPY REPAIR RECURR INGUIN ZACHARIAH,REDUCIBL Left 12/25/2021 FAMILY HISTORY Problem Relation Age of Onset Pancreatic Cancer Mother Heart Father valve replaced Colon Cancer Sister Hyperlipidemia Brother Alzheimer's Disease No Family History Breast Cancer No Family History Ovarian cancer No Family History Prostate Cancer No Family History Coronary Artery Disease No Family History Diabetes No Family History Hypertension No Family History Kidney Disease No Family History Seizures No Family History Stroke No Family History Thyroid No Family History SOCIAL HISTORY[1] REVIEW OF SYMPTOMS: The review of systems data was entered by the nurse and reviewed by me PHYSICAL EXAMINATION: General: The patient is 64 year old, mal (more content not included)... [facility] 12-14-2024 Instructions Sylvester Damian MD - 12/14/2024 7:34 AM EDT Please get labs done on or after 06/02/2025 prior to your next visit. We discussed your health and wellness: - You are due for a colonoscopy. I will work on getting an order faxed to [facility], and they will contact you to schedule the procedure. Please follow up with them if you do not hear back. We discussed your knee tightness and discomfort: - The tightness and pain in the back of your knee may be related to arthritis or age-related changes. At this time, no specific treatment is needed. Please let me know if the pain worsens or if you experience swelling. We discussed your heartburn: - Continue taking Nexium as it is effectively managing your symptoms. Let me know if your symptoms change or worsen. We discussed your lab results and liver health: - Your liver function tests have improved and are now within the normal range. However, your FIB-4 score, which assesses the risk of liver scarring, has increased from 2.94 to 3.24 since last year. - I recommend repeating the liver ultrasound to ensure there are no changes. I will send the order to [facility], and they will contact you to schedule the test. - Your triglycerides are elevated at 425 (previously 172). To help lower this, please: - Switch from using Crisco to extra virgin olive oil for cooking. - Focus on dietary changes to reduce fat intake, including limiting cheese and other high-fat foods. - Increase physical activity, as this can also help improve your cholesterol levels. - Your HDL (good cholesterol) is slightly low at 39 (goal is 40 or higher). Physical activity is the best way to raise this level. - At this time, I would like to avoid starting medication for triglycerides, as I believe dietary changes and lifestyle adjustments can help improve your numbers. We discussed your hernia and post-surgical discomfort: - The occasional pain near your hernia repair site is likely due to scar tissue pulling. This is normal and does not require treatment unless the pain worsens or becomes persistent. - I will arrange for you to see one of our general surgeons for further evaluation. If you prefer, you can request to see Dr. Ascencio, as he performed your previous surgery. We discussed your mental health: - Continue taking sertraline as it is working well for you. Let me know if you notice any changes in your mood or symptoms. We discussed your immunizations: - Your vaccinations are up to date. The only vaccine you will need is the flu shot in the fall. Follow-up: - Please schedule a follow-up visit with me in 6 months to review your progress and lab results. - [facility] will contact you to schedule the liver ultrasound and colonoscopy. If you do not hear from them, please follow up directly. - The front end alignment specialist will assist in scheduling your appointment with a general surgeon. If you prefer Dr. Ascencio, let them know when scheduling. Let me know if you have any questions or concerns before your next visit. documented in this encounter [facility] 12-14-2024 Note HNO ID: [id number] Author: SYLVESTER DAMIAN MD Service: ? Author Type: Physician Type: Progress Notes Filed: 12/14/2024 08:07 Note Text: Chief Complaint Patient presents with: Well Adult HPI Gray Fernandez is a 64 year old male who presents here today for a Physical and routine f/u. Patient with Hx of HTN, HLP, GERD, RA, elevated PSA as well as those reviewed and addressed below in ROS. HM - Anxiety screening completed, negative. Due for repeat Colonoscopy screening, 3 year schedule, last completed in 2020. Roman reports a 10 lb weight loss since May without intentional dietary changes, attributing the loss to increased activity levels. He denies recent fevers, frequent cephalalgia, sudden changes in hearing or vision, or issues with his nose or throat. He also denies lumps or swelling in his neck, wheezing, dyspnea, hemoptysis, or cough. He denies chest pain, palpitations, or lower extremity swelling. Roman has a history of GERD, for which he takes Nexium, effectively managing his symptoms. He denies hematochezia, hematuria, dysuria, or changes in urinary frequency. He also denies unusual skin lesions, rashes, or sores, as well as easy bruising or bleeding. He reports no changes in heat or cold tolerance or sudden increases in thirst. He denies syncope, seizures, or tremors. Roman reports a sensation of tightness in the posterior aspect of his knee, exacerbated by climbing and making it increasingly difficult to get up and down from the floor. He describes the tightness as intermittent and denies any swelling or significant joint pain. He attributes these symptoms to aging and possible arthritis. Roman also reports occasional pain at the site of a previous hernia repair, performed approximately [address] Ascencio, which he describes as a little pain that occurs intermittently. He denies any recent surgeries and is aware that he is due for a colonoscopy, which he plans to schedule. Roman is currently taking sertraline and reports doing well on the medication. 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 He denies any new major conditions diagnosed in his family members and reports that his father is still living. He has not received the COVID-19 vaccine. Past medical history, appointments, medications, allergies reviewed. Previous Medical History PAST MEDICAL HISTORY Diagnosis Date Abdominal aortic aneurysm (AAA) without rupture 11/10/2019 CT 06/2019: proximal abdominal aorta, 3.4 x 3.8 cm, CT 11/2020 no aneurysm Acute pain of both shoulders 05/29/2022 AK (actinic keratosis) 12/03/2022 Right side face near ear Tx 11/2022 Bunion of great toe of right foot 11/10/2019 Current mild episode of major depressive disorder without prior episode 12/03/2022 Cyst of spleen 12/14/2023 CT 2019 and stable over 2 yrs. Dyslipidemia 07/25/2019 Ectatic thoracic aorta 11/09/2020 CTA 06/2019, CTA: 11/2020 was normal. ED (erectile dysfunction) of organic origin 12/03/2022 Elevated PSA 11/12/2020 Seeing [facility] Essential hypertension 07/22/2019 Ex-smoker 07/22/2019 Started age 16 up 1 PPD and quit at age 30. Family history of colon cancer 11/10/2019 Sister Family history of pancreatic cancer 11/10/2019 Mother Gastroesophageal reflux disease without esophagitis 07/07/2006 History of COVID-19 05/22/202005/2020 Leukocytosis 12/03/2022 RAMIREZ (nonalcoholic steatohepatitis) 12/17/2021 Numbness and tingling in right hand 05/29/2022 4th and 5th digits (as of 11/2022 pretty much resolved) Renal cyst, right 12/14/2023 CT 2019 and stable over 2 yrs Rheumatoid arthritis involving multiple sites with positive rheumatoid factor (HCC) 07/22/2019 Seeing [facility]: Dr. Zevalous Thrombocytopenia 12/03/2022 Stable since 12/2020 around 130 Well adult exam 11/10/2019 Last done: 11/10/2019 Previous Surgical History PAST SURGICAL HISTORY Procedure Laterality Date COLONOSCOPY 2012 COLONOSCOPY GEN ANES 10/22/2020 Repeat in 3 years due to poor bowel preparation KNEE ARTHROSCOPY REPAIR RECURR INGUIN ZACHARIAH,REDUCIBL Left 12/25/2021 Family History FAMILY HISTORY Problem Relation Age of Onset Pancreatic Cancer Mother Heart Father valve replaced Colon Cancer Sister Hyperlipidemia Brother Alzheimer's Disease No Family History Breast Cancer No Family History Ovarian cancer No Family History Prostate Cancer No Family History Coronary Artery Disease No Family History Diabetes No Family History Hypertension No Family History Kidney Disease No Family History Seizures No Family History Stroke No Family History Thyroid No Family History Patient Allergies ALLERGIES Allergen Reactions Leflunomide Other: See Comments Methotrexate Other: See Comments Elevated liver enzymes Current Medications Current Outpatient Medications on File Prior to Visit Medication Sig atorvastatin (LIPITOR) 40 mg (more content not included)... [facility] 12-14-2024 History of Present illness Narrative Images from the original note were not included. Chief Complaint Patient presents with: Well Adult HPI Gray Roman Fernandez is a 64 year old male who presents here today for a Physical and routine f/u. Patient with Hx of HTN, HLP, GERD, RA, elevated PSA as well as those reviewed and addressed below in ROS. HM - Anxiety screening completed, negative. Due for repeat Colonoscopy screening, 3 year schedule, last completed in 2020. Roman reports a 10 lb weight loss since May without intentional dietary changes, attributing the loss to increased activity levels. He denies recent fevers, frequent cephalalgia, sudden changes in hearing or vision, or issues with his nose or throat. He also denies lumps or swelling in his neck, wheezing, dyspnea, hemoptysis, or cough. He denies chest pain, palpitations, or lower extremity swelling. Roman has a history of GERD, for which he takes Nexium, effectively managing his symptoms. He denies hematochezia, hematuria, dysuria, or changes in urinary frequency. He also denies unusual skin lesions, rashes, or sores, as well as easy bruising or bleeding. He reports no changes in heat or cold tolerance or sudden increases in thirst. He denies syncope, seizures, or tremors. Roman reports a sensation of tightness in the posterior aspect of his knee, exacerbated by climbing and making it increasingly difficult to get up and down from the floor. He describes the tightness as intermittent and denies any swelling or significant joint pain. He attributes these symptoms to aging and possible arthritis. Roman also reports occasional pain at the site of a previous hernia repair, performed approximately [address] Ascencio, which he describes as a little pain that occurs intermittently. He denies any recent surgeries and is aware that he is due for a colonoscopy, which he plans to schedule. Roman is currently taking sertraline and reports doing well on the medication. 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 He denies any new major conditions diagnosed in his family members and reports that his father is still living. He has not received the COVID-19 vaccine. Past medical history, appointments, medications, allergies reviewed. Previous Medical History PAST MEDICAL HISTORY Diagnosis Date Abdominal aortic aneurysm (AAA) without rupture 11/10/2019 CT 06/2019: proximal abdominal aorta, 3.4 x 3.8 cm, CT 11/2020 no aneurysm Acute pain of both shoulders 05/29/2022 AK (actinic keratosis) 12/03/2022 Right side face near ear Tx 11/2022 Bunion of great toe of right foot 11/10/2019 Current mild episode of major depressive disorder without prior episode 12/03/2022 Cyst of spleen 12/14/2023 CT 2019 and stable over 2 yrs. Dyslipidemia 07/25/2019 Ectatic thoracic aorta 11/09/2020 CTA 06/2019, CTA: 11/2020 was normal. ED (erectile dysfunction) of organic origin 12/03/2022 Elevated PSA 11/12/2020 Seeing [facility] Essential hypertension 07/22/2019 Ex-smoker 07/22/2019 Started age 16 up 1 PPD and quit at age 30. Family history of colon cancer 11/10/2019 Sister Family history of pancreatic cancer 11/10/2019 Mother Gastroesophageal reflux disease without esophagitis 07/07/2006 History of COVID-19 05/22/202005/2020 Leukocytosis 12/03/2022 RAMIREZ (nonalcoholic steatohepatitis) 12/17/2021 Numbness and tingling in right hand 05/29/2022 4th and 5th digits (as of 11/2022 pretty much resolved) Renal cyst, right 12/14/2023 CT 2019 and stable over 2 yrs Rheumatoid arthritis involving multiple sites with positive rheumatoid factor (HCC) 07/22/2019 Seeing [facility]: Dr. Quispe Thrombocytopenia 12/03/2022 Stable since 12/2020 around 130 Well adult exam 11/10/2019 Last done: 11/10/2019 Previous Surgical History PAST SURGICAL HISTORY Procedure Laterality Date COLONOSCOPY 2012 COLONOSCOPY GEN ANES 10/22/2020 Repeat in 3 years due to poor bowel preparation KNEE ARTHROSCOPY REPAIR RECURR INGUIN ZACHARIAH,REDUCIBL Left 12/25/2021 Family History FAMILY HISTORY Problem Relation Age of Onset Pancreatic Cancer Mother Heart Father valve replaced Colon Cancer Sister Hyperlipidemia Brother Alzheimer's Disease No Family History Breast Cancer No Family History Ovarian cancer No Family History Prostate Cancer No Family History Coronary Artery Disease No Family History Diabetes No Family History Hypertension No Family History Kidney Disease No Family History Seizures No Family History Stroke No Family History Thyroid No Family History Patient Allergies ALLERGIES Allergen Reactions Leflunomide Other: See Comments Methotrexate Other: See Comments Elevated liver enzymes Current Medications Current Outpatient Medications on File Prior to Visit Medication Sig atorvastatin (LIPITOR) 40 mg tablet Take 1 tablet by mouth daily at bedtime. For cholesterol. hydroCHLOROthiazide 25 mg tablet Take 1 tablet by mouth once daily. lisinopril (ZESTRIL) 40 mg tablet Take 1 tablet by mouth once daily. sertraline (ZOLOFT) 50 mg tablet Take one tablet daily alfuzosin SR (UROXATRAL) 10 mg 24 hr tablet TAKE 1 TABLET BY MOUTH EVERYDAY AT BEDTIME Tadalafil (CIALIS) 20 mg tablet Take 1 tablet by mouth once daily. As needed meclizine (ANTIVERT) 25 mg tab Take 1 tablet by mouth two times a day as needed. cyclobenzaprine (FLEXERIL) 10 mg tablet Take 1 tablet by mouth three times daily as needed for muscle spasm. aspirin, enteric coated (ASPIRIN, ENTERIC COATED) 81 mg EC tablet Take 1 tablet by mouth once daily. esomeprazole (NEXIUM) 40 mg capsule Take 1 capsule by mouth once daily. tocilizumab (ACTEMRA) 400 mg/20 mL (20 mg/mL) soln Inject 20 mL intravenously once every month. Per Rheu multivitamins(MULTIPLE VITAMIN TAB) Take 1 tablet by mouth once daily. No current facility-administered medications on file prior to visit. Social History Social History Tobacco Use Smoking status: Former Current packs/day: 0.00 Average packs/day: 1 pack/day for 15.0 years (15.0 ttl pk-yrs) Types: Cigarettes Start date: 07/08/1974 Quit date: 07/08/1989 Years since quittin.4 Smokeless tobacco: Never Vaping Use Vaping status: Never Used Substance Use Topics Alcohol use: Yes Comment: whisky daily- 1-2 glasses per day Drug use: No Review of Symptoms REVIEW OF SYSTEMS GENERAL: No unintentional weight loss, malaise or fevers HEENT: Negative for frequent or significant headaches, No changes in hearing or vision, no nose bleeds or other nasal problems NECK: Negative for lumps, goiter, pain and significant neck swelling RESPIRATORY: Negative for cough, hemoptysis, wheezing, COPD, dyspnea or shortness of breath CARDIOVASCULAR: Negative for chest pain, leg swelling, hypertension, CHF or palpitations GI: No nausea, vomiting, or diarrhea, No heartburn or reflux symptoms, and no blood : No history of dysuria, frequency or blood MUSCULOSKELETAL: has some tightness in the back of the knee on the right. No pain or swelling. SKIN: Negative for lesions, rash, and itching PSYCH: Negative for sleep disturbance, mood disorder and recent psychosocial stressors. Doing well on sertraline HEMATOLOGY/LYMPHOLOGY: Negative for prolonged bleeding, bruising easily or swollen nodes ENDOCRINE: Negative for cold or heat intolerance, polyuria, polydipsia and goiter NEURO: No history of headaches, syncope, paralysis, seizures or tremors SEE HPI EXAM: BP 126/82 (BP Site: Left Arm, BP Position: Sitting, BP Cuff Size: Large Adult) Pulse 96 Resp 16 Ht 182.2 cm (5' 11.75) Wt 116 kg (255 lb 12.8 oz) BMI 34.93 kg/m Last 6 Encounter Wt Readings: Date: Wt: 12/14/2024 116 kg (255 lb 12.8 oz) 06/16/2024 117.9 kg (260 lb) 06/14/2024 120.2 kg (265 lb) 01/12/2024 113.1 kg (249 lb 5.4 oz) 06/15/2023 117 kg (258 lb) 05/13/2023 116.1 kg (256 lb) General Appearance: Well appearing, alert, in no acute distress, well-hydrated, well nourished. and Obese. Skin: Skin color, texture, turgor normal, no suspicious rashes or lesions. Head: Normocephalic, no masses, lesions, tenderness or abnormalities. Eyes: Anicteric sclera. Pupils are equally round and reactive to light. Extraocular movements are intact. . Ears: External ears, TM's normal, canals clear. Nose/Sinuses: Nares normal, septum midline, mucosa normal, no drainage or sinus tenderness. Oropharynx: Lips, mucosa, and tongue normal, teeth and gums normal, oropharynx normal. Neck: Supple, no adenopathy; thyroid symmetric, normal size, no bruits. Lungs: Lungs clear to auscultation. No wheezing, rhonchi, rales.. Heart: RRR without murmur, gallop, or rubs. No ectopy. Abdomen: Normal abdominal exam, Abdomen soft, non-tender. Bowel sounds normal. No masses, organomegaly. Extremities: No deformities, edema, skin discoloration, Good capillary refill. . Musculoskeletal: Spine range of motion normal. Muscular strength intact, No joint swelling, deformity, or tenderness. Peripheral Pulses: Normal. Neurologic: Gait normal. Reflexes normal and symmetric. Sensation to light touch and crainal nerves 2-12 intact.. Genitalia: Normal, Penis normal. No urethral discharge. Scrotum normal to palpation. No hernia.. Health Maintenance List Colorectal Cancer Screening due on 10/23/2023 RSV Vaccine(1 - Risk 60-74 years 1-dose series) due on 12/14/2025 Influenza Vaccine(1) due on 01/16/2025 Annual PCP Team Chronic Disease Visit due on 12/14/2025 Anxiety Screening due on 12/14/2025 Diabetes Screening due on 12/14/2027 DTaP,Tdap,Td Vaccine(2 - Td or Tdap) due on 11/09/2029 Lipid Screening due on 12/13/2029 Prostate Cancer Screening Discussion due on 12/14/2029 Hepatitis C Screening Completed Shingrix Vaccine Completed Pneumococcal Vaccine: 50+ Completed HIV Screening Discontinued Data reviewed Latest Ref Rng 04/02/2024 06/13/2024 12/13/2024 WBC 3.70 - 11.00 k/uL 3.54 (L) 3.57 (L) RBC 4.20 - 6.00 m/uL 4.81 4.96 Hemoglobin 13.0 - 17.0 g/dL 14.7 15.2 Hematocrit 39.0 - 51.0 % 42.0 44.2 MCV 80.0 - 100.0 fL 87.3 89.1 MCH 26.0 - 34.0 pg 30.6 30.6 MCHC 30.5 - 36.0 g/dL 35.0 34.4 RDW-CV 11.5 - 15.0 % 12.0 12.4 Platelet Count 150 - 400 k/uL 103 (L) 94 (L) MPV 9.0 - 12.7 fL 10.1 11.1 Neut% % 55.1 52.0 Abs Neut (ANC) 1.45 - 7.50 k/uL 1.95 1.86 Lymph% % 29.9 28.3 Abs Lymph 1.00 - 4.00 k/uL 1.06 1.01 Foard% % 11.6 13.2 Abs Foard <0.87 k/uL 0.41 0.47 Eosin% % 2.5 4.8 Abs Eosin <0.46 k/uL 0.09 0.17 Baso% % 0.6 1.1 Abs Baso <0.11 k/uL <0.03 0.04 Immature Gran % % 0.3 0.6 IMMATURE GRANS (ABS) <0.10 k/uL <0.03 <0.03 NRBC /100 WBC 0.0 0.0 Absolute nRBC <0.01 k/uL <0.01 <0.01 DTYPE Auto Auto Color Yellow Yellow Clarity Clear Clear Glucose, Urine Negative Negative Bilirubin, Urine Negative Negative Ketones, Urine Negative Negative Specific [place], Ur 1.005 - 1.030 1.020 Hemoglobin/Blood,Ur Negative Negative pH, Urine 5.0 - 8.0 5.5 Protein, Urine Negative Negative Urobilinogen 0.2-1.0 EU/dL 0.2 EU/dL Nitrites Negative Negative Leukest Negative 1+ ! WBC, Urine 0-5 /HPF 0-5 /HPF RBC, Urine 0-2 /HPF 0-2 /HPF Bacteria Negative /HPF Negative Epithelial Cells /HPF None Seen Hyaline Cast 0 /LPF 1-3 /LPF ! Protein, Total 6.3 - 8.0 g/dL 6.8 6.8 Albumin 3.9 - 4.9 g/dL 4.6 4.6 Calcium 8.5 - 10.2 mg/dL 9.8 Bilirubin, Total 0.2 - 1.3 mg/dL 0.8 1.1 Alkaline Phosphatase 38 - 113 U/L 64 57 AST 14 - 40 U/L 46 (H) 35 ALT 10 - 54 U/L 65 (H) 54 Glucose 74 - 99 mg/dL 96 BUN 9 - 24 mg/dL 21 Creatinine 0.73 - 1.22 mg/dL 0.75 Sodium 136 - 144 mmol/L 137 Potassium 3.7 - 5.1 mmol/L 3.9 Chloride 98 - 107 mmol/L 100 CO2 22 - 30 mmol/L 25 Anion Gap 8 - 15 mmol/L 12 eGFR >=60 mL/min/1.73m 101 Total Cholesterol, Nonfasting <200 mg/dL 145 211 (H) Triglycerides, Nonfasting <150 mg/dL 172 (H) 425 (H) HDL Cholesterol, Nonfasting >39 mg/dL 57 39 (L) LDL Cholesterol Calculated, Nonfasting <100 mg/dL 54 100 (H) Non HDL Cholesterol, Nonfasting <130 mg/dL 88 172 (H) VLDL Cholesterol, Nonfasting <30 mg/dL 34 (H) 71 (H) Total Chol/HDL Ratio, Nonfasting <5.10 mg/dL 2.54 5.41 (H) LDL/HDL Ratio, Nonfasting <2.54 mg/dL 0.95 2.56 (H) Bilirubin, Direct <0.3 mg/dL 0.3 (H) Vitamin B12 232 - 1,245 pg/mL 454 Magnesium 1.7 - 2.3 mg/dL 1.9 FIB-4 Calculation: 3.24 at 12/13/2024 7:36 AM Calculated from: SGOT/AST: 35 U/L at 12/13/2024 7:36 AM SGPT/ALT: 54 U/L at 12/13/2024 7:36 AM Platelets: 94 k/uL at 12/13/2024 7:36 AM Age: 64 years Legend: (L) Low (H) High ! Abnormal Assessment and Plan 1. Well adult exam (Z00.00) Comprehensive physical examination performed. No acute issues identified. - Follow-up in 6 months - pt to work on significant dietary changes to reduce fat intake and promote weight loss. 2. Essential hypertension (I10) Blood pressure well-controlled at 126/82 mmHg. - cont current Tx. 3. Dyslipidemia (E78.5) Elevated triglycerides at 425 mg/dL, increased from 172 mg/dL previously. HDL decreased to 39 mg/dL from 57 mg/dL. LDL remains below 130 mg/dL. - Advised dietary modifications, including switching from Crisco to extra virgin olive oil. - Increase physical activity to improve HDL levels and promote weight loss. 4. Gastroesophageal reflux disease without esophagitis (K21.9) GERD symptoms well-controlled with Nexium. 5. Current mild episode of major depressive disorder without prior episode (F32.0) Condition stable on sertraline. 6. Rheumatoid arthritis involving multiple sites with positive rheumatoid factor (HCC) (M05.79) Patient reports knee pain and tightness, particularly in the posterior aspect, exacerbated by climbing. No joint swelling observed. - follows with Rheumatology. 7. Thrombocytopenia (D69.6) Platelet count stable. - will monitor 8. Leukopenia, unspecified type (D72.819) WBC count slightly low but improved compared to last year. - sadie monitor 9. RAMIREZ (nonalcoholic steatohepatitis) (K75.81) FIB-4 score increased to 3.24 from 2.94 last year. Previous ultrasound showed minimal to no hepatic fibrosis. - Ordered repeat liver ultrasound to assess for changes in hepatic fibrosis. - Emphasized importance of dietary modifications and weight loss to manage RAMIREZ. 10. Screening for colon cancer (Z12.11) Colonoscopy overdue by over a year. - Recommended scheduling a colonoscopy. - consult general surgery 11. Family history of colon cancer (Z80.0) Family history of colon cancer noted. - due for repeat colonoscopy - consult general surgery. 12. Encounter for screening examination for other mental health and behavioral disorders (Z13.39) No new mental health or behavioral issues identified during the examination. 13. Medication management (Z79.899) Medications reviewed; patient is compliant with current regimen. F/u 6 months routine check Lipid, LFT's, B12 and Mg prior Sylvester Damian MD I spent a total of 40 minutes on the date of the service which included preparing to see the patient, [id number] patient care, completing clinical documentation, performing a medically appropriate examination, counseling and educating the patient/family/caregiver and ordering medications, tests, or procedures. Recording using [employer] software for draft documentation of the visit was discussed with the patient/authorized credit and collections representative; all questions welcomed and answered. Patient/authorized credit and collections representative agreed to proceed SENSITIVE EXAMINATION CONSENT: The sensitive examination was discussed with the Patient or Patient's Authorized Planer Feeder. As applicable, any other physician, advance practice provider, medical student, or other health professional student that will be observing or involved in the sensitive examination for educational or training purposes was discussed with the Patient or Authorized Planer Feeder. The Patient or Authorized Planer Feeder has agreed to proceed with the sensitive examination. documented in this encounter [facility] 11-01-2024 Telephone encounter Note The following approved medication requests have been transmitted electronically. Requested Prescriptions Signed Prescriptions Disp Refills atorvastatin (LIPITOR) 40 mg tablet 90 tablet 1 Sig: Take 1 tablet by mouth daily at bedtime. For cholesterol. Authorizing Provider: SYLVESTER DAMIAN hydroCHLOROthiazide 25 mg tablet 90 tablet 1 Sig: Take 1 tablet by mouth once daily. Authorizing Provider: SYLVESTER DAMIAN MD [facility] 11-01-2024 Miscellaneous Notes The following approved medication requests have been transmitted electronically. Requested Prescriptions Signed Prescriptions Disp Refills atorvastatin (LIPITOR) 40 mg tablet 90 tablet 1 Sig: Take 1 tablet by mouth daily at bedtime. For cholesterol. Authorizing Provider: SYLVESTER DAMIAN hydroCHLOROthiazide 25 mg tablet 90 tablet 1 Sig: Take 1 tablet by mouth once daily. Authorizing Provider: SYLVESTER DAMIAN MD Prescription Refill Information The patient has been identified by name and date of : Yes Caregiver verified no other encounters exist for this prescription request: Yes Caregiver confirmed with patient/requestor that no other refills are due, in the near future, with this provider at this time: Yes The last office visit in the department: 05/2024 Does the patient have a future office visit with this provider/department: Yes Requested Prescriptions Pending Prescriptions Disp Refills atorvastatin (LIPITOR) 40 mg tablet 90 tablet 1 Sig: Take 1 tablet by mouth daily at bedtime. For cholesterol. hydroCHLOROthiazide 25 mg tablet 90 tablet 1 Sig: Take 1 tablet by mouth once daily. Zulma Sue MA November 01, 2024 3:14 PM documented in this encounter [facility] 11-01-2024 Telephone encounter Note Prescription Refill Information The patient has been identified by name and date of : Yes Caregiver verified no other encounters exist for this prescription request: Yes Caregiver confirmed with patient/requestor that no other refills are due, in the near future, with this provider at this time: Yes The last office visit in the department: 05/2024 Does the patient have a future office visit with this provider/department: Yes Requested Prescriptions Pending Prescriptions Disp Refills atorvastatin (LIPITOR) 40 mg tablet 90 tablet 1 Sig: Take 1 tablet by mouth daily at bedtime. For cholesterol. hydroCHLOROthiazide 25 mg tablet 90 tablet 1 Sig: Take 1 tablet by mouth once daily. Zulma Sue MA November 01, 2024 3:14 PM [facility] 09-14-2024 Telephone encounter Note Phoned patient and notified of message below regarding results and appt per provider. Patient acknowledged understanding of instructions and has no further questions. Pt scheduled 04/10/25 Haydee Munoz MA [facility] 09-14-2024 Telephone encounter Note ----- Message from Kelton García MD sent at 09/14/2024 11:04 AM EDT ----- Please call patient. Biopsies show no cancer. Have him see me in 6 months with a PSA prior if no problems [facility] 09-14-2024 Miscellaneous Notes Phoned patient and notified of message below regarding results and appt per provider. Patient acknowledged understanding of instructions and has no further questions. Pt scheduled 04/10/25 Haydee Munoz MA ----- Message from Kelton García MD sent at 09/14/2024 11:04 AM EDT ----- Please call patient. Biopsies show no cancer. Have him see me in 6 months with a PSA prior if no problems documented in this encounter [facility] 09-12-2024 Note HNO ID: [id number] Author: KELTON GARCÍA MD Service: ? Author Type: Physician Type: Procedures Filed: 09/12/2024 09:56 Note Text: PROSTATE BIOPSY WITH ULTRASOUND GUIDANCE Gray Fernandez a 64 year old. History and Physical reviewed and is unchanged. . Informed Consent Discussed: Yes. Risks, benefits, alternatives and personnel discussed with patient who consents to proceed. Discussed [facility]. Is the patient having any pain? No 0 on a scale of 0 to 10 Antibiotics given pre-operatively: Yes UNIVERSAL PROTOCOL / SAFETY CHECKLIST Procedure to be Performed: Transrectal ultrasound-guided prostate biopsy Sign In: A Moment of CARE was completed. Appropriate PPE (Personal Protective Equipment) worn by all providers involved with the procedure. Special equipment not required. Patient/Surrogate Stated/Verified: Patient name, Date of , Relevant allergies, and The intended procedure Time Out: Relevant labs, photos, and/or imaging studies have been reviewed. Intended patient and procedure match the source document(s) (e.g. consent, HANDP, associated studies [imaging, pathology]) match the intended patient and procedure. Consent obtained and matches the intended procedure. Yes. Correct side/site is not applicable. Medications required for this procedure are verified. Fire risk assessed and is not applicable. Implants: are not applicable. Sign Out: Specimens are all correctly labeled and sent. All instruments, equipment, possible retained foreign bodies are accounted for. Yes. The post-procedure plan of care has been communicated to the patient or surrogate. Fire Safety Check List Reviewed: Yes PSA (ng/mL) Date Value 06/14/2024 7.21 03/28/2021 5.3 PSA. (ng/mL) Date Value 08/19/2021 4.9 PALPABLE NODULE: No Prostate biopsies taken from the site below using ultrasound guidance 1.) RIGHT BASE: 2 2.) RIGHT MID: 2 3.) RIGHT APEX: 2 4.) LEFT BASE: 2 5.) LEFT MID: 2 6.) LEFT APEX: 2 ALLERGIES Allergen Reactions Leflunomide Other: See Comments Methotrexate Other: See Comments Elevated liver enzymes MEDICATIONS: 10 ml 1% Plain Xylocaine riccardo prostatic nerve block given: Yes PROSTATE ULTRASOUND The prostate sonogram was obtained via transrectal approach. The gland is severely enlarged, measuring 175cc. There is a homogeneous echo pattern throughout the prostate gland. Echogenic foci within the gland consistant with clacifications were noted. There is no focal lesion within the pereferal zone of the prostate gland. Patient not really sexually active, prostate markedly enlarged, call patient with result but we will also make a follow-up appointment in a few weeks to discuss long-term BPH plan Patient nauseous after procedure, was observed Kelton García MD Please note: This note has been produced using speech recognition software and may contain errors related to that system including grammar, punctuation, spelling, gender and words and phrases that may be inappropriate. [facility] 09-07-2024 Telephone encounter Note Prescription Refill Information The patient has been identified by name and date of : Yes Caregiver verified no other encounters exist for this prescription request: Yes Caregiver confirmed with patient/requestor that no other refills are due, in the near future, with this provider at this time: Yes The last office visit in the department: 05/2024 Does the patient have a future office visit with this provider/department: Yes Requested Prescriptions Pending Prescriptions Disp Refills hydroCHLOROthiazide 25 mg tablet 90 tablet 1 Sig: Take 1 tablet by mouth once daily. lisinopril (ZESTRIL) 40 mg tablet 90 tablet 1 Sig: Take 1 tablet by mouth once daily. Zulma Sue MA September 07, 2024 11:47 AM [facility] 09-07-2024 Miscellaneous Notes Prescription Refill Information The patient has been identified by name and date of : Yes Caregiver verified no other encounters exist for this prescription request: Yes Caregiver confirmed with patient/requestor that no other refills are due, in the near future, with this provider at this time: Yes The last office visit in the department: 05/2024 Does the patient have a future office visit with this provider/department: Yes Requested Prescriptions Pending Prescriptions Disp Refills hydroCHLOROthiazide 25 mg tablet 90 tablet 1 Sig: Take 1 tablet by mouth once daily. lisinopril (ZESTRIL) 40 mg tablet 90 tablet 1 Sig: Take 1 tablet by mouth once daily. Zulma Sue MA September 07, 2024 11:47 AM documented in this encounter [facility] 08-16-2024 Telephone encounter Note Pt confirmed prostate bx with Dr. García in [place] 09/12/24 @ 10:30 am.He will check his doctor regarding aspirin. Instructions in mychart. No allergies & pharm [facility] [place]. Ref by Eduarda Lakhani. Brittany [facility] 08-16-2024 Miscellaneous Notes Pt confirmed prostate bx with Dr. García in [place] 09/12/24 @ 10:30 am.He will check his doctor regarding aspirin. Instructions in mychart. No allergies & pharm [facility] [place]. Ref by Eduarda Soto documented in this encounter [facility] 08-15-2024 Telephone encounter Note Patient with elevated PSA and abnormal IsoPSA of 12 % Needs a prostate biopsy, orders placed current Blood thinner ASA 81 mg Patient # JENNA Oswald MT, PA-C [facility] 08-15-2024 Miscellaneous Notes Patient with elevated PSA and abnormal IsoPSA of 12 % Needs a prostate biopsy, orders placed current Blood thinner ASA 81 mg Patient # JENNA Oswald MT, PA-C Called patient. Verified name and date of . Patient informed of results/orders and agreeable to prostate biopsy. Please call patient to schedule. Kat Rosen LPN Please notify patient that his IsoPSA came back at 12 % and a PSA of 8.2 The IsoPSA being greater than 6.1% indicates there is a risk of high grade prostate cancer in the next 10 years So a prostate biopsy is recommended. Orders have been placed for biopsy if he wished to have biopsy I will arrange procedure with staff Urologist If he wishes to discuss results I am happy to discuss at visit. JENNA Oswald MT, PA-C documented in this encounter [facility] 08-15-2024 Telephone encounter Note Called patient. Verified name and date of . Patient informed of results/orders and agreeable to prostate biopsy. Please call patient to schedule. Kat Rosen LPN [facility] 08-12-2024 Telephone encounter Note Please notify patient that his IsoPSA came back at 12 % and a PSA of 8.2 The IsoPSA being greater than 6.1% indicates there is a risk of high grade prostate cancer in the next 10 years So a prostate biopsy is recommended. Orders have been placed for biopsy if he wished to have biopsy I will arrange procedure with staff Urologist If he wishes to discuss results I am happy to discuss at visit. JENNA Oswald, GLENDY, DEMETRI [facility] 07-26-2024 Telephone encounter Note calls to report they received a letter from [employer] pt has to get 90 day rx for sertraline 50 mg. Prescription Refill Information The patient has been identified by name and date of : Yes Caregiver verified no other encounters exist for this prescription request: Yes Caregiver confirmed with patient/requestor that no other refills are due, in the near future, with this provider at this time: Yes The last office visit in the department: 06/16/24 Does the patient have a future office visit with this provider/department: Yes 12/14/24 Requested Prescriptions Pending Prescriptions Disp Refills sertraline (ZOLOFT) 50 mg tablet 90 tablet 1 Sig: Take one tablet daily Cassy Morgan LPN July 26, 2024 12:28 PM [facility] 07-26-2024 Miscellaneous Notes calls to report they received a letter from [employer] pt has to get 90 day rx for sertraline 50 mg. Prescription Refill Information The patient has been identified by name and date of : Yes Caregiver verified no other encounters exist for this prescription request: Yes Caregiver confirmed with patient/requestor that no other refills are due, in the near future, with this provider at this time: Yes The last office visit in the department: 06/16/24 Does the patient have a future office visit with this provider/department: Yes 12/14/24 Requested Prescriptions Pending Prescriptions Disp Refills sertraline (ZOLOFT) 50 mg tablet 90 tablet 1 Sig: Take one tablet daily Cassy Morgan LPN July 26, 2024 12:28 PM documented in this encounter [facility] 06-23-2024 Telephone encounter Note Called patient. Verified name and date of . Informed of results/orders. Verbalizes understanding. Kat Rosen LPN [facility] 06-23-2024 Miscellaneous Notes Called patient. Verified name and date of . Informed of results/orders. Verbalizes understanding. Kat Rosen LPN Given PSA at 7.21, recommending an IsoPSA to determine if prostate biopsy is indicated. Orders placed. JENNA Oswald MT, PA-C documented in this encounter [facility] 06-22-2024 Telephone encounter Note Given PSA at 7.21, recommending an IsoPSA to determine if prostate biopsy is indicated. Orders placed. JENNA Oswald MT, PA-C [facility] 06-16-2024 Instructions Chanelle Talbot PA-C - 06/16/2024 7:26 AM EST Please schedule with surgery department for your colonoscopy. documented in this encounter [facility] 06-16-2024 Note HNO ID: [id number] Author: CHANELLE TALBOT PA-C Service: ? Author Type: Physician Burrito Maker Type: Progress Notes Filed: 06/16/2024 08:14 Note Text: Chief Complaint Patient presents with: 6 Month Exam HPI Gray Roman Fernandez is a 63 year old male who presents here today for Chronic Medical Conditions.. Patient with hx of HTN, RAMIREZ, RA, thrombocytopenia, hyperlipidemia, Depression, elevated PSA and those as below. Patient denies concerns today. No hospitalization or ER visits. Past medical history, appointments, medications, allergies reviewed. Previous Medical History PAST MEDICAL HISTORY Diagnosis Date Abdominal aortic aneurysm (AAA) without rupture (HCC) 11/10/2019 CT 06/2019: proximal abdominal aorta, 3.4 x 3.8 cm, CT 11/2020 no aneurysm [place] (actinic keratosis) 12/03/2022 Right side face near ear Tx 11/2022 Bunion of great toe of right foot 11/10/2019 Current mild episode of major depressive disorder without prior episode (HCC) 12/03/2022 Cyst of spleen 12/14/2023 CT 2019 and stable over 2 yrs. Dyslipidemia 07/25/2019 Ectatic thoracic aorta (HCC) 11/09/2020 CTA 06/2019, CTA: 11/2020 was normal. ED (erectile dysfunction) of organic origin 12/03/2022 Elevated PSA 11/12/2020 Seeing [facility] Lakhani Essential hypertension 07/22/2019 Ex-smoker 07/22/2019 Started age 16 up 1 PPD and quit at age 30. Family history of colon cancer 11/10/2019 Sister Family history of pancreatic cancer 11/10/2019 Mother Gastroesophageal reflux disease without esophagitis 07/07/2006 History of COVID-19 05/22/202005/2020 Leukocytosis 12/03/2022 RAMIREZ (nonalcoholic steatohepatitis) 12/17/2021 Renal cyst, right 12/14/2023 CT 2019 and stable over 2 yrs Rheumatoid arthritis involving multiple sites with positive rheumatoid factor (HCC) 07/22/2019 Seeing [facility]: Dr. Quispe Thrombocytopenia (HCC) 12/03/2022 Stable since 12/2020 around 130 Well adult exam 11/10/2019 Last done: 11/10/2019 Previous Surgical History PAST SURGICAL HISTORY Procedure Laterality Date COLONOSCOPY 2012 COLONOSCOPY GEN ANES 10/22/2020 Repeat in 3 years due to poor bowel preparation KNEE ARTHROSCOPY REPAIR RECURR INGUIN ZACHARIAH,REDUCIBL Left 12/25/2021 Family History FAMILY HISTORY Problem Relation Age of Onset Pancreatic Cancer Mother Heart Father valve replaced Colon Cancer Sister Hyperlipidemia Brother Alzheimer's Disease No Family History Breast Cancer No Family History Ovarian cancer No Family History Prostate Cancer No Family History Coronary Artery Disease No Family History Diabetes No Family History Hypertension No Family History Kidney Disease No Family History Seizures No Family History Stroke No Family History Thyroid No Family History Patient Allergies ALLERGIES Allergen Reactions Leflunomide Other: See Comments Methotrexate Other: See Comments Elevated liver enzymes Current Medications Current Outpatient Medications on File Prior to Visit Medication Sig alfuzosin SR (UROXATRAL) 10 mg 24 hr tablet TAKE 1 TABLET BY MOUTH EVERYDAY AT BEDTIME Tadalafil (CIALIS) 20 mg tablet Take 1 tablet by mouth once daily. As needed lisinopril (ZESTRIL) 40 mg tablet Take 1 tablet by mouth once daily. atorvastatin (LIPITOR) 40 mg tablet Take 1 tablet by mouth daily at bedtime. For cholesterol. sertraline (ZOLOFT) 50 mg tablet 1/2 a tablet by mouth once a day for 14 days then go to one tablet daily hydroCHLOROthiazide 25 mg tablet Take 1 tablet by mouth once daily. meclizine (ANTIVERT) 25 mg tab Take 1 tablet by mouth two times a day as needed. cyclobenzaprine (FLEXERIL) 10 mg tablet Take 1 tablet by mouth three times daily as needed for muscle spasm. aspirin, enteric coated (ASPIRIN, ENTERIC COATED) 81 mg EC tablet Take 1 tablet by mouth once daily. esomeprazole (NEXIUM) 40 mg capsule Take 1 capsule by mouth once daily. tocilizumab (ACTEMRA) 400 mg/20 mL (20 mg/mL) soln Inject 20 mL intravenously once every month. Per Rheu multivitamins(MULTIPLE VITAMIN TAB) Take 1 tablet by mouth once daily. No current facility-administered medications on file prior to visit. Social History Social History Tobacco Use Smoking status: Former Current packs/day: 0.00 Average packs/day: 1 pack/day for 15.0 years (15.0 ttl pk-yrs) Types: Cigarettes Start date: 07/08/1974 Quit date: 07/08/1989 Years since quittin.9 Smokeless tobacco: Never Vaping Use Vaping status: Never Used Substance Use Topics Alcohol use: Yes Comment: whisky daily- 1-2 glasses per day Drug use: No Review of Symptoms REVIEW OF SYSTEMS GENERAL: No weight loss, malaise or fevers NECK: Negative for lumps, goiter, pain and significant neck swelling RESPIRATORY: Negative for cough, hemoptysis, wheezing, COPD, dyspnea or shortness of breath CARDIOVASCULAR: Negative for chest pain, leg swelling, CHF or palpitations NEURO: No history of headaches, syncop (more content not included)... [facility] 06-16-2024 History of Present illness Narrative Chief Complaint Patient presents with: 6 Month Exam HPI Gray Fernandez is a 63 year old male who presents here today for Chronic Medical Conditions.. Patient with hx of HTN, RAMIREZ, RA, thrombocytopenia, hyperlipidemia, Depression, elevated PSA and those as below. Patient denies concerns today. No hospitalization or ER visits. Past medical history, appointments, medications, allergies reviewed. Previous Medical History PAST MEDICAL HISTORY Diagnosis Date Abdominal aortic aneurysm (AAA) without rupture (HCC) 11/10/2019 CT 06/2019: proximal abdominal aorta, 3.4 x 3.8 cm, CT 11/2020 no aneurysm [place] (actinic keratosis) 12/03/2022 Right side face near ear Tx 11/2022 Bunion of great toe of right foot 11/10/2019 Current mild episode of major depressive disorder without prior episode (HCC) 12/03/2022 Cyst of spleen 12/14/2023 CT 2019 and stable over 2 yrs. Dyslipidemia 07/25/2019 Ectatic thoracic aorta (HCC) 11/09/2020 CTA 06/2019, CTA: 11/2020 was normal. ED (erectile dysfunction) of organic origin 12/03/2022 Elevated PSA 11/12/2020 Seeing [facility] Essential hypertension 07/22/2019 Ex-smoker 07/22/2019 Started age 16 up 1 PPD and quit at age 30. Family history of colon cancer 11/10/2019 Sister Family history of pancreatic cancer 11/10/2019 Mother Gastroesophageal reflux disease without esophagitis 07/07/2006 History of COVID-19 05/22/202005/2020 Leukocytosis 12/03/2022 RAMIREZ (nonalcoholic steatohepatitis) 12/17/2021 Renal cyst, right 12/14/2023 CT 2019 and stable over 2 yrs Rheumatoid arthritis involving multiple sites with positive rheumatoid factor (HCC) 07/22/2019 Seeing [facility]: Dr. Quispe Thrombocytopenia (HCC) 12/03/2022 Stable since 12/2020 around 130 Well adult exam 11/10/2019 Last done: 11/10/2019 Previous Surgical History PAST SURGICAL HISTORY Procedure Laterality Date COLONOSCOPY 2012 COLONOSCOPY GEN ANES 10/22/2020 Repeat in 3 years due to poor bowel preparation KNEE ARTHROSCOPY REPAIR RECURR INGUIN ZACHARIAH,REDUCIBL Left 12/25/2021 Family History FAMILY HISTORY Problem Relation Age of Onset Pancreatic Cancer Mother Heart Father valve replaced Colon Cancer Sister Hyperlipidemia Brother Alzheimer's Disease No Family History Breast Cancer No Family History Ovarian cancer No Family History Prostate Cancer No Family History Coronary Artery Disease No Family History Diabetes No Family History Hypertension No Family History Kidney Disease No Family History Seizures No Family History Stroke No Family History Thyroid No Family History Patient Allergies ALLERGIES Allergen Reactions Leflunomide Other: See Comments Methotrexate Other: See Comments Elevated liver enzymes Current Medications Current Outpatient Medications on File Prior to Visit Medication Sig alfuzosin SR (UROXATRAL) 10 mg 24 hr tablet TAKE 1 TABLET BY MOUTH EVERYDAY AT BEDTIME Tadalafil (CIALIS) 20 mg tablet Take 1 tablet by mouth once daily. As needed lisinopril (ZESTRIL) 40 mg tablet Take 1 tablet by mouth once daily. atorvastatin (LIPITOR) 40 mg tablet Take 1 tablet by mouth daily at bedtime. For cholesterol. sertraline (ZOLOFT) 50 mg tablet 1/2 a tablet by mouth once a day for 14 days then go to one tablet daily hydroCHLOROthiazide 25 mg tablet Take 1 tablet by mouth once daily. meclizine (ANTIVERT) 25 mg tab Take 1 tablet by mouth two times a day as needed. cyclobenzaprine (FLEXERIL) 10 mg tablet Take 1 tablet by mouth three times daily as needed for muscle spasm. aspirin, enteric coated (ASPIRIN, ENTERIC COATED) 81 mg EC tablet Take 1 tablet by mouth once daily. esomeprazole (NEXIUM) 40 mg capsule Take 1 capsule by mouth once daily. tocilizumab (ACTEMRA) 400 mg/20 mL (20 mg/mL) soln Inject 20 mL intravenously once every month. Per Rheu multivitamins(MULTIPLE VITAMIN TAB) Take 1 tablet by mouth once daily. No current facility-administered medications on file prior to visit. Social History Social History Tobacco Use Smoking status: Former Current packs/day: 0.00 Average packs/day: 1 pack/day for 15.0 years (15.0 ttl pk-yrs) Types: Cigarettes Start date: 07/08/1974 Quit date: 07/08/1989 Years since quittin.9 Smokeless tobacco: Never Vaping Use Vaping status: Never Used Substance Use Topics Alcohol use: Yes Comment: whisky daily- 1-2 glasses per day Drug use: No Review of Symptoms REVIEW OF SYSTEMS GENERAL: No weight loss, malaise or fevers NECK: Negative for lumps, goiter, pain and significant neck swelling RESPIRATORY: Negative for cough, hemoptysis, wheezing, COPD, dyspnea or shortness of breath CARDIOVASCULAR: Negative for chest pain, leg swelling, CHF or palpitations NEURO: No history of headaches, syncope, paralysis, seizures or tremors EXAM: BP 118/78 (BP Site: Left Arm, BP Position: Sitting, BP Cuff Size: Large Adult) Pulse 73 Temp 36.1 C (97 F) Resp 18 Wt 117.9 kg (260 lb) SpO2 93% BMI 35.60 kg/m Last 3 Encounter Wt Readings: Date: Wt: 06/16/2024 117.9 kg (260 lb) 06/14/2024 120.2 kg (265 lb) 01/12/2024 113.1 kg (249 lb 5.4 oz) General Appearance: Well appearing, alert, in no acute distress, well-hydrated, well nourished.. Neck: Supple, no adenopathy; thyroid symmetric, normal size, no bruits. Lungs: Lungs clear to auscultation. No wheezing, rhonchi, rales.. Heart: RRR without murmur, gallop, or rubs. No ectopy. Extremities: No deformities, edema, skin discoloration, clubbing or cyanosis. Good capillary refill. . Peripheral Pulses: Normal. Health Maintenance List Colorectal Cancer Screening due on 10/23/2023 RSV Vaccine(1 - Risk 60-74 years 1-dose series) due on 12/13/2024 Anxiety Screening due on 12/13/2024 Annual PCP Team Chronic Disease Visit due on 06/16/2025 BP Controlled (<130/80) due on 06/16/2025 Diabetes Screening due on 12/07/2026 Lipid Screening due on 06/13/2029 Prostate Cancer Screening Discussion due on 06/14/2029 DTaP,Tdap,Td Vaccine(2 - Td or Tdap) due on 11/09/2029 Influenza Vaccine Completed Hepatitis C Screening Completed Shingrix Vaccine Completed Pneumococcal Vaccine: 50+ Completed HIV Screening Discontinued Covid-19 Vaccine Discontinued Data reviewed Latest Ref Rng 06/13/2024 06/14/2024 WBC 3.70 - 11.00 k/uL 3.39 (L) RBC 4.20 - 6.00 m/uL 4.64 Hemoglobin 13.0 - 17.0 g/dL 14.2 Hematocrit 39.0 - 51.0 % 40.9 MCV 80.0 - 100.0 fL 88.1 MCH 26.0 - 34.0 pg 30.6 MCHC 30.5 - 36.0 g/dL 34.7 RDW-CV 11.5 - 15.0 % 11.9 Platelet Count 150 - 400 k/uL 113 (L) MPV 9.0 - 12.7 fL 10.4 Neut% % 54.5 Abs Neut (ANC) 1.45 - 7.50 k/uL 1.85 Lymph% % 27.1 Abs Lymph 1.00 - 4.00 k/uL 0.92 (L) Foard% % 14.2 Abs Foard <0.87 k/uL 0.48 Eosin% % 2.7 Abs Eosin <0.46 k/uL 0.09 Baso% % 0.9 Abs Baso <0.11 k/uL 0.03 Immature Gran % % 0.6 IMMATURE GRANS (ABS) <0.10 k/uL <0.03 NRBC /100 WBC 0.0 Absolute nRBC <0.01 k/uL <0.01 DTYPE Auto Total Cholesterol, Nonfasting <200 mg/dL 145 Triglycerides, Nonfasting <150 mg/dL 172 (H) HDL Cholesterol, Nonfasting >39 mg/dL 57 LDL Cholesterol, Nonfasting <100 mg/dL 54 Non HDL Cholesterol, Nonfasting <130 mg/dL 88 VLDL Cholesterol, Nonfasting <30 mg/dL 34 (H) Total Chol/HDL Ratio, Nonfasting <5.10 mg/dL 2.54 LDL/HDL Ratio, Nonfasting <2.54 mg/dL 0.95 Albumin 3.9 - 4.9 g/dL 4.6 Bilirubin, Total 0.2 - 1.3 mg/dL 0.8 Bilirubin, Direct <0.3 mg/dL 0.3 (H) Alkaline Phosphatase 38 - 113 U/L 64 AST 14 - 40 U/L 46 (H) ALT 10 - 54 U/L 65 (H) Protein, Total 6.3 - 8.0 g/dL 6.8 Vitamin B12 232 - 1,245 pg/mL 454 Magnesium 1.7 - 2.3 mg/dL 1.9 Legend: (H) High (L) Low ASSESSMENT/PLAN: 1. Essential hypertension - ICD9: 401.9, ICD10: I10 (primary diagnosis) - Controlled - Continue current medications - Recommend home blood pressure monitoring, to bring results to next visit - Encouraged sodium restriction, DASH or Mediterranean diet - Recommend regular aerobic exercise - LIPID PANEL, NONFASTING - COMPLETE BLOOD COUNT AND DIFFERENTIAL - COMPREHENSIVE METABOLIC PANEL - URINALYSIS, WITH MICROSCOPIC 2. Dyslipidemia - ICD9: 272.4, ICD10: E78.5 - Improving control - Continue current medications - Counseled on healthy diet and regular exercise - LIPID PANEL, NONFASTING 3. RAMIREZ (nonalcoholic steatohepatitis) - ICD9: 571.8, ICD10: K75.81 - COMPLETE BLOOD COUNT AND DIFFERENTIAL - COMPREHENSIVE METABOLIC PANEL 4. Gastroesophageal reflux disease without esophagitis - ICD9: 530.81, ICD10: K21.9 - Refer for GI consult - COMPREHENSIVE METABOLIC PANEL 5. Rheumatoid arthritis involving multiple sites with positive rheumatoid factor (HCC) - ICD9: 714.0, ICD10: M05.79 - COMPLETE BLOOD COUNT AND DIFFERENTIAL 6. Encounter for screening for diabetes mellitus - ICD9: V77.1, ICD10: Z13.1 - HEMOGLOBIN A1C Chanelle Talbot PA-C documented in this encounter [facility] 06-14-2024 Instructions Jean Carlos Lakhani PA-C - 06/14/2024 2:56 PM EST > PSA today at lab > 1 year Appt w/ B. JENNA Lakhani, DEMETRI PIKE with PSA prior > Refilled Uroxatral 06/08/2024 > Cialis 20 mg refilled by PCP in 04/2024 documented in this encounter [facility] 06-14-2024 Note HNO ID: [id number] Author: JEAN CARLOS LAKHANI PA-C Service: ? Author Type: Physician Burrito Maker Type: Progress Notes Filed: 06/14/2024 15:00 Note Text: [facility] EST PATIENT CLINIC NOTE (M) Some elements copied from his previous note, which have been updated where appropriate, and all reflect current medical decision making from date of this visit. SERVICE DATE: June 14, 2024 NAME: Gray Fernandez GENDER: male CHIEF COMPLAINT: Annual Follow-up HISTORY OF PRESENT ILLNESS: Gray Fernandez is a 63 year old male patient here following up for PSA, refills and annual Prostate Visit The patient reports no new LUTS and UA was negative with PSA last drawn 2021 and will up[date today at lab Orders placed Refills on Uroxatral given 06/08/2024 > PSA 5.13 - 2021 > PVR - 2 ml LUTS: No New LUTS Other symptoms: ED - yes Previous ED medications: yes Cialis 20 mg LABS: PSA (ng/mL) Date Value 12/24/2021 5.13 09/13/2021 12.25 03/28/2021 5.3 11/09/2020 7.50 04/07/2019 3.5 PSA. (ng/mL) Date Value 08/19/2021 4.9 Creatinine Date Value Ref Range Status 12/08/2023 0.73 0.73 - 1.22 mg/dL Final 11/25/2022 0.73 0.73 - 1.22 mg/dL Final 12/05/2021 0.70 (L) 0.73 - 1.22 mg/dL Final No results found for: TESTOST Hematocrit (%) Date Value 04/02/2024 42.0 01/12/2024 43.9 12/08/2023 43.6 07/08/2019 44.4 HCT (%) Date Value 04/16/2021 41.5 04/07/2019 47.8 01/06/2019 47.4 PSA (ng/mL) Date Value 12/24/2021 5.13 09/13/2021 12.25 03/28/2021 5.3 11/09/2020 7.50 04/07/2019 3.5 PSA. (ng/mL) Date Value 08/19/2021 4.9 MEDICATIONS: alfuzosin SR (UROXATRAL) 10 mg 24 hr tablet TAKE 1 TABLET BY MOUTH EVERYDAY AT BEDTIME Tadalafil (CIALIS) 20 mg tablet Take 1 tablet by mouth once daily. As needed lisinopril (ZESTRIL) 40 mg tablet Take 1 tablet by mouth once daily. atorvastatin (LIPITOR) 40 mg tablet Take 1 tablet by mouth daily at bedtime. For cholesterol. sertraline (ZOLOFT) 50 mg tablet 1/2 a tablet by mouth once a day for 14 days then go to one tablet daily hydroCHLOROthiazide 25 mg tablet Take 1 tablet by mouth once daily. meclizine (ANTIVERT) 25 mg tab Take 1 tablet by mouth two times a day as needed. cyclobenzaprine (FLEXERIL) 10 mg tablet Take 1 tablet by mouth three times daily as needed for muscle spasm. aspirin, enteric coated (ASPIRIN, ENTERIC COATED) 81 mg EC tablet Take 1 tablet by mouth once daily. esomeprazole (NEXIUM) 40 mg capsule Take 1 capsule by mouth once daily. tocilizumab (ACTEMRA) 400 mg/20 mL (20 mg/mL) soln Inject 20 mL intravenously once every month. Per Rheu multivitamins(MULTIPLE VITAMIN TAB) Take 1 tablet by mouth once daily. PAST MEDICAL HISTORY: PAST MEDICAL HISTORY Diagnosis Date Abdominal aortic aneurysm (AAA) without rupture (HCC) 11/10/2019 CT 06/2019: proximal abdominal aorta, 3.4 x 3.8 cm, CT 11/2020 no aneurysm AK (actinic keratosis) 12/03/2022 Right side face near ear Tx 11/2022 Bunion of great toe of right foot 11/10/2019 Current mild episode of major depressive disorder without prior episode (HCC) 12/03/2022 Cyst of spleen 12/14/2023 CT 2019 and stable over 2 yrs. Dyslipidemia 07/25/2019 Ectatic thoracic aorta (HCC) 11/09/2020 CTA 06/2019, CTA: 11/2020 was normal. ED (erectile dysfunction) of organic origin 12/03/2022 Elevated PSA 11/12/2020 Seeing Jean Carlos Lakhani Essential hypertension 07/22/2019 Ex-smoker 07/22/2019 Started age 16 up 1 PPD and quit at age 30. Family history of colon cancer 11/10/2019 Sister Family history of pancreatic cancer 11/10/2019 Mother Gastroesophageal reflux disease without esophagitis 07/07/2006 History of COVID-19 05/22/202005/2020 Leukocytosis 12/03/2022 RAMIREZ (nonalcoholic steatohepatitis) 12/17/2021 Renal cyst, right 12/14/2023 CT 2019 and stable over 2 yrs Rheumatoid arthritis involving multiple sites with positive rheumatoid factor (HCC) 07/22/2019 Seeing [facility]: Dr. Quispe Thrombocytopenia (HCC) 12/03/2022 Stable since 12/2020 around 130 Well adult exam 11/10/2019 Last done: 11/10/2019 REVIEW OF SYSTEMS: GENERAL: No fever, chills, weight loss, or fatigue. PHYSICAL EXAMINATION: Blood pressure 140/78, pulse 81, weight 120.2 kg (265 lb). GENERAL: WNL nutrition, no deformities, healthy appearing PROBLEM LIST REVIEW: Yes LABS: Results for orders placed or performed in visit on 06/14/24 UA DIP, URINE (POC) Result Value Ref Range GLUCOSE UA (POCT) Negative Negative mg/dL BILIRUBIN UA (POCT) Negative Negative KETONE UA (POCT) Negative Negative mg/dL SPECIFIC GRAVITY UA (POCT) 1.020 1.005 - 1.030 HEMOGLOBIN/BLOOD UA (POCT) Negative Negative PH UA (POCT) 5.5 4.5 - 8.0 PROTEIN UA (POCT) Negative Negative mg/dL UROBILINOGEN UA (POCT) 0.2 Normal E.U./dL NITRITE UA (POCT) Negative Negative LEUKOCYTES UA (POCT) Small (more content not included)... [facility] 06-14-2024 History of Present illness Narrative Images from the original note were not included. [facility] EST PATIENT CLINIC NOTE (M) Some elements copied from his previous note, which have been updated where appropriate, and all reflect current medical decision making from date of this visit. SERVICE DATE: June 14, 2024 NAME: Gray Fernandez GENDER: male CHIEF COMPLAINT: Annual Follow-up HISTORY OF PRESENT ILLNESS: Gray Fernandez is a 63 year old male patient here following up for PSA, refills and annual Prostate Visit The patient reports no new LUTS and UA was negative with PSA last drawn 2021 and will up[date today at lab Orders placed Refills on Uroxatral given 06/08/2024 > PSA 5.13 - 2021 > PVR - 2 ml LUTS: No New LUTS Other symptoms: ED - yes Previous ED medications: yes Cialis 20 mg LABS: PSA (ng/mL) Date Value 12/24/2021 5.13 09/13/2021 12.25 03/28/2021 5.3 11/09/2020 7.50 04/07/2019 3.5 PSA. (ng/mL) Date Value 08/19/2021 4.9 Creatinine Date Value Ref Range Status 12/08/2023 0.73 0.73 - 1.22 mg/dL Final 11/25/2022 0.73 0.73 - 1.22 mg/dL Final 12/05/2021 0.70 (L) 0.73 - 1.22 mg/dL Final No results found for: TESTOST Hematocrit (%) Date Value 04/02/2024 42.0 01/12/2024 43.9 12/08/2023 43.6 07/08/2019 44.4 HCT (%) Date Value 04/16/2021 41.5 04/07/2019 47.8 01/06/2019 47.4 PSA (ng/mL) Date Value 12/24/2021 5.13 09/13/2021 12.25 03/28/2021 5.3 11/09/2020 7.50 04/07/2019 3.5 PSA. (ng/mL) Date Value 08/19/2021 4.9 MEDICATIONS: alfuzosin SR (UROXATRAL) 10 mg 24 hr tablet TAKE 1 TABLET BY MOUTH EVERYDAY AT BEDTIME Tadalafil (CIALIS) 20 mg tablet Take 1 tablet by mouth once daily. As needed lisinopril (ZESTRIL) 40 mg tablet Take 1 tablet by mouth once daily. atorvastatin (LIPITOR) 40 mg tablet Take 1 tablet by mouth daily at bedtime. For cholesterol. sertraline (ZOLOFT) 50 mg tablet 1/2 a tablet by mouth once a day for 14 days then go to one tablet daily hydroCHLOROthiazide 25 mg tablet Take 1 tablet by mouth once daily. meclizine (ANTIVERT) 25 mg tab Take 1 tablet by mouth two times a day as needed. cyclobenzaprine (FLEXERIL) 10 mg tablet Take 1 tablet by mouth three times daily as needed for muscle spasm. aspirin, enteric coated (ASPIRIN, ENTERIC COATED) 81 mg EC tablet Take 1 tablet by mouth once daily. esomeprazole (NEXIUM) 40 mg capsule Take 1 capsule by mouth once daily. tocilizumab (ACTEMRA) 400 mg/20 mL (20 mg/mL) soln Inject 20 mL intravenously once every month. Per Rheu multivitamins(MULTIPLE VITAMIN TAB) Take 1 tablet by mouth once daily. PAST MEDICAL HISTORY: PAST MEDICAL HISTORY Diagnosis Date Abdominal aortic aneurysm (AAA) without rupture (HCC) 11/10/2019 CT 06/2019: proximal abdominal aorta, 3.4 x 3.8 cm, CT 11/2020 no aneurysm AK (actinic keratosis) 12/03/2022 Right side face near ear Tx 11/2022 Bunion of great toe of right foot 11/10/2019 Current mild episode of major depressive disorder without prior episode (HCC) 12/03/2022 Cyst of spleen 12/14/2023 CT 2019 and stable over 2 yrs. Dyslipidemia 07/25/2019 Ectatic thoracic aorta (HCC) 11/09/2020 CTA 06/2019, CTA: 11/2020 was normal. ED (erectile dysfunction) of organic origin 12/03/2022 Elevated PSA 11/12/2020 Seeing Jean Carlos Lakhani Essential hypertension 07/22/2019 Ex-smoker 07/22/2019 Started age 16 up 1 PPD and quit at age 30. Family history of colon cancer 11/10/2019 Sister Family history of pancreatic cancer 11/10/2019 Mother Gastroesophageal reflux disease without esophagitis 07/07/2006 History of COVID-19 05/22/202005/2020 Leukocytosis 12/03/2022 RAMIREZ (nonalcoholic steatohepatitis) 12/17/2021 Renal cyst, right 12/14/2023 CT 2019 and stable over 2 yrs Rheumatoid arthritis involving multiple sites with positive rheumatoid factor (HCC) 07/22/2019 Seeing [facility]: Dr. Quispe Thrombocytopenia (HCC) 12/03/2022 Stable since 12/2020 around 130 Well adult exam 11/10/2019 Last done: 11/10/2019 REVIEW OF SYSTEMS: GENERAL: No fever, chills, weight loss, or fatigue. PHYSICAL EXAMINATION: Blood pressure 140/78, pulse 81, weight 120.2 kg (265 lb). GENERAL: WNL nutrition, no deformities, healthy appearing PROBLEM LIST REVIEW: Yes LABS: Results for orders placed or performed in visit on 06/14/24 UA DIP, URINE (POC) Result Value Ref Range GLUCOSE UA (POCT) Negative Negative mg/dL BILIRUBIN UA (POCT) Negative Negative KETONE UA (POCT) Negative Negative mg/dL SPECIFIC GRAVITY UA (POCT) 1.020 1.005 - 1.030 HEMOGLOBIN/BLOOD UA (POCT) Negative Negative PH UA (POCT) 5.5 4.5 - 8.0 PROTEIN UA (POCT) Negative Negative mg/dL UROBILINOGEN UA (POCT) 0.2 Normal E.U./dL NITRITE UA (POCT) Negative Negative LEUKOCYTES UA (POCT) Small (A) Negative COLOR UA (POCT) Yellow CLARITY UA (POCT) Clear PROCEDURES: PVR: 2 ml ASSESSMENT/PLAN: 1. Elevated prostate specific antigen (PSA) - ICD9: 790.93, ICD10: R97.20 (primary diagnosis) 2. Screening for genitourinary condition - ICD9: V81.6, ICD10: Z13.89 > PSA Pending today Chronic stable > Follow-up to be determined by testing ordered today > Will contact patient with the Results & Recommendations once testing is completed > 1 year Appt w/ JENNA Devries MT, PA-C with PSA prior JENNA Oswald MT, PA-C documented in this encounter [facility] 06-08-2024 Telephone encounter Note PATRICIO 07/25/22 NOV 06/14/24 Patient phones requesting refills as follows: Requested Prescriptions Pending Prescriptions Disp Refills alfuzosin SR (UROXATRAL) 10 mg 24 hr tablet [Pharmacy Med Name: ALFUZOSIN HCL ER 10 MG TABLET] 90 tablet 3 Sig: TAKE 1 TABLET BY MOUTH EVERYDAY AT BEDTIME Please review and advise. Darin Blanton RN [facility] 06-08-2024 Miscellaneous Notes [facility] 07/25/22 NOV 06/14/24 Patient phones requesting refills as follows: Requested Prescriptions Pending Prescriptions Disp Refills alfuzosin SR (UROXATRAL) 10 mg 24 hr tablet [Pharmacy Med Name: ALFUZOSIN HCL ER 10 MG TABLET] 90 tablet 3 Sig: TAKE 1 TABLET BY MOUTH EVERYDAY AT BEDTIME Please review and advise. Darin Blanton RN [facility] 07/25/22 Pt. Needs appt. For refills documented in this encounter [facility] 06-08-2024 Telephone encounter Note [facility] 07/25/22 Pt. Needs appt. For refills [facility] 05-12-2024 Telephone encounter Note Prescription Refill Information The patient has been identified by name and date of : Yes Caregiver verified no other encounters exist for this prescription request: Yes Caregiver confirmed with patient/requestor that no other refills are due, in the near future, with this provider at this time: Yes The last office visit in the department: 01/12/24 Does the patient have a future office visit with this provider/department: Yes Requested Prescriptions Pending Prescriptions Disp Refills Tadalafil (CIALIS) 20 mg tablet 30 tablet 3 Sig: Take 1 tablet by mouth once daily. As needed Dunia Navas LPN May 12, 2024 12:22 PM [facility] 05-12-2024 Miscellaneous Notes Prescription Refill Information The patient has been identified by name and date of : Yes Caregiver verified no other encounters exist for this prescription request: Yes Caregiver confirmed with patient/requestor that no other refills are due, in the near future, with this provider at this time: Yes The last office visit in the department: 01/12/24 Does the patient have a future office visit with this provider/department: Yes Requested Prescriptions Pending Prescriptions Disp Refills Tadalafil (CIALIS) 20 mg tablet 30 tablet 3 Sig: Take 1 tablet by mouth once daily. As needed Dunia Navas LPN May 12, 2024 12:22 PM Prescription Refill Information The patient has been identified by name and date of : Yes Caregiver verified no other encounters exist for this prescription request: Yes Caregiver confirmed with patient/requestor that no other refills are due, in the near future, with this provider at this time: Yes The last office visit in the department: 01-12-24 Does the patient have a future office visit with this provider/department: Yes Requested Prescriptions Pending Prescriptions Disp Refills Tadalafil (CIALIS) 20 mg tablet 30 tablet 3 Sig: Take 1 tablet by mouth once daily. As needed Gerri Jordan May 12, 2024 11:14 AM documented in this encounter [facility] 05-12-2024 Telephone encounter Note Prescription Refill Information The patient has been identified by name and date of : Yes Caregiver verified no other encounters exist for this prescription request: Yes Caregiver confirmed with patient/requestor that no other refills are due, in the near future, with this provider at this time: Yes The last office visit in the department: 01-12-24 Does the patient have a future office visit with this provider/department: Yes Requested Prescriptions Pending Prescriptions Disp Refills Tadalafil (CIALIS) 20 mg tablet 30 tablet 3 Sig: Take 1 tablet by mouth once daily. As needed Gerri Jordan May 12, 2024 11:14 AM [facility] 04-27-2024 Telephone encounter Note Patient has been identified by name and date of : Yes, Provider Rickie Date 04/27/24 Time 8:02 Spouse phones for refill(s): Requested Prescriptions No prescriptions requested or ordered in this encounter Date of last office visit in primary care: 01/12/2024 Date of next office visit in primary care: 06/16/2024 Please advise. Thank you. Naga Kamara. [facility] 04-27-2024 Miscellaneous Notes Patient has been identified by name and date of : Yes, Provider Rickie Date 04/27/24 Time 8:02 Spouse phones for refill(s): Requested Prescriptions No prescriptions requested or ordered in this encounter Date of last office visit in primary care: 01/12/2024 Date of next office visit in primary care: 06/16/2024 Please advise. Thank you. Naga Kamara. documented in this encounter [facility] 04-20-2024 Note HNO ID: [id number] Author: WINSTON FITCH MD Service: ? Author Type: Physician Type: Progress Notes Filed: 04/20/2024 12:51 Note Text: HISTORY OF PRESENT ILLNESS: Gray Fernandez is a 63 year old male referred for evaluation of thrombocytopenia. Labs, chart reviewed, he is on actemra for RA since 2019. We also note history of fatty liver documented on US. He's had no unusual bleeding, notes he can scratch his arm and it will bleed, but nothing more than that. He is also on baby asa and zoloft. CLINICAL IMPRESSION: Mild thrombocytopenia, suspect relates to fatty liver, though actemra can also cause. RECOMMENDATION/PLAN: 1. Observe cbc, no intervention unless platelets fall below 80, first move might be to switch RA treatment. Written and verbal health teaching given to patient, patient verbalizes understanding and agrees with treatment plan. PAST MEDICAL HISTORY Diagnosis Date Abdominal aortic aneurysm (AAA) without rupture (HCC) 11/10/2019 CT 06/2019: proximal abdominal aorta, 3.4 x 3.8 cm, CT 11/2020 no aneurysm AK (actinic keratosis) 12/03/2022 Right side face near ear Tx 11/2022 Bunion of great toe of right foot 11/10/2019 Current mild episode of major depressive disorder without prior episode (HCC) 12/03/2022 Cyst of spleen 12/14/2023 CT 2019 and stable over 2 yrs. Dyslipidemia 07/25/2019 Ectatic thoracic aorta (HCC) 11/09/2020 CTA 06/2019, CTA: 11/2020 was normal. ED (erectile dysfunction) of organic origin 12/03/2022 Elevated PSA 11/12/2020 Seeing Jean Carlos Lakhani Essential hypertension 07/22/2019 Ex-smoker 07/22/2019 Started age 16 up 1 PPD and quit at age 30. Family history of colon cancer 11/10/2019 Sister Family history of pancreatic cancer 11/10/2019 Mother Gastroesophageal reflux disease without esophagitis 07/07/2006 History of COVID-19 05/22/202005/2020 Leukocytosis 12/03/2022 RAMIREZ (nonalcoholic steatohepatitis) 12/17/2021 Renal cyst, right 12/14/2023 CT 2019 and stable over 2 yrs Rheumatoid arthritis involving multiple sites with positive rheumatoid factor ([facility]) 07/22/2019 Seeing [facility]: Dr. Quispe Thrombocytopenia ([facility]) 12/03/2022 Stable since 12/2020 around 130 Well adult exam 11/10/2019 Last done: 11/10/2019 PAST SURGICAL HISTORY Procedure Laterality Date COLONOSCOPY 2012 COLONOSCOPY GEN ANES 10/22/2020 Repeat in 3 years due to poor bowel preparation KNEE ARTHROSCOPY REPAIR RECURR INGUIN ZACHARIAH,REDUCIBL Left 12/25/2021 FAMILY HISTORY Problem Relation Age of Onset Pancreatic Cancer Mother Heart Father valve replaced Colon Cancer Sister Hyperlipidemia Brother Alzheimer's Disease No Family History Breast Cancer No Family History Ovarian cancer No Family History Prostate Cancer No Family History Coronary Artery Disease No Family History Diabetes No Family History Hypertension No Family History Kidney Disease No Family History Seizures No Family History Stroke No Family History Thyroid No Family History Social History Tobacco Use Smoking status: Former Current packs/day: 0.00 Average packs/day: 1 pack/day for 15.0 years (15.0 ttl pk-yrs) Types: Cigarettes Start date: 07/08/1974 Quit date: 07/08/1989 Years since quittin.8 Smokeless tobacco: Never Vaping Use Vaping status: Never Used Substance Use Topics Alcohol use: Yes Comment: whisky daily- 1-2 glasses per day Drug use: No ALLERGIES: ALLERGIES Allergen Reactions Leflunomide Other: See Comments Methotrexate Other: See Comments Elevated liver enzymes CURRENT OUTPATIENT MEDICATIONS: atorvastatin (LIPITOR) 40 mg tablet Take 1 tablet by mouth daily at bedtime. For cholesterol. sertraline (ZOLOFT) 50 mg tablet 1/2 a tablet by mouth once a day for 14 days then go to one tablet daily hydroCHLOROthiazide 25 mg tablet Take 1 tablet by mouth once daily. alfuzosin SR (UROXATRAL) 10 mg 24 hr tablet take 1 tablet by mouth everyday at bedtime lisinopril (ZESTRIL) 40 mg tablet Take 1 tablet by mouth once daily. meclizine (ANTIVERT) 25 mg tab Take 1 tablet by mouth two times a day as needed. Tadalafil (CIALIS) 20 mg tablet Take 1 tablet by mouth once daily. As needed cyclobenzaprine (FLEXERIL) 10 mg tablet Take 1 tablet by mouth three times daily as needed for muscle spasm. aspirin, enteric coated (ASPIRIN, ENTERIC COATED) 81 mg EC tablet Take 1 tablet by mouth once daily. esomeprazole (NEXIUM) 40 mg capsule Take 1 capsule by mouth once daily. tocilizumab (ACTEMRA) 400 mg/20 mL (20 mg/mL) soln Inject 20 mL intravenously once every month. Per Rheu multivitamins(MULTIPLE VITAMIN TAB) Take 1 tablet by mouth once daily. REVIEW OF SYSTEMS: GENERAL: No fever, night sweats, weight loss or malaise. All other reviewed and negative other than HPI. PHYSICAL EXAMINATION: VITAL SIGNS: BP 149/85 Pulse 62 Temp 97.1 Ht 5' 11.654 (1.82m) SpO2 98% GENERAL APPEARANCE: Well appearing, in no acu (more content not included)... [facility] 04-20-2024 History of Present illness Narrative HISTORY OF PRESENT ILLNESS: Gray Fernandez is a 63 year old male referred for evaluation of thrombocytopenia. Labs, chart reviewed, he is on actemra for RA since 2019. We also note history of fatty liver documented on US. He's had no unusual bleeding, notes he can scratch his arm and it will bleed, but nothing more than that. He is also on baby asa and zoloft. CLINICAL IMPRESSION: Mild thrombocytopenia, suspect relates to fatty liver, though actemra can also cause. RECOMMENDATION/PLAN: 1. Observe cbc, no intervention unless platelets fall below 80, first move might be to switch RA treatment. Written and verbal health teaching given to patient, patient verbalizes understanding and agrees with treatment plan. PAST MEDICAL HISTORY Diagnosis Date Abdominal aortic aneurysm (AAA) without rupture (HCC) 11/10/2019 CT 06/2019: proximal abdominal aorta, 3.4 x 3.8 cm, CT 11/2020 no aneurysm AK (actinic keratosis) 12/03/2022 Right side face near ear Tx 11/2022 Bunion of great toe of right foot 11/10/2019 Current mild episode of major depressive disorder without prior episode (HCC) 12/03/2022 Cyst of spleen 12/14/2023 CT 2019 and stable over 2 yrs. Dyslipidemia 07/25/2019 Ectatic thoracic aorta (HCC) 11/09/2020 CTA 06/2019, CTA: 11/2020 was normal. ED (erectile dysfunction) of organic origin 12/03/2022 Elevated PSA 11/12/2020 Seeing Jean Carlos Lak[facility] Essential hypertension 07/22/2019 Ex-smoker 07/22/2019 Started age 16 up 1 PPD and quit at age 30. Family history of colon cancer 11/10/2019 Sister Family history of pancreatic cancer 11/10/2019 Mother Gastroesophageal reflux disease without esophagitis 07/07/2006 History of COVID-19 05/22/202005/2020 Leukocytosis 12/03/2022 RAMIREZ (nonalcoholic steatohepatitis) 12/17/2021 Renal cyst, right 12/14/2023 CT 2019 and stable over 2 yrs Rheumatoid arthritis involving multiple sites with positive rheumatoid factor (HCC) 07/22/2019 Seeing [facility]: Dr. Quispe Thrombocytopenia (HCC) 12/03/2022 Stable since 12/2020 around 130 Well adult exam 11/10/2019 Last done: 11/10/2019 PAST SURGICAL HISTORY Procedure Laterality Date COLONOSCOPY 2013 COLONOSCOPY GEN ANES 10/22/2020 Repeat in 3 years due to poor bowel preparation KNEE ARTHROSCOPY REPAIR RECURR INGUIN AZCHARIAH,REDUCIBL Left 12/25/2021 FAMILY HISTORY Problem Relation Age of Onset Pancreatic Cancer Mother Heart Father valve replaced Colon Cancer Sister Hyperlipidemia Brother Alzheimer's Disease No Family History Breast Cancer No Family History Ovarian cancer No Family History Prostate Cancer No Family History Coronary Artery Disease No Family History Diabetes No Family History Hypertension No Family History Kidney Disease No Family History Seizures No Family History Stroke No Family History Thyroid No Family History Social History Tobacco Use Smoking status: Former Current packs/day: 0.00 Average packs/day: 1 pack/day for 15.0 years (15.0 ttl pk-yrs) Types: Cigarettes Start date: 07/08/1974 Quit date: 07/08/1989 Years since quittin.8 Smokeless tobacco: Never Vaping Use Vaping status: Never Used Substance Use Topics Alcohol use: Yes Comment: whisky daily- 1-2 glasses per day Drug use: No ALLERGIES: ALLERGIES Allergen Reactions Leflunomide Other: See Comments Methotrexate Other: See Comments Elevated liver enzymes CURRENT OUTPATIENT MEDICATIONS: atorvastatin (LIPITOR) 40 mg tablet Take 1 tablet by mouth daily at bedtime. For cholesterol. sertraline (ZOLOFT) 50 mg tablet 1/2 a tablet by mouth once a day for 14 days then go to one tablet daily hydroCHLOROthiazide 25 mg tablet Take 1 tablet by mouth once daily. alfuzosin SR (UROXATRAL) 10 mg 24 hr tablet take 1 tablet by mouth everyday at bedtime lisinopril (ZESTRIL) 40 mg tablet Take 1 tablet by mouth once daily. meclizine (ANTIVERT) 25 mg tab Take 1 tablet by mouth two times a day as needed. Tadalafil (CIALIS) 20 mg tablet Take 1 tablet by mouth once daily. As needed cyclobenzaprine (FLEXERIL) 10 mg tablet Take 1 tablet by mouth three times daily as needed for muscle spasm. aspirin, enteric coated (ASPIRIN, ENTERIC COATED) 81 mg EC tablet Take 1 tablet by mouth once daily. esomeprazole (NEXIUM) 40 mg capsule Take 1 capsule by mouth once daily. tocilizumab (ACTEMRA) 400 mg/20 mL (20 mg/mL) soln Inject 20 mL intravenously once every month. Per Rheu multivitamins(MULTIPLE VITAMIN TAB) Take 1 tablet by mouth once daily. REVIEW OF SYSTEMS: GENERAL: No fever, night sweats, weight loss or malaise. All other reviewed and negative other than HPI. PHYSICAL EXAMINATION: VITAL SIGNS: BP 149/85 Pulse 62 Temp 97.1 Ht 5' 11.654 (1.82m) SpO2 98% GENERAL APPEARANCE: Well appearing, in no acute distress, alert and oriented x3, well-hydrated, well nourished. I spent a total of 45 minutes on the date of the service which included preparing to see the patient, [id number] patient care, completing clinical documentation, obtaining and/or reviewing separately obtained history, counseling and educating the patient/family/caregiver, communicating with other HCPs (not separately reported), independently interpreting results (not separately reported), and communicating results to the patient/family/caregiver. Electronically Signed: Winston Fitch MD April 20, 2024 11:07 AM documented in this encounter [facility] 04-07-2024 Telephone encounter Note Scheduled with patient [facility] Work Phone: 04-07-2024 Miscellaneous Notes Scheduled with patient 1st attempt. Message left for patient to schedule New Patient Consult with Dr. Fitch. APPLICATIONS PROJECT MANAGER/THROMBOCYTOPENIA/REF PROV DR DAMIAN* Please schedule with Dr. Fitch. Sayra Chopra LPN Patient notified and voiced understanding. Please assist patient with scheduling. Zulma Sue MA Let patient know his platelets are lower then last time. I would like for him to see hematology. Order placed. documented in this encounter [facility] 04-06-2024 Telephone encounter Note 1st attempt. Message left for patient to schedule New Patient Consult with Dr. Fitch. APPLICATIONS PROJECT MANAGER/THROMBOCYTOPENIA/REF PROV DR DAMIAN* [facility] 04-06-2024 Telephone encounter Note Please schedule with Dr. Fitch. Sayra Chopra LPN [facility] 04-06-2024 Telephone encounter Note Patient notified and voiced understanding. Please assist patient with scheduling. Zulma Sue MA [facility] 04-05-2024 Telephone encounter Note Let patient know his platelets are lower then last time. I would like for him to see hematology. Order placed. [facility] 01-22-2024 Telephone encounter Note Form has been completed and faxed. Sent my chart message. Zulma Sue MA' [facility] 01-22-2024 Miscellaneous Notes Form has been completed and faxed. Sent my chart message. Zulma Sue MA' Form completed and ready to be faxed. Remind patient he was asked by urology back in [facility] to make a f/u appt with Jean Carlos for his yearly f/u and medication management. Pt stops by office to drop off Preventative form for his employment. Pt had WAE 12/14/23 with pcp and advised office had told him he could drop off form. Form placed on pcp's desk for review. Please fax form to ATTN: Keyla Baptiste RN [phone] documented in this encounter [facility] 01-21-2024 Telephone encounter Note Form completed and ready to be faxed. Remind patient he was asked by urology back in [facility] to make a f/u appt with Jean Carlos for his yearly f/u and medication management. [facility] 01-19-2024 Telephone encounter Note Patient notified of results and provider's instructions. Patient verbalizes understanding. Dunia Navas LPN [facility] 01-19-2024 Miscellaneous Notes Patient notified of results and provider's instructions. Patient verbalizes understanding. Dunia Navas LPN Let patient know his CBC shows that the low white blood cell count is resolved. His platelets are higher at 115 but typically runs around 130. Want to repeat in a month to make sure they continue to improve. Order placed. documented in this encounter [facility] 01-18-2024 Telephone encounter Note Let patient know his CBC shows that the low white blood cell count is resolved. His platelets are higher at 115 but typically runs around 130. Want to repeat in a month to make sure they continue to improve. Order placed. [facility] 01-12-2024 Telephone encounter Note Pt stops by office to drop off Preventative form for his employment. Pt had WAE 12/14/23 with pcp and advised office had told him he could drop off form. Form placed on pcp's desk for review. Please fax form to ATTN: Keyla Baptiste RN [phone] [facility] 01-12-2024 Note HNO ID: [id number] Author: CHANELLE TALBOT PA-C Service: ? Author Type: Physician Burrito Maker Type: Progress Notes Filed: 01/12/2024 14:45 Note Text: Chief Complaint Patient presents with: Recheck: Blood pressure HPI Gray Fernandez is a 63 year old male who presents here today for recheck. Patient was seen last month by PCP. HCTZ was increased to 25mg. Patient has tolerated change well. Last 6 Encounter BP Readings: Date: BP: 01/12/2024 133/84[bp average with machine[ 12/14/2023 134/92 06/15/2023 136/80 05/13/2023 130/80 01/06/2023 124/76 12/03/2022 140/90 Last 6 Encounter Wt Readings: Date: Wt: 01/12/2024 113.1 kg (249 lb 5.4 oz) 06/15/2023 117 kg (258 lb) 05/13/2023 116.1 kg (256 lb) 01/06/2023 113.9 kg (251 lb) 12/03/2022 110.2 kg (243 lb) 11/25/2022 111.7 kg (246 lb 3.2 oz) Past medical history, appointments, medications, allergies reviewed. Previous Medical History PAST MEDICAL HISTORY 11/10/2019: Abdominal aortic aneurysm (AAA) without rupture (HCC) Comment: CT 06/2019: proximal abdominal aorta, 3.4 x 3.8 cm, CT 11/2020 no aneurysm 12/03/2022: AK (actinic keratosis) Comment: Right side face near ear Tx 11/202211/10/2019: Bunion of great toe of right foot 12/03/2022: Current mild episode of major depressive disorder without prior episode (HCC) 12/14/2023: Cyst of spleen Comment: CT 2019 and stable over 2 yrs. 07/25/2019: Dyslipidemia 11/09/2020: Ectatic thoracic aorta (HCC) Comment: CTA 06/2019, CTA: 11/2020 was normal. 12/03/2022: ED (erectile dysfunction) of organic origin 11/12/2020: Elevated PSA Comment: Seeing Jean Carlos [facility] 07/22/2019: Essential hypertension 07/22/2019: Ex-smoker Comment: Started age 16 up 1 PPD and quit at age 30. 11/10/2019: Family history of colon cancer Comment: Sister 11/10/2019: Family history of pancreatic cancer Comment: Mother 07/07/2006: Gastroesophageal reflux disease without esophagitis 05/22/2020: History of COVID-19 Comment: 05/202012/03/2022: Leukocytosis 12/17/2021: RAMIREZ (nonalcoholic steatohepatitis) 12/14/2023: Renal cyst, right Comment: CT 2019 and stable over 2 yrs 07/22/2019: Rheumatoid arthritis involving multiple sites with positive rheumatoid factor (HCC) Comment: Seeing [facility]: Dr. Quispe 12/03/2022: Thrombocytopenia (HCC) Comment: Stable since 12/2020 around 130 11/10/2019: Well adult exam Comment: Last done: 11/10/2019 Previous Surgical History PAST SURGICAL HISTORY 2013: COLONOSCOPY 10/22/2020: COLONOSCOPY GEN ANES Comment: Repeat in 3 years due to poor bowel preparation No date: KNEE ARTHROSCOPY 12/25/2021: REPAIR RECURR INGUIN ZACHARIAH,REDUCIBL; Left Family History FAMILY HISTORY Problem Relation Age of Onset Pancreatic Cancer Mother Heart Father valve replaced Colon Cancer Sister Hyperlipidemia Brother Alzheimer's Disease No Family History Breast Cancer No Family History Ovarian cancer No Family History Prostate Cancer No Family History Coronary Artery Disease No Family History Diabetes No Family History Hypertension No Family History Kidney Disease No Family History Seizures No Family History Stroke No Family History Thyroid No Family History Patient Allergies ALLERGIES Allergen Reactions Leflunomide Other: See Comments Methotrexate Other: See Comments Elevated liver enzymes Current Medications Current Outpatient Medications on File Prior to Visit Medication Sig atorvastatin (LIPITOR) 40 mg tablet Take 1 tablet by mouth daily at bedtime. For cholesterol. sertraline (ZOLOFT) 50 mg tablet 1/2 a tablet by mouth once a day for 14 days then go to one tablet daily hydroCHLOROthiazide 25 mg tablet Take 1 tablet by mouth once daily. alfuzosin SR (UROXATRAL) 10 mg 24 hr tablet take 1 tablet by mouth everyday at bedtime lisinopril (ZESTRIL) 40 mg tablet Take 1 tablet by mouth once daily. meclizine (ANTIVERT) 25 mg tab Take 1 tablet by mouth two times a day as needed. Tadalafil (CIALIS) 20 mg tablet Take 1 tablet by mouth once daily. As needed cyclobenzaprine (FLEXERIL) 10 mg tablet Take 1 tablet by mouth three times daily as needed for muscle spasm. aspirin, enteric coated (ASPIRIN, ENTERIC COATED) 81 mg EC tablet Take 1 tablet by mouth once daily. esomeprazole (NEXIUM) 40 mg capsule Take 1 capsule by mouth once daily. tocilizumab (ACTEMRA) 400 mg/20 mL (20 mg/mL) soln Inject 20 mL intravenously once every month. Per Rheu multivitamins(MULTIPLE VITAMIN TAB) Take 1 tablet by mouth once daily. No current facility-administered medications on file prior to visit. Social History Social History Tobacco Use Smoking status: Former Current packs/day: 0.00 Average packs/day: 1 pack/day for 15.0 years (15.0 ttl pk-yrs) Types: Cigarettes Start date: 07/08/1974 Quit date: 07/08/1989 Years since quittin.5 Smokeless tobacco: Never Vaping Use Vaping status: Never Used Substance Use T (more content not included)... [facility] 01-12-2024 History of Present illness Narrative Chief Complaint Patient presents with: Recheck: Blood pressure HPI Gray Fernandez is a 63 year old male who presents here today for recheck. Patient was seen last month by PCP. HCTZ was increased to 25mg. Patient has tolerated change well. Last 6 Encounter BP Readings: Date: BP: 01/12/2024 133/84[bp average with machine[ 12/14/2023 134/92 06/15/2023 136/80 05/13/2023 130/80 01/06/2023 124/76 12/03/2022 140/90 Last 6 Encounter Wt Readings: Date: Wt: 01/12/2024 113.1 kg (249 lb 5.4 oz) 06/15/2023 117 kg (258 lb) 05/13/2023 116.1 kg (256 lb) 01/06/2023 113.9 kg (251 lb) 12/03/2022 110.2 kg (243 lb) 11/25/2022 111.7 kg (246 lb 3.2 oz) Past medical history, appointments, medications, allergies reviewed. Previous Medical History PAST MEDICAL HISTORY 11/10/2019: Abdominal aortic aneurysm (AAA) without rupture (HCC) Comment: CT 06/2019: proximal abdominal aorta, 3.4 x 3.8 cm, CT 11/2020 no aneurysm 12/03/2022: AK (actinic keratosis) Comment: Right side face near ear Tx 11/202211/10/2019: Bunion of great toe of right foot 12/03/2022: Current mild episode of major depressive disorder without prior episode (HCC) 12/14/2023: Cyst of spleen Comment: CT 2019 and stable over 2 yrs. 07/25/2019: Dyslipidemia 11/09/2020: Ectatic thoracic aorta (HCC) Comment: CTA 06/2019, CTA: 11/2020 was normal. 12/03/2022: ED (erectile dysfunction) of organic origin 11/12/2020: Elevated PSA Comment: Seeing Jean Carlos [facility] 07/22/2019: Essential hypertension 07/22/2019: Ex-smoker Comment: Started age 16 up 1 PPD and quit at age 30. 11/10/2019: Family history of colon cancer Comment: Sister 11/10/2019: Family history of pancreatic cancer Comment: Mother 07/07/2006: Gastroesophageal reflux disease without esophagitis 05/22/2020: History of COVID-19 Comment: 05/202012/03/2022: Leukocytosis 12/17/2021: RAMIREZ (nonalcoholic steatohepatitis) 12/14/2023: Renal cyst, right Comment: CT 2019 and stable over 2 yrs 07/22/2019: Rheumatoid arthritis involving multiple sites with positive rheumatoid factor (HCC) Comment: Seeing [facility]: Dr. Quispe 12/03/2022: Thrombocytopenia (HCC) Comment: Stable since 12/2020 around 130 11/10/2019: Well adult exam Comment: Last done: 11/10/2019 Previous Surgical History PAST SURGICAL HISTORY 2013: COLONOSCOPY 10/22/2020: COLONOSCOPY GEN ANES Comment: Repeat in 3 years due to poor bowel preparation No date: KNEE ARTHROSCOPY 12/25/2021: REPAIR RECURR INGUIN ZACHARIAH,REDUCIBL; Left Family History FAMILY HISTORY Problem Relation Age of Onset Pancreatic Cancer Mother Heart Father valve replaced Colon Cancer Sister Hyperlipidemia Brother Alzheimer's Disease No Family History Breast Cancer No Family History Ovarian cancer No Family History Prostate Cancer No Family History Coronary Artery Disease No Family History Diabetes No Family History Hypertension No Family History Kidney Disease No Family History Seizures No Family History Stroke No Family History Thyroid No Family History Patient Allergies ALLERGIES Allergen Reactions Leflunomide Other: See Comments Methotrexate Other: See Comments Elevated liver enzymes Current Medications Current Outpatient Medications on File Prior to Visit Medication Sig atorvastatin (LIPITOR) 40 mg tablet Take 1 tablet by mouth daily at bedtime. For cholesterol. sertraline (ZOLOFT) 50 mg tablet 1/2 a tablet by mouth once a day for 14 days then go to one tablet daily hydroCHLOROthiazide 25 mg tablet Take 1 tablet by mouth once daily. alfuzosin SR (UROXATRAL) 10 mg 24 hr tablet take 1 tablet by mouth everyday at bedtime lisinopril (ZESTRIL) 40 mg tablet Take 1 tablet by mouth once daily. meclizine (ANTIVERT) 25 mg tab Take 1 tablet by mouth two times a day as needed. Tadalafil (CIALIS) 20 mg tablet Take 1 tablet by mouth once daily. As needed cyclobenzaprine (FLEXERIL) 10 mg tablet Take 1 tablet by mouth three times daily as needed for muscle spasm. aspirin, enteric coated (ASPIRIN, ENTERIC COATED) 81 mg EC tablet Take 1 tablet by mouth once daily. esomeprazole (NEXIUM) 40 mg capsule Take 1 capsule by mouth once daily. tocilizumab (ACTEMRA) 400 mg/20 mL (20 mg/mL) soln Inject 20 mL intravenously once every month. Per Rheu multivitamins(MULTIPLE VITAMIN TAB) Take 1 tablet by mouth once daily. No current facility-administered medications on file prior to visit. Social History Social History Tobacco Use Smoking status: Former Current packs/day: 0.00 Average packs/day: 1 pack/day for 15.0 years (15.0 ttl pk-yrs) Types: Cigarettes Start date: 07/08/1974 Quit date: 07/08/1989 Years since quittin.5 Smokeless tobacco: Never Vaping Use Vaping status: Never Used Substance Use Topics Alcohol use: Yes Comment: whisky daily- 1-2 glasses per day Drug use: No Review of Symptoms REVIEW OF SYSTEMS See hpi EXAM: BP 133/84 (BP Site: Left Arm, BP Position: Sitting, BP Cuff Size: Regular Adult) Pulse 69 Temp 36.6 C (97.8 F) Resp 18 Wt 113.1 kg (249 lb 5.4 oz) SpO2 96% BMI 34.29 kg/m General Appearance: Well appearing, alert, in no acute distress, well-hydrated, well nourished.. Health Maintenance List Colorectal Cancer Screening due on 10/23/2023 RSV Vaccine(1 - 1-dose 60+ series) due on 12/13/2024 Anxiety Screening due on 12/13/2024 Influenza Vaccine(1) due on 01/17/2024 BP Controlled (<130/80) due on 06/15/2024 Annual PCP Team Chronic Disease Visit due on 12/13/2024 Diabetes Screening due on 12/07/2026 Prostate Cancer Screening Discussion due on 12/24/2026 Lipid Screening due on 12/07/2028 DTaP,Tdap,Td Vaccine(2 - Td or Tdap) due on 11/09/2029 Hepatitis C Screening Completed Shingrix Vaccine Completed Pneumococcal Vaccine Completed HIV Screening Discontinued Covid-19 Vaccine Discontinued Data reviewed ASSESSMENT/PLAN: 1. Essential hypertension - ICD9: 401.9, ICD10: I10 - Improving control - Continue current medications - Recommend home blood pressure monitoring, to bring results to next visit - Encouraged sodium restriction, DASH or Mediterranean diet - Recommend regular aerobic exercise Chanelle Talbot PA-C documented in this encounter [facility] 01-08-2024 Telephone encounter Note Patient notified and voiced understanding. Zulma Sue MA [facility] 01-08-2024 Miscellaneous Notes Patient notified and voiced understanding. Zulma Sue MA Let patient know the special US of his live shows no to very little fibrosis. Will will continue to monitor. Continuing to work on diet and weight loss to lesson the fatty liver will prevent progression. Updated addendum Scan on 01/07/2024 3:55 PM by ProviderTayler PA-C: Ultrasound Zulma Sue MA documented in this encounter [facility] 01-08-2024 Telephone encounter Note Let patient know the special US of his live shows no to very little fibrosis. Will will continue to monitor. Continuing to work on diet and weight loss to lesson the fatty liver will prevent progression. [facility] 01-08-2024 Telephone encounter Note Updated addendum Scan on 01/07/2024 3:55 PM by ProviderTayler PA-C: Ultrasound Zulma Sue MA [facility] 01-08-2024 Telephone encounter Note Received addendum. Given to PCP. Zulma Sue MA [facility] 01-08-2024 Miscellaneous Notes Received addendum. Given to PCP. Zulma Sue MA Phoned Jessy with US in radiology and she noted no score either and will have them addend the results. Maria Guadalupe Espinosa LPN Find out from [facility] radiology if there an additional report for the elastography since this one has not score on it. Scan on 01/06/2024 2:51 PM by Provider, External, PA-C: Ultrasound Please review results. Zulma Sue MA' documented in this encounter [facility] 01-07-2024 Telephone encounter Note Phoned Jessy with US in radiology and she noted no score either and will have them addend the results. Maria Guadalupe Espinosa LPN [facility] 01-06-2024 Telephone encounter Note Find out from [facility] radiology if there an additional report for the elastography since this one has not score on it. [facility] 01-06-2024 Telephone encounter Note Scan on 01/06/2024 2:51 PM by Provider, External, PA-C: Ultrasound Please review results. Zulma Sue MA' [facility] 12-16-2023 Telephone encounter Note Referral placed for [facility] Liver US. Faxed order and demo to [facility]. Zulma Sue MA [facility] 12-16-2023 Miscellaneous Notes Referral placed for [facility] Liver US. Faxed order and demo to [facility]. Zulma Sue MA documented in this encounter [facility] 12-14-2023 Instructions Sylvester Damian MD - 12/14/2023 3:37 PM EDT If you are consider the RSV vaccine check to if covered by insurance. Please get repeat blood count around 01/14/2024 Please get labs done on or after 06/03/2024 prior to your next visit. documented in this encounter [facility] 12-14-2023 History of Present illness Narrative Images from the original note were not included. Chief Complaint Patient presents with: Physical HPI Gray Fernandez is a 63 year old male who presents here today for Physical. Patient with hx of HTN, HLP, GERD, RA, elevated PSA, and those as below. The Nexium continues to control his GERD and feels the sertraline is working well. No new issues or concerns. Past medical history, appointments, medications, allergies reviewed. Previous Medical History PAST MEDICAL HISTORY Diagnosis Date Abdominal aortic aneurysm (AAA) without rupture (HCC) 11/10/2019 CT 06/2019: proximal abdominal aorta, 3.4 x 3.8 cm, CT 11/2020 no aneurysm [place] (actinic keratosis) 12/03/2022 Right side face near ear Tx 11/2022 Bunion of great toe of right foot 11/10/2019 Current mild episode of major depressive disorder without prior episode (HCC) 12/03/2022 Dyslipidemia 07/25/2019 Ectatic thoracic aorta (HCC) 11/09/2020 CTA 06/2019, CTA: 11/2020 was normal. ED (erectile dysfunction) of organic origin 12/03/2022 Elevated PSA 11/12/2020 Seeing [facility] Essential hypertension 07/22/2019 Ex-smoker 07/22/2019 Started age 16 up 1 PPD and quit at age 30. Family history of colon cancer 11/10/2019 Sister Family history of pancreatic cancer 11/10/2019 Mother Gastroesophageal reflux disease without esophagitis 07/07/2006 History of COVID-19 05/22/202005/2020 Leukocytosis 12/03/2022 RAMIREZ (nonalcoholic steatohepatitis) 12/17/2021 Rheumatoid arthritis involving multiple sites with positive rheumatoid factor (HCC) 07/22/2019 Seeing [facility]: Dr. Quispe Thrombocytopenia ([facility]) 12/03/2022 Stable since 12/2020 around 130 Well adult exam 11/10/2019 Last done: 11/10/2019 Previous Surgical History PAST SURGICAL HISTORY Procedure Laterality Date COLONOSCOPY 2012 COLONOSCOPY GEN ANES 10/22/2020 Repeat in 3 years due to poor bowel preparation KNEE ARTHROSCOPY REPAIR RECURR INGUIN ZACHARIAH,REDUCIBL Left 12/25/2021 Family History FAMILY HISTORY Problem Relation Age of Onset Pancreatic Cancer Mother Heart Father valve replaced Colon Cancer Sister Hyperlipidemia Brother Alzheimer's Disease No Family History Breast Cancer No Family History Ovarian cancer No Family History Prostate Cancer No Family History Coronary Artery Disease No Family History Diabetes No Family History Hypertension No Family History Kidney Disease No Family History Seizures No Family History Stroke No Family History Thyroid No Family History Patient Allergies ALLERGIES Allergen Reactions Leflunomide Other: See Comments Methotrexate Other: See Comments Elevated liver enzymes Current Medications Current Outpatient Medications on File Prior to Visit Medication Sig alfuzosin SR (UROXATRAL) 10 mg 24 hr tablet take 1 tablet by mouth everyday at bedtime lisinopril (ZESTRIL) 40 mg tablet Take 1 tablet by mouth once daily. hydroCHLOROthiazide 12.5 mg capsule Take 1 capsule by mouth once daily. sertraline (ZOLOFT) 50 mg tablet 1/2 a tablet by mouth once a day for 14 days then go to one tablet daily atorvastatin (LIPITOR) 40 mg tablet Take 1 tablet by mouth daily at bedtime. For cholesterol. meclizine (ANTIVERT) 25 mg tab Take 1 tablet by mouth two times a day as needed. Tadalafil (CIALIS) 20 mg tablet Take 1 tablet by mouth once daily. As needed cyclobenzaprine (FLEXERIL) 10 mg tablet Take 1 tablet by mouth three times daily as needed for muscle spasm. aspirin, enteric coated (ASPIRIN, ENTERIC COATED) 81 mg EC tablet Take 1 tablet by mouth once daily. esomeprazole (NEXIUM) 40 mg capsule Take 1 capsule by mouth once daily. tocilizumab (ACTEMRA) 400 mg/20 mL (20 mg/mL) soln Inject 20 mL intravenously once every month. Per Rheu multivitamins(MULTIPLE VITAMIN TAB) Take 1 tablet by mouth once daily. No current facility-administered medications on file prior to visit. Social History Social History Tobacco Use Smoking status: Former Packs/day: 1.00 Years: 15.00 Additional pack years: 0.00 Total pack years: 15.00 Types: Cigarettes Quit date: 07/08/1989 Years since quittin.4 Smokeless tobacco: Never Vaping Use Vaping Use: Never used Substance Use Topics Alcohol use: Yes Comment: whisky daily- 1-2 glasses per day Drug use: No Review of Symptoms REVIEW OF SYSTEMS GENERAL: No weight loss, malaise or fevers HEENT: Negative for frequent or significant headaches, No changes in hearing or vision, no nose bleeds or other nasal problems NECK: Negative for lumps, goiter, pain and significant neck swelling RESPIRATORY: Negative for cough, hemoptysis, wheezing, COPD, dyspnea. On occasion will have shortness of breath climbing stairs. Resolves quickly. CARDIOVASCULAR: Negative for chest pain, leg swelling, hypertension, CHF or palpitations. No orthopnea GI: No nausea, vomiting, or diarrhea, No heartburn or reflux symptoms, and no blood : No history of dysuria, frequency or blood MUSCULOSKELETAL: Negative for joint pain or swelling, back pain or muscle pain SKIN: Negative for lesions, rash, and itching PSYCH: Negative for sleep disturbance, mood disorder and recent psychosocial stressors HEMATOLOGY/LYMPHOLOGY: Negative for prolonged bleeding, bruising easily or swollen nodes ENDOCRINE: Negative for cold or heat intolerance, polyuria, polydipsia and goiter NEURO: No history of headaches, syncope, paralysis, seizures or tremors EXAM: BP 134/92 Resp 16 Ht 181.6 cm (5' 11.5) Wt (P) 114.3 kg (252 lb) BMI (P) 34.66 kg/m Last 4 Encounter Wt Readings: Date: Wt: 06/15/2023 117 kg (258 lb) 05/13/2023 116.1 kg (256 lb) 01/06/2023 113.9 kg (251 lb) 12/03/2022 110.2 kg (243 lb) General Appearance: Well appearing, alert, in no acute distress, well-hydrated, well nourished. and Obese. Skin: Skin color, texture, turgor normal, no suspicious rashes or lesions. Head: Normocephalic, no masses, lesions, tenderness or abnormalities. Eyes: Anicteric sclera. Pupils are equally round and reactive to light. Extraocular movements are intact. . Ears: External ears, TM's normal, canals clear. Nose/Sinuses: Nares normal, septum midline, mucosa normal, no drainage or sinus tenderness. Oropharynx: Lips, mucosa, and tongue normal, teeth and gums normal, oropharynx normal. Neck: Supple, no adenopathy; thyroid symmetric, normal size, no bruits. Lungs: Lungs clear to auscultation. No wheezing, rhonchi, rales.. Heart: RRR without murmur, gallop, or rubs. No ectopy. Abdomen: Normal abdominal exam, Abdomen soft, non-tender. Bowel sounds normal. No masses, organomegaly. Extremities: No deformities, edema, skin discoloration, . Good capillary refill. . Musculoskeletal: Spine range of motion normal. Muscular strength intact, No joint swelling, deformity, or tenderness. Peripheral Pulses: Normal. Neurologic: Gait normal. Reflexes normal and symmetric. Sensation to light touch and crainal nerves 2-12 intact.. Genitalia: Normal, Penis normal. No urethral discharge. Scrotum normal to palpation. No hernia.. Rectal: Normal exam. Prostate enlarged with smooth firm capsule. Health Maintenance List Covid-19 Vaccine(1) Never done Anxiety Screening Never done RSV Vaccine(1 - 1-dose 60+ series) Never done Colorectal Cancer Screening due on 10/23/2023 Influenza Vaccine(1) due on 01/17/2024 Annual PCP Team Chronic Disease Visit due on 06/15/2024 BP Controlled (<130/80) due on 06/15/2024 Diabetes Screening due on 12/07/2026 Prostate Cancer Screening Discussion due on 12/24/2026 Lipid Screening due on 12/07/2028 DTaP,Tdap,Td Vaccine(2 - Td or Tdap) due on 11/09/2029 Hepatitis C Screening Completed Shingrix Vaccine Completed Pneumococcal Vaccine Completed HIV Screening Discontinued Data reviewed Latest Ref Rng 11/25/2022 06/15/2023 12/08/2023 WBC 3.70 - 11.00 k/uL 3.18 (L) 2.83 (L) RBC 4.20 - 6.00 m/uL 5.03 4.97 Hemoglobin 13.0 - 17.0 g/dL 15.4 14.9 Hematocrit 39.0 - 51.0 % 44.7 43.6 MCV 80.0 - 100.0 fL 88.9 87.7 MCH 26.0 - 34.0 pg 30.6 30.0 MCHC 30.5 - 36.0 g/dL 34.5 34.2 RDW-CV 11.5 - 15.0 % 12.4 12.0 Platelet Count 150 - 400 k/uL 136 (L) 98 (L) MPV 9.0 - 12.7 fL 10.9 10.8 Neut% % 49.7 50.1 Abs Neut (ANC) 1.45 - 7.50 k/uL 1.58 1.42 (L) Lymph% % 34.9 31.8 Abs Lymph 1.00 - 4.00 k/uL 1.11 0.90 (L) Foard% % 11.3 11.0 Abs Foard <0.87 k/uL 0.36 0.31 Eosin% % 2.5 5.7 Abs Eosin <0.46 k/uL 0.08 0.16 Baso% % 1.3 1.4 Abs Baso <0.11 k/uL 0.04 0.04 Immature Gran % % 0.3 0.0 IMMATURE GRANS (ABS) <0.10 k/uL <0.03 <0.03 NRBC /100 WBC 0.0 0.0 Absolute nRBC <0.01 k/uL <0.01 <0.01 DTYPE Auto Auto Color Yellow Yellow Clarity Clear Clear Glucose, Urine Negative Negative Bilirubin, Urine Negative Negative Ketones, Urine Negative Negative Specific [place], Ur 1.005 - 1.030 1.026 Hemoglobin/Blood,Ur Negative Negative pH, Urine <8.5 6.5 Protein, Urine Negative Trace ! Urobilinogen 0.2-1.0 EU/dL 1.0 EU/dL Nitrites Negative Negative Leukest Negative Negative WBC, Urine 0-5 /HPF 0-5 /HPF RBC, Urine 0-2 /HPF 0-2 /HPF Bacteria Negative /HPF Negative Epithelial Cells /HPF None Seen Hyaline Cast 0 /LPF 0 /LPF Protein, Total 6.3 - 8.0 g/dL 7.1 6.9 6.6 Albumin 3.9 - 4.9 g/dL 4.7 4.7 4.6 Calcium 8.5 - 10.2 mg/dL 9.6 9.1 Bilirubin, Total 0.2 - 1.3 mg/dL 1.1 1.0 1.1 Alkaline Phosphatase 38 - 113 U/L 66 83 55 AST 14 - 40 U/L 41 (H) 33 30 ALT 10 - 54 U/L 80 (H) 51 43 Glucose 74 - 99 mg/dL 95 114 (H) BUN 9 - 24 mg/dL 12 16 Creatinine 0.73 - 1.22 mg/dL 0.73 0.73 Sodium 136 - 144 mmol/L 138 140 Potassium 3.7 - 5.1 mmol/L 3.8 3.8 Chloride 98 - 107 mmol/L 101 106 CO2 22 - 30 mmol/L 23 22 Anion Gap 8 - 15 mmol/L 14 12 eGFR >=60 mL/min/1.73m 103 102 Total Cholesterol, Nonfasting <200 mg/dL 228 (H) 176 177 Triglycerides, Nonfasting <150 mg/dL 345 (H) 200 (H) 274 (H) HDL Cholesterol, Nonfasting >39 mg/dL 51 61 46 LDL Cholesterol, Nonfasting <100 mg/dL 108 (H) 75 76 Non HDL Cholesterol, Nonfasting <130 mg/dL 177 (H) 115 131 (H) VLDL Cholesterol, Nonfasting <30 mg/dL 69 (H) 40 (H) 55 (H) Total Chol/HDL Ratio, Nonfasting <5.10 mg/dL 4.47 2.89 3.85 LDL/HDL Ratio, Nonfasting <2.54 mg/dL 2.12 1.23 1.65 Bilirubin, Conjug <0.2 mg/dL 0.2 (H) Hemoglobin A1C 4.3 - 5.6 % 5.3 5.3 Estimated Average Glucose mg/dL 105 105 Vitamin B12 232 - 1,245 pg/mL 384 Magnesium 1.7 - 2.3 mg/dL 2.0 Legend: (L) Low (H) High ! Abnormal A/P ASSESSMENT/PLAN: 1. Well adult exam - ICD9: V70.0, ICD10: Z00.00 (primary diagnosis) - Counseled on healthy diet and regular exercise - Discussed need for and benefit of weight loss. No weight on file for this encounter.1 - Follow up for annual exam in one year - advised on considering RSV vaccine. 2. Essential hypertension - ICD9: 401.9, ICD10: I10 - Uncontrolled - Continue current medications - Increase hydrochlorothiazide to 25 mg a day - Recommend home blood pressure monitoring, to bring results to next visit - Encouraged sodium restriction, DASH or Mediterranean diet - Recommend regular aerobic exercise - Discussed need for and benefit of weight loss. No weight on file for this encounter. 3. Dyslipidemia - ICD9: 272.4, ICD10: E78.5 - Controlled - Counseled on healthy diet and regular exercise - Discussed need for and benefit of weight loss. No weight on file for this encounter. 4. Gastroesophageal reflux disease without esophagitis - ICD9: 530.81, ICD10: K21.9 - Continue treatment with Nexium 40 mg QD 5. Current mild episode of major depressive disorder without prior episode (HCC) - ICD9: 296.21, ICD10: F32.0 - clinically doing well with sertraline at current dose. 6. Rheumatoid arthritis involving multiple sites with positive rheumatoid factor (HCC) - ICD9: 714.0, ICD10: M05.79 - managed per Rheum 7. Leukopenia, unspecified type - ICD9: 288.50, ICD10: D72.819 - recheck CC in a month 8. Thrombocytopenia (HCC) - ICD9: 287.5, ICD10: D69.6 - recheck CBC in a month 9. RAMIREZ (nonalcoholic steatohepatitis) - ICD9: 571.8, ICD10: K75.81 - patient to continue to work on diet and weight loss. FIB-4 Calculation: 2.94 at 12/08/2023 7:03 AM Calculated from: SGOT/AST: 30 U/L at 12/08/2023 7:03 AM SGPT/ALT: 43 U/L at 12/08/2023 7:03 AM Platelets: 98 k/uL at 12/08/2023 7:03 AM Age: 63 years Will check US of liver with elastography. Discussed caffeine and extra virgin olive oil in the diet. 10. Family history of colon cancer - ICD9: V16.0, ICD10: Z80.0 - consult General surgery for colonoscopy. 11. Screening for colon cancer - ICD9: V76.51, ICD10: Z12.11 - consult general surgery Requested Prescriptions Signed Prescriptions Disp Refills atorvastatin (LIPITOR) 40 mg tablet 90 tablet 1 Sig: Take 1 tablet by mouth daily at bedtime. For cholesterol. sertraline (ZOLOFT) 50 mg tablet 90 tablet 1 Si/2 a tablet by mouth once a day for 14 days then go to one tablet daily hydroCHLOROthiazide 25 mg tablet 90 tablet 1 Sig: Take 1 tablet by mouth once daily. F/u 4 weeks BP check F/u 6 months routine check lipid, CBC, B12, mg hepatic function prior Sylvester Damian MD documented in this encounter [facility] 08-10-2023 Miscellaneous Notes Please let patient know before I refill this Rx, I need to have a discussion with his PCP about his diagnosis of RAMIREZ , liver condition , there is a contraindication for Uroxatral and RAMIREZ diagnosis , I will try to get this done soon, if he had a visit with me on 08/08/2023 he didn't keep it so I will need a visit soon as well JENNA Oswald, GLENDY, DEMETRI PATRICIO: 07/25/22 NOV: 08/08/23 Patient phones requesting refills as follows: Requested Prescriptions Pending Prescriptions Disp Refills alfuzosin SR (UROXATRAL) 10 mg 24 hr tablet [Pharmacy Med Name: ALFUZOSIN HCL ER 10 MG TABLET] 90 tablet 3 Sig: take 1 tablet by mouth everyday at bedtime Please review and advise. Luis Alfredo Chacon LPN documented in this encounter [facility] 08-10-2023 Miscellaneous Notes Patient has been identified by name and date of : Yes, Provider Dr Damian Date 08/10/2023 Time 9:54 am Requested Prescriptions Pending Prescriptions Disp Refills lisinopril (ZESTRIL) 40 mg tablet 90 tablet 1 Sig: Take 1 tablet by mouth once daily. RX INSTRUCTIONS: Patient aware RX will be sent to pharmacy. No need to notify patient. Zulma Sue MA Patricio 12/2022 Nov 11/2023 Last refill: 11/2022 Patient notified the other 2 prescription had a additional refills. Patient has been identified by name and date of : Yes Patient phones for refill(s): Requested Prescriptions Pending Prescriptions Disp Refills sertraline (ZOLOFT) 50 mg tablet 90 tablet 1 Si/2 a tablet by mouth once a day for 14 days then go to one tablet daily lisinopril (ZESTRIL) 40 mg tablet 90 tablet 1 Sig: Take 1 tablet by mouth once daily. atorvastatin (LIPITOR) 40 mg tablet 90 tablet 1 Sig: Take 1 tablet by mouth daily at bedtime. For cholesterol. Date of last office visit in primary care: 06/15/2023 Date of next office visit in primary care: 12/14/2023 Please advise. Thank you. Shelly Snowden. documented in this encounter [facility] 07-23-2023 History of Present illness Narrative Scan on 07/22/2023 11:24 AM by Provider, DEMETRI Lester: Consultation - Rheumatology documented in this encounter [facility] 04-16-2023 History of Present illness Narrative Scan on 04/15/2023 11:35 AM by Provider, DEMETRI Lester: CT Scan documented in this encounter [facility] 01-06-2023 History of Present illness Narrative Chief Complaint Patient presents with: Recheck HPI Gray Roman Fernandez is a 62 year old male who presents here today for 1 month follow up on HTN . Office visit - 1 month follow up on HTN and depression medication At last appt I stated Roman on HCTZ to improve BP control. Denies any known side affects. We also added zoloft and he says he has noticed an improvement. He is not as anxious or as easily upset at times. Also no side affects. He is happy at the current dose and does not feel any changes are needed. He also tried the Cialis and this has been helpful. Office visit - physical 12/03/2022 Patient with hx of HTN, HLP, GERD, RA, elevated PSA, and those as below. The tingling in the right 4th and 5th digits has pretty much resolved. May feel it on occasion. Since having the inguinal hernia repair on the left he gets some discomfort here off and on with certain movements. Not increasing in frequency or intensity. Otherwise has been doing well. Admits to drinking more then his typical 1-2 mixed drinks a night some nights. Office visit - 6 month follow up 05/2022 Patient with hx of HTN, HLP, GERD, RA, elevated PSA, and those as below. Patient has been doing ok. Has been getting tingling in the 4 th and 5th digits of the right hand ever since he had his hernia repair back in Jan. Thinks it may have improved slightly. Gets pain in his shoulder with laying on them. More sore on the right. Past medical history, appointments, medications, allergies reviewed. Previous Medical History PAST MEDICAL HISTORY Diagnosis Date Abdominal aortic aneurysm (AAA) without rupture (HCC) 11/10/2019 CT 06/2019: proximal abdominal aorta, 3.4 x 3.8 cm, CT 11/2020 no aneurysm [place] (actinic keratosis) 12/03/2022 Right side face near ear Tx 11/2022 Bunion of great toe of right foot 11/10/2019 Current mild episode of major depressive disorder without prior episode (HCC) 12/03/2022 Dyslipidemia 07/25/2019 Ectatic thoracic aorta (HCC) 11/09/2020 CTA 06/2019, CTA: 11/2020 was normal. ED (erectile dysfunction) of organic origin 12/03/2022 Elevated PSA 11/12/2020 Seeing [facility] Essential hypertension 07/22/2019 Ex-smoker 07/22/2019 Started age 16 up 1 PPD and quit at age 30. Family history of colon cancer 11/10/2019 Sister Family history of pancreatic cancer 11/10/2019 Mother Gastroesophageal reflux disease without esophagitis 07/07/2006 History of COVID-19 05/22/202005/2020 Leukocytosis 12/03/2022 RAMIREZ (nonalcoholic steatohepatitis) 12/17/2021 Rheumatoid arthritis involving multiple sites with positive rheumatoid factor ([facility]) 07/22/2019 Seeing [facility]: Dr. Quispe Thrombocytopenia ([facility]) 12/03/2022 Stable since 12/2020 around 130 Well adult exam 11/10/2019 Last done: 11/10/2019 Previous Surgical History PAST SURGICAL HISTORY Procedure Laterality Date COLONOSCOPY 2013 COLONOSCOPY GEN ANES 10/22/2020 Repeat in 3 years due to poor bowel preparation KNEE ARTHROSCOPY REPAIR RECURR INGUIN ZACHARIAH,REDUCIBL Left 12/25/2021 Family History FAMILY HISTORY Problem Relation Age of Onset Pancreatic Cancer Mother Heart Father valve replaced Colon Cancer Sister Hyperlipidemia Brother Alzheimer's Disease No Family History Breast Cancer No Family History Ovarian cancer No Family History Prostate Cancer No Family History Coronary Artery Disease No Family History Diabetes No Family History Hypertension No Family History Kidney Disease No Family History Seizures No Family History Stroke No Family History Thyroid No Family History Patient Allergies ALLERGIES Allergen Reactions Leflunomide Other: See Comments Methotrexate Other: See Comments Elevated liver enzymes Current Medications Current Outpatient Medications on File Prior to Visit Medication Sig lisinopril (ZESTRIL) 40 mg tablet Take 1 tablet by mouth once daily. hydroCHLOROthiazide 12.5 mg capsule Take 1 capsule by mouth once daily. sertraline (ZOLOFT) 50 mg tablet 1/2 a tablet by mouth once a day for 14 days then go to one tablet daily Tadalafil (CIALIS) 20 mg tab(s) Take 1 tablet by mouth once daily. As needed alfuzosin SR (UROXATRAL) 10 mg 24 hr tablet TAKE 1 TABLET BY MOUTH EVERYDAY AT BEDTIME atorvastatin (LIPITOR) 40 mg tablet Take 1 tablet by mouth daily at bedtime. For cholesterol. cyclobenzaprine (FLEXERIL) 10 mg tablet Take 1 tablet by mouth three times daily as needed for muscle spasm. aspirin, enteric coated (ASPIRIN, ENTERIC COATED) 81 mg EC tablet Take 1 tablet by mouth once daily. esomeprazole (NEXIUM) 40 mg capsule Take 1 capsule by mouth once daily. tocilizumab (ACTEMRA) 400 mg/20 mL (20 mg/mL) soln Inject 20 mL intravenously once every month. Per Rheu multivitamins(MULTIPLE VITAMIN TAB) Take 1 tablet by mouth once daily. No current facility-administered medications on file prior to visit. Social History Social History Tobacco Use Smoking status: Former Packs/day: 1.00 Years: 15.00 Additional pack years: 0.00 Total pack years: 15.00 Types: Cigarettes Quit date: 07/08/1989 Years since quittin.5 Smokeless tobacco: Never Vaping Use Vaping Use: Never used Substance Use Topics Alcohol use: Yes Comment: whisky daily- 1-2 glasses per day Drug use: No Review of Symptoms REVIEW OF SYSTEMS RESPIRATORY: Negative for cough, hemoptysis, wheezing, COPD, dyspnea or shortness of breath CARDIOVASCULAR: Negative for chest pain, leg swelling, hypertension, CHF or palpitations : See HPI PSYCH: See HPI NEURO: No history of headaches, syncope, paralysis, seizures or tremors EXAM: BP 124/76 (BP Site: Right Arm, BP Position: Sitting, BP Cuff Size: Large Adult) Pulse 76 Resp 18 Wt 113.9 kg (251 lb) BMI 34.04 kg/m General Appearance: Well appearing, alert, in no acute distress, well-hydrated, well nourished.. Neck: Supple, no adenopathy; thyroid symmetric, normal size, no bruits. Lungs: Lungs clear to auscultation. No wheezing, rhonchi, rales.. Heart: RRR without murmur, gallop, or rubs. No ectopy. Abd: normal exam Health Maintenance List SHINGRIX VACCINE(1 of 2) Never done BP CONTROLLED (<130/80) due on 11/09/2021 COVID-19 VACCINE(1) due on 12/04/2023 INFLUENZA(1) due on 01/16/2023 COLORECTAL CANCER SCREENING due on 10/23/2023 ANNUAL PCP TEAM CHRONIC DISEASE VISIT due on 12/04/2023 DIABETES SCREEN due on 11/25/2025 PROSTATE CANCER SCREENING DISCUSSION due on 12/24/2026 LIPID SCREEN due on 11/26/2027 DTAP,TDAP,TD(2 - Td or Tdap) due on 11/09/2029 HEPATITIS C SCREENING Completed PNEUMOCOCCAL Completed HIV SCREENING Discontinued Data reviewed A/P ASSESSMENT/PLAN: 1. Essential hypertension - ICD9: 401.9, ICD10: I10 (primary diagnosis) - Controlled - Improving control - Continue current medications - Recommend home blood pressure monitoring, to bring results to next visit - Encouraged sodium restriction, DASH or Mediterranean diet - Recommend regular aerobic exercise 2. Current mild episode of major depressive disorder without prior episode (HCC) - ICD9: 296.21, ICD10: F32.0 - improved with current dose of zoloft. No changes needed. 3. ED (erectile dysfunction) of organic origin - ICD9: 607.84, ICD10: N52.9 - improved with the cialis. F/u in May for his routine f/u sooner if issues. Sylvester Damian MD documented in this encounter [facility] 12-03-2022 Instructions Sylvester Damian MD - 12/03/2022 8:45 AM EDT Please get labs done on or after 05/22/2023 prior to your next visit. documented in this encounter [facility] 12-03-2022 History of Present illness Narrative Chief Complaint Patient presents with: Physical HPI Gray Fernandez is a 62 year old male who presents here today for Physical. Office visit - physical Patient with hx of HTN, HLP, GERD, RA, elevated PSA, and those as below. The tingling in the right 4th and 5th digits has pretty much resolved. May feel it on occasion. Since having the inguinal hernia repair on the left he gets some discomfort here off and on with certain movements. Not increasing in frequency or intensity. Otherwise has been doing well. Admits to drinking more then his typical 1-2 mixed drinks a night some nights. Office visit - 6 month follow up 05/2022 Patient with hx of HTN, HLP, GERD, RA, elevated PSA, and those as below. Patient has been doing ok. Has been getting tingling in the 4 th and 5th digits of the right hand ever since he had his hernia repair back in Jan. Thinks it may have improved slightly. Gets pain in his shoulder with laying on them. More sore on the right. Past medical history, appointments, medications, allergies reviewed. Previous Medical History PAST MEDICAL HISTORY Diagnosis Date Abdominal aortic aneurysm (AAA) without rupture (HCC) 11/10/2019 CT 06/2019: proximal abdominal aorta, 3.4 x 3.8 cm, CT 11/2020 no aneurysm Bunion of great toe of right foot 11/10/2019 Dyslipidemia 07/25/2019 Ectatic thoracic aorta (HCC) 11/09/2020 CTA 06/2019, CTA: 11/2020 was normal. Elevated PSA 11/12/2020 Seeing [facility] Essential hypertension 07/22/2019 Ex-smoker 07/22/2019 Started age 16 up 1 PPD and quit at age 30. Family history of colon cancer 11/10/2019 Sister Family history of pancreatic cancer 11/10/2019 Mother Gastroesophageal reflux disease without esophagitis 07/07/2006 Generalized osteoarthrosis, unspecified site right knee History of COVID-19 05/22/202005/2020 RAMIREZ (nonalcoholic steatohepatitis) 12/17/2021 Rheumatoid arthritis involving multiple sites with positive rheumatoid factor (HCC) 07/22/2019 Seeing [facility]: Dr. Qiuspe Well adult exam 11/10/2019 Last done: 11/10/2019 Previous Surgical History PAST SURGICAL HISTORY Procedure Laterality Date COLONOSCOPY 2012 COLONOSCOPY GEN ANES 10/22/2020 Repeat in 3 years due to poor bowel preparation KNEE ARTHROSCOPY REPAIR RECURR INGUIN ZACHARIAH,REDUCIBL Left 12/25/2021 Family History FAMILY HISTORY Problem Relation Age of Onset Pancreatic Cancer Mother Heart Father valve replaced Colon Cancer Sister Hyperlipidemia Brother Alzheimer's Disease No Family History Breast Cancer No Family History Ovarian cancer No Family History Prostate Cancer No Family History Coronary Artery Disease No Family History Diabetes No Family History Hypertension No Family History Kidney Disease No Family History Seizures No Family History Stroke No Family History Thyroid No Family History Patient Allergies ALLERGIES Allergen Reactions Leflunomide Other: See Comments Methotrexate Other: See Comments Elevated liver enzymes Current Medications Current Outpatient Medications on File Prior to Visit Medication Sig alfuzosin SR (UROXATRAL) 10 mg 24 hr tablet TAKE 1 TABLET BY MOUTH EVERYDAY AT BEDTIME atorvastatin (LIPITOR) 40 mg tablet Take 1 tablet by mouth daily at bedtime. For cholesterol. lisinopril (ZESTRIL, PRINIVIL) 40 mg tablet Take 1 tablet by mouth once daily. cyclobenzaprine (FLEXERIL) 10 mg tablet Take 1 tablet by mouth three times daily as needed for muscle spasm. aspirin, enteric coated (ASPIRIN, ENTERIC COATED) 81 mg EC tablet Take 1 tablet by mouth once daily. esomeprazole (NEXIUM) 40 mg capsule Take 1 capsule by mouth once daily. tocilizumab (ACTEMRA) 400 mg/20 mL (20 mg/mL) soln Inject 20 mL intravenously once every month. Per Rheu multivitamins(MULTIPLE VITAMIN TAB) Take 1 tablet by mouth once daily. No current facility-administered medications on file prior to visit. Social History Social History Tobacco Use Smoking status: Former Packs/day: 1.00 Years: 15.00 Total pack years: 15.00 Types: Cigarettes Quit date: 07/08/1989 Years since quittin.4 Smokeless tobacco: Never Vaping Use Vaping Use: Never used Substance Use Topics Alcohol use: Yes Comment: whisky daily- 1-2 glasses per day Drug use: No Review of Symptoms REVIEW OF SYSTEMS GENERAL: No weight loss, malaise or fevers HEENT: Negative for frequent or significant headaches, No changes in hearing or vision, no nose bleeds or other nasal problems NECK: Negative for lumps, goiter, pain and significant neck swelling RESPIRATORY: Negative for cough, hemoptysis, wheezing, COPD, dyspnea or shortness of breath CARDIOVASCULAR: Negative for chest pain, leg swelling, hypertension, CHF or palpitations GI: No nausea, vomiting, or diarrhea, No frequent break through heartburn or reflux symptoms, and no blood : No history of dysuria, frequency or blood. Having symptoms of ED. MUSCULOSKELETAL: Negative for new joint pain or swelling, back pain or muscle pain. Has the pain in his shoulders in the morning upon getting up. Improves with movement SKIN: has a lesion on the right side of face. Feels rough. No itching or discomfort. PSYCH: Negative for sleep disturbance, mood disorder and recent psychosocial stressors. Sometimes things feel overwhelming. May last a day. Sometimes wakes up frequently for past 6 months. Has felt down at times. HEMATOLOGY/LYMPHOLOGY: Negative for prolonged bleeding, bruising easily or swollen nodes ENDOCRINE: Negative for cold or heat intolerance, polyuria, polydipsia and goiter NEURO: No history of headaches, syncope, paralysis, seizures or tremors EXAM: BP 152/98 (BP Site: Left Arm, BP Position: Sitting, BP Cuff Size: Large Adult) Pulse 80 Resp 14 Ht 182.9 cm (6') Wt 110.2 kg (243 lb) BMI 32.96 kg/m BP 140/90 Pulse 80 Resp 14 Ht 182.9 cm (6') Wt 110.2 kg (243 lb) BMI 32.96 kg/m Last 4 Encounter Wt Readings: Date: Wt: 12/03/2022 110.2 kg (243 lb) 11/25/2022 111.7 kg (246 lb 3.2 oz) 10/04/2022 109.8 kg (242 lb) 07/25/2022 114.3 kg (252 lb) General Appearance: Well appearing, alert, in no acute distress, well-hydrated, well nourished. and Obese. Skin: Skin color, texture, turgor normal, no suspicious rashes. Has an early AK right side of face near ear. Head: Normocephalic, no masses, lesions, tenderness or abnormalities. Eyes: Anicteric sclera. Pupils are equally round and reactive to light. Extraocular movements are intact. . Ears: External ears, TM's normal, canals clear. Nose/Sinuses: Nares normal, septum midline, mucosa normal, no drainage or sinus tenderness. Oropharynx: Lips, mucosa, and tongue normal, teeth and gums normal, oropharynx normal. Neck: Supple, no adenopathy; thyroid symmetric, normal size, no bruits. Lungs: Lungs clear to auscultation. No wheezing, rhonchi, rales.. Heart: RRR without murmur, gallop, or rubs. No ectopy. Abdomen: Normal abdominal exam, Abdomen soft, non-tender. Bowel sounds normal. No masses, organomegaly. Extremities: No deformities, edema, skin discoloration, clubbing or cyanosis. Good capillary refill. . Musculoskeletal:Muscular strength intact, No joint swelling, deformity, or tenderness. Peripheral Pulses: Normal. Neurologic: Gait normal. Reflexes normal and symmetric. Sensation to light touch and crainal nerves 2-12 intact.. Genitalia: Normal, Penis normal. No urethral discharge. Scrotum normal to palpation. No hernia.. Health Maintenance List COVID-19 VACCINE(1) Never done SHINGRIX VACCINE(1 of 2) Never done BP CONTROLLED (<130/80) due on 11/09/2021 INFLUENZA(1) due on 01/16/2023 ANNUAL PCP TEAM CHRONIC DISEASE VISIT due on 05/29/2023 COLORECTAL CANCER SCREENING due on 10/23/2023 DIABETES SCREEN due on 11/25/2025 PROSTATE CANCER SCREENING DISCUSSION due on 12/24/2026 LIPID SCREEN due on 11/26/2027 DTAP,TDAP,TD(2 - Td or Tdap) due on 11/09/2029 DEPRESSION ASSESSMENT Completed HEPATITIS C SCREENING Completed PNEUMOCOCCAL Completed HIV SCREENING Discontinued Data reviewed Component Latest Ref Rng & Units 04/07/2019 04/16/2021 10/25/2021 12/05/2021 12/24/2021 11/25/2022 WBC 3.70 - 11.00 k/uL 2.7 (A) 3.6 (A) 3.01 (L) 3.18 (L) RBC 4.20 - 6.00 m/uL 5.38 4.8 4.99 5.03 Hemoglobin 13.0 - 17.0 g/dL 15.0 15.4 Hematocrit 39.0 - 51.0 % 44.9 44.7 MCV 80.0 - 100.0 fL 88.8 86.8 90.0 88.9 MCH 26.0 - 34.0 pg 29.9 30.3 30.1 30.6 MCHC 30.5 - 36.0 g/dL 33.7 34.9 33.4 34.5 RDW-CV 11.5 - 15.0 % 12.3 12.4 Platelet Count 150 - 400 k/uL 134 (L) 136 (L) MPV 9.0 - 12.7 fL 10.9 (A) 9.6 10.2 10.9 Neut% % 46.0 44.2 49.7 Abs Neut (ANC) 1.45 - 7.50 k/uL 1.33 (L) 1.58 Lymph% % 37.2 34.9 Abs Lymph 1.00 - 4.00 k/uL 1.12 1.11 Foard% % 12.6 11.3 Abs Foard <0.87 k/uL 0.38 0.36 Eosin% % 4.7 2.5 Abs Eosin <0.46 k/uL 0.14 0.08 Baso% % 1.0 1.3 Abs Baso <0.11 k/uL 0.03 0.04 Immature Gran % % 0.3 0.3 IMMATURE GRANS (ABS) <0.10 k/uL <0.03 <0.03 NRBC /100 WBC 0.0 0.0 Absolute nRBC <0.01 k/uL <0.01 <0.01 DTYPE Auto Auto HGB 14 - 16.5 g/dL 16.1 14.5 HCT 39 - 55 % 47.8 41.5 Platelet 140 - 440 K/uL 129 (A) 135 (A) NEUT % 37.0 - 68.0 % 41.6 46.0 LYMPH % 6.0 - 52.5 % 40.5 (A) 33.2 MONO % 0.4 - 15.9 % 12.8 (A) 15.5 EOS % 0.0 - 8.0 % 3.6 (A) 5.0 (A) BASO % 0 - 5.0 % 1.5 0.3 NEUT ABS 2.0 - 6.8 K/uL 1.7 (A) LYMPH ABS 1.2 - 4 K/uL 1.2 MONO ABS 0 - 1.7 K/uL 0.6 EOS ABS 0.0 - 1.0 K/uL 0.2 BASO ABS 0 - 0.5 K/uL 0.0 EOS ABSOLUTE 0.0 - 1.0 k/uL 0.2 Protein, Total 6.3 - 8.0 g/dL 7.1 7.1 Albumin 3.9 - 4.9 g/dL 4.6 4.7 Calcium 8.5 - 10.2 mg/dL 9.1 9.6 Bilirubin, Total 0.2 - 1.3 mg/dL 0.9 1.1 Alkaline Phosphatase 38 - 113 U/L 57 66 AST 14 - 40 U/L 36 41 (H) ALT 10 - 54 U/L 64 (H) 80 (H) Glucose 74 - 99 mg/dL 103 (H) 95 BUN 9 - 24 mg/dL 17 12 Creatinine 0.73 - 1.22 mg/dL 0.70 (L) 0.73 Sodium 136 - 144 mmol/L 140 138 Potassium 3.7 - 5.1 mmol/L 3.9 3.8 Chloride 97 - 105 mmol/L 105 101 CO2 22 - 30 mmol/L 23 23 Anion Gap 9 - 18 mmol/L 12 14 eGFR >=60 mL/min/1.73m 105 103 Color Yellow Yellow Light Yellow Clarity Clear Clear Clear Glucose, Urine Trace, Negative Negative Negative Bilirubin, Urine Negative Negative Negative Ketones, Urine Trace, Negative Negative Negative Specific [place], Ur 1.005 - 1.030 1.023 1.018 Hemoglobin/Blood,Ur Negative, Trace Negative Negative pH, Urine 5.0 - 8.0 5.0 7.0 Protein, Urine Trace, Negative 1+ (A) Negative Urobilinogen Negative Negative Negative Nitrites Negative Negative Negative Leukest Negative, 25 Angelica/uL Trace (A) 75 Angelica/uL (A) WBC, Urine 0-5 /HPF 6-10 /HPF (A) 6-10 /HPF (A) RBC, Urine 0-3 /HPF 0-3 /HPF 0-3 /HPF Bacteria None Seen /HPF Rare (A) Epithelial Cells /HPF Few Total Cholesterol, Nonfasting <200 mg/dL 182 188 228 (H) Triglycerides, Nonfasting <150 mg/dL 196 (H) 297 (H) 345 (H) HDL Cholesterol, Nonfasting >39 mg/dL 52 47 51 LDL Cholesterol, Nonfasting <100 mg/dL 91 82 108 (H) Non HDL Cholesterol, Nonfasting <130 mg/dL 130 (H) 141 (H) 177 (H) VLDL Cholesterol, Nonfasting <30 mg/dL 39 (H) 59 (H) 69 (H) Total Chol/HDL Ratio, Nonfasting <5.10 mg/dL 3.50 4.00 4.47 LDL/HDL Ratio, Nonfasting <2.54 mg/dL 1.75 1.74 2.12 Hemoglobin A1C 4.3 - 5.6 % 5.3 5.3 Estimated Average Glucose mg/dL 105 105 Vitamin B12 232 - 1,245 pg/mL 534 384 Magnesium 1.7 - 2.3 mg/dL 1.9 2.0 A/P ASSESSMENT/PLAN: 1. Well adult exam - ICD9: V70.0, ICD10: Z00.00 (primary diagnosis) - Counseled on healthy diet and regular exercise - Discussed need for and benefit of weight loss. BMI 32.96 kg/(m^2) - Follow up for annual exam in one year 2. Essential hypertension - ICD9: 401.9, ICD10: I10 - Uncontrolled - Continue current medications - Start hydrochlorothiazide 12.5 mg a day - Recommend home blood pressure monitoring, to bring results to next visit - Encouraged sodium restriction, DASH or Mediterranean diet - Recommend regular aerobic exercise 3. Dyslipidemia - ICD9: 272.4, ICD10: E78.5 - Uncontrolled - Continue current medications - Counseled on healthy diet and regular exercise - Discussed need for and benefit of weight loss. BMI 32.96 kg/(m^2) 4. Gastroesophageal reflux disease without esophagitis - ICD9: 530.81, ICD10: K21.9 - Continue treatment with Nexium 40 mg a day 5. Rheumatoid arthritis involving multiple sites with positive rheumatoid factor (HCC) - ICD9: 714.0, ICD10: M05.79 - management per Rheum 6. RAMIREZ (nonalcoholic steatohepatitis) - ICD9: 571.8, ICD10: K75.81 - discussed need for diet changes, weight loss and decrease alcohol intake. 7. Numbness and tingling in right hand - ICD9: 782.0, ICD10: R20.0, R20.2 - almost resolve will monitor. 8. Thrombocytopenia (HCC) - ICD9: 287.5, ICD10: D69.6 - secondary to meds. Stable will monitor 9. Leukocytosis, unspecified type - ICD9: 288.60, ICD10: D72.829 - as per #8 10. Current mild episode of major depressive disorder without prior episode (HCC) - ICD9: 296.21, ICD10: F32.0 - will stat zoloft 25 mg a day for 2 weeks the increase to 50 mg a day. 11. AK (actinic keratosis) - ICD9: 702.0, ICD10: L57.0 - discussed cryo and verbal consent given. Area treated with cryo with 40 thaw phase. Patient tolerated well. 12. ED (erectile dysfunction) of organic origin - ICD9: 607.84, ICD10: N52.9 - will try Cialis 20mg as needed. Requested Prescriptions Signed Prescriptions Disp Refills lisinopril (ZESTRIL) 40 mg tablet 90 tablet 1 Sig: Take 1 tablet by mouth once daily. hydroCHLOROthiazide 12.5 mg capsule 90 capsule 1 Sig: Take 1 capsule by mouth once daily. sertraline (ZOLOFT) 50 mg tablet 90 tablet 1 Si/2 a tablet by mouth once a day for 14 days then go to one tablet daily Tadalafil (CIALIS) 20 mg tab(s) 30 tablet 3 Sig: Take 1 tablet by mouth once daily. As needed F/u 6 months routine check Lipid and LFT's F/u in a month for HTN and depression check Sylvester Damian MD documented in this encounter [facility] 11-25-2022 History of Present illness Narrative Images from the original note were not included. Subjective HPI Nontoxic-appearing male presents urgent care chief complaint possible infection. Duration of symptoms a week and a half. Associated symptoms increased redness and drainage from area. Patient states thought this was a mosquito bite. Area was initially itchy. Has become slightly painful over the last few days. Did squeeze the area. Was able to get some drainage out of it this morning. Presents today for evaluation. Denies any fever body aches chills productive cough chest pain shortness of breath pleuritic pain hemoptysis nausea vomiting abdominal pain change in bowel or bladder habits. Past medical history prescription medication use and allergies reviewed. .Patient presents with: insect bite left groin: X 1.5 weeks PAST MEDICAL HISTORY Diagnosis Date Abdominal aortic aneurysm (AAA) without rupture (HCC) 11/10/2019 CT 06/2019: proximal abdominal aorta, 3.4 x 3.8 cm, CT 11/2020 no aneurysm Bunion of great toe of right foot 11/10/2019 Dyslipidemia 07/25/2019 Ectatic thoracic aorta (HCC) 11/09/2020 CTA 06/2019, CTA: 11/2020 was normal. Elevated PSA 11/12/2020 Seeing [facility] Essential hypertension 07/22/2019 Ex-smoker 07/22/2019 Started age 16 up 1 PPD and quit at age 30. Family history of colon cancer 11/10/2019 Sister Family history of pancreatic cancer 11/10/2019 Mother Gastroesophageal reflux disease without esophagitis 07/07/2006 Generalized osteoarthrosis, unspecified site right knee History of COVID-19 05/22/202005/2020 RAMIREZ (nonalcoholic steatohepatitis) 12/17/2021 Rheumatoid arthritis involving multiple sites with positive rheumatoid factor (HCC) 07/22/2019 Seeing [facility]: Dr. Quispe Well adult exam 11/10/2019 Last done: 11/10/2019 PAST SURGICAL HISTORY Procedure Laterality Date COLONOSCOPY 2012 COLONOSCOPY GEN ANES 10/22/2020 Repeat in 3 years due to poor bowel preparation KNEE ARTHROSCOPY REPAIR RECURR INGUIN ZACHARIAH,REDUCIBL Left 12/25/2021 ALLERGIES Leflunomide and Methotrexate MEDICATIONS alfuzosin SR (UROXATRAL) 10 mg 24 hr tablet TAKE 1 TABLET BY MOUTH EVERYDAY AT BEDTIME atorvastatin (LIPITOR) 40 mg tablet Take 1 tablet by mouth daily at bedtime. For cholesterol. lisinopril (ZESTRIL, PRINIVIL) 40 mg tablet Take 1 tablet by mouth once daily. cyclobenzaprine (FLEXERIL) 10 mg tablet Take 1 tablet by mouth three times daily as needed for muscle spasm. aspirin, enteric coated (ASPIRIN, ENTERIC COATED) 81 mg EC tablet Take 1 tablet by mouth once daily. esomeprazole (NEXIUM) 40 mg capsule Take 1 capsule by mouth once daily. tocilizumab (ACTEMRA) 400 mg/20 mL (20 mg/mL) soln Inject 20 mL intravenously once every month. Per Rheu multivitamins(MULTIPLE VITAMIN TAB) Take 1 tablet by mouth once daily. FAMILY HISTORY Problem Relation Age of Onset Pancreatic Cancer Mother Heart Father valve replaced Colon Cancer Sister Hyperlipidemia Brother Alzheimer's Disease No Family History Breast Cancer No Family History Ovarian cancer No Family History Prostate Cancer No Family History Coronary Artery Disease No Family History Diabetes No Family History Hypertension No Family History Kidney Disease No Family History Seizures No Family History Stroke No Family History Thyroid No Family History Social History Tobacco Use Smoking status: Former Packs/day: 1.00 Years: 15.00 Total pack years: 15.00 Types: Cigarettes Quit date: 07/08/1989 Years since quittin.4 Smokeless tobacco: Never Vaping Use Vaping Use: Never used Substance Use Topics Alcohol use: Yes Comment: whisky daily- 1-2 glasses per day Drug use: No BP 152/86 Pulse 68 Temp 36.7 C (98.1 F) (Tympanic) Resp 16 Wt 111.7 kg (246 lb 3.2 oz) SpO2 96% BMI 33.39 kg/m Review of Systems Constitutional: Negative for chills, fever and malaise/fatigue. HENT: Negative for congestion, ear discharge, ear pain, sinus pain and sore throat. Eyes: Negative for blurred vision, pain, discharge and redness. Respiratory: Negative for cough, hemoptysis, sputum production, shortness of breath, wheezing and stridor. Cardiovascular: Negative for chest pain. Gastrointestinal: Negative for abdominal pain, diarrhea, nausea and vomiting. Musculoskeletal: Negative for myalgias. Skin: Negative for itching and rash. Neurological: Negative for dizziness and headaches. Objective Physical Exam Constitutional: General: He is not in acute distress. Appearance: He is not diaphoretic. HENT: Head: Normocephalic. Eyes: Conjunctiva/sclera: Conjunctivae normal. Pupils: Pupils are equal, round, and reactive to light. Cardiovascular: Rate and Rhythm: Normal rate and regular rhythm. Heart sounds: Normal heart sounds. Pulmonary: Effort: Pulmonary effort is normal. No tachypnea, accessory muscle usage or respiratory distress. Breath sounds: Normal breath sounds. No stridor. No wheezing, rhonchi or rales. Abdominal: Palpations: Abdomen is soft. Genitourinary: Comments: 2 areas representing insect bite noted. Inguinal area insect bite did have some surrounding erythema. No remote redness. Small amount of drainage noted. No inguinal adenopathy noted Musculoskeletal: Cervical back: Normal range of motion and neck supple. No edema, erythema, rigidity or tenderness. No pain with movement. Normal range of motion. Lymphadenopathy: Cervical: No cervical adenopathy. Skin: General: Skin is warm and dry. Neurological: Mental Status: He is alert and oriented to person, place, and time. ASSESSMENT/PLAN: 1. Cellulitis of skin - ICD9: 682.9, ICD10: L03.90 - ABSCESS AND WOUND CULTURE WITH GRAM STAIN Diagnosed with cellulitis. Placed on topical mupirocin. Wound culture obtained. Follow-up with PCP as scheduled if symptoms are not improving. Red flags prompt evaluation discussed. Patient was educated on supportive therapies. Patient will follow up with primary care provider as needed. Patient was instructed to immediately proceed to emergency room for any new, worsening, or symptoms lasting longer than anticipated. The patient's clinical presentation is otherwise unremarkable at this time. Based on exam and clinical finding, the patient is stable for discharge. Plan of care was discussed with patient. Patient verbalizes understanding and agrees to plan of care. This note was generated using [employer] / ?.?? software. It may contain errors in wording, punctuation, or spelling. Sylvester Atkins APRN.SHAN documented in this encounter [facility] 09-18-2022 History of Present illness Narrative Scan on 09/17/2022 9:21 AM by External Provider, DEMETRI: Consultation - Orthopedics Zulma Sue MA documented in this encounter [facility] 07-25-2022 History of Present illness Narrative Patient's post-void bladder scan: 36 ML. Jessica Almaraz Images from the original note were not included. [facility] Some elements copied from his previous note, which have been updated where appropriate, and all reflect current medical decision making from date of this visit. PATIENT INFO: Gray Fernandez 62 year old ( ) REFERRING PROVIDER: Self PCP: Sylvester Damian MD HPI: Gray Fernandez 62 year old male is here today for follow up for Elevated PSA and recent Dysuria He notices that his had a lot of urgency but then cannot get a good stream and will start burning when he strains to empty After discussing his fluid intake and the overall symptoms It seems he is not getting enough water in And his urine is so concentrated that it irritates the bladder causing urgency with little volumes We discussed the common causes of urinary frequency and urgency, and restricting water intake In hopes to mitigate the need to urinate, we discussed how this behavior more often worsen the problem not improving it, we discussed increasing daily water intake to 64-84 oz 7a -7p and try to reduce bladder irritants, caffeine, alcohol and acid foods and drink. Bladder irritants handout available to patient. LUTS: Dysuria Slow Stream Other symptoms: LABS: Hematocrit (%) Date Value 10/25/2021 44.9 07/08/2019 44.4 HCT (%) Date Value 04/16/2021 41.5 04/07/2019 47.8 01/06/2019 47.4 PSA (ng/mL) Date Value 12/24/2021 5.13 09/13/2021 12.25 03/28/2021 5.3 11/09/2020 7.50 04/07/2019 3.5 PSA. (ng/mL) Date Value 08/19/2021 4.9 No results found for: TESTOST MEDICATIONS: atorvastatin (LIPITOR) 40 mg tablet Take 1 tablet by mouth daily at bedtime. For cholesterol. lisinopril (ZESTRIL, PRINIVIL) 40 mg tablet Take 1 tablet by mouth once daily. alfuzosin SR (UROXATRAL) 10 mg 24 hr tablet Take 1 tablet by mouth daily at bedtime. cyclobenzaprine (FLEXERIL) 10 mg tablet Take 1 tablet by mouth three times daily as needed for muscle spasm. aspirin, enteric coated (ASPIRIN, ENTERIC COATED) 81 mg EC tablet Take 1 tablet by mouth once daily. esomeprazole (NEXIUM) 40 mg capsule Take 1 capsule by mouth once daily. tocilizumab (ACTEMRA) 400 mg/20 mL (20 mg/mL) soln Inject 20 mL intravenously once every month. Per Rheu multivitamins(MULTIPLE VITAMIN TAB) Take 1 tablet by mouth once daily. PAST MEDICAL HISTORY: PAST MEDICAL HISTORY Diagnosis Date Abdominal aortic aneurysm (AAA) without rupture (HCC) 11/10/2019 CT 06/2019: proximal abdominal aorta, 3.4 x 3.8 cm, CT 11/2020 no aneurysm Bunion of great toe of right foot 11/10/2019 Dyslipidemia 07/25/2019 Ectatic thoracic aorta (HCC) 11/09/2020 CTA 06/2019, CTA: 11/2020 was normal. Elevated PSA 11/12/2020 Seeing [facility] Essential hypertension 07/22/2019 Ex-smoker 07/22/2019 Started age 16 up 1 PPD and quit at age 30. Family history of colon cancer 11/10/2019 Sister Family history of pancreatic cancer 11/10/2019 Mother Gastroesophageal reflux disease without esophagitis 07/07/2006 Generalized osteoarthrosis, unspecified site right knee History of COVID-19 05/22/202005/2020 RAMIREZ (nonalcoholic steatohepatitis) 12/17/2021 Rheumatoid arthritis involving multiple sites with positive rheumatoid factor (HCC) 07/22/2019 Seeing [facility]: Dr. Quispe Well adult exam 11/10/2019 Last done: 11/10/2019 PAST SURGICAL HISTORY: PAST SURGICAL HISTORY Procedure Laterality Date COLONOSCOPY 2012 COLONOSCOPY GEN ANES 10/22/2020 Repeat in 3 years due to poor bowel preparation KNEE ARTHROSCOPY REPAIR RECURR INGUIN ZACHARIAH,REDUCIBL Left 12/25/2021 FAMILY HISTORY: FAMILY HISTORY Problem Relation Age of Onset Pancreatic Cancer Mother Heart Father valve replaced Colon Cancer Sister Hyperlipidemia Brother Alzheimer's Disease No Family History Breast Cancer No Family History Ovarian cancer No Family History Prostate Cancer No Family History Coronary Artery Disease No Family History Diabetes No Family History Hypertension No Family History Kidney Disease No Family History Seizures No Family History Stroke No Family History Thyroid No Family History SOCIAL HISTORY: Social Connections: Not on file REVIEW OF SYSTEMS: GENERAL: No fever, chills, weight loss, or fatigue. All other systems reviewed and are negative PHYSICAL EXAMINATION: Blood pressure 152/88, pulse 75, height 182.9 cm (6'), weight 114.3 kg (252 lb), SpO2 97 %. GENERAL: WNL nutrition, no deformities, healthy appearing PROBLEM LIST REVIEW: Yes LABS: Results for orders placed or performed in visit on 07/25/22 UA DIP, URINE (POC) Result Value Ref Range GLUCOSE UA (POCT) Negative Negative mg/dL BILIRUBIN UA (POCT) Negative Negative KETONE UA (POCT) Negative Negative mg/dL SPECIFIC GRAVITY UA (POCT) 1.015 1.005 - 1.030 HEMOGLOBIN/BLOOD UA (POCT) Negative Negative PH UA (POCT) 7.0 4.5 - 8.0 PROTEIN UA (POCT) Negative Negative mg/dL UROBILINOGEN UA (POCT) 0.2 Normal E.U./dL NITRITE UA (POCT) Negative Negative LEUKOCYTES UA (POCT) Trace (A) Negative COLOR UA (POCT) Yellow CLARITY UA (POCT) Clear PROCEDURES: PVR: 36 ml IMAGING: IMPRESSION/PLAN: 1. Elevated PSA 2. Dysuria 3. OAB due to Bladder irritation > PSA with annual blood work with PCP We discussed the common causes of urinary frequency and urgency, and restricting water intake In hopes to mitigate the need to urinate, we discussed how this behavior more often worsen the problem not improving it, we discussed increasing daily water intake to 64-84 oz 7a -7p and try to reduce bladder irritants, caffeine, alcohol and acid foods and drink. > 1 year Appt w/ JENNA Devries MT, PA-C with PSA prior JENNA Oswald MT, PA-C documented in this encounter [facility] 2022 History of Present illness Narrative This note was created using [employer]. Subjective Gray Fernandez is a 62 year old male. HPI Patient presents with urinary urgency and burning over the past week to week and a half. Denies any abdominal pain. He has had some pelvic pressure. Denies back pain. No blood in urine. No history of kidney stones. States he sometimes has trouble getting the stream going. He is on Uroxatrol for urology. He states he had been on Flomax but was not working so was switched to this. No fever. Review of Systems Constitutional: Negative. HENT: Negative. Respiratory: Negative. Cardiovascular: Negative. Gastrointestinal: Negative. Genitourinary: Positive for dysuria, frequency and urgency. Negative for flank pain, genital sores, hematuria, penile discharge, penile pain, penile swelling, scrotal swelling and testicular pain. Musculoskeletal: Negative. All other systems reviewed and are negative. PAST MEDICAL HISTORY Diagnosis Date Abdominal aortic aneurysm (AAA) without rupture 11/10/2019 CT 06/2019: proximal abdominal aorta, 3.4 x 3.8 cm, CT 11/2020 no aneurysm Bunion of great toe of right foot 11/10/2019 Dyslipidemia 07/25/2019 Ectatic thoracic aorta (HCC) 11/09/2020 CTA 06/2019, CTA: 11/2020 was normal. Elevated PSA 11/12/2020 Seeing [facility] Carlos Lakhani Essential hypertension 07/22/2019 Ex-smoker 07/22/2019 Started age 16 up 1 PPD and quit at age 30. Family history of colon cancer 11/10/2019 Sister Family history of pancreatic cancer 11/10/2019 Mother Gastroesophageal reflux disease without esophagitis 07/07/2006 Generalized osteoarthrosis, unspecified site right knee History of COVID-19 05/22/202005/2020 RAMIREZ (nonalcoholic steatohepatitis) 12/17/2021 Rheumatoid arthritis involving multiple sites with positive rheumatoid factor (HCC) 07/22/2019 Seeing [facility]: Dr. Quispe Well adult exam 11/10/2019 Last done: 11/10/2019 Current Outpatient Medications Medication Sig Dispense Refill atorvastatin (LIPITOR) 40 mg tablet Take 1 tablet by mouth daily at bedtime. For cholesterol. lisinopril (ZESTRIL, PRINIVIL) 40 mg tablet Take 1 tablet by mouth once daily. 90 tablet 1 alfuzosin SR (UROXATRAL) 10 mg 24 hr tablet Take 1 tablet by mouth daily at bedtime. 90 tablet 3 cyclobenzaprine (FLEXERIL) 10 mg tablet Take 1 tablet by mouth three times daily as needed for muscle spasm. 15 tablet 0 aspirin, enteric coated (ASPIRIN, ENTERIC COATED) 81 mg EC tablet Take 1 tablet by mouth once daily. esomeprazole (NEXIUM) 40 mg capsule Take 1 capsule by mouth once daily. 90 capsule 1 tocilizumab (ACTEMRA) 400 mg/20 mL (20 mg/mL) soln Inject 20 mL intravenously once every month. Per Rheu multivitamins(MULTIPLE VITAMIN TAB) Take 1 tablet by mouth once daily. 0 nitrofurantoin monohydrate and macrocrystal (MACROBID) 100 mg capsule Take 1 capsule by mouth twice daily for 7 days. 14 capsule 0 No current facility-administered medications for this visit. PAST SURGICAL HISTORY Procedure Laterality Date COLONOSCOPY 2012 COLONOSCOPY GEN ANES 10/22/2020 Repeat in 3 years due to poor bowel preparation KNEE ARTHROSCOPY REPAIR RECURR INGUIN ZACHARIAH,REDUCIBL Left 12/25/2021 FAMILY HISTORY Problem Relation Age of Onset Pancreatic Cancer Mother Heart Father valve replaced Colon Cancer Sister Hyperlipidemia Brother Alzheimer's Disease No Family History Breast Cancer No Family History Ovarian cancer No Family History Prostate Cancer No Family History Coronary Artery Disease No Family History Diabetes No Family History Hypertension No Family History Kidney Disease No Family History Seizures No Family History Stroke No Family History Thyroid No Family History Social History Tobacco Use Smoking status: Former Packs/day: 1.00 Years: 15.00 Pack years: 15.00 Types: Cigarettes Quit date: 07/08/1989 Years since quittin.0 Smokeless tobacco: Never Vaping Use Vaping Use: Never used Substance Use Topics Alcohol use: Yes Comment: whisky daily- 1-2 glasses per day Drug use: No Objective BP 142/78 Pulse 81 Temp 36.8 C (98.3 F) (Tympanic) Resp 16 Wt 113.7 kg (250 lb 9.6 oz) SpO2 96% BMI 33.99 kg/m Physical Exam Vitals reviewed. Constitutional: Appearance: Normal appearance. HENT: Head: Normocephalic and atraumatic. Cardiovascular: Rate and Rhythm: Normal rate and regular rhythm. Heart sounds: Normal heart sounds. Pulmonary: Effort: Pulmonary effort is normal. Breath sounds: Normal breath sounds. Abdominal: General: Abdomen is flat. Palpations: Abdomen is soft. Tenderness: There is no abdominal tenderness. There is no right CVA tenderness, left CVA tenderness or guarding. Skin: General: Skin is warm and dry. Neurological: Mental Status: He is alert. Assessment and Plan ASSESSMENT/PLAN: 1. Burning with urination - ICD9: 788.1, ICD10: R30.0 acute - UA positive for angelica esterase and proteinuria - Send urine for culture - Begin treatment with Macrobid 100 mg BID for 7 days -If urine culture is negative would recommend he follow-up with Jean Carlos Lakhani with urology. Referral sent. - UA DIP, URINE (POC) - URINE CULTURE - CONSULT TO UROLOGY Mercy Schulte PA-C documented in this encounter [facility] 06-02-2022 Miscellaneous Notes Pt called and is notified of providers message and instructions. Pt voices understanding. Haydee Martinez RN Will increase to 40mg but patient needs to try to improve medication adherence. He can take 2 of the 20mg and let us know when he needs refill. Thanks. Chanelle Talbot PA-C Spoke with pt, notified of results. Pt states he has been taking the Lipitor 20 mg but admits to missing 2-3 days a week. Tanvi Argueta Ma Let patient know his lipid panel showed Trigs elevated at 322 (goal<150 and were 297), HDL ok at 46 and LDL elevated at 136 (goal<100). Verify that he had been taking his Lipitor 20 mg a day. If so then I want to increase it to 40 mg a day. documented in this encounter [facility] 05-29-2022 Instructions Sylvester Damian MD - 05/29/2022 9:27 AM EST Please get labs and urine test done on or after 11/14/2022 prior to your next visit. documented in this encounter [facility] 05-29-2022 History of Present illness Narrative Chief Complaint Patient presents with: Follow Up: 6 month- questioning tingling in fingers on right hand. Also reporting difficulty sleeping on his side due to gets pain in shoulders. AUDIE Win Roman Fernandez is a 61 year old male who presents here today for 6 month follow up. Patient with hx of HTN, HLP, GERD, RA, elevated PSA, and those as below. Patient has been doing ok. Has been getting tingling in the 4 th and 5th digits of the right hand ever since he had his hernia repair back in Jan. Thinks it may have improved slightly. Gets pain in his shoulder with laying on them. More sore on the right. Past medical history, appointments, medications, allergies reviewed. Previous Medical History PAST MEDICAL HISTORY Diagnosis Date Abdominal aortic aneurysm (AAA) without rupture (HCC) 11/10/2019 CT 06/2019: proximal abdominal aorta, 3.4 x 3.8 cm, CT 11/2020 no aneurysm Bunion of great toe of right foot 11/10/2019 Dyslipidemia 07/25/2019 Ectatic thoracic aorta (HCC) 11/09/2020 CTA 06/2019, CTA: 11/2020 was normal. Elevated PSA 11/12/2020 Seeing [facility] Carlos Lakhani Essential hypertension 07/22/2019 Ex-smoker 07/22/2019 Started age 16 up 1 PPD and quit at age 30. Family history of colon cancer 11/10/2019 Sister Family history of pancreatic cancer 11/10/2019 Mother Gastroesophageal reflux disease without esophagitis 07/07/2006 Generalized osteoarthrosis, unspecified site right knee History of COVID-19 05/22/202005/2020 RAMIREZ (nonalcoholic steatohepatitis) 12/17/2021 Rheumatoid arthritis involving multiple sites with positive rheumatoid factor (HCC) 07/22/2019 Seeing [facility]: Dr. Quispe Well adult exam 11/10/2019 Last done: 11/10/2019 Previous Surgical History PAST SURGICAL HISTORY Procedure Laterality Date COLONOSCOPY 2013 COLONOSCOPY GEN ANES 10/22/2020 Repeat in 3 years due to poor bowel preparation KNEE ARTHROSCOPY REPAIR RECURR INGUIN ZACHARIAH,REDUCIBL Left 12/25/2021 Family History FAMILY HISTORY Problem Relation Age of Onset Pancreatic Cancer Mother Heart Father valve replaced Colon Cancer Sister Hyperlipidemia Brother Alzheimer's Disease No Family History Breast Cancer No Family History Ovarian cancer No Family History Prostate Cancer No Family History Coronary Artery Disease No Family History Diabetes No Family History Hypertension No Family History Kidney Disease No Family History Seizures No Family History Stroke No Family History Thyroid No Family History Patient Allergies ALLERGIES Allergen Reactions Methotrexate Other: See Comments Elevated liver enzymes Current Medications Current Outpatient Medications on File Prior to Visit Medication Sig lisinopril (ZESTRIL, PRINIVIL) 40 mg tablet Take 1 tablet by mouth once daily. atorvastatin (LIPITOR) 20 mg tablet Take 1 tablet by mouth daily at bedtime. For cholesterol. alfuzosin SR (UROXATRAL) 10 mg 24 hr tablet Take 1 tablet by mouth daily at bedtime. cyclobenzaprine (FLEXERIL) 10 mg tablet Take 1 tablet by mouth three times daily as needed for muscle spasm. aspirin, enteric coated (ASPIRIN, ENTERIC COATED) 81 mg EC tablet Take 1 tablet by mouth once daily. esomeprazole (NEXIUM) 40 mg capsule Take 1 capsule by mouth once daily. tocilizumab (ACTEMRA) 400 mg/20 mL (20 mg/mL) soln Inject 20 mL intravenously once every month. Per Rheu multivitamins(MULTIPLE VITAMIN TAB) Take 1 tablet by mouth once daily. No current facility-administered medications on file prior to visit. Social History Social History Tobacco Use Smoking status: Former Packs/day: 1.00 Years: 15.00 Pack years: 15.00 Types: Cigarettes Quit date: 07/08/1989 Years since quittin.9 Smokeless tobacco: Never Vaping Use Vaping Use: Never used Substance Use Topics Alcohol use: Yes Comment: whisky daily- 1-2 glasses per day Drug use: No Review of Symptoms REVIEW OF SYSTEMS GENERAL: No weight loss, malaise or fevers NECK: Negative for lumps, goiter, pain and significant neck swelling RESPIRATORY: Negative for cough, hemoptysis, wheezing, COPD, dyspnea or shortness of breath. Getting over a URI. Was coughing up a lot f phlegm but much. CARDIOVASCULAR: Negative for chest pain, leg swelling, hypertension, CHF or palpitations GI: No nausea, vomiting, or diarrhea and No heartburn or reflux symptoms MUSCULOSKELETAL: see HPI NEURO: No history of headaches, syncope, paralysis, seizures or tremors EXAM: BP 144/84 Pulse 77 Resp 16 Wt 113.6 kg (250 lb 6.4 oz) SpO2 96% BMI 33.96 kg/m BP 126/84 Pulse 77 Resp 16 Wt 113.6 kg (250 lb 6.4 oz) SpO2 96% BMI 33.96 kg/m General Appearance: Well appearing, alert, in no acute distress, well-hydrated, well nourished.. Neck: Supple, no adenopathy; thyroid symmetric, normal size, no bruits. Lungs: Lungs clear to auscultation. No wheezing, rhonchi, rales.. Heart: RRR without murmur, gallop, or rubs. No ectopy. Abdomen: Normal abdominal exam, Abdomen soft, non-tender. Bowel sounds normal. No masses, organomegaly. Extremities: No deformities, edema, skin discoloration, Good capillary refill. . Peripheral Pulses: Normal. Health Maintenance List BP CONTROLLED (<130/80) due on 11/09/2021 INFLUENZA(1) due on 01/16/2022 DEPRESSION ASSESSMENT Never done SHINGRIX VACCINE(1 of 2) due on 11/26/2022 COVID-19 VACCINE(1) due on 11/26/2022 ANNUAL PCP TEAM CHRONIC DISEASE VISIT due on 11/26/2022 COLORECTAL CANCER SCREENING due on 10/23/2023 DIABETES SCREEN due on 12/05/2024 LIPID SCREEN due on 12/24/2026 PROSTATE CANCER SCREENING DISCUSSION due on 12/24/2026 DTAP,TDAP,TD(2 - Td or Tdap) due on 11/09/2029 HEPATITIS C SCREENING Completed PNEUMOCOCCAL Completed HIV SCREENING Discontinued Data reviewed A/P ASSESSMENT/PLAN: 1. Essential hypertension - ICD9: 401.9, ICD10: I10 (primary diagnosis) - good control - Continue current medication(s) - Recommended regular aerobic exercise. - Recommend home blood pressure monitoring, to bring results in on next visit - Goal of BP <130/80 2. Dyslipidemia - ICD9: 272.4, ICD10: E78.5 - to be determined upon return of lab results - Continue current medication. - Encouraged following a low fat, low cholesterol diet. - Discussed the benefits of regular aerobic exercise and weight loss. - Encouraged following a low carbohydrate, healthy oil intake diet. Check Lipid and LFT's 3. Rheumatoid arthritis involving multiple sites with positive rheumatoid factor (HCC) - ICD9: 714.0, ICD10: M05.79 - management per Rheum 4. Gastroesophageal reflux disease without esophagitis - ICD9: 530.81, ICD10: K21.9 - Continue treatment with Nexium 40 mg every day as needed 5. RAMIREZ (nonalcoholic steatohepatitis) - ICD9: 571.8, ICD10: K75.81 - await labs 6. Acute pain of both shoulders - ICD9: 719.41, ICD10: M25.511, M25.512 - asked patient to discuss with coder. 9. Numbness and tingling in right hand - ICD9: 782.0, ICD10: R20.0, R20.2 - explained to patient that the tingling in his 4th and 5th digits may be from a nerve irritation from the IV or a ulnar compression neuropraxia. We could do a NCS/EMG study or monitor to see if it resolves since it seems like it has improved some. Patient decided on the later. Requested Prescriptions Signed Prescriptions Disp Refills lisinopril (ZESTRIL, PRINIVIL) 40 mg tablet 90 tablet 1 Sig: Take 1 tablet by mouth once daily. atorvastatin (LIPITOR) 20 mg tablet 90 tablet 1 Sig: Take 1 tablet by mouth daily at bedtime. For cholesterol. F/u 6 months WAE check CMP, Lipid, UA, A1c, CBC, Mg and B12 prior Sylvester Damian MD documented in this encounter [facility] 01-09-2022 History of Present illness Narrative FOLLOW UP VISIT - HERNIA NAME: Gray Hernández [facility] NO.: [id number] DATE OF SERVICE: 01/09/2022 : 1960 REFERRING PHYSICIAN: Sylvester Damian MD Gray Hernández is a patient I am following for a left inguinal hernia. I performed a open left inguinal hernia repair with mesh using an onlay type repair with no plug secured to Herb's ligament on December 25, 2021. The patient currently notes a sense of pulling in the area which is improving. his appetite has been good. he denies fever, chills or abdominal pain. he does note some improving incisional discomfort. he notes no bulges at the operative site VITALS: Blood pressure 138/90, pulse 92, temperature 36 C (96.8 F), SpO2 95 %. On examination, the abdomen is benign. The incision is healing well without signs of infection or inflammation. There are no signs of recurrent hernia formation. Assessment IMPRESSION: status post open left inguinal hernia repair with mesh PLAN: If the patient notes any problems, he should contact me immediately. he may return to his regular activities as tolerated, with the exception of no lifting greater than 20 pounds for the next 4 weeks. Diagnoses: (K40.90) Left inguinal hernia (primary encounter diagnosis) Return to Clinic: The patient is instructed to follow-up with me as needed. Romain Ambriz MD documented in this encounter [facility] 12-26-2021 Miscellaneous Notes Spoke with patient and results and instructions. Patient voiced understanding. Mailed cholesterol letter. Zulma Sue MA Let patient know lipid panel showed Trigs elevated at 297 (goal<150), HDL good at 47 and LDL good at 82. Work on reduced fat in diet. documented in this encounter [facility] 12-26-2021 Miscellaneous Notes Patient called back and message given. Patient verbalized understanding. Called patient. No answer- left message. Kat Rosen LPN ----- Message from [facility] Lakhani PA-C sent at 12/24/2021 7:46 PM EDT ----- Much improved PSA , good news. JENNA Oswald, DEMETRI PIKE documented in this encounter [facility] 12-25-2021 History of Past i llness Narrative Problem Noted Date Resolved Date Left inguinal hernia 12/25/2021 12/25/2021 Ectatic thoracic aorta 11/09/2020 Overview: CTA 06/2019, CTA: 11/2020 was normal. Abdominal aortic aneurysm (AAA) without rupture 11/10/2019 11/28/2020 Overview: CT 06/2019: proximal abdominal aorta, 3.4 x 3.8 cm, CT 11/2020 no aneurysm documented as of this encounter (statuses as of 12/26/2021) [facility] History of Past illness Narrative* Problem Noted Date Resolved Date Left inguinal hernia 12/25/2021 12/25/2021 Ectatic thoracic aorta 11/09/2020 Overview: CTA 06/2019, CTA: 11/2020 was normal. Abdominal aortic aneurysm (AAA) without rupture 11/10/2019 11/28/2020 Overview: CT 06/2019: proximal abdominal aorta, 3.4 x 3.8 cm, CT 11/2020 no aneurysm documented as of this encounter (statuses as of 01/09/2022) [facility] History of Past illness Narrative* Problem Noted Date Resolved Date Left inguinal hernia 12/25/2021 12/25/2021 Ectatic thoracic aorta 11/09/2020 Overview: CTA 06/2019, CTA: 11/2020 was normal. Abdominal aortic aneurysm (AAA) without rupture 11/10/2019 11/28/2020 Overview: CT 06/2019: proximal abdominal aorta, 3.4 x 3.8 cm, CT 11/2020 no aneurysm documented as of this encounter (statuses as of 01/23/2022) [facility] History of Past illness Narrative* Problem Noted Date Resolved Date Left inguinal hernia 12/25/2021 12/25/2021 Ectatic thoracic aorta 11/09/2020 Overview: CTA 06/2019, CTA: 11/2020 was normal. Abdominal aortic aneurysm (AAA) without rupture 11/10/2019 11/28/2020 Overview: CT 06/2019: proximal abdominal aorta, 3.4 x 3.8 cm, CT 11/2020 no aneurysm documented as of this encounter (statuses as of 05/29/2022) [facility] History of Past illness Narrative* Problem Noted Date Resolved Date Left inguinal hernia 12/25/2021 12/25/2021 Ectatic thoracic aorta 11/09/2020 Overview: CTA 06/2019, CTA: 11/2020 was normal. Abdominal aortic aneurysm (AAA) without rupture 11/10/2019 11/28/2020 Overview: CT 06/2019: proximal abdominal aorta, 3.4 x 3.8 cm, CT 11/2020 no aneurysm documented as of this encounter (statuses as of 06/02/2022) [facility] History of Past illness Narrative* Problem Noted Date Resolved Date Left inguinal hernia 12/25/2021 12/25/2021 Ectatic thoracic aorta 11/09/2020 Overview: CTA 06/2019, CTA: 11/2020 was normal. Abdominal aortic aneurysm (AAA) without rupture 11/10/2019 11/28/2020 Overview: CT 06/2019: proximal abdominal aorta, 3.4 x 3.8 cm, CT 11/2020 no aneurysm documented as of this encounter (statuses as of 2022) [facility] History of Past illness Narrative* Problem Noted Date Resolved Date Left inguinal hernia 12/25/2021 12/25/2021 Ectatic thoracic aorta 11/09/2020 Overview: CTA 06/2019, CTA: 11/2020 was normal. Abdominal aortic aneurysm (AAA) without rupture 11/10/2019 11/28/2020 Overview: CT 06/2019: proximal abdominal aorta, 3.4 x 3.8 cm, CT 11/2020 no aneurysm documented as of this encounter (statuses as of 07/25/2022) [facility] History of Past illness Narrative* Problem Noted Date Resolved Date Left inguinal hernia 12/25/2021 12/25/2021 Ectatic thoracic aorta 11/09/2020 Overview: CTA 06/2019, CTA: 11/2020 was normal. Abdominal aortic aneurysm (AAA) without rupture 11/10/2019 11/28/2020 Overview: CT 06/2019: proximal abdominal aorta, 3.4 x 3.8 cm, CT 11/2020 no aneurysm documented as of this encounter (statuses as of 09/21/2022) [facility] History of Past illness Narrative* Problem Noted Date Diagnosed Date Resolved Date Left inguinal hernia 12/25/2021 022 Ectatic thoracic aorta 11/09/202011/28 Overview: CTA 06/2019, CTA: 11/2020 was normal. Abdominal aortic aneurysm (A AA) without rupture 11/10/2019 11/28/2020 Overview: CT 06/2019: proximal abdominal aorta, 3.4 x 3.8 cm, CT 11/2020 no aneurysm documented as of this encounter (statuses as of 11/25/2022) [facility] History of Past illness Narrative* Problem Noted Date Diagnosed Date Resolved Date Left inguinal hernia 12/25/2021 022 Ectatic thoracic aorta 11/09/202011/28 Overview: CTA 06/2019, CTA: 11/2020 was normal. Abdominal aortic aneurysm (A AA) without rupture 11/10/2019 11/28/2020 Overview: CT 06/2019: proximal abdominal aorta, 3.4 x 3.8 cm, CT 11/2020 no aneurysm documented as of this encounter (statuses as of 12/03/2022) [facility] History of Past illness Narrative* Problem Noted Date Diagnosed Date Resolved Date Left inguinal hernia 12/25/2021 022 Ectatic thoracic aorta 11/09/202011/28 Overview: CTA 06/2019, CTA: 11/2020 was normal. Abdominal aortic aneurysm (A AA) without rupture 11/10/2019 11/28/2020 Overview: CT 06/2019: proximal abdominal aorta, 3.4 x 3.8 cm, CT 11/2020 no aneurysm documented as of this encounter (statuses as of 01/06/2023) [facility] History of Past illness Narrative* Problem Noted Date Diagnosed Date Resolved Date Left inguinal hernia 12/25/2021 022 Ectatic thoracic aorta 11/09/202011/28 Overview: CTA 06/2019, CTA: 11/2020 was normal. Abdominal aortic aneurysm (A AA) without rupture 11/10/2019 11/28/2020 Overview: CT 06/2019: proximal abdominal aorta, 3.4 x 3.8 cm, CT 11/2020 no aneurysm documented as of this encounter (statuses as of 04/16/2023) [facility] History of Past illness Narrative* Problem Noted Date Diagnosed Date Resolved Date Left inguinal hernia 12/25/2021 022 Ectatic thoracic aorta 11/09/202011/28 Overview: CTA 06/2019, CTA: 11/2020 was normal. Abdominal aortic aneurysm (A AA) without rupture 11/10/2019 11/28/2020 Overview: CT 06/2019: proximal abdominal aorta, 3.4 x 3.8 cm, CT 11/2020 no aneurysm documented as of this encounter (statuses as of 07/23/2023) [facility] History of Past illness Narrative* Problem Noted Date Diagnosed Date Resolved Date Left inguinal hernia 12/25/2021 022 Ectatic thoracic aorta 11/09/202011/28 Overview: CTA 06/2019, CTA: 11/2020 was normal. Abdominal aortic aneurysm (A AA) without rupture 11/10/2019 11/28/2020 Overview: CT 06/2019: proximal abdominal aorta, 3.4 x 3.8 cm, CT 11/2020 no aneurysm documented as of this encounter (statuses as of 08/10/2023) [facility] History of Past illness Narrative* Problem Noted Date Diagnosed Date Resolved Date Left inguinal hernia 12/25/2021 022 Ectatic thoracic aorta 11/09/202011/28 Overview: CTA 06/2019, CTA: 11/2020 was normal. Abdominal aortic aneurysm (A AA) without rupture 11/10/2019 11/28/2020 Overview: CT 06/2019: proximal abdominal aorta, 3.4 x 3.8 cm, CT 11/2020 no aneurysm documented as of this encounter (statuses as of 08/10/2023) [facility] History of Past illness Narrative* Problem Noted Date Diagnosed Date Resolved Date Left inguinal hernia 12/25/2021 022 Ectatic thoracic aorta 11/09/202011/28 Overview: CTA 06/2019, CTA: 11/2020 was normal. Abdominal aortic aneurysm (A AA) without rupture 11/10/2019 11/28/2020 Overview: CT 06/2019: proximal abdominal aorta, 3.4 x 3.8 cm, CT 11/2020 no aneurysm documented as of this encounter (statuses as of 08/11/2023) [facility] Miscellaneous Notes* Telephone Encounter - Aide Villasenor MA - 12/17/2021 12:01 PM EDT Patient notified of results, verbalizes understanding of instructions. Aide Villasenor MA * Telephone Encounter - Sylvester Damian MD - 12/17/2021 11:37 AM EDT Let patient know UA shows possible UTI. If having symptoms will need treated. If no symptoms no treatment needed. Mg, B12, and blood sugar tests were all ok. lipid panel showed Trigs slightly elevated at 196 (goal<150) and reduced fat in diet can help lower this, His HDL and LDL were good. CMP was ok except one of his liver function labs was elevated again. Want to repeat in a month. Order placed. This is most likely due to the fatty liver disease he was noted to have on the US done in05/2021. Reducing the fat in his diet and weight loss can help reverse this. Increased fat in the liver can lead to liver cirrhosis, failure and . documented in this encounterAcm[facility]07-26-2022 Miscellaneous Notes* Telephone Encounter - Bella Vazquez - 12/10/2021 1:21 PM EDT Images from the original note were not included. Romain Ambriz MD You 4 minutes ago (1:15 PM) That will not interfere with his surgery. Message text * Telephone Encounter - Pavan Mckinney - 12/10/2021 10:53 AM EDT clearance requested * Telephone Encounter - Bella Vazquez - 12/09/2021 2:56 PM EDT Patient called in and stated he is getting his Shingle shot on 12/18 and is scheduled for hernia repair surgery with Katina in [place] on 12/25. Patient is wondering if that will interfere at all with his surgery. Please review and advise patient if it will or not. Thank you Bella Vazquez * Telephone Encounter - Bella Vazquez - 12/09/2021 7:37 AM EDT Images from the original note were not included. Romain Ambriz MD You 11 hours ago (8:35 PM) I am fine with that Message text * Telephone Encounter - Bella Vazquez - 12/06/2021 1:47 PM EDT Patient called back and is rescheduled for 12/25 for hernia repair with Katina. Patient stated he is scheduled for another infusion with his rheumologist on 01/02. Is this 12/25 date okay to proceed with his infusion being the week after? * Telephone Encounter - Bella Vazquez - 12/06/2021 8:29 AM EDT 1st attempt to reach patient to reschedule hernia repair at [place] with Katina 3 weeks from 12/05 per clearance from [employer] - See note below. LV to call me directly at [phone] Bella Vazquez * Telephone Encounter - Bella Vazquez - 12/06/2021 8:29 AM EDT Images from the original note were not included. Romain Ambriz MD You; Michelle Liu RN; [facility] Sched Pool 12 hours ago (8:13 PM) Schedule him at a date when the coder feels in optimal - 3 weeks from now Message text You Michelle Liu RN; Romain Ambriz MD; [facility] S[facility] Sched Pool 16 hours ago (4:08 PM) BH Dr. Ambriz please let me know how to proceed. Thank you Message text * Telephone Encounter - Michelle Liu RN - 12/05/2021 3:59 PM EDT Amy from Dr. Ely's office called. Dr. Morrison is suggesting that surgery be postponed 3 weeks from today, since Gray had an infusion of Actemra today at his office. However, if the surgeryis considered an emergency, then we can proceed. Amy is faxing over documentation for Gray's chart. Michelle Liu RN * Telephone Encounter - Michelle Liu RN - 12/05/2021 2:29 PM EDT Images from the original note were not included. MD Michelle Angeles RN Rhonda-in my note I have the office number for the coder [phone]. Dr. Ely. I keep trying to call the [facility] and the keep hanging up on me. Can you try to get through to hisoffice and find out if it is okay for me to do his hernia repair on his rheumatic arthritis immunosuppressive medications? Laith Called [facility] ([phone]) spoke with Amy in Dr. Ely's office. Aymadvised that she would leave a message for Dr. Ely regarding Dr. Ambriz's question. Also, Gray is currently there getting his Actemra infusion, so the surgery may have to be delayed, but she w ill verify. Michelle Liu RN * Telephone Encounter - Pavan Mckinney - 12/05/2021 9:24 AM EDT Clearance sent, please refer to scanned documents Pavan Burrell * Telephone Encounter - Bella Vazquez - 12/05/2021 9:09 AM EDT Patient is scheduled 12/[address] Ambriz in [place] for a Open Left Inguinal Hernia repair with Mesh Per Katina would like clearance forms sent over to this patients [employer]. Per patient states he sees Dr. Ely at [facility] in [facility]. His next visit with him is 01/02 Can we please send over the clearance forms to be able to proceed with his scheduled procedure date? Thank you in advance * Telephone Encounter - Bella Vazquez - 12/05/2021 9:09 AM EDT 12/11 hernia repair left orr documented in this encounterAcmc [facility] System07-21-2022 Nurse Note* Michelle Liu RN - 12/05/2021 9:23 AM EDT REVIEW OF SYSTEMS: General: The patient denies fatigue, denies weight loss, denies weight gain, denies feeling hot, and denies feelings of cold. Eyes: The patient denies glaucoma, denies eye injury/surgery, does not wear glasses or contacts. Ear/Nose/Throat: The patient denies allergies, denies hayfever, denies ear infections, and denies bloody noses. Cardiovascular: The patient denies chest pain, denies heart disease, NOTES high blood pressure,denies cardiac stent, denies prior heart attack, denies irregular heart beat, NOTES high cholesterol, denies poor circulation, denies heart failure, other cardiac issues, denies claudication, denies cold feet, denies peripheral arterial stent. Respiratory: The patient denies tuberculosis, denies pneumonia, denies frequent cough, denies pulmonary embolism, denies shortness of breath, and denies coughing up blood. Gastrointestinal: The patient denies difficulty swallowing, NOTES acid reflux, denies ulcers, denies vomiting, denies jaundice/hepatitis, denies gallbladder problems, denies black or tarry stools, denies hemorrhoids, denies bleeding from rectum, denies diverticulitis, denies constipation, denies diarrhea, denies loss of stool control, and denies hernias. Kidney/Bladder: The patient denies kidney stones, denies urine infections, and denies bloody urine. Skin: The patient denies a history of skin cancer, denies bleeding/changing moles, and denies a history of skin rash. Neurologic: The patient denies a history of epilepsy/convulsions, denies headaches, denies head/spinal injuries, and denies stroke/TIA. Psychiatric: The patient denies psychiatric medications, denies depression, and denies voices, denies substance abuse. Endocrine: The patient denies thyroid disorders, denies diabetes, and denies hormonal problems. Hematologic: The patient denies a history of bruising, denies bleeding, and denies anemia, denies blood clots. Infections: The patient denies a history of measles and mumps, denies rheumatic fever, and denies sexually transmitted diseases. Musculoskeletal: The patient denies back pain/injury, denies back problems, denies sciatica, deniesknee/foot trouble, NOTES arthritis, or denies gout. When was patient's last Mammogram screening? N/A Last Colonoscopy: 10/22/2020 Michelle Liu RN documented in this encounterAcmc Healthcare System07-21-2022 History of Present illness Narrative* Romain Ambriz MD - 12/05/2021 8:16 AM EDT HISTORY AND PHYSICAL Gray Fernandez 1960 REFERRING PHYSICIAN: Sylvester Damian MD CHIEF COMPLAINT: Consult (hernia) HPI: Gray Hernández is a 61 year old male with a complaint of discomfort in his left inguinal region. The patient notes discomfort in this area with lifting, straining, coughing and moving. The symptomshave increased, over the past few weeks. The patient notes no symptoms of bowel obstruction and denies nausea or vomiting. The patient was seen by his primary care physician who felt the patient has a hernia. Gray Hernández was referred for evaluation and treatment. The patient is being seen by me today at the request of Dr. Sylvester Damian MD for my opinion and advice regarding a left inguinal hernia. PAST MEDICAL HISTORY Diagnosis Date Abdominal aortic aneurysm (AAA) without rupture (HCC) 11/10/2019 CT 06/2019: proximal abdominal aorta, 3.4 x 3.8 cm, CT 11/2020 no aneurysm Bunion of great toe of right foot 11/10/2019 Dyslipidemia 07/25/2019 Ectatic thoracic aorta (HCC) 11/09/2020 CTA 06/2019, CTA: 11/2020 was normal. Elevated PSA 11/12/2020 Seeing [facility] Essential hypertension 07/22/2019 Ex-smoker 07/22/2019 Started age 16 up 1 PPD and quit at age 30. Family history of colon cancer 11/10/2019 Sister Family history of pancreatic cancer 11/10/2019 Mother Gastroesophageal reflux disease without esophagitis 07/07/2006 Generalized osteoarthrosis, unspecified site right knee History of COVID-19 05/22/202005/2020 Rheumatoid arthritis involving multiple sites with positive rheumatoid factor (HCC) 07/22/2019 Seeing [facility]: Dr. Quispe Well adult exam 11/10/2019 Last done: 11/10/2019 PAST SURGICAL HISTORY Procedure Laterality Date COLONOSCOPY 2013 COLONOSCOPY GEN ANES 10/22/2020 Repeat in 3 years due to poor bowel preparation KNEE ARTHROSCOPY Current Outpatient Medications Medication Sig lisinopril (ZESTRIL, PRINIVIL) 40 mg tablet Take 1 tablet by mouth once daily. atorvastatin (LIPITOR) 20 mg tablet Take 1 tablet by mouth daily at bedtime. For cholesterol. alfuzosin SR (UROXATRAL) 10 mg 24 hr tablet Take 1 tablet by mouth daily at bedtime. cyclobenzaprine (FLEXERIL) 10 mg tablet Take 1 tablet by mouth three times daily as needed for muscle spasm. aspirin, enteric coated (ASPIRIN, ENTERIC COATED) 81 mg EC tablet Take 1 tablet by mouth once daily. esomeprazole (NEXIUM) 40 mg capsule Take 1 capsule by mouth once daily. tocilizumab (ACTEMRA) 400 mg/20 mL (20 mg/mL) soln Inject 20 mL intravenously once every month. PerRheu multivitamins(MULTIPLE VITAMIN TAB) Take 1 tablet by mouth once daily. No current facility-administered medications for this visit. ALLERGIES: Methotrexate PERSONAL HISTORY: Social History Tobacco Use Smoking status: Former Smoker Packs/day: 1.00 Years: 15.00 Pack years: 15.00 Types: Cigarettes Quit date: 07/08/1989 Years since quittin.4 Smokeless tobacco: Never Used Vaping Use Vaping Use: Never used Substance Use Topics Alcohol use: Yes Comment: whisky daily- 1-2 glasses per day Drug use: No FAMILY HISTORY: FAMILY HISTORY Problem Relation Age of Onset Pancreatic Cancer Mother Heart Father valve replaced Colon Cancer Sister Hyperlipidemia Brother Alzheimer's Disease No Family History Breast Cancer No Family History Ovarian cancer No Family History Prostate Cancer No Family History Coronary Artery Disease No Family History Diabetes No Family History Hypertension No Family History Kidney Disease No Family History Seizures No Family History Stroke No Family History Thyroid No Family History REVIEW OF SYMPTOMS: The review of systems data was entered by the nurse and reviewed by mt Nursing Notes: Michelle Liu RN 12/05/2021 9:25 AM Signed REVIEW OF SYSTEMS: General: The patient denies fatigue, denies weight loss, denies weight gain, denies feeling hot, and denies feelings of cold. Eyes: The patient denies glaucoma, denies eye injury/surgery, does not wear glasses or contacts. Ear/Nose/Throat: The patient denies allergies, denies hayfever, denies ear infections, and denies bloody noses. Cardiovascular: The patient denies chest pain, denies heart disease, NOTES high blood pressure,denies cardiac stent, denies prior heart attack, denies irregular heart beat, NOTES high cholesterol, denies poor circulation, denies heart failure, other cardiac issues, denies claudication, denies cold feet, denies peripheral arterial stent. Respiratory: The patient denies tuberculosis, denies pneumonia, denies frequent cough, denies pulmonary embolism, denies shortness of breath, and denies coughing up blood. Gastrointestinal: The patient denies difficulty swallowing, NOTES acid reflux, denies ulcers, denies vomiting, denies jaundice/hepatitis, denies gallbladder problems, denies black or tarry stools, denies hemorrhoids, denies bleeding from rectum, denies diverticulitis, denies constipation, denies diarrhea, denies loss of stool control, and denies hernias. Kidney/Bladder: The patient denies kidney stones, denies urine infections, and denies bloody urine. Skin: The patient denies a history of skin cancer, denies bleeding/changing moles, and denies a history of skin rash. Neurologic: The patient denies a history of epilepsy/convulsions, denies headaches, denies head/spinal injuries, and denies stroke/TIA. Psychiatric: The patient denies psychiatric medications, denies depression, and denies voices, denies substance abuse. Endocrine: The patient denies thyroid disorders, denies diabetes, and denies hormonal problems. Hematologic: The patient denies a history of bruising, denies bleeding, and denies anemia, denies blood clots. Infections: The patient denies a history of measles and mumps, denies rheumatic fever, and denies sexually transmitted diseases. Musculoskeletal: The patient denies back pain/injury, denies back problems, denies sciatica, deniesknee/foot trouble, NOTES arthritis, or denies gout. When was patient's last Mammogram screening? N/A Last Colonoscopy: 10/22/2020 Michelle Liu RN PHYSICAL EXAMINATION: General: The patient is 61 year old male, well nourished, well hydrated in no acute distress. The patient is oriented to time, place, and person. VITALS: Blood pressure 134/84, pulse 76, temperature 36.7 C (98.1 F), temperature source Temporal, resp. rate 14, height 182.9 cm (6'), weight 111.6 kg (246 lb), SpO2 96 %. Body mass index is 33.36 kg/m . HEENT: Normal cephalic, ataumatic, pupils are equally round, sclera are anicteric, mucous membranesare moist, oropharynx is clear. Neck has no masses, asymmetry or lymphadenopathy. Thyroid is unremarkable. Respiratory: Clear to auscultation and percussion. Normal respiratory excursion and pattern. Cardiac: Examination is regular rate and rhythm. Abdominal exam: Soft, nontender, with no palpable masses. No hepatosplenomegaly. A small, reducibleleft inguinal hernia, no right inguinal or umbilical hernias are noted Rectal exam: exam deferred Extremities: no clubbing, cyanosis or edema. No adenopathy. Other: LABORATORY VALUES: As Noted RADIOLOGIC STUDIES: As Noted Assessment IMPRESSION: left inguinal hernia PLAN: My plan is to perform a open left inguinal hernia repair with mesh. The planned surgical procedure was discussed extensively with the patient. The risks, benefits, anticipated outcomes and possible complications were mentioned. Gray monsalveands that all hernia repair surgery has a chance of recurrence and/or chronic post operative pain. My staff has also explained the procedure in understandable terms and the patient was given the option to take printed material concerning the planned procedure. The patient had the opportunity to ask questions concerning the planned procedure. Thepatient freely consents to the planned procedure. My findings have been communicated to Dr. Sylvester Damian MD via shared medical record. This note will be forwarded to Dr. Sylvester Damian MD. Diagnoses: (K40.90) Left inguinal hernia (primary encounter diagnosis) Plan to reach out to his coder given the fact that he is on immunosuppressive medications but since he is otherwise had difficulties with his rheumatic arthritis I anticipate we will not want to stop this for hernia repair. - phone [phone] Patient weight: Blood pressure 134/84, pulse 76, temperature 36.7 C (98.1 F), temperature source Temporal, resp. rate 14, height 182.9 cm (6'), weight 111.6 kg (246 lb), SpO2 96 %. BMI: Body mass index is 33.36 kg/m . Return to Clinic: The patient is instructed to follow-up with me in one week. Romain Ambriz MDAnticipated Surgical Procedure/ CPT Code: open left inguinal hernia repair with mesh - 24114-013 Anticipated Anesthetic: MAC with local Patient weight: Blood pressure 134/84, pulse 76, temperature 36.7 C (98.1 F), temperature source Temporal, resp. rate 14, height 182.9 cm (6'), weight 111.6 kg (246 lb), SpO2 96 %. BMI: Body mass index is 33.36 kg/m . Planned antibiotic: Ancef 2gm IVPB acquisition lead to OR SCDs needed: Yes Burrito Maker Needed: Yes Pre Op Clearance: rheumatology Anticoagulation: No Diabetic: No Location: [place] OR documented in this encounterAcmc [facility]07-19-2022 Miscellaneous Notes* Telephone Encounter - Sylvester Damian MD - 12/03/2021 10:08 AM EDT done * Telephone Encounter - Amy Duvall LPN - 12/03/2021 9:31 AM EDT Patient scheduled for nurse visit 12/18/21 to receive Shingrix vaccine. Please place order at this time. Amy Duvall LPN documented in this encounterAcmc Healthcare System07-12-2022 Instructions* Patient Instructions* Sylvester Damian MD - 11/26/2021 8:14 AM EDT Consider getting the shingrix vaccine for the prevention of shingles documented in this encounterAcmc Healthcare System07-12-2022 History of Present illness Narrative* Sylvester Damian MD - 11/26/2021 8:00 AM EDT Chief Complaint Patient presents with: Physical HPI Gray eFrnandez is a 61 year old male who presents here today for Physical. Patient with hx of HTN, HLP, GERD, RA, elevated PSA, and those as below. Patient has been doing well. Will be on vacation for the rest of the week. Past medical history, appointments, medications, allergies reviewed. Previous Medical History PAST MEDICAL HISTORY Diagnosis Date Abdominal aortic aneurysm (AAA) without rupture (HCC) 11/10/2019 CT 06/2019: proximal abdominal aorta, 3.4 x 3.8 cm, CT 11/2020 no aneurysm Dyslipidemia 07/25/2019 Ectatic thoracic aorta (HCC) 11/09/2020 CTA 06/2019, CTA: 11/2020 was normal. Elevated PSA 11/12/2020 Seeing [facility] Lakhani Essential hypertension 07/22/2019 Ex-smoker 07/22/2019 Started age 16 up 1 PPD and quit at age 30. Family history of colon cancer 11/10/2019 Sister Family history of pancreatic cancer 11/10/2019 Mother Gastroesophageal reflux disease without esophagitis 07/07/2006 Generalized osteoarthrosis, unspecified site right knee History of COVID-19 05/22/202005/2020 Rheumatoid arthritis involving multiple sites with positive rheumatoid factor (HCC) 07/22/2019 Seeing [facility]: Dr. Quispe Well adult exam 11/10/2019 Last done: 11/10/2019 Previous Surgical History PAST SURGICAL HISTORY Procedure Laterality Date COLONOSCOPY 2013 COLONOSCOPY GEN ANES 10/22/2020 Repeat in 3 years due to poor bowel preparation KNEE ARTHROSCOPY Family History FAMILY HISTORY Problem Relation Age of Onset Pancreatic Cancer Mother Heart Father valve replaced Colon Cancer Sister Hyperlipidemia Brother Alzheimer's Disease No Family History Breast Cancer No Family History Ovarian cancer No Family History Prostate Cancer No Family History Coronary Artery Disease No Family History Diabetes No Family History Hypertension No Family History Kidney Disease No Family History Seizures No Family History Stroke No Family History Thyroid No Family History Patient Allergies ALLERGIES Allergen Reactions Methotrexate Other: See Comments Elevated liver enzymes Current Medications Current Outpatient Medications on File Prior to Visit Medication Sig atorvastatin (LIPITOR) 20 mg tablet Take 1 tablet by mouth daily at bedtime. For cholesterol. alfuzosin SR (UROXATRAL) 10 mg 24 hr tablet Take 1 tablet by mouth daily at bedtime. lisinopril (ZESTRIL, PRINIVIL) 40 mg tablet Take 1 tablet by mouth once daily. cyclobenzaprine (FLEXERIL) 10 mg tablet Take 1 tablet by mouth three times daily as needed for muscle spasm. aspirin, enteric coated (ASPIRIN, ENTERIC COATED) 81 mg EC tablet Take 1 tablet by mouth once daily. esomeprazole (NEXIUM) 40 mg capsule Take 1 capsule by mouth once daily. tocilizumab (ACTEMRA) 400 mg/20 mL (20 mg/mL) soln Inject 20 mL intravenously once every month. PerRheu multivitamins(MULTIPLE VITAMIN TAB) Take 1 tablet by mouth once daily. No current facility-administered medications on file prior to visit. Social History Social History Tobacco Use Smoking status: Former Smoker Packs/day: 1.00 Years: 15.00 Pack years: 15.00 Types: Cigarettes Quit date: 07/08/1989 Years since quittin.4 Smokeless tobacco: Never Used Vaping Use Vaping Use: Never used Substance Use Topics Alcohol use: Yes Comment: whisky daily- 1-2 glasses per day Drug use: No Review of Symptoms REVIEW OF SYSTEMS GENERAL: No significant concerning weight loss, malaise or fevers HEENT: Negative for frequent or significant headaches, No changes in hearing or vision, no nose bleeds or other nasal problems NECK: Negative for lumps, goiter, pain and significant neck swelling RESPIRATORY: Negative for cough, hemoptysis, wheezing, COPD, dyspnea. From time to time he notes some shortness of breath but no more then what has been typical for several years. CARDIOVASCULAR: Negative for chest pain, leg swelling, hypertension, CHF or palpitations GI: No nausea, vomiting, or diarrhea, No heartburn or reflux symptoms and no blood : No history of dysuria, blood. Had a injury in the left groin several months ago. The other day was lifting a heavy bag and felt some mild discomfort in that area but no bulge. MUSCULOSKELETAL: Negative for joint pain or swelling, back pain or muscle pain SKIN: Negative for lesions, rash, and itching PSYCH: Negative for sleep disturbance, mood disorder and recent psychosocial stressors HEMATOLOGY/LYMPHOLOGY: Negative for prolonged bleeding, bruising easily or swollen nodes ENDOCRINE: Negative for cold or heat intolerance, polyuria, polydipsia and goiter NEURO: No history of headaches, syncope, paralysis, seizures or tremors EXAM: BP 138/98 (BP Site: Left Arm, BP Position: Sitting, BP Cuff Size: Large Adult) Pulse (!) 56 Temp 36.4 C (97.5 F) Resp 18 Ht 182 cm (5' 11.65) Wt 109.8 kg (242 lb) BMI 33.14 kg/m BP 158/92 Pulse (!) 56 Temp 36.4 C (97.5 F) Resp 18 Ht 182 cm (5' 11.65) Wt 109.8 kg (242 lb) BMI 33.14 kg/m Last 4 Encounter Wt Readings: Date: Wt: 11/26/2021 109.8 kg (242 lb) 09/24/2021 111.6 kg (246 lb) 09/13/2021 112.9 kg (248 lb 12.8 oz) 08/30/2021 114.2 kg (251 lb 12.8 oz) General Appearance: Well appearing, alert, in no acute distress, well-hydrated, well nourished. andObese. Skin: Skin color, texture, turgor normal, no suspicious rashes or lesions. Head: Normocephalic, no masses, lesions, tenderness or abnormalities. Eyes: Anicteric sclera. Pupils are equally round and reactive to light. Extraocular movements are intact. . Ears: External ears, TM's normal, canals clear. Neck: Supple, no adenopathy; thyroid symmetric, normal size, no bruits. Lungs: Lungs clear to auscultation. No wheezing, rhonchi, rales.. Heart: RRR without murmur, gallop, or rubs. No ectopy. Abdomen: Normal abdominal exam, Abdomen soft, non-tender. Bowel sounds normal. No masses, organomegaly. Extremities: No deformities, edema, skin discoloration, . Musculoskeletal: Muscular strength intact, No joint swelling, deformity, or tenderness. Peripheral Pulses: Normal. Neurologic: Gait normal. Reflexes normal and symmetric. Sensation to light touch and cn 2-12 intact.. Genitalia: Normal, Penis normal. No urethral discharge. Scrotum normal to palpation. Small hernia on the right (indirect) Health Maintenance List COVID-19 VACCINE(1) Never done SHINGRIX VACCINE(1 of 2) Never done PNEUMOCOCCAL(2 - PCV) due on 06/19/2015 BP CONTROLLED (<130/80) due on 11/09/2021 DEPRESSION SCREENING due on 11/09/2021 INFLUENZA(1) due on 01/16/2022 ANNUAL PCP TEAM CHRONIC DISEASE VISIT due on 09/13/2022 COLORECTAL CANCER SCREENING due on 10/23/2023 DIABETES SCREEN due on 08/19/2024 LIPID SCREEN due on 08/19/2026 PROSTATE CANCER SCREENING DISCUSSION due on 09/13/2026 DTAP,TDAP,TD(2 - Td or Tdap) due on 11/09/2029 HEPATITIS C SCREENING Completed HIV SCREENING Discontinued Data reviewed Component Latest Ref Rng & Units 04/16/2021 06/13/2021 08/19/2021 10/25/2021 WBC 3.70 - 11.00 k/uL 3.6 (A) 3.01 (L) RBC 4.20 - 6.00 m/uL 4.8 4.99 Hemoglobin 13.0 - 17.0 g/dL 15.0 Hematocrit 39.0 - 51.0 % 44.9 MCV 80.0 - 100.0 fL 86.8 90.0 MCH 26.0 - 34.0 pg 30.3 30.1 MCHC 30.5 - 36.0 g/dL 34.9 33.4 RDW-CV 11.5 - 15.0 % 12.3 Platelet Count 150 - 400 k/uL 134 (L) MPV 9.0 - 12.7 fL 9.6 10.2 Neut% % 46.0 44.2 Abs Neut (ANC) 1.45 - 7.50 k/uL 1.33 (L) Lymph% % 37.2 Abs Lymph 1.00 - 4.00 k/uL 1.12 Foard% % 12.6 Abs Foard <0.87 k/uL 0.38 Eosin% % 4.7 Abs Eosin <0.46 k/uL 0.14 Baso% % 1.0 Abs Baso <0.11 k/uL 0.03 Immature Gran % % 0.3 IMMATURE GRANS (ABS) <0.10 k/uL <0.03 NRBC /100 WBC 0.0 Absolute nRBC <0.01 k/uL <0.01 DTYPE Auto HGB 14 - 16.5 g/dL 14.5 HCT 39 - 55 % 41.5 Platelet 140 - 440 K/uL 135 (A) NEUT % 37.0 - 68.0 % 46.0 LYMPH % 6.0 - 52.5 % 33.2 MONO % 0.4 - 15.9 % 15.5 EOS % 0.0 - 8.0 % 5.0 (A) BASO % 0 - 5.0 % 0.3 NEUT ABS 2.0 - 6.8 K/uL 1.7 (A) LYMPH ABS 1.2 - 4 K/uL 1.2 MONO ABS 0 - 1.7 K/uL 0.6 EOS ABS 0.0 - 1.0 K/uL 0.2 BASO ABS 0 - 0.5 K/uL 0.0 EOS ABSOLUTE 0.0 - 1.0 k/uL 0.2 Total Cholesterol, Nonfasting <200 mg/dL 177 Triglycerides, Nonfasting <150 mg/dL 189 (H) HDL Cholesterol, Nonfasting >39 mg/dL 50 LDL Cholesterol, Nonfasting <100 mg/dL 89 Non HDL Cholesterol, Nonfasting <130 mg/dL 127 VLDL Cholesterol, Nonfasting <30 mg/dL 38 (H) Total Chol/HDL Ratio, Nonfasting <5.10 mg/dL 3.54 LDL/HDL Ratio, Nonfasting <2.54 mg/dL 1.78 Cholesterol, Total 186 Triglyceride 177 HDL CHOLESTEROL 53 LDL Cholesterol 102 VLDL Cholesterol 31 Hep A Ab, IgM Negative Negative Hep B Surface Ag Negative Negative Hep C Antibody IA Negative Negative Hep B Core Ab, IgM Negative Negative A/P ASSESSMENT/PLAN: 1. Well adult exam - ICD9: V70.0, ICD10: Z00.00 (primary diagnosis) - Counseled on healthy diet and regular exercise - Patient was counseled [id number] by myself (the billing provider) for the following immunizations and vaccine components, including side effects: Pneumococcal PVC 20. Patient consents for immunization and understands risks and benefits. A VIS sheet on each immunization was given to the patient. - Follow up for annual exam in one year - HGB A1C 2. Essential hypertension - ICD9: 401.9, ICD10: I10 - suboptimal control - Continue current medication(s) - Recommended regular aerobic exercise. - Recommend home blood pressure monitoring, to bring results in on next visit - Recheck in 3 weeks, sooner should new symptoms or problems arise. - Goal of BP <130/80 Check - COMP METABOLIC PANEL - URINALYSIS, WITH MICROSCOPIC - LIPID PANEL, NONFASTING 3. Dyslipidemia - ICD9: 272.4, ICD10: E78.5 - to be determined upon return of lab results - Continue current medication. - Encouraged following a low fat, low cholesterol diet. - Discussed the benefits of regular aerobic exercise and weight loss. - Encouraged following a low carbohydrate, healthy oil intake diet. Check - COMP METABOLIC PANEL - URINALYSIS, WITH MICROSCOPIC - LIPID PANEL, NONFASTING 4. Gastroesophageal reflux disease without esophagitis - ICD9: 530.81, ICD10: K21.9 - Continue treatment with Nexium 40 mg every day Check - VITAMIN B12 BLOOD - MAGNESIUM BLD 5. Rheumatoid arthritis involving multiple sites with positive rheumatoid factor (HCC) - ICD9: 714.0, ICD10: M05.79 Cont management per Rheum 6. Medication management - ICD9: V58.69, ICD10: Z79.899 Check - VITAMIN B12 BLOOD - MAGNESIUM BLD 7. Encounter for screening for diabetes mellitus - ICD9: V77.1, ICD10: Z13.1 Check - HGB A1C 8. Encounter for immunization - ICD9: V03.89, ICD10: Z23 - PNEUMOCOCCAL VACCINE (PREVNAR 20): given 9. Right inguinal hernia - ICD9: 550.90, ICD10: K40.90 - CONSULT TO GENERAL SURGERY Signed Prescriptions Disp Refills lisinopril (ZESTRIL, PRINIVIL) 40 mg tablet 90 tablet 1 Sig: Take 1 tablet by mouth once daily. DARIANA: No NV 3 weeks for first shingrix and BP check F/u 6 months routine Sylvester Damian MD documented in this encounterAcmc [facility] System06-07-2022 Miscellaneous Notes* Telephone Encounter - Perla Garcia LPN - 10/22/2021 11:28 AM EDT Patient has been identified by name and date of : Yes Patient phones for refill(s): Pending Prescriptions Disp Refills ATORVASTATIN 20 MG TABLET 90 tablet 1 Sig: Take 1 tablet by mouth daily at bedtime. For cholesterol. DARIANA: No Date of last office visit in primary care: 05/16/2021, has appt 11/26/2021 Last 2 Encounter Wt Readings: Date: Wt: 09/24/2021 111.6 kg (246 lb) 09/13/2021 112.9 kg (248 lb 12.8 oz) Previous labs/tests for medication: Cholesterol: Triglycerides (mg/dL) Date Value 04/07/2019 568 HDL Cholesterol Date Value 08/19/2021 53 01/20/2008 49 mg/dL HDL Cholesterol, Nonfasting (mg/dL) Date Value 06/13/2021 50 LDL Cholesterol Date Value 08/19/2021 102 01/20/2008 108 mg/dL LDL Cholesterol, Nonfasting (mg/dL) Date Value 06/13/2021 89 ALT (U/L) Date Value 06/13/2021 53 Non HDL Cholesterol, Nonfasting (mg/dL) Date Value 06/13/2021 127 Please advise. Thank you. Perla Garcia LPN documented in this encounterAcmc Healthcare System05-10-2022 History of Present illness Narrative* Jean Carlos Lakhani PA-C - 09/24/2021 3:28 PM EDT Images from the original note were not included. [facility] PATIENT INFO: Gray Fernandez 61 year old ( ) REFERRING PROVIDER: Self PCP: Sylvester Damian MD September 24, 2021 HPI: Gray Fernandez 61 year old male is here today for follow up for recent epididymitis finished Levaquin and pain is greatly reduced But has some tenderness He was on Flomax and started having retrograde ejaculation, will switch to Uroxatral 10 mg We also discussed elevated PSA of 12.25, very likely so high due to recent epididymitis, with recheck this in 3 month. LUTS: Other symptoms: LABS: Hematocrit (%) Date Value 07/08/2019 44.4 HCT (%) Date Value 04/16/2021 41.5 04/07/2019 47.8 01/06/2019 47.4 PSA (ng/mL) Date Value 09/13/2021 12.25 03/28/2021 5.3 11/09/2020 7.50 04/07/2019 3.5 PSA. (ng/mL) Date Value 08/19/2021 4.9 No results found for: TESTOST MEDICATIONS: tamsulosin (FLOMAX) 0.4 mg Take 1 capsule by mouth daily at bedtime. lisinopril (ZESTRIL, PRINIVIL) 40 mg tablet Take 1 tablet by mouth once daily. atorvastatin (LIPITOR) 20 mg tablet Take 1 tablet by mouth daily at bedtime. For cholesterol. cyclobenzaprine (FLEXERIL) 10 mg tablet Take 1 tablet by mouth three times daily as needed for muscle spasm. aspirin, enteric coated (ASPIRIN, ENTERIC COATED) 81 mg EC tablet Take 1 tablet by mouth once daily. esomeprazole (NEXIUM) 40 mg capsule Take 1 capsule by mouth once daily. tocilizumab (ACTEMRA) 400 mg/20 mL (20 mg/mL) soln Inject 20 mL intravenously once every month. PerRheu multivitamins(MULTIPLE VITAMIN TAB) Take 1 tablet by mouth once daily. PAST MEDICAL HISTORY: PAST MEDICAL HISTORY Diagnosis Date Abdominal aortic aneurysm (AAA) without rupture (HCC) 11/10/2019 CT 06/2019: proximal abdominal aorta, 3.4 x 3.8 cm, CT 11/2020 no aneurysm Dyslipidemia 07/25/2019 Ectatic thoracic aorta (HCC) 11/09/2020 CTA 06/2019, CTA: 11/2020 was normal. Elevated PSA 11/12/2020 Seeing Jean Carlos Lakhani Essential hypertension 07/22/2019 Ex-smoker 07/22/2019 Started age 16 up 1 PPD and quit at age 30. Family history of colon cancer 11/10/2019 Sister Family history of pancreatic cancer 11/10/2019 Mother Gastroesophageal reflux disease without esophagitis 07/07/2006 Generalized osteoarthrosis, unspecified site right knee History of COVID-19 05/22/202005/2020 Rheumatoid arthritis involving multiple sites with positive rheumatoid factor (HCC) 07/22/2019 Seeing [facility]: Dr. Quispe Well adult exam 11/10/2019 Last done: 11/10/2019 PAST SURGICAL HISTORY: PAST SURGICAL HISTORY Procedure Laterality Date COLONOSCOPY 2013 COLONOSCOPY GEN ANES 10/22/2020 Repeat in 3 years due to poor bowel preparation KNEE ARTHROSCOPY FAMILY HISTORY: FAMILY HISTORY Problem Relation Age of Onset Pancreatic Cancer Mother Heart Father valve replaced Colon Cancer Sister Hyperlipidemia Brother Alzheimer's Disease No Family History Breast Cancer No Family History Ovarian cancer No Family History Prostate Cancer No Family History Coronary Artery Disease No Family History Diabetes No Family History Hypertension No Family History Kidney Disease No Family History Seizures No Family History Stroke No Family History Thyroid No Family History SOCIAL HISTORY: Social Connections: Not on file REVIEW OF SYSTEMS: GENERAL: No fever, chills, weight loss, or fatigue. All other systems reviewed and are negative PHYSICAL EXAMINATION: Blood pressure 144/86, pulse 99, weight 111.6 kg (246 lb), SpO2 96 %. GENERAL: WNL nutrition, no deformities, healthy appearing PROBLEM LIST REVIEW: Yes LABS: Results for orders placed or performed in visit on 09/24/21 UA DIP, URINE (POC) Result Value Ref Range GLUCOSE UA (POCT) Negative Negative mg/dL BILIRUBIN UA (POCT) Negative Negative KETONE UA (POCT) Negative Negative mg/dL SPECIFIC GRAVITY UA (POCT) 1.025 1.005 - 1.030 HEMOGLOBIN/BLOOD UA (POCT) Negative Negative PH UA (POCT) 7.0 4.5 - 8.0 PROTEIN UA (POCT) Negative Negative mg/dL UROBILINOGEN UA (POCT) 0.2 Normal E.U./dL NITRITE UA (POCT) Negative Negative LEUKOCYTES UA (POCT) Small (A) Negative COLOR UA (POCT) Yellow CLARITY UA (POCT) Clear PROCEDURES: PVR: 33 ml IMAGING: IMPRESSION/PLAN: 1. Elevated PSA Likely due to in Epididymitis will recheck in 3 months - UA DIP, URINE (POC) - US MSR POST-VOID RESID URINE > 1 year Appt w/ JENNA Devries MT, PA-C with PSA prior or sooner if 3 month PSA is still elevated JENNA Oswald MT, PA-C * Jessica Almaraz - 09/24/2021 3:16 PM EDT Patient's post-void bladder scan: 33 ML. Jessica Almaraz documented in this encounterAcmc Healthcare System04-29-2022 History of Present illness Narrative* Jamin Abdi MD - 09/13/2021 2:33 PM EDT Chief Complaint Patient presents with: Follow Up: UTI - was seen in urgent care Groin Pain: difficulty with urination and having leakage HPI Gray Fernandez is a 61 year old male who presents here today for urgent care follow up. Patient evaluated in UC on 08/30 for complaint of dysuria x 2 weeks along with lower back pain. Following is his HPI: Symptoms for about 1 week, worsening. Dysuria: a little Frequency: Yes, only able to produce a small amount then has to go again. Hematuria: No Nausea: No Fever or chills: No Back pain: Yes, mild midline lower back ache Abdominal pain: No Prior UTI: Yes. Personal history of kidney stones: No Follows with urology for elevated PSA. UA in the UC was positive for hemoglobin and leukocytes. Started on Keflex and urine culture was sent and resulted as normal. Recommended he follow up with our office in 1-2 weeks for microscopic hematuria. Since his visit 2 weeks ago, he states that he finished the Keflex which did help with his dysuria.Still getting weak stream with some incontinence which has been going on for months. Has not had any gross blood since his UC visit. Admits to frequency, urgency, nocturia 2-3 times per night. Deniesfever, chills, nausea, vomiting, abdominal pain, flank pain, penile discharge. Notes that his left testicle was painful and swelled up on Thursday. Denies injury to testicle in thelast week. Does lift heavy on a regular basis. Took ibuprofen which did help with pain and swellingimproved in the next 24-48 hours. Still has some mild pain today. Notes that he had hematospermia x1 about 2 weeks ago. Resolved since. Past medical history, appointments, medications, allergies reviewed. Previous Medical History PAST MEDICAL HISTORY Diagnosis Date Abdominal aortic aneurysm (AAA) without rupture (HCC) 11/10/2019 CT 06/2019: proximal abdominal aorta, 3.4 x 3.8 cm, CT 11/2020 no aneurysm Dyslipidemia 07/25/2019 Ectatic thoracic aorta (HCC) 11/09/2020 CTA 06/2019, CTA: 11/2020 was normal. Elevated PSA 11/12/2020 Seeing Jean Carlos Lakhain Essential hypertension 07/22/2019 Ex-smoker 07/22/2019 Started age 16 up 1 PPD and quit at age 30. Family history of colon cancer 11/10/2019 Sister Family history of pancreatic cancer 11/10/2019 Mother Gastroesophageal reflux disease without esophagitis 07/07/2006 Generalized osteoarthrosis, unspecified site right knee History of COVID-19 05/22/202005/2020 Rheumatoid arthritis involving multiple sites with positive rheumatoid factor (HCC) 07/22/2019 Seeing [facility]: Dr. Quispe Well adult exam 11/10/2019 Last done: 11/10/2019 Previous Surgical History PAST SURGICAL HISTORY Procedure Laterality Date COLONOSCOPY 2012 COLONOSCOPY GEN ANES 10/22/2020 Repeat in 3 years due to poor bowel preparation KNEE ARTHROSCOPY Family History FAMILY HISTORY Problem Relation Age of Onset Pancreatic Cancer Mother Heart Father valve replaced Colon Cancer Sister Hyperlipidemia Brother Alzheimer's Disease No Family History Breast Cancer No Family History Ovarian cancer No Family History Prostate Cancer No Family History Coronary Artery Disease No Family History Diabetes No Family History Hypertension No Family History Kidney Disease No Family History Seizures No Family History Stroke No Family History Thyroid No Family History Patient Allergies ALLERGIES Allergen Reactions Methotrexate Other: See Comments Elevated liver enzymes Current Medications Current Outpatient Medications on File Prior to Visit Medication Sig lisinopril (ZESTRIL, PRINIVIL) 40 mg tablet Take 1 tablet by mouth once daily. atorvastatin (LIPITOR) 20 mg tablet Take 1 tablet by mouth daily at bedtime. For cholesterol. cyclobenzaprine (FLEXERIL) 10 mg tablet Take 1 tablet by mouth three times daily as needed for muscle spasm. aspirin, enteric coated (ASPIRIN, ENTERIC COATED) 81 mg EC tablet Take 1 tablet by mouth once daily. esomeprazole (NEXIUM) 40 mg capsule Take 1 capsule by mouth once daily. tocilizumab (ACTEMRA) 400 mg/20 mL (20 mg/mL) soln Inject 20 mL intravenously once every month. PerRheu multivitamins(MULTIPLE VITAMIN TAB) Take 1 tablet by mouth once daily. No current facility-administered medications on file prior to visit. Social History Social History Tobacco Use Smoking status: Former Smoker Packs/day: 1.00 Years: 15.00 Pack years: 15.00 Types: Cigarettes Quit date: 07/08/1989 Years since quittin.2 Smokeless tobacco: Never Used Vaping Use Vaping Use: Never used Substance Use Topics Alcohol use: Yes Comment: whisky daily- 1-2 glasses per day Drug use: No Review of Symptoms REVIEW OF SYSTEMS See HPI EXAM: BP 136/86 Pulse 86 Resp 16 Wt 112.9 kg (248 lb 12.8 oz) SpO2 97% BMI 34.07 kg/m General Appearance: Well appearing, alert, in no acute distress, well-hydrated, well nourished.. Skin: Skin color, texture, turgor normal, no suspicious rashes or lesions. Genitalia: Penis normal. No urethral discharge. No hernia. No testicular swelling.Positive for TTP over left epididymis. Health Maintenance List SHINGRIX VACCINE(1 of 2) due on 11/09/2021 COVID-19 VACCINE(1) due on 11/09/2021 BP CONTROLLED (<130/80) due on 11/09/2021 DEPRESSION SCREENING due on 11/09/2021 ANNUAL PCP TEAM CHRONIC DISEASE VISIT due on 05/16/2022 COLORECTAL CANCER SCREENING due on 10/23/2023 DIABETES SCREEN due on 08/19/2024 LIPID SCREEN due on 08/19/2026 PROSTATE CANCER SCREENING DISCUSSION due on 08/19/2026 DTAP,TDAP,TD(2 - Td or Tdap) due on 11/09/2029 INFLUENZA Completed HEPATITIS C SCREENING Completed MENINGOCOCCAL CONJUGATE Aged Out HIV SCREENING Discontinued Data reviewed Component Latest Ref Rng & Units 08/30/2021 GLUCOSE UA (POCT) Negative mg/dL Negative BILIRUBIN UA (POCT) Negative Negative KETONE UA (POCT) Negative mg/dL Negative SPECIFIC GRAVITY UA (POCT) 1.005 - 1.030 1.010 HEMOGLOBIN/BLOOD UA (POCT) Negative Large (A) PH UA (POCT) 4.5 - 8.0 6.0 PROTEIN UA (POCT) Negative mg/dL 30 (A) UROBILINOGEN UA (POCT) Normal E.U./dL 0.2 NITRITE UA (POCT) Negative Negative LEUKOCYTES UA (POCT) Negative Moderate (A) COLOR UA (POCT) Yellow CLARITY UA (POCT) Clear Component Latest Ref Rng & Units 08/30/2021 Culture 10,000 -<50,000 CFU/ml Normal urogenital ada ASSESSMENT/PLAN: 1. Epididymitis - ICD9: 604.90, ICD10: N45.1 (primary diagnosis) Will treat with levaquin and have patient call if symptoms not improved. - LEVOFLOXACIN 500 MG TABLET 2. Hematospermia - ICD9: 608.82, ICD10: R36.1 F/u with urology and recheck UA. 3. Microscopic hematuria - ICD9: 599.72, ICD10: R31.29 Recheck UA and urine culture. - URINALYSIS, WITH MICROSCOPIC - URINE CULTURE - URINE CULTURE 4. Benign prostatic hyperplasia (BPH) with straining on urination - ICD9: 600.01, 788.65, ICD10: N40.1, R39.16 Continue flomax. F/u with urology. Jamin Abdi MD documented in this encounterAcmc Healthcare System04-17-2022 Miscellaneous Notes* Telephone Encounter - Aleshia Lim LPN - 09/01/2021 11:45 AM EDT Phone call placed patient advised (see prior provider encounter) Patient verbalized understanding, agreed with plan of care. Aleshia Lim LPN * Telephone Encounter - Nila Mueller APRN.SHAN - 09/01/2021 8:30 AM EDT Urine culture is negative. May continue Keflex if improving Due to blood in urine needed to see PCP or urology in 1-2 weeks for recheck. Nila Mueller APRN.SHAN documented in this encounterAcmc Healthcare System04-15-2022 History of Present illness Narrative* Preston Brian MD - 08/30/2021 4:10 PM EDT Patient presents with: Urinary Urgency: burning with urination, x2 wks Pain, Back: lower back pain rated 5 HPI: Symptoms for about 1 week, worsening. Dysuria: a little Frequency: Yes, only able to produce a small amount then has to go again. Hematuria: No Nausea: No Fever or chills: No Back pain: Yes, mild midline lower back ache Abdominal pain: No Prior UTI: Yes. Personal history of kidney stones: No Follows with urology for elevated PSA. PAST MEDICAL HISTORY Diagnosis Date Abdominal aortic aneurysm (AAA) without rupture (HCC) 11/10/2019 CT 06/2019: proximal abdominal aorta, 3.4 x 3.8 cm, CT 11/2020 no aneurysm Dyslipidemia 07/25/2019 Ectatic thoracic aorta (HCC) 11/09/2020 CTA 06/2019, CTA: 11/2020 was normal. Elevated PSA 11/12/2020 Seeing Jean Carlos Lakhani Essential hypertension 07/22/2019 Ex-smoker 07/22/2019 Started age 16 up 1 PPD and quit at age 30. Family history of colon cancer 11/10/2019 Sister Family history of pancreatic cancer 11/10/2019 Mother Gastroesophageal reflux disease without esophagitis 07/07/2006 Generalized osteoarthrosis, unspecified site right knee History of COVID-19 05/22/202005/2020 Rheumatoid arthritis involving multiple sites with positive rheumatoid factor (HCC) 07/22/2019 Seeing [facility]: Dr. Quispe Well adult exam 11/10/2019 Last done: 11/10/2019 PAST SURGICAL HISTORY Procedure Laterality Date COLONOSCOPY 2013 COLONOSCOPY GEN ANES 10/22/2020 Repeat in 3 years due to poor bowel preparation KNEE ARTHROSCOPY MEDICATIONS: Current Outpatient Medications Medication Sig lisinopril (ZESTRIL, PRINIVIL) 40 mg tablet Take 1 tablet by mouth once daily. atorvastatin (LIPITOR) 20 mg tablet Take 1 tablet by mouth daily at bedtime. For cholesterol. cyclobenzaprine (FLEXERIL) 10 mg tablet Take 1 tablet by mouth three times daily as needed for muscle spasm. aspirin, enteric coated (ASPIRIN, ENTERIC COATED) 81 mg EC tablet Take 1 tablet by mouth once daily. esomeprazole (NEXIUM) 40 mg capsule Take 1 capsule by mouth once daily. tocilizumab (ACTEMRA) 400 mg/20 mL (20 mg/mL) soln Inject 20 mL intravenously once every month. PerRheu multivitamins(MULTIPLE VITAMIN TAB) Take 1 tablet by mouth once daily. No current facility-administered medications for this visit. ALLERGIES: ALLERGIES Allergen Reactions Methotrexate Other: See Comments Elevated liver enzymes VITALS: BP 150/88 Pulse 71 Temp 36.7 C (98 F) Resp 16 Wt 114.2 kg (251 lb 12.8 oz) SpO2 97% BMI34.48 kg/m PHYSICAL EXAM: GEN: NAD HEENT: EOMI, conjunctiva clear, moist mucous membranes HEART: regular rate and rhythm, no murmurs LUNGS: clear to auscultation, no wheezes or crackles, no increased WOB ABDOMEN: Soft, nondistended, no masses, + suprapubic tenderness BACK: No CVA tenderness ASSESSMENT/PLAN: 1. Urgency of urination - ICD9: 788.63, ICD10: R39.15 - UA DIP, URINE (POC) - large blood and moderate LE Probable UTI, and suspect urine retention. Start - CEPHALEXIN 500 MG CAPSULE - URINE CULTURE Proceed to the ER for catheterization this weekend if symptoms worsen or he is unable to void. Follow up with urology Thursday if ne is not significantly improved with treatment over the weekend. Preston Brian MD documented in this encounterAcmc Healthcare System04-15-2022 Miscellaneous Notes* Telephone Encounter - Silvana Hawk Ma - 08/30/2021 2:34 PM EDT Patient was notified and aware Silvana Hawk Ma * Telephone Encounter - Sylvester Damian MD - 08/30/2021 2:01 PM EDT Advise patient to come to the [facility]. They can do testing and if needs treated get him on something instead of waiting through the weekend to get labs henry. * Telephone Encounter - Haydee Martinez RN - 08/30/2021 9:22 AM EDT Pt called in and reports he thinks he has had a UTI for about a week. He states he has been having urgency, frequency, burning, it's hard to urinate (he can only go a small amount at a time). States the urine is dark yellow and smell strong. Pt is asking if the provider would be willing to put a UAand culture through to the lab for him. Please call and advise. documented in this encounterAcmc Healthcare System04-10-2022 Miscellaneous Notes* Telephone Encounter - Sylvester Damian MD - 08/25/2021 3:47 PM EDT Noted and will review at appt on 11/26/2021 * Telephone Encounter - Dunia Navas LPN - 08/21/2021 9:16 AM EDT Received pt's lab results from wellness nurse at pt's place of employment. Results on your desk forreview. Pt has a physical with you 11/26/21. Dunia Navas LPN documented in this encounterAcmc Healthcare System06-25-2021 History of Past illness Narrative* Problem Noted Date Resolved Date Ectatic thoracic aorta 11/09/2020 Overview: CTA 06/2019, CTA: 11/2020 was normal. Abdominal aortic aneurysm (AAA) without rupture 11/10/2019 11/28/2020 Overview: CT 06/2019: proximal abdominal aorta, 3.4 x 3.8 cm, CT 11/2020 no aneurysm documented as of this encounter (statuses as of 08/25/2021) [facility] of Past illness Narrative* Problem Noted Date Resolved Date Ectatic thoracic aorta 11/09/2020 Overview: CTA 06/2019, CTA: 11/2020 was normal. Abdominal aortic aneurysm (AAA) without rupture 11/10/2019 11/28/2020 Overview: CT 06/2019: proximal abdominal aorta, 3.4 x 3.8 cm, CT 11/2020 no aneurysm documented as of this encounter (statuses as of 08/30/2021) [facility] of Past illness Narrative* Problem Noted Date Resolved Date Ectatic thoracic aorta 11/09/2020 Overview: CTA 06/2019, CTA: 11/2020 was normal. Abdominal aortic aneurysm (AAA) without rupture 11/10/2019 11/28/2020 Overview: CT 06/2019: proximal abdominal aorta, 3.4 x 3.8 cm, CT 11/2020 no aneurysm documented as of this encounter (statuses as of 08/30/2021) [facility] of Past illness Narrative* Problem Noted Date Resolved Date Ectatic thoracic aorta 11/09/2020 Overview: CTA 06/2019, CTA: 11/2020 was normal. Abdominal aortic aneurysm (AAA) without rupture 11/10/2019 11/28/2020 Overview: CT 06/2019: proximal abdominal aorta, 3.4 x 3.8 cm, CT 11/2020 no aneurysm documented as of this encounter (statuses as of 09/01/2021) [facility] of Past illness Narrative* Problem Noted Date Resolved Date Ectatic thoracic aorta 11/09/2020 Overview: CTA 06/2019, CTA: 11/2020 was normal. Abdominal aortic aneurysm (AAA) without rupture 11/10/2019 11/28/2020 Overview: CT 06/2019: proximal abdominal aorta, 3.4 x 3.8 cm, CT 11/2020 no aneurysm documented as of this encounter (statuses as of 09/20/2021) [facility] of Past illness Narrative* Problem Noted Date Resolved Date Ectatic thoracic aorta 11/09/2020 Overview: CTA 06/2019, CTA: 11/2020 was normal. Abdominal aortic aneurysm (AAA) without rupture 11/10/2019 11/28/2020 Overview: CT 06/2019: proximal abdominal aorta, 3.4 x 3.8 cm, CT 11/2020 no aneurysm documented as of this encounter (statuses as of 09/25/2021) [facility] of Past illness Narrative* Problem Noted Date Resolved Date Ectatic thoracic aorta 11/09/2020 Overview: CTA 06/2019, CTA: 11/2020 was normal. Abdominal aortic aneurysm (AAA) without rupture 11/10/2019 11/28/2020 Overview: CT 06/2019: proximal abdominal aorta, 3.4 x 3.8 cm, CT 11/2020 no aneurysm documented as of this encounter (statuses as of 10/22/2021) [facility] of Past illness Narrative* Problem Noted Date Resolved Date Ectatic thoracic aorta 11/09/2020 Overview: CTA 06/2019, CTA: 11/2020 was normal. Abdominal aortic aneurysm (AAA) without rupture 11/10/2019 11/28/2020 Overview: CT 06/2019: proximal abdominal aorta, 3.4 x 3.8 cm, CT 11/2020 no aneurysm documented as of this encounter (statuses as of 11/26/2021) [facility] of Past illness Narrative* Problem Noted Date Resolved Date Ectatic thoracic aorta 11/09/2020 Overview: CTA 06/2019, CTA: 11/2020 was normal. Abdominal aortic aneurysm (AAA) without rupture 11/10/2019 11/28/2020 Overview: CT 06/2019: proximal abdominal aorta, 3.4 x 3.8 cm, CT 11/2020 no aneurysm documented as of this encounter (statuses as of 12/03/2021) [facility] History of Past illness Narrative* Problem Noted Date Resolved Date Ectatic thoracic aorta 11/09/2020 Overview: CTA 06/2019, CTA: 11/2020 was normal. Abdominal aortic aneurysm (AAA) without rupture 11/10/2019 11/28/2020 Overview: CT 06/2019: proximal abdominal aorta, 3.4 x 3.8 cm, CT 11/2020 no aneurysm documented as of this encounter (statuses as of 12/05/2021) [facility] History of Past illness Narrative* Problem Noted Date Resolved Date Ectatic thoracic aorta 11/09/2020 Overview: CTA 06/2019, CTA: 11/2020 was normal. Abdominal aortic aneurysm (AAA) without rupture 11/10/2019 11/28/2020 Overview: CT 06/2019: proximal abdominal aorta, 3.4 x 3.8 cm, CT 11/2020 no aneurysm documented as of this encounter (statuses as of 12/17/2021) [facility] Diagnosis Urgency of urination- Primary [facility] [place] [facility] Diagnosis Epididymitis- Primary Orchitis and epididymitis, unspecified Hematospermia Microscopic hematuria Benign prostatic hyperplasia (BPH) with straining on urination [facility] [place] [facility]* Diagnosis Elevated PSA- Primary Elevated prostate specific antigen (PSA) Dysuria [facility] [place] [facility]* Diagnosis Well adult exam- Primary Routine general medical examination at a health care facility Essential hypertension Unspecified essential hypertension Dyslipidemia Other and unspecified hyperlipidemia Gastroesophageal reflux disease without esophagitis Esophageal reflux Rheumatoid arthritis involving multiple sites with positive rheumatoid factor (HCC) Medication management Encounter for long-term (current) use of other medications Encounter for screening for diabetes mellitus Screening for diabetes mellitus Encounter for immunization Need for other specified prophylactic vaccination against single bacterial disease Right inguinal hernia Inguinal hernia without mention of obstruction or gangrene, unilateral or unspecified, (not specified as recurrent) [facility] [place] [facility]* Diagnosis Need for vaccination- Primary Need for prophylactic vaccination and inoculation against unspecified single disease [facility] [place] [facility]* Diagnosis Left inguinal hernia- Primary Inguinal hernia without mention of obstruction or gangrene, unilateral or unspecified, (not specified as recurrent) Left inguinal hernia Inguinal hernia without mention of obstruction or gangrene, unilateral or unspecified, (not specified as recurrent) [facility] [place] [facility]* Diagnosis RAMIREZ (nonalcoholic steatohepatitis) Other chronic nonalcoholic liver disease Left inguinal hernia Inguinal hernia without mention of obstruction or gangrene, unilateral or unspecified, (not specified as recurrent) [facility] [place] [facility]* Diagnosis Left inguinal hernia- Primary Inguinal hernia without mention of obstruction or gangrene, unilateral or unspecified, (not specified as recurrent) [facility] noteNo assessment information availableWSamaritan [facility] Work Phone: Evaluation note* Diagnosis Essential hypertension- Primary Unspecified essential hypertension Dyslipidemia Other and unspecified hyperlipidemia Rheumatoid arthritis involving multiple sites with positive rheumatoid factor (HCC) Gastroesophageal reflux disease without esophagitis Esophageal reflux RAMIREZ (nonalcoholic steatohepatitis) Other chronic nonalcoholic liver disease Acute pain of both shoulders Medication management Encounter for long-term (current) use of other medications Encounter for screening for diabetes mellitus Screening for diabetes mellitus Numbness and tingling in right hand Disturbance of skin sensation [facility] Diagnosis Burning with urination- Primary Dysuria [facility] [place] [facility]* Diagnosis Dysuria- Primary Elevated prostate specific antigen (PSA) [facility] [place] [facility]* Diagnosis Cellulitis of skin- Primary Cellulitis and abscess of unspecified site [facility] [place] [facility]* Diagnosis Well adult exam- Primary Routine general medical examination at a health care facility Essential hypertension Unspecified essential hypertension Dyslipidemia Other and unspecified hyperlipidemia Gastroesophageal reflux disease without esophagitis Esophageal reflux Rheumatoid arthritis involving multiple sites with positive rheumatoid factor (HCC) RAMIREZ (nonalcoholic steatohepatitis) Other chronic nonalcoholic liver disease Numbness and tingling in right hand Disturbance of skin sensation Thrombocytopenia (HCC) Thrombocytopenia, unspecified Leukocytosis, unspecified type Current mild episode of major depressive disorder without prior episode (HCC) AK (actinic keratosis) Actinic keratosis 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 of organic origin [facility] [place] [facility]* Diagnosis Essential hypertension- Primary Unspecified essential hypertension Current mild episode of major depressive disorder without prior episode (HCC) 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 of organic origin [facility] [place] [facility]* Diagnosis Well adult exam- Primary Routine general medical examination at a health care facility Essential hypertension Unspecified essential hypertension Dyslipidemia Other and unspecified hyperlipidemia Gastroesophageal reflux disease without esophagitis Esophageal reflux Current mild episode of major depressive disorder without prior episode (HCC) Rheumatoid arthritis involving multiple sites with positive rheumatoid factor (HCC) Leukopenia, unspecified type Thrombocytopenia (HCC) Thrombocytopenia, unspecified RAMIREZ (nonalcoholic steatohepatitis) Other chronic nonalcoholic liver disease Family history of colon cancer Family history of malignant neoplasm of gastrointestinal tract Screening for colon cancer Special screening for malignant neoplasms, colon Medication management Encounter for long-term (current) use of other medications [facility] [place] [facility]* Diagnosis RAMIREZ (nonalcoholic steatohepatitis)- Primary Other chronic nonalcoholic liver disease [facility] [place] [facility]* Diagnosis Essential hypertension- Primary Unspecified essential hypertension [facility] [place] [facility]* Diagnosis Thrombocytopenia (HCC)- Primary Thrombocytopenia, unspecified [facility] [place] [facility]* Diagnosis Thrombocytopenia (HCC)- Primary Thrombocytopenia, unspecified [facility] [place] [facility]* Diagnosis Thrombocytopenia (HCC) Thrombocytopenia, unspecified [facility] [place] [facility]* Diagnosis 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 of organic origin [facility] [place] [facility]* Diagnosis Elevated prostate specific antigen (PSA)- Primary Screening for genitourinary condition Screening for other and unspecified genitourinary condition documented in this encounter [facility] note* Diagnosis Essential hypertension- Primary Unspecified essential hypertension Dyslipidemia Other and unspecified hyperlipidemia RAMIREZ (nonalcoholic steatohepatitis) Other chronic nonalcoholic liver disease Gastroesophageal reflux disease without esophagitis Esophageal reflux Rheumatoid arthritis involving multiple sites with positive rheumatoid factor (HCC) Encounter for screening for diabetes mellitus Screening for diabetes mellitus documented in this encounter [facility] note* Diagnosis Elevated prostate specific antigen (PSA)- Primary documented in this encounter [facility]* Diagnosis Elevated prostate specific antigen (PSA)- Primary [facility] [place] [facility]* Diagnosis Elevated prostate specific antigen (PSA)- Primary [facility] [place] [facility]* Diagnosis Well adult exam- Primary Routine general medical examination at a health care facility Essential hypertension Unspecified essential hypertension Dyslipidemia Other and unspecified hyperlipidemia Gastroesophageal reflux disease without esophagitis Esophageal reflux Current mild episode of major depressive disorder without prior episode Rheumatoid arthritis involving multiple sites with positive rheumatoid factor (HCC) Thrombocytopenia Thrombocytopenia, unspecified Leukopenia, unspecified type RAMIREZ (nonalcoholic steatohepatitis) Other chronic nonalcoholic liver disease Screening for colon cancer Special screening for malignant neoplasms, colon Family history of colon cancer Family history of malignant neoplasm of gastrointestinal tract Encounter for screening examination for other mental health and behavioral disorders Medication management Encounter for long-term (current) use of other medications documented in this encounter [facility] note* Diagnosis History of colonic polyps- Primary Personal history of colonic polyps Screening for colon cancer Special screening for malignant neoplasms, colon Family history of colon cancer Family history of malignant neoplasm of gastrointestinal tract documented in this encounter [facility] Discharge instructions Additional Instructions Your CT brain negative. Symptoms improving with medications. Continue medication as prescribed. Monitor symptoms. If any worsening symptoms not controlled medications follow-up for reevaluation. 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 anation Advance Directive(s) 06/13/2019 1:53 PM Documents on File Type Date Recorded 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 Planer Feeder Expl anation Advance Directive(s) 06/13/2019 1:53 PM Advance Directive Response Recorded Date/ Time Living Will No April 15 11:23am Power of Senior Front End Engineer No April 15, 2023 11:23am Reason for Referral Specialty Diagnoses / Procedures Referred By Contac t Referred To Contact General Surgery Diagnoses Right inguinal hernia Procedures CONSULT TO GENERAL SURGERY OFFICE/OUTPATIENT [facility] 60-74 MINUTES Sylvester Damian MD [address] [place] [address] Referral ID Status Reason Start Date Expiration Date Visits Requested Visits Authorized [id number] Pending Review PCP Requested Referral 11/26/2021 11/26/2022 1 1 Specialty Diagnoses / Procedures Referred By Contac t Referred To Contact Urology Diagnoses Burning with urination Procedures CONSULT TO UROLOGY OFFICE/OUTPATIENT [facility] 60-74 MINUTES Mercy Schulte PA-C [address] [place] [address] Referral ID Status Reason Start Date Expiration Date Visits Requested Visits Authorized [id number] Pending Review PCP Requested Referral 2022 2023 1 1 Specialty Diagnoses / Procedures Referred By Contac t Referred To Contact General Surgery Diagnoses Family history of colon cancer Screening for colon cancer Procedures CONSULT TO GENERAL SURGERY OFFICE/OUTPATIENT [facility] MDM 60 MINUTES Sylvester Damian MD [address] [place] [address] Referral ID Status Reason Start Date Expiration Date Visits Requested Visits Authorized [id number] Authorized PCP Requested Referral 12/14/2023 12/13/2024 1 1 Specialty Diagnoses / Procedures Referred By Contac t Referred To Contact Hematology Diagnoses Thrombocytopenia (HCC) Procedures CONSULT TO HEMATOLOGY OFFICE/OUTPATIENT [facility] 60 MINUTES Sylvester Damian MD [address] [place] [address] Referral ID Status Reason Start Date Expiration Date Visits Requested Visits Authorized [id number] Authorized PCP Requested Referral 4 04/05/2025 1 1 Summary Purpose Family History No Family History Records Found Relationship Condition Age at Onset Recorded Date/T tameka Unknown Family History?- Unknown August 02, 2017 5:41pm Family History?Cancer Unknown August 02, 2017 5:41pm Chief Complaint and Reason for Visit Chief Complaint DIZZINESS Additional Source Comments Source Comments (unrecognize d section and content) In the event this informatio n is protected by the Federal Confidentiality of Alcohol and Drug Abuse Patient Records regulations: The Federal rules restrict any use of the information to criminally investigate or prosecute any alcohol or drug abuse patient.[facility] the event this information is protected by the Federal Confidentiality of Alcohol and Drug Abuse Patient Records regulations: The Federal rules restrict any use of the information to criminally investigate or prosecute any alcohol or drug abuse patient.[facility] SystemIn the event this information is protected by the Federal Confidentiality of Alcohol and Drug Abuse Patient Records regulations: The Federal rules restrict any use of the information to criminally investigate or prosecute any alcohol or drug abuse patient.[facility] SystemIn the event this information is protected by the Federal Confidentiality of Alcohol and Drug Abuse Patient Records regulations: The Federal rules restrict any use of the information to criminally investigate or prosecute any alcohol or drug abuse patient.[facility] SystemIn the event this information is protected by the Federal Confidentiality of Alcohol and Drug Abuse Patient Records regulations: The Federal rules restrict any use of the information to criminally investigate or prosecute any alcohol or drug abuse patient.[facility] SystemIn the event this information is protected by the Federal Confidentiality of Alcohol and Drug Abuse Patient Records regulations: The Federal rules restrict any use of the information to criminally investigate or prosecute any alcohol or drug abuse patient.[facility] SystemIn the event this information is protected by the Federal Confidentiality of Alcohol and Drug Abuse Patient Records regulations: The Federal rules restrict any use of the information to criminally investigate or prosecute any alcohol or drug abuse patient.[facility] SystemIn the event this information is protected by the Federal Confidentiality of Alcohol and Drug Abuse Patient Records regulations: The Federal rules restrict any use of the information to criminally investigate or prosecute any alcohol or drug abuse patient.[facility] SystemIn the event this information is protected by the Federal Confidentiality of Alcohol and Drug Abuse Patient Records regulations: The Federal rules restrict any use of the information to criminally investigate or prosecute any alcohol or drug abuse patient.[facility] SystemIn the event this information is protected by the Federal Confidentiality of Alcohol and Drug Abuse Patient Records regulations: The Federal rules restrict any use of the information to criminally investigate or prosecute any alcohol or drug abuse patient.[facility] SystemIn the event this information is protected by the Federal Confidentiality of Alcohol and Drug Abuse Patient Records regulations: The Federal rules restrict any use of the information to criminally investigate or prosecute any alcohol or drug abuse patient.[facility] SystemIn the event this information is protected by the Federal Confidentiality of Alcohol and Drug Abuse Patient Records regulations: The Federal rules restrict any use of the information to criminally investigate or prosecute any alcohol or drug abuse patient.[facility] SystemIn the event this information is protected by the Federal Confidentiality of Alcohol and Drug Abuse Patient Records regulations: The Federal rules restrict any use of the information to criminally investigate or prosecute any alcohol or drug abuse patient.[facility] SystemIn the event this information is protected by the Federal Confidentiality of Alcohol and Drug Abuse Patient Records regulations: The Federal rules restrict any use of the information to criminally investigate or prosecute any alcohol or drug abuse patient.[facility] SystemIn the event this information is protected by the Federal Confidentiality of Alcohol and Drug Abuse Patient Records regulations: The Federal rules restrict any use of the information to criminally investigate or prosecute any alcohol or drug abuse patient.[facility] SystemIn the event this information is protected by the Federal Confidentiality of Alcohol and Drug Abuse Patient Records regulations: The Federal rules restrict any use of the information to criminally investigate or prosecute any alcohol or drug abuse patient.[facility] SystemIn the event this information is protected by the Federal Confidentiality of Alcohol and Drug Abuse Patient Records regulations: The Federal rules restrict any use of the information to criminally investigate or prosecute any alcohol or drug abuse patient.[facility] SystemIn the event this information is protected by the Federal Confidentiality of Alcohol and Drug Abuse Patient Records regulations: The Federal rules restrict any use of the information to criminally investigate or prosecute any alcohol or drug abuse patient.[facility] SystemIn the event this information is protected by the Federal Confidentiality of Alcohol and Drug Abuse Patient Records regulations: The Federal rules restrict any use of the information to criminally investigate or prosecute any alcohol or drug abuse patient.[facility] SystemIn the event this information is protected by the Federal Confidentiality of Alcohol and Drug Abuse Patient Records regulations: The Federal rules restrict any use of the information to criminally investigate or prosecute any alcohol or drug abuse patient.[facility] SystemIn the event this information is protected by the Federal Confidentiality of Alcohol and Drug Abuse Patient Records regulations: The Federal rules restrict any use of the information to criminally investigate or prosecute any alcohol or drug abuse patient.[facility] SystemIn the event this information is protected by the Federal Confidentiality of Alcohol and Drug Abuse Patient Records regulations: The Federal rules restrict any use of the information to criminally investigate or prosecute any alcohol or drug abuse patient.[facility] SystemIn the event this information is protected by the Federal Confidentiality of Alcohol and Drug Abuse Patient Records regulations: The Federal rules restrict any use of the information to criminally investigate or prosecute any alcohol or drug abuse patient.[facility] SystemIn the event this information is protected by the Federal Confidentiality of Alcohol and Drug Abuse Patient Records regulations: The Federal rules restrict any use of the information to criminally investigate or prosecute any alcohol or drug abuse patient.[facility] SystemIn the event this information is protected by the Federal Confidentiality of Alcohol and Drug Abuse Patient Records regulations: The Federal rules restrict any use of the information to criminally investigate or prosecute any alcohol or drug abuse patient.[facility] SystemIn the event this information is protected by the Federal Confidentiality of Alcohol and Drug Abuse Patient Records regulations: The Federal rules restrict any use of the information to criminally investigate or prosecute any alcohol or drug abuse patient.[facility] SystemIn the event this information is protected by the Federal Confidentiality of Alcohol and Drug Abuse Patient Records regulations: The Federal rules restrict any use of the information to criminally investigate or prosecute any alcohol or drug abuse patient.[facility] SystemIn the event this information is protected by the Federal Confidentiality of Alcohol and Drug Abuse Patient Records regulations: The Federal rules restrict any use of the information to criminally investigate or prosecute any alcohol or drug abuse patient.[facility] SystemIn the event this information is protected by the Federal Confidentiality of Alcohol and Drug Abuse Patient Records regulations: The Federal rules restrict any use of the information to criminally investigate or prosecute any alcohol or drug abuse patient.[facility] SystemIn the event this information is protected by the Federal Confidentiality of Alcohol and Drug Abuse Patient Records regulations: The Federal rules restrict any use of the information to criminally investigate or prosecute any alcohol or drug abuse patient.[facility] SystemIn the event this information is protected by the Federal Confidentiality of Alcohol and Drug Abuse Patient Records regulations: The Federal rules restrict any use of the information to criminally investigate or prosecute any alcohol or drug abuse patient.[facility] SystemIn the event this information is protected by the Federal Confidentiality of Alcohol and Drug Abuse Patient Records regulations: The Federal rules restrict any use of the information to criminally investigate or prosecute any alcohol or drug abuse patient.[facility] SystemIn the event this information is protected by the Federal Confidentiality of Alcohol and Drug Abuse Patient Records regulations: The Federal rules restrict any use of the information to criminally investigate or prosecute any alcohol or drug abuse patient.[facility] SystemIn the event this information is protected by the Federal Confidentiality of Alcohol and Drug Abuse Patient Records regulations: The Federal rules restrict any use of the information to criminally investigate or prosecute any alcohol or drug abuse patient.[facility] SystemIn the event this information is protected by the Federal Confidentiality of Alcohol and Drug Abuse Patient Records regulations: The Federal rules restrict any use of the information to criminally investigate or prosecute any alcohol or drug abuse patient.[facility] SystemIn the event this information is protected by the Federal Confidentiality of Alcohol and Drug Abuse Patient Records regulations: The Federal rules restrict any use of the information to criminally investigate or prosecute any alcohol or drug abuse patient.[facility] SystemIn the event this information is protected by the Federal Confidentiality of Alcohol and Drug Abuse Patient Records regulations: The Federal rules restrict any use of the information to criminally investigate or prosecute any alcohol or drug abuse patient.[facility] SystemIn the event this information is protected by the Federal Confidentiality of Alcohol and Drug Abuse Patient Records regulations: The Federal rules restrict any use of the information to criminally investigate or prosecute any alcohol or drug abuse patient.[facility] SystemIn the event this information is protected by the Federal Confidentiality of Alcohol and Drug Abuse Patient Records regulations: The Federal rules restrict any use of the information to criminally investigate or prosecute any alcohol or drug abuse patient.[facility] SystemIn the event this information is protected by the Federal Confidentiality of Alcohol and Drug Abuse Patient Records regulations: The Federal rules restrict any use of the information to criminally investigate or prosecute any alcohol or drug abuse patient.[facility] SystemIn the event this information is protected by the Federal Confidentiality of Alcohol and Drug Abuse Patient Records regulations: The Federal rules restrict any use of the information to criminally investigate or prosecute any alcohol or drug abuse patient.[facility] SystemIn the event this information is protected by the Federal Confidentiality of Alcohol and Drug Abuse Patient Records regulations: The Federal rules restrict any use of the information to criminally investigate or prosecute any alcohol or drug abuse patient.[facility] SystemIn the event this information is protected by the Federal Confidentiality of Alcohol and Drug Abuse Patient Records regulations: The Federal rules restrict any use of the information to criminally investigate or prosecute any alcohol or drug abuse patient.[facility] SystemIn the event this information is protected by the Federal Confidentiality of Alcohol and Drug Abuse Patient Records regulations: The Federal rules restrict any use of the information to criminally investigate or prosecute any alcohol or drug abuse patient.[facility] SystemIn the event this information is protected by the Federal Confidentiality of Alcohol and Drug Abuse Patient Records regulations: The Federal rules restrict any use of the information to criminally investigate or prosecute any alcohol or drug abuse patient.[facility] SystemIn the event this information is protected by the Federal Confidentiality of Alcohol and Drug Abuse Patient Records regulations: The Federal rules restrict any use of the information to criminally investigate or prosecute any alcohol or drug abuse patient.[facility] SystemIn the event this information is protected by the Federal Confidentiality of Alcohol and Drug Abuse Patient Records regulations: The Federal rules restrict any use of the information to criminally investigate or prosecute any alcohol or drug abuse patient.[facility] SystemIn the event this information is protected by the Federal Confidentiality of Alcohol and Drug Abuse Patient Records regulations: The Federal rules restrict any use of the information to criminally investigate or prosecute any alcohol or drug abuse patient.[facility] SystemIn the event this information is protected by the Federal Confidentiality of Alcohol and Drug Abuse Patient Records regulations: The Federal rules restrict any use of the information to criminally investigate or prosecute any alcohol or drug abuse patient.[facility] SystemIn the event this information is protected by the Federal Confidentiality of Alcohol and Drug Abuse Patient Records regulations: The Federal rules restrict any use of the information to criminally investigate or prosecute any alcohol or drug abuse patient.[facility] SystemIn the event this information is protected by the Federal Confidentiality of Alcohol and Drug Abuse Patient Records regulations: The Federal rules restrict any use of the information to criminally investigate or prosecute any alcohol or drug abuse patient.[facility] SystemIn the event this information is protected by the Federal Confidentiality of Alcohol and Drug Abuse Patient Records regulations: The Federal rules restrict any use of the information to criminally investigate or prosecute any alcohol or drug abuse patient.[facility] SystemIn the event this information is protected by the Federal Confidentiality of Alcohol and Drug Abuse Patient Records regulations: The Federal rules restrict any use of the information to criminally investigate or prosecute any alcohol or drug abuse patient.[facility] SystemIn the event this information is protected by the Federal Confidentiality of Alcohol and Drug Abuse Patient Records regulations: The Federal rules restrict any use of the information to criminally investigate or prosecute any alcohol or drug abuse patient.[facility] Reason for Visit (unrecogniz ed section and content) Reason Comments Results Reason Comments Patient Update Orders Reason Comments Urinary Urgency burning with urinati on, x2 wks Pain, Back lower back pain rate d 5 Reason Comments Follow Up UTI - was seen in ur gent care Groin Pain difficulty with urin ation and having leakage Reason Comments Follow Up Elevated PSA UTI Reason Onset Date Comments Refill Request 10/22/2021 Reason Comments Physical Reason Comments Orders Reason Comments Consult hernia Specialty Diagnoses / Procedures Referred By Corinne garcia Referred To Contact General Surgery Diagnoses Right inguinal hernia Procedures CONSULT TO GENERAL SURGERY OFFICE/OUTPATIENT NEW HIGH MDM 60-74 MINUTES Sylvester Damian MD [address] [place] [address] Referral ID Status Reason Start Date Expiration Date Visits Requested Visits Authorized [id number] Pending Review PCP Requested Referral 11/26/2021 11/26/2022 1 1 Reason Comments Follow Up Hernia repair Reason Comments 12/11 hernia repair left orr Reason Comments Follow Up 6 month- questioning tingling in fingers on right hand. Also reporting difficulty sleeping on his side due to gets pain in shoulders. Reason Comments Urinary Problem Pt reported burning, frequency x 1.5 wks. Reason Comments burning with urination Follow Up Specialty Diagnoses / Procedures Referred By Corinne garcia Referred To Contact Urology Diagnoses Burning with urination Procedures CONSULT TO UROLOGY OFFICE/OUTPATIENT [facility] 60-74 MINUTES Mercy Schulte PA-C [address] [place] [address] Referral ID Status Reason Start Date Expiration Date Visits Requested Visits Authorized [id number] Pending Review PCP Requested Referral 2022 2023 1 1 Reason Comments Consult Ortho Reason Comments insect bite left groin X 1.5 weeks Reason Comments Physical Reason Comments Recheck Reason Comments Outside imaging Reason Comments outside arthritis Reason Onset Date Comments Refill Request 08/08/2023 Reason Comments Refill Request Reason Comments Appointment Reason Comments Recheck Blood pressure Reason Comments Preventative Form Reason Comments Results Reason Comments New Patient Specialty Diagnoses / Procedures Referred By Corinne t Referred To Contact Hematology Diagnoses Thrombocytopenia (HCC) Procedures CONSULT TO HEMATOLOGY OFFICE/OUTPATIENT [facility] 60 MINUTES Sylvester Damian MD [address] [place] [address] Referral ID Status Reason Start Date Expiration Date V isits Requested Visits Authorized [id number] Closed PCP Requested Referral 04/05/2024 04/05/2025 1 1 Reason Onset Date Comments Refill Request 04/27/2024 Reason Onset Date Comments Refill Request 05/12/2024 Reason Comments Follow Up Benign Prostatic Hypertrophy Elevated PSA Reason Comments 6 Month Exam Reason Comments Results Orders Reason Onset Date Comments Refill Request 07/26/2024 Reason Onset Date Comments Refill Request 09/06/2024 Reason Onset Date Comments Results 08/12/2024 Orders 08/12/2024 Reason Onset Date Comments Refill Request 11/01/2024 Reason Comments Well Adult Reason Comments Consult colonoscopy Specialty Diagnoses / Procedures Referred By Contac t Referred To Contact General Surgery Diagnoses Screening for colon cancer Family history of colon cancer Procedures OFFICE/OUTPATIENT [facility] 60 MINUTES Sylvester Damian MD [address] [place] [address] Phone: tel: fax: Referral ID Status Reason Start Date Expiration Date V isits Requested Visits Authorized [id number] Closed PCP Requested Referral 12/14/2024 12/14/2025 1 1 Care Teams (unrecognized sec tion and content) Decator Operator Relationship Specialty Start Date End Date Sylvester Damian MD [address] [place] [address] PCP - General Family Practice 07/08/19 Decator Operator Relationship Specialty Start Date End Date Sylvester Damian MD [facility] [place] [address] PCP - General Family Practice 07/08/19 Decator Operator Relationship Specialty Start Date End Date Sylvester Damian MD [facility] [place] [address] PCP - General Family Practice 07/08/19 Decator Operator Relationship Specialty Start Date End Date Sylvester Damian MD [address] [place] [address], [place] [address] PCP - General Family Practice 07/08/19 Decator Operator Relationship Specialty Start Date End Date Sylvester Damian MD [facility] [place] [address] PCP - General Family Practice 07/08/19 Decator Operator Relationship Specialty Start Date End Date Sylvester Damian MD [address] [place] [address], [place] [address] PCP - General Family Practice 07/08/19 Decator Operator Relationship Specialty Start Date End Date Sylvester Damian MD [address] [place] [address], [place] [address] PCP - General Family Practice 07/08/19 Decator Operator Relationship Specialty Start Date End Date Sylvester Damian MD [address] [place] [address], [place] [address] PCP - General Family Practice 07/08/19 Decator Operator Relationship Specialty Start Date End Date Sylvester Damian MD [address] [place] [address], [place] [address] PCP - General Family Practice 07/08/19 Decator Operator Relationship Specialty Start Date End Date Sylvester Damian MD [address] [place] [address] PCP - General Family Practice 07/08/19 Decator Operator Relationship Specialty Start Date End Date Sylvester Damian MD [facility] [place] [address] PCP - General Family Practice 07/08/19 Decator Operator Relationship Specialty Start Date End Date Sylvester Damian MD [address] [place] [address], [place] [address] PCP - General Family Practice 07/08/19 Decator Operator Relationship Specialty Start Date End Date Sylvester Damian MD [address] [place] [address], [place] [address] PCP - General Family Medicine 07/08/19 Decator Operator Relationship Specialty Start Date End Date Sylvester Damian MD [address] [place] [address], [place] [address] PCP - General Family Medicine 07/08/19 Decator Operator Relationship Specialty Start Date End Date Sylvester Damian MD [address] [place] [address], [place] [address] PCP - General Family Medicine 07/08/19 Decator Operator Relationship Specialty Start Date End Date Sylvester Damian MD [address] [place] [address], [place] [address] PCP - General Family Medicine 07/08/19 Decator Operator Relationship Specialty Start Date End Date Sylvester Damian MD [address] [place] [address], [place] [address] PCP - General Family Medicine 07/08/19 Decator Operator Relationship Specialty Start Date End Date Sylvester Damian MD [address] [place] [address], [place] [address] PCP - General Family Medicine 07/08/19 Decator Operator Relationship Specialty Start Date End Date Sylvester Damian MD [address] [place] [address] PCP - General Family Medicine 07/08/19 Decator Operator Relationship Specialty Start Date End Date Sylvester Damian MD [address] [place] [address] PCP - General Family Medicine 07/08/19 Team Status: Active Member Role Status Dates No Primary Care Physician Family Provider Active Dr. Sylvester Damian MD Primary Care Provider Active Team Status: Inactive Member Role Status Dates Dr. Sylvester Damian MD Primary Care Provider Active Dr. Marino Edgar DO Emergency Provider Active Decator Operator Relationship Specialty Start Date End Date Sylvester Damian MD [address] [place] [address] PCP - General Family Medicine 07/08/19 Decator Operator Relationship Specialty Start Date End Date Sylvester Damian MD [address] [place] [address] PCP - General Family Medicine 07/08/19 Decator Operator Relationship Specialty Start Date End Date Sylvester Damian MD [address] [place] [address] PCP - General Family Medicine 07/08/19 Decator Operator Relationship Specialty Start Date End Date Sylvester Damian MD [address] [place] [address] PCP - General Family Medicine 07/08/19 Decator Operator Relationship Specialty Start Date End Date Sylvester Damian MD [address] [place] [address] PCP - General Family Medicine 07/08/19 Decator Operator Relationship Specialty Start Date End Date Sylvester Damian MD [address] [place] [address] PCP - General Family Medicine 07/08/19 Decator Operator Relationship Specialty Start Date End Date Sylvester Damian MD [address] [place] [address] PCP - General Family Medicine 07/08/19 Decator Operator Relationship Specialty Start Date End Date Sylvester Damian MD [address] [place] [address] PCP - General Family Medicine 07/08/19 Decator Operator Relationship Specialty Start Date End Date Sylvester Damian MD [address] [place] [address] PCP - General Family Medicine 07/08/19 Decator Operator Relationship Specialty Start Date End Date Sylvester Damian MD [address] [place] [address] PCP - General Family Medicine 07/08/19 Rossana Zapata APRN.ENGINEER FIRST ASSISTANT [address] [place] [address] Project Structural Engineer Family Medicine 04/23/24 Chanelle Talbot PA-C [address] [place] [address] Project Structural Engineer Family Medicine 04/23/24 Decator Operator Relationship Specialty Start Date End Date Sylvester Damian MD [address] [place] [address] PCP - General Family Medicine 07/08/19 Rossana Zapata APRN.ENGINEER FIRST ASSISTANT [address] [place] [address] Project Structural Engineer Family Medicine 04/23/24 Chanelle Talbot PA-C [address] [place] [address] Project Structural Engineer Family Medicine 04/23/24 Decator Operator Relationship Specialty Start Date End Date Sylvester Damian MD [address] [place] [address] PCP - General Family Medicine 07/08/19 Rossana Zapata APRN.ENGINEER FIRST ASSISTANT [address] [place] [address] Project Structural Engineer Family Medicine 04/23/24 Chanelle Talbot PA-C [address] [place] [address] Project Structural Engineer Family Medicine 04/23/24 Decator Operator Relationship Specialty Start Date End Date Sylvester Damian MD [address] [place] [address] PCP - General Family Medicine 07/08/19 Rossana Zapata, STATION WORKER.ENGINEER FIRST ASSISTANT [address] [place] [address] Project Structural Engineer Family Medicine 04/23/24 Chanelle Talbot PA-C [address] [place] [address] Project Structural Engineer Family Medicine 04/23/24 Decator Operator Relationship Specialty Start Date End Date Sylvester Damian MD [address] [place] [address] PCP - General Family Medicine 07/08/19 Rossana Zapata APRN.ENGINEER FIRST ASSISTANT [address] [place] [address] Project Structural Engineer Family Medicine 04/23/24 Chanelle Talbot PA-C [address] [place] [address] Project Structural Engineer Family Medicine 04/23/24 Decator Operator Relationship Specialty Start Date End Date Sylvester Damian MD [address] [place] [address] PCP - General Family Medicine 07/08/19 Rossana Zapata, STATION WORKER.ENGINEER FIRST ASSISTANT [address] [place] [address] Project Structural Engineer Family Medicine 04/23/24 Chanelle Talbot PA-C [address] [place] [address] Project Structural Engineer Family Medicine 04/23/24 Decator Operator Relationship Specialty Start Date End Date Sylvester Damian MD [address] [place] [address] PCP - General Family Medicine 07/08/19 Rossana Zapata APRN.ENGINEER FIRST ASSISTANT [address] [place] [address] Project Structural Engineer Family Medicine 04/23/24 Chanelle Talbot PA-C [address] [place] [address] Project Structural Engineer Family Medicine 04/23/24 Decator Operator Relationship Specialty Start Date End Date Sylvester Damian MD [address] [place] [address] PCP - General Family Medicine 07/08/19 Rossana Zapata APRN.ENGINEER FIRST ASSISTANT [address] [place] [address] Project Structural Engineer Family Medicine 04/23/24 Chanelle Talbot PA-C [address] [place] [address] Project Structural Engineer Family Medicine 04/23/24 Decator Operator Relationship Specialty Start Date End Date Sylvester Damian MD [address] [place] [address] PCP - General Family Medicine 07/08/19 Rossana Zapata APRN.ENGINEER FIRST ASSISTANT [address] [place] [address] Project Structural Engineer Family Medicine 04/23/24 10/02/24 Chanelle Talbot PA-C [address] [place] [address] Project Structural Engineer Family Medicine 04/23/24 Decator Operator Relationship Specialty Start Date End Date Sylvester Damian MD [address] [place] [address] PCP - General Family Medicine 07/08/19 Rossana Zapata, STATION WORKER.ENGINEER FIRST ASSISTANT [address] [place] [address] [facility] 10/17/24 Chanelle Talbot PA-C [address] [place], [place] [address] [facility] 10/17/24 Decator Operator Relationship Specialty Start Date End Date Sylvester Damian MD [address] [place] [address] PCP - General Family Medicine 07/08/19 Rossana Zapata, SOPHY.ENGINEER FIRST ASSISTANT [address] [place] [address] [facility] 10/17/24 Chanelle Talbot PA-C [address] [place] [address] [facility] 10/17/24 Decator Operator Relationship Specialty Start Date End Date Sylvester Damian MD [address] [place] [address] PCP - General Family Medicine 07/08/19 Rossana Zapata, STATION WORKER.ENGINEER FIRST ASSISTANT [address] [place] [address] [facility] 10/17/24 Chanelle Talbot PA-C [address] [place] [address] [facility] 10/17/24 (unrecognized sect ion and content) No Status Records FoundNo Status Records FoundNo Status Records FoundNo Status Records Found INFORMATION SOURCE (unrecogn ized section and content) DATE CREATED AUTHOR 12/26/2021 [facility] DATE CREATED AUTHOR AUTHOR'S ORGANIZ ATION 09/15/2024 [facility] DATE CREATED AUTHOR AUTHOR'S ORGANIZ ATION 01/03/2025 [facility] DATE CREATED AUTHOR AUTHOR'S ORGANIZ ATION 01/06/2025 [facility] Goals (unrecognized section and content) Goals may be documented in a n alternate sectionGoals may be documented in an alternate section FOR RECORDS PERTAINING TO PATIENTS WHO ARE OR HAVE BEEN ENROLLED IN A CHEMICAL DEPENDENCY/SUBSTANCEABUSE PROGRAM, SOME INFORMATION MAY BE OMITTED. This clinical summary was aggregated from multiple sources. Caution should be exercised in using it in the provision of clinical care. This summary normalizes information from multiple sources, and as a consequence, information in this document may materially change the coding, format and clinical context of patient data. In addition, data may be omitted in some cases. CLINICAL DECISIONS SHOULD BE BASED ON THE PRIMARY CLINICAL RECORDS. [facility] [employer] [facility]. provides no warranty or guarantee of the accuracy or completeness of information in this document.
== END | disposition home or self-care (01) ==
PROVIDERS: PCP Family Medicine; Referring Provider Family Medicine; Visit Provider Family Medicine
DX: K75.81 Nonalcoholic steatohepatitis (NASH) (principal)
CPT/HCPCS: 76705; 76981